=== PATIENT | female | born 1950 | race African-American/Black ===

== ENCOUNTER 2018-09-21 22:43 | Inpatient (IN) | payer MEDICARE, MEDICAID ==
[2018-09-21 23:59] LABS: #Eosinphils 0.1 thou/uL (0.0-0.7); #Lymphocytes 1.7 thou/uL (1.20-3.40); #Monocytes 0.6 thou/uL (0.11-0.59); #Neutrophils 2.7 thou/uL (1.40-6.50); %Basophils 0.7 % (0.0-1.0); %Eosinophils 1.8 % (0.0-10.0); %Lymphocytes 32.4 % (21.0-51.0); %Monocytes 12.3 % (0.0-10.0); %Neutrophils 52.8 % (42.0-75.0); Hemoglobin 8.6 g/dL (12.0-16.0); Mean Corpuscular HGB CONC 31.8 g/dL (32.0-36.0); Mean Corpuscular Hemoglobin 29.5 pg (27.0-31.0); Mean Corpuscular Volume 92.6 fL (78.0-98.0); Mean Platelet Volume 7.1 fL (7.4-10.4); Platelet Count 316 thou/uL (130-400); RBC Distribution Width 15.1 % (11.5-14.5); Red Blood Cell (RBC) Count 2.92 mill/uL (4.20-5.40); White Blood Cell (WBC) Count 5.2 thou/uL (4.8-10.8)
[2018-09-22 00:05] LABS: Prothrombin Time 13.2 SEC (12.0-14.7)
[2018-09-22 00:18] LABS: ALT (SGPT) 17 U/L (8-55); AST (SGOT) 20 U/L (5-34); Albumin 3.5 g/dL (3.4-4.8); Alkaline Phosphatase 116 U/L (40-150); Anion Gap 11 mmol/L (10-20); BUN (Urea Nitrogen) 27 mg/dL (9.8-20.1); Bilirubin, Total Less than 0.2 mg/dL (0.2-1.2); Calc. Creatinine Clearance 0 mL/min (70-130); Calcium 9.4 mg/dL (7.8-10.44); Carbon Dioxide 28 mmol/L (23-31); Chloride 106 mmol/L (98-107); Estimated GFR-MDRD 34; Globulin 2.9 g/dL (2.4-3.5); Glucose 189 mg/dL (80-115); Potassium 4.9 mmol/L (3.5-5.1); Protein, Total 6.4 g/dL (6.0-8.3); Sodium 140 mmol/L (136-145)
[2018-09-22] MEDS ORDERED: Fentanyl 100 MCG/2 ML VIAL ONE (00:24)
[2018-09-22] MEDS ORDERED: Ondansetron ODT 4 MG TAB SL PRN (02:13)
[2018-09-22] MEDS ORDERED: Ondansetron PF 4 MG/2 ML Vial IVP PRN (02:13)
[2018-09-22] MEDS ORDERED: Acetaminophen 325 MG TAB PO PRN (02:13)
[2018-09-22] MEDS ORDERED: Zolpidem Tartrate 5 MG TAB PO PRN (02:13)
[2018-09-22] MEDS ORDERED: Dextrose 50% Abboject 50 ML SYRINGE SLOW IVP PRN (02:15)
[2018-09-22] MEDS ORDERED: Dextrose 5% in Water 1,000 ML IV PRN (02:15)
[2018-09-22] MEDS ORDERED: HumaLOG 300 UNITS/3 ML VIAL SC PRN (02:15)
--- NOTE | 2018-09-22 02:24 | PDOC.EVN ---
Event Note - Event Note Event Note: H&P [id number]
[2018-09-22] MEDS ORDERED: Acetaminophen/Codeine 30-300mg Tablet ONE ×2 (02:49→11:46)
[2018-09-22] MEDS: Acetaminophen/Codeine 30-300mg Tablet PO PRN ×4 (02:51→23:41)
[2018-09-22 03:25] LABS: #Basophils 0.1 thou/uL (0.0-0.2); #Eosinphils 0.1 thou/uL (0.0-0.7); #Lymphocytes 1.3 thou/uL (1.20-3.40); #Monocytes 0.5 thou/uL (0.11-0.59); #Neutrophils 1.7 thou/uL (1.40-6.50); %Basophils 1.6 % (0.0-1.0); %Eosinophils 2.1 % (0.0-10.0); %Lymphocytes 35.6 % (21.0-51.0); %Neutrophils 47.7 % (42.0-75.0); Hemoglobin 7.9 g/dL (12.0-16.0); Mean Corpuscular HGB CONC 32.3 g/dL (32.0-36.0); Mean Corpuscular Hemoglobin 29.9 pg (27.0-31.0); Mean Corpuscular Volume 92.7 fL (78.0-98.0); Mean Platelet Volume 6.8 fL (7.4-10.4); Platelet Count 293 thou/uL (130-400); RBC Distribution Width 15.1 % (11.5-14.5); Red Blood Cell (RBC) Count 2.66 mill/uL (4.20-5.40); White Blood Cell (WBC) Count 3.6 thou/uL (4.8-10.8)
[2018-09-22 03:44] LABS: Anion Gap 13 mmol/L (10-20); BUN (Urea Nitrogen) 25 mg/dL (9.8-20.1); Calc. Creatinine Clearance 0 mL/min (70-130); Calcium 8.9 mg/dL (7.8-10.44); Carbon Dioxide 22 mmol/L (23-31); Chloride 111 mmol/L (98-107); Estimated GFR-MDRD 38; Glucose 178 mg/dL (80-115); Sodium 141 mmol/L (136-145)
--- NOTE | 2018-09-22 03:47 | HP ---
CHIEF COMPLAINT: GI bleed. HISTORY OF PRESENT ILLNESS: This is a 68-year-old female, being admitted to the hospital because of GI bleed. The patient's cousin at bedside. The patient states that she is very weak and sleepy and not able to provide a good history. States that she has been awake for more than 24 hours at this point in time. Per her cousin, the patient apparently walks, however, has a walker at home and has been terribly weak. The patient recently moved here from [place]. All of her physicians are in [place] and she does not know her medical history, nor is she able to provide her medical history with respect to her home medications that she is taking. The patient states that at this point in time, she feels stable, slightly better than prior. She was noted to have one bright red bloody movement in the ER. Otherwise, no other complaints or issues were noted. The patient was seen and examined in the ER, cousin at bedside. All questions answered. ALLERGIES: NO KNOWN DRUG ALLERGIES. REVIEW OF SYSTEMS: All systems reviewed. Pertinent positives in HPI, otherwise negative. FAMILY HISTORY: Diabetes, high blood pressure. SOCIAL HISTORY: Nondrinker, nonsmoker. PHYSICAL EXAMINATION: VITAL SIGNS: Blood pressure 174/118, O2 saturation 96% on room air, temperature of 98.6, pulse of 78, respiratory rate of 17. GENERAL: The patient is lying comfortably in bed. Obese. HEENT: NC/AT. PERRLA. EOMI. Oral cavity is moist and pink. NECK: Supple, mobile, nontender. Thyroid appreciated. CARDIOVASCULAR: Regular rate and rhythm. S1 and S2. No murmurs, rubs, or gallops appreciated. PULMONARY: No respiratory distress. Clear to auscultation bilaterally. ABDOMEN: Positive bowel sounds. Soft, nontender. No rebound or guarding noted. EXTREMITIES: 2+ peripheral pulses are noted. 1+ pitting edema in bilateral lower extremities noted. NEUROLOGIC: Cranial nerves 2 through 12 are intact. Alert and oriented x3. Slow in speech, however, oriented. No loss of sensory function. LABORATORY DATA: Hemoglobin is 8.6 on CBC. Coagulation panel normal. Creatinine 1.8 on basic metabolic panel, glucose of 189. ASSESSMENT: 1. Gastrointestinal bleed. 2. Diabetes mellitus, type 2. 3. Chronic kidney disease. 4. Anemia, likely secondary to gastrointestinal bleed versus chronic disease. 5. Congestive heart failure decompensation. 6. Hypertension. 7. Lower extremity edema. PLAN: At this point in time, we will admit the patient to internal medicine team. Consult to GI was placed. fluid resuscitation. We will hold off IV fluids at this point in time given hypertension that the patient is noted on vital signs. Otherwise, the patient is hemodynamically stable. N.p.o. for probable endoscopy to be needed if okay with GI. The patient wishes to remain a full code. Insulin for her diabetes. We will also consider renal consultation if the creatinine does not improve. We will provide the patient with atorvastatin as well as beta blockers for blood pressure. We will hold off on CHELSEA inhibitor given her renal insufficiency and we will hold off on aspirin given the GI bleed. Case and plan were discussed with the patient and family at length. They understand and agree with this plan. Job ID: [id number]
[2018-09-22 04:27] LABS: Troponin I Less than 0.010 ng/mL (< 0.028)
[2018-09-22] MEDS ORDERED: Metoprolol Tartrate 50 MG TAB ONE (09:03)
[2018-09-22] MEDS: Metoprolol Tartrate 50 MG TAB PO SCH ×2 (10:02→21:51)
[2018-09-22] MEDS ORDERED: hydrALAZINE 20 MG/ML VIAL ONE (11:45)
[2018-09-22] MEDS: hydrALAZINE 20 MG/ML VIAL SLOW IVP PRN (11:48)
[2018-09-22] MEDS ORDERED: Acetaminophen 325 MG TAB ONE (15:06)
[2018-09-22] MEDS ORDERED: GoLYTELY 4,000 ml Bottle PO SCH (16:00)
[2018-09-22 16:12] VITALS: BMI 44.7
--- NOTE | 2018-09-22 19:28 | CON ---
DATE OF CONSULTATION: 09/22/2018 REASON FOR CONSULTATION: GI bleed. HISTORY: Ms. Garcia is a 68-year-old female, who recently moved from [place] to [place] with a history of hypertension, diabetes, and congestive heart failure. She was doing well until yesterday when she had large amount of bloody bowel movements and rectal bleeding. Preceding to this, she had felt constipated. Three days ago, she took three Dulcolax by mouth. Two days ago, she took an additional three Dulcolax tablets. Yesterday, she had a good bowel movement, but subsequently found to have large amount of rectal bleeding. She did describe having some vague lower abdominal discomfort, but no severe abdominal pain. She denies having any nausea or vomiting. There is no fever or chills. Bleeding has subsided overnight and she only had a small amount of bloody stool so far in the ER today. She is without any orthostatic symptoms. PAST MEDICAL HISTORY: 1. Hypertension. 2. Adult-onset diabetes. 3. Chronic kidney disease. 4. Reported history of CHF. ALLERGIES: NONE. MEDICATIONS: The patient does not know what medication she is on at home. SOCIAL HISTORY: The patient recently moved from [place]. Her cousin lives in [place]. Denies any tobacco or alcohol usage. FAMILY HISTORY: Negative for any known GI problem, liver disease, or GI malignancy. REVIEW OF SYSTEMS: 10-point review of system was otherwise negative without any pertinent positives or negatives. PHYSICAL EXAMINATION: VITAL SIGNS: Temperature is 98.6, blood pressure 140/78, pulse of 82. GENERAL: She is alert, in no distress. HEENT: Shows anicteric sclerae. Oropharynx clear. NECK: Supple. CV: Shows normal S1 and S2. Regular rate and rhythm. CHEST: Shows a breath sounds. ABDOMEN: Very protuberant, but soft and nontender. No palpable mass or organomegaly but these are difficult to assess secondary to size. She has active bowel sounds. EXTREMITIES: Show 1+ pretibial and pedal edema. LABORATORY DATA: WBC is 3.6, hemoglobin 7.9 (8.6 last night at 11 o'clock), platelet count of 293. INR 1.0. Electrolytes within normal range. Creatinine is 1.62. LFTs are normal. ASSESSMENT: A 68-year-old female with evidence of GI bleeding characterized as hematochezia and rectal bleeding one day following taking oral Dulcolax. Bleeding is generally painless. Bleeding appears to have slowed down and stopped at this point. Clinical presentation is characteristic of painless diverticular bleed. Given her degree of anemia and not knowing her baseline, a brisk upper gastrointestinal bleed is also possible. RECOMMENDATIONS: 1. Continue to trend her blood count. 2. Transfuse if hemoglobin is less than 7 g/dl. 3. Will pursue bowel prep today for EGD/colonoscopy in a.m. 4. Continue to monitor blood count in the meantime. 5. GI prophylaxis with pantoprazole 40 mg IV daily for now, we may change to famotidine pending her endoscopy results. Job ID: [id number]
[2018-09-22] MEDS: Atorvastatin Calcium 40 MG TAB PO SCH (21:50)
[2018-09-22] MEDS: Insulin Glargine 5 UNITS in Pre-Filled Syringe 1 EACH SC SCH (21:51)
[2018-09-22] MEDS ORDERED: Gabapentin 300 MG CAP PO SCH (22:30)
[2018-09-23] MEDS: hydrALAZINE 20 MG/ML VIAL SLOW IVP PRN (07:50)
[2018-09-23] MEDS ORDERED: Fentanyl 100 MCG/2 ML VIAL ONE (09:35)
[2018-09-23] MEDS ORDERED: Sodium Bicarbonate 75 MEQ in Sodium Chloride 0.45% 1,000 ML IV SCH (09:45)
[2018-09-23 10:27] LABS: #Eosinphils 0.1 thou/uL (0.0-0.7); #Lymphocytes 1.2 thou/uL (1.20-3.40); #Monocytes 0.4 thou/uL (0.11-0.59); #Neutrophils 2.4 thou/uL (1.40-6.50); %Basophils 0.5 % (0.0-1.0); %Eosinophils 1.8 % (0.0-10.0); %Lymphocytes 28.9 % (21.0-51.0); %Monocytes 9.1 % (0.0-10.0); %Neutrophils 59.7 % (42.0-75.0); Hemoglobin 8.3 g/dL (12.0-16.0); Mean Corpuscular HGB CONC 31.7 g/dL (32.0-36.0); Mean Corpuscular Hemoglobin 29.1 pg (27.0-31.0); Mean Corpuscular Volume 91.8 fL (78.0-98.0); Mean Platelet Volume 6.7 fL (7.4-10.4); Platelet Count 288 thou/uL (130-400); RBC Distribution Width 15.5 % (11.5-14.5); Red Blood Cell (RBC) Count 2.86 mill/uL (4.20-5.40)
[2018-09-23 10:50] LABS: Albumin 3.3 g/dL (3.4-4.8); Anion Gap 13 mmol/L (10-20); BUN (Urea Nitrogen) 15 mg/dL (9.8-20.1); BUN/Creatinine Ratio 11.45; Calc. Creatinine Clearance 84 mL/min (70-130); Calcium 9.5 mg/dL (7.8-10.44); Carbon Dioxide 25 mmol/L (23-31); Chloride 111 mmol/L (98-107); Estimated GFR-MDRD 49; Glucose 127 mg/dL (80-115); Iron 45 ug/dL (50-170); Iron Binding Capacity, Total 241 mcg/dL (265-497); Iron Binding Capacity, Total 245 mcg/dL (265-497); Magnesium 1.4 mg/dL (1.6-2.6); Phosphorus 3.3 mg/dL (2.3-4.7); Potassium 4.5 mmol/L (3.5-5.1); Sodium 144 mmol/L (136-145)
[2018-09-23] MEDS: Metoprolol Tartrate 50 MG TAB PO SCH ×2 (12:11→20:35)
[2018-09-23] MEDS: Gabapentin 300 MG CAP PO SCH ×3 (12:11→20:35)
[2018-09-23] MEDS: Acetaminophen/Codeine 30-300mg Tablet PO PRN ×2 (12:12→18:26)
--- NOTE | 2018-09-23 12:15 | OP ---
DATE OF PROCEDURE: 09/23/2018 PREOPERATIVE DIAGNOSIS: Gastrointestinal bleed. DESCRIPTION OF PROCEDURE: Informed consent was obtained from the patient. She was sedated with total intravenous anesthesia. The bite block was placed, and the endoscope was advanced easily to the second portion of the duodenum, and retroflexion was performed in the stomach. The esophagus was normal. The GE junction was normal. The stomach was normal including retroflexed views. The pylorus and first and second portions of the duodenum were normal. The patient was turned around, and rectal exam was performed and was normal. The colonoscope was advanced to the terminal ileum without difficulty. The preparation quality was excellent. There was no residual blood in the colon. The mucosa of the terminal ileum was normal. The ileocecal valve and appendiceal orifice were clearly identified. There was a 7 mm vascular ectasia in the cecum, which bled when it was touched. This was cauterized with argon plasma coagulation. To achieve hemostasis, the wattage had to be turned up on the APC right colon settings from 10 to 25 morales. Six other small vascular ectasias were cauterized in the ascending colon. These did not appear to be significant bleeding sources. The remainder of the colonic mucosa was normal. Retroflexed views in the rectum were normal. IMPRESSION: 1. Normal esophagogastroduodenoscopy. 2. A 7-mm vascular ectasia in the cecum, which bled when it was touched, was cauterized with argon plasma coagulation with good hemostasis. This appears to be the bleeding source. 3. Six other small vascular ectasias were cauterized in the ascending colon. 4. Otherwise normal colonoscopy to the terminal ileum. RECOMMENDATIONS: 1. Advance diet. 2. Recheck her hemoglobin in the morning. 3. Hold Plavix for a week. 4. I will sign off for now, please call if GI can help. I would anticipate that she should be able to discharge home tomorrow morning. Job ID: [id number]
[2018-09-23] MEDS ORDERED: Amlodipine 10 MG TAB PO SCH (16:45)
[2018-09-23] MEDS ORDERED: Magnesium 2 GM/NS 0.9% 100 ML 4 GM in Premix Bag 1 BAG IVPB SCH (16:45)
--- NOTE | 2018-09-23 16:52 | PDOC.PN ---
- Subjective Encounter Start Date: 09/23/18 Encounter Start Time: 16:49 Subjective: Admitted with acute onset of hematochezia associated with weakness. -: Patient had taken stool softerner for constipation prior to onset. -: S/p EGD/Colonoscopy. Feeling better. Denied abd pain. - Objective Resuscitation Status - Order Detail: 09/22/18 02:13 Resuscitation Status Routine Resuscitation Status: FULL: Full Resuscitation Discussed with: patient Vital Signs & Weight: Vital Signs (12 hours) Temp Pulse Resp BP BP BP BP 09/23/18 16:00 98.3 F 66 16 203/81 H 09/23/18 15:10 75 164/70 H 159/70 H 09/23/18 11:55 79 20 169/75 H 09/23/18 07:50 79 207/79 H 09/23/18 07:46 99.2 F 70 18 207/79 H BP Pulse Ox 09/23/18 16:00 96 09/23/18 15:10 182/76 H 09/23/18 11:55 95 09/23/18 07:50 09/23/18 07:46 95 Weight Weight 277 lb 3.2 oz I&O: 09/22/18 09/23/18 09/24/18 06:59 06:59 06:59 Intake Total 680 Balance 680 Result Diagrams: 09/23/18 10:12 09/23/18 10:12 Additional Labs: Accuchecks 09/23/18 09/22/18 09/22/18 06:31 20:15 16:52 POC Glucose 109 234 H 94 Phys Exam - Physical Examination obese HEENT: PERRLA, moist MMs Neck: supple Respiratory: no rales, no rhonchi, clear to auscultation bilateral Cardiovascular: RRR soft systolic murmur noted Gastrointestinal: soft, no distention, positive bowel sounds morbidly obese Musculoskeletal: no edema, pulses present Neurological: non-focal, moves all 4 limbs Psychiatric: A&O x 3 Dx/Plan (1) Acute blood loss anemia Code(s): D62 - ACUTE POSTHEMORRHAGIC ANEMIA Status: Acute (2) Acute lower gastrointestinal bleeding Code(s): K92.2 - GASTROINTESTINAL HEMORRHAGE, UNSPECIFIED Status: Acute (3) Vascular ectasia of cecum Code(s): K55.20 - ANGIODYSPLASIA OF COLON WITHOUT HEMORRHAGE Status: Acute (4) Vascular ectasia of colon Code(s): K63.9 - DISEASE OF INTESTINE, UNSPECIFIED Status: Acute (5) Morbid obesity Code(s): E66.01 - MORBID (SEVERE) OBESITY DUE TO EXCESS CALORIES Status: Acute (6) Diabetes mellitus Code(s): E11.9 - TYPE 2 DIABETES MELLITUS WITHOUT COMPLICATIONS Status: Acute (7) KAYDEN (acute kidney injury) Code(s): N17.9 - ACUTE KIDNEY FAILURE, UNSPECIFIED Status: Acute (8) CKD (chronic kidney disease) Code(s): N18.9 - CHRONIC KIDNEY DISEASE, UNSPECIFIED Status: Acute (9) HTN (hypertension) Code(s): I10 - ESSENTIAL (PRIMARY) HYPERTENSION Status: Acute (10) Hyperchloremic metabolic acidosis Code(s): E87.2 - ACIDOSIS Status: Acute (11) Physical deconditioning Code(s): R53.81 - OTHER MALAISE Status: Acute - Plan add amlodipine to metoprolol to get better BP control -: Substitute NS with bicarb containing infusion. -: Monitor H/H and renal function. -: Advance diet as tolerated. -: Consult PT/OT * .
[2018-09-23] MEDS ORDERED: Magnesium Sulfate 4 GM in Sodium Chloride 0.9% 250 ML 250 ML IVPB SCH (17:00)
[2018-09-23] MEDS: HumaLOG 300 UNITS/3 ML VIAL SC PRN (17:16)
[2018-09-23] MEDS: Atorvastatin Calcium 40 MG TAB PO SCH (20:35)
[2018-09-23] MEDS: Insulin Glargine 5 UNITS in Pre-Filled Syringe 1 EACH SC SCH (20:35)
[2018-09-24] MEDS: hydrALAZINE 20 MG/ML VIAL SLOW IVP PRN (00:52)
[2018-09-24] MEDS ORDERED: hydrALAZINE 20 MG/ML VIAL SLOW IVP PRN (00:53)
[2018-09-24] MEDS: Acetaminophen/Codeine 30-300mg Tablet PO PRN ×2 (00:53→08:57)
[2018-09-24 07:29] LABS: #Eosinphils 0.1 thou/uL (0.0-0.7); #Lymphocytes 1.1 thou/uL (1.20-3.40); #Monocytes 0.6 thou/uL (0.11-0.59); #Neutrophils 3.5 thou/uL (1.40-6.50); %Basophils 0.3 % (0.0-1.0); %Eosinophils 1.6 % (0.0-10.0); %Lymphocytes 20.9 % (21.0-51.0); %Monocytes 11.3 % (0.0-10.0); Hemoglobin 8.7 g/dL (12.0-16.0); Mean Corpuscular HGB CONC 32.6 g/dL (32.0-36.0); Mean Corpuscular Hemoglobin 29.6 pg (27.0-31.0); Mean Corpuscular Volume 90.6 fL (78.0-98.0); Platelet Count 321 thou/uL (130-400); RBC Distribution Width 15.4 % (11.5-14.5); Red Blood Cell (RBC) Count 2.95 mill/uL (4.20-5.40); White Blood Cell (WBC) Count 5.3 thou/uL (4.8-10.8)
[2018-09-24 07:43] LABS: Anion Gap 12 mmol/L (10-20); BUN (Urea Nitrogen) 14 mg/dL (9.8-20.1); Calc. Creatinine Clearance 79 mL/min (70-130); Calcium 9.3 mg/dL (7.8-10.44); Carbon Dioxide 24 mmol/L (23-31); Chloride 110 mmol/L (98-107); Estimated GFR-MDRD 46; Glucose 147 mg/dL (80-115); Magnesium 2.4 mg/dL (1.6-2.6); Potassium 4.2 mmol/L (3.5-5.1); Sodium 142 mmol/L (136-145)
[2018-09-24] MEDS: Metoprolol Tartrate 50 MG TAB PO SCH (08:57)
[2018-09-24] MEDS: Gabapentin 300 MG CAP PO SCH (08:57)
[2018-09-24] MEDS: HumaLOG 300 UNITS/3 ML VIAL SC PRN ×2 (08:58→11:39)
[2018-09-24] MEDS ORDERED: Amlodipine 10 MG TAB PO SCH (09:00)
[2018-09-24] MEDS ORDERED: Polyethylene Glycol 3350 17 GM Packet PO SCH (09:00)
[2018-09-24 11:27] VITALS: BP 157/67; TEMP 98.5
--- NOTE | 2018-09-24 12:11 | DIS ---
DATE OF ADMISSION: 09/22/2018 DATE OF DISCHARGE: 09/24/2018 DISCHARGE DIAGNOSES: 1. Acute lower gastrointestinal bleeding. 2. Acute blood loss anemia. 3. Vascular ectasia of cecum. 4. Vascular ectasia of colon. 5. Morbid obesity. 6. Acute kidney injury. 7. Chronic kidney disease stage 3. 8. Type 2 diabetes mellitus. 9. Hypertension. 10. Hyperchloremic metabolic acidosis. 11. Physical deconditioning. CONSULT: Gastroenterology. HOSPITAL COURSE: A 68-year-old obese female with past medical history significant for diabetes and hypertension, who is on aspirin and Plavix, admitted due to acute onset of bloody stools associated with generalized weakness. The patient was resuscitated with IV fluid and subsequently was seen by GI. She was prepared and subsequently had upper and lower endoscopy. Upper endoscopy was unremarkable. However, a colonoscopy showed vascular malformation/ectasia of the cecum, which was noted to be bleeding when touched and this was felt to be the source of the bleeding. This was treated with argon laser coagulation. The patient also was noted to have 6 other vascular ectasias in the ascending colon. She was treated with cauterization. The patient was monitored subsequently, and hemoglobin and hematocrit remained stable. She however also was found to have acute kidney injury associated with hyperchloremic metabolic acidosis, which was treated with bicarb containing IV fluid with improvement. The patient also was noted to have physical deconditioning and was seen by Physical therapy. Home health and home PT were recommended. The patient remained hemodynamically stable and was subsequently discharged home. She was noted to have uncontrolled high blood pressure. Hence, amlodipine was added to her usual medications. PROCEDURE PERFORMED: During this hospitalization; 1. Esophagogastroduodenoscopy. 2. Colonoscopy. PHYSICAL EXAMINATION: VITAL SIGNS: Temperature 98.4, pulse 64, respiratory rate 18, SpO2 of 95% on room air, blood pressure 156/69. GENERAL: Obese female, in no obvious distress. Afebrile, anicteric, acyanotic. HEENT: Normocephalic, atraumatic. Pupils are equal and reacting to light. CARDIOVASCULAR: Regular rhythm and rate with normal heart sounds 1 and 2. RESPIRATORY: Good air entry bilaterally with no obvious crackle or rhonchi. GI: Abdomen is obese, soft, nontender, nondistended with normal bowel sounds. EXTREMITIES: Grossly normal looking, atraumatic. No edema or erythema. NEUROLOGIC: Conscious, alert, oriented x3 with appropriate mental status. Cranial nerves 2 through 12 are intact. The patient is ambulant with a walker. CONDITION AT DISCHARGE: Improved and stable. DISCHARGE FOLLOWUP INSTRUCTIONS: 1. The patient was instructed to hold aspirin and Plavix for one week. She is to restart aspirin and Plavix on October 01, 2018. 2. The patient was instructed to follow with the PCP within 1 week of discharge. 3. Discharge took 38 minutes. Job ID: [id number]
[2018-09-25] MEDS ORDERED: Losartan 25 MG TAB PO SCH (09:00)
[2018-09-25] MEDS ORDERED: Non-Formulary Item 1 EACH (Losartan Potassium [Cozaar] 100 MG) PO SCH (09:00)
--- NOTE | 2018-09-25 15:42 | EKG ---
Test Reason : RECTAL BLEED Blood Pressure : / mmHG Vent. Rate : 060 BPM Atrial Rate : 060 BPM P-R Int : 136 ms QRS Dur : 124 ms QT Int : 466 ms P-R-T Axes : 011 016 031 degrees QTc Int : 466 ms Normal sinus rhythm Right bundle branch block Abnormal ECG Confirmed by LESVIA COBB M.D. ([id number]), make up editor VAISHALI FERNÁNDEZ ([id number]) on 09/25/2018 3:42:16 PM Referred By: Confirmed By:LESVIA COBB M.D.
--- NOTE | 2018-09-25 15:45 | EKG ---
Test Reason : Blood Pressure : / mmHG Vent. Rate : 062 BPM Atrial Rate : 062 BPM P-R Int : 130 ms QRS Dur : 120 ms QT Int : 468 ms P-R-T Axes : -01 008 040 degrees QTc Int : 475 ms Normal sinus rhythm Right bundle branch block Abnormal ECG Confirmed by JORDYN Pires, LESVIA ([id number]), scientific publications editor VAISHALI FERNÁNDEZ ([id number]) on 09/25/2018 3:45:25 PM Referred By: Confirmed By:LESVIA COBB M.D.
== END 2018-09-24 14:55 | disposition home health service (06) | DRG 378 ==
LOC: ERS 22:43 → ERHOLD 09-22 00:10 → 2SE 09-22 15:11
PROVIDERS: ADMIT Internal Medicine; ATTEND Internal Medicine
PROC: 0W3P8ZZ Control Bleeding in Gastrointestinal Tract, Via Natural or Artificial Opening Endoscopic (ICD-10-PCS; principal; 2018-09-23)
PROC: 0DJ08ZZ Inspection of Upper Intestinal Tract, Via Natural or Artificial Opening Endoscopic (ICD-10-PCS; 2018-09-23)
DX: K55.21 Angiodysplasia of colon with hemorrhage (principal); D62 Acute posthemorrhagic anemia; N17.9 Acute kidney failure, unspecified; Z68.41 Body mass index [BMI] 40.0-44.9, adult; E11.22 Type 2 diabetes mellitus with diabetic chronic kidney disease; I12.9 Hypertensive chronic kidney disease with stage 1 through stage 4 chronic kidney disease, or unspecified chronic kidney disease; N18.9 Chronic kidney disease, unspecified; E66.01 Morbid (severe) obesity due to excess calories; E78.2 Mixed hyperlipidemia; R53.81 Other malaise
CPT/HCPCS: 36415; 36416; 80048; 80053; 80069; 83540; 83550; 83735; 84484; 85025; 85610; 85730; 86850; 86900; 86901; 93005; 93010; J0360; J1825; J3010; J3475; J7050

== ENCOUNTER 2018-10-25 16:23 | Inpatient (IN) | payer MEDICARE, MEDICAID ==
[2018-10-25] MEDS ORDERED: Ketorolac Tromethamine 30 MG/ML VIAL ONE (17:17)
--- NOTE | 2018-10-25 19:14 | ULT ---
BILATERAL VENOUS ULTRASOUND OF BOTH LOWER EXTREMITIES: History: History of bilateral lower extremity DVT, currently being treated with aspirin. Patient is e xperiencing bilateral lower extremity pain. TECHNIQUE: Singh scale, color Doppler, and vascular duplex with spectral analysis was performed of the deep venou s structures of both lower extremities. The common femoral vein, superficial femoral vein, popliteal vein, posterior tibial vein, proximal greater saphenous, and proximal profunda veins were assessed bi laterally. Comparison: None. FINDINGS: There is diminished compression and flow involving the mid to distal femoral veins bilaterally. There is also diminished flow and compressibility involving the left profunda femoral vein. There is appro priate flow and compression seen in the left common femoral vein, right profunda femoral vein, bilate ral greater saphenous veins, popliteal vein and posterior tibial veins. IMPRESSION: 1. Findings of partially occlusive thrombus within the mid to distal femoral veins bilaterally. 2. Partial thrombus within the left profunda femoral vein. POS: BH
--- NOTE | 2018-10-25 19:45 | PDOC.FPRHP ---
- History of Present Illness Chief Complaint: leg pain History of Present Illness: 68F with pmh of CVA presents for 2 day history of "funny feeling legs" pt was found in ED to have bilateral DVT. Pt reports she has possible history of previous DVT or some other vascular issue back in 2017 and then again in August 2018. She is unsure of what the issue was, what her medication was supposed to be or if she had proper follow up. She is overall a poor historian. She has never had a PE. Of note pt is on plavix and ASA for hx of CVA and was also hospitalized in late september with lower GIB and had upper and lower scopes done showing Cecal and ascending colon vascular malformations/ectasia which were treated with photocoag and cauterization therapy. Pt was discharge home after stable h/h's with plan of holding plavix and ASA for 1 week. ED Course: bilateral LE US- bilateral DVTs in femoral veins, worse on L. Lovenox administered in ED - Allergies/Adverse Reactions Allergies Allergy/AdvReac Type Severity Reaction Status Date / Time pregabalin [From Lyrica] AdvReac made pain Verified 10/25/18 22:25 worse - Home Medications Medication Instructions Recorded Confirmed Type RX: Acetaminophen With Codeine 1 tablet PO Q6HR PRN 09/22/18 10/25/18 History [Tylenol with Codeine #3] RX: Albuterol Sulfate [Proair HFA] 1 puff INH Q4HR PRN 09/22/18 10/25/18 History RX: Aspirin [Maite Chewable 81 mg PO HS 09/22/18 10/25/18 History Aspirin] RX: Atorvastatin Calcium 80 mg PO HS 09/22/18 10/25/18 History RX: Carvedilol [Coreg] 12.5 mg PO BID 09/22/18 10/25/18 History RX: Citalopram Hydrobromide 40 mg PO DAILY 09/22/18 10/25/18 History [CeleXA] RX: Clopidogrel Bisulfate [Plavix] 75 mg PO DAILY 09/22/18 10/25/18 History RX: Docusate Sodium 100 mg PO DAILY 09/22/18 10/25/18 History RX: Famotidine 20 mg PO HS 09/22/18 10/25/18 History RX: Fluticasone/Salmeterol [Advair 2 inh IH BID 09/22/18 10/25/18 History HFA 45 Inhaler] RX: Gabapentin 300 mg PO TID 09/22/18 10/25/18 History RX: LORazepam [Lorazepam] 1 mg PO HS 09/22/18 10/25/18 History RX: Losartan Potassium [Cozaar] 100 mg PO DAILY 09/22/18 10/25/18 History RX: Nitroglycerin [Nitrostat] 0.4 mg SL Q5MIN 09/22/18 10/25/18 History RX: Oxybutynin [Ditropan] 5 mg PO HS 09/22/18 10/25/18 History RX: glipiZIDE [Glipizide] 5 mg PO DAILY 09/22/18 10/25/18 History RX: metFORMIN [Glucophage] 1,000 mg PO BID-WM 09/22/18 10/25/18 History RX: traZODone HCl [Trazodone HCl] 50 mg PO HS 09/22/18 10/25/18 History RX: Amlodipine [Norvasc] 10 mg PO DAILY #30 tab 09/24/18 10/25/18 Rx RX: Polyethylene Glycol 3350 17 gm PO DAILY #30 pk 09/24/18 10/25/18 Rx [Miralax] Ergocalciferol (Vitamin D2) 50,000 unit PO Q7DAYS 10/25/18 10/25/18 History [Vitamin D2] Ferrous Sulfate [Iron] 1 tablet PO DAILY 10/25/18 10/25/18 History Furosemide [Lasix] 40 mg PO DAILY 10/25/18 10/25/18 History Pregabalin [Lyrica] 50 mg PO TID 10/25/18 10/25/18 History RX: Potassium Chloride 10 meq PO DAILY 10/25/18 10/25/18 History hydrALAZINE HCl [Hydralazine HCl] 50 mg PO BID 10/25/18 10/25/18 History - History PMHx: DM2, HTN, PAD, HLD, Peripheral neuropathy, normocytic anemia 2/2 acute blood loss, Hx of CVA PSHx: unspecified leg surgery FHx: ND, DM Social: smoked until 2 months ago, smoked about 1 pack a week since her 30s. No drug use. No alcohol use in several years, social use prior to that. - Review of Systems General: denies: fever/chills, fatigue Eyes: denies: eye pain, vision changes ENT: denies: nasal congestion, rhinorrhea Respiratory: denies: congestion, shortness of breath Cardiovascular: denies: chest pain, palpitation Gastrointestinal: denies: nausea, vomiting Genitourinary: denies: incontinence, dysuria Skin: denies: lesions, jaundice Musculoskeletal: reports: pain. denies: tenderness Neurological: denies: syncope, seizure Psychological: denies: anxiety, depression - Vital signs BP: 160/70, Pulse: 87, Resp: 18, Temp: 98.5 (Oral), Pain: 9, O2 sat: 97 on Room Air, Time: 10/25/2018 16:58. weight 125kg - Physical Exam Constitutional: NAD, awake, alert and oriented, well developed HEENT: EOMI, grossly normal vision, grossly normal hearing Neck: supple, trachea midline Chest: no-tender to palpation Heart: RRR, normal S1/S2 -Heart: LE bilaterally mild edema with no pitting, symetric in appearance Lungs: CTAB, no respiratory distress Abdomen: soft, non-tender Musculoskeletal: normal structure, normal tone Neurological: no focal deficit, normal sensation Skin: no rash/lesions, good turgor Heme/Lymphatic: no purpura, no petechia Psychiatric: normal mood and affect, good judgment and insight FMR H&P: Results - Labs Result Diagrams: 10/26/18 04:42 10/26/18 04:42 FMR H&P: A/P - Problem List (1) DVT (deep venous thrombosis) Current Visit: Yes Status: Acute Code(s): I82.409 - ACUTE EMBOLISM AND THOMBOS UNSP DEEP VN UNSP LOWER EXTREMITY (2) Diabetes mellitus Current Visit: No Status: Acute Code(s): E11.9 - TYPE 2 DIABETES MELLITUS WITHOUT COMPLICATIONS (3) HTN (hypertension) Current Visit: No Status: Acute Code(s): I10 - ESSENTIAL (PRIMARY) HYPERTENSION (4) Morbid obesity Current Visit: No Status: Acute Code(s): E66.01 - MORBID (SEVERE) OBESITY DUE TO EXCESS CALORIES (5) Physical deconditioning Current Visit: No Status: Acute Code(s): R53.81 - OTHER MALAISE (6) Vascular ectasia of cecum Current Visit: No Status: Acute Code(s): K55.20 - ANGIODYSPLASIA OF COLON WITHOUT HEMORRHAGE (7) Vascular ectasia of colon Current Visit: No Status: Acute Code(s): K63.9 - DISEASE OF INTESTINE, UNSPECIFIED - Plan Bilateral LE DVT A- Likely provoked from limited mobility 2/2 morbid obesity and recent hospitalization, pt has already received one dose of lovenox in ED but should not be coagulated further until GI has deemed it ok considering pts recent hospitalization for GIB. Pt currently not showing s/s of PE P- recommend GI consult in AM, plan for either anticoagulation vs. IVC filter placement Hx of LGIB A- H/h stable from last visit, pt denies further GIB since discharge P- will hold further anticoag for now bloodloss KAYDEN A- Cr elevated since last hospitalization following LGIB P- will start on maintenance fluids for the night and recheck kidney function in AM CHF A- pt not in acute exacerbation P- monitor respiratory status, will likely DC IVF in AM HTN -home meds HLD -home meds DM -home meds, accuchecks, SSI PVD -home meds COPD -home meds CODE: FULL FMR H&P: Upper Level - Pertinent history 68 yr old female with PMH of recent GI bleed Her legs were feeling funny and tightening up yesterday. No recent long road trip. Patient reports a hx of DVT and they placed a "baloon." On further review of her records in the clinic, it appears she is likely referencing her severe PAD. No chest pain, SOB, abdominal pain. Hospitalized in 09/2018 for GI bleed. see note below. No blood in her stool since her DC in 09/2018. Pertinent GI bleeding hx in 09/22/2018 7 mm vascular ectasia in cecum that was cauterized. 6 other small non bleeding ectasias that were not cauterized. normal EGD - Pertinent findings Gen: lying in bed, sits up occasionally and puts to her legs in pain Heart: RRR, no M/R/G Lungs: CTAB no wheezes, rhales, rhonchi Abd: Soft, non tender Ext: No LE swelling. Neuro: no focal neurologic deficits - Plan Date/Time: 10/25/181942 I, [Renata Muehr], have evaluated this patient and agree with findings/plan as outlined by customer operations intern resident. Pertinent changes/additions are listed here. Bilateral LE DVT -?provoked vs nonprovoked- she is relatively immobile -Unclear if she has a hx of DVT but appears to be referencing PVD -in light of recent GI bleed, will need to determine if anticoagulation would be an option or if a filter would be better option -consult GI to help in decision of anticoagulation -received therapeutic lovenox in ER, will hold on further doses of this until GI recs. KAYDEN on CKD -will give 500 ml fluid bolus -recheck BMP in AM DM -10/15/2018: Hgb A1C was 7.0 -cont home glipizide and metformin PVD HX of CVA -previously on plavix and ASA -if anticoagulation continued, will likely need to cont only 1 antiplatelet, hold for now Chronic pain -constant hand and leg burning pain for which she has been seen by pain mgmt in [place], [place] -records reviewed -restart home pain meds PRN -recently started on lyrica but patient reports this makes the pain worse, will hold it. Code: Full PCP: Dr. Onesimo FITZPATRICK ppx: none Addendum - Attending - Attending Attestation Date/Time: 10/26/18 [id number] I personally evaluated the patient and discussed the management with Dr. Oneal on 10/25/2018 I agree with the History, Examination, Assessment and Plan documented above with any addition or exceptions noted below- 68 yo female with h/o PAD, CAD, HTN , DM, HLD, peripheral neuropathy, and recent lower GI bleed secondary to vascular ectasias presented c/o funny feeling in her legs. States that the feeling began night prior to admission. has noted some increased lswelling in her legs for the last 2 weeks. Denies any CP, SOB. States that she did go on a trip to [place] about 1 week ago by car. PMH/PSH/All/Meds/SH reviewed and agree with residents documentation. Afebrile BP 206/84 P70 RR 16 98% RA Exam repeated by me and agree with residents findings. Labs: WBC=3.8, H/H=8.6/26.2, QJ=005, K=4.3, VI=305, CO2=22, BUN/Cr=34/2.04, Pppr=020, Venogram- partially occlusive thrombus within mid to distal femiral veins b/l. A/P: 1) B/L DVT- Admit to tele. Given 1 dose of lovenox in ER. Treatment complicated by recent h/ o GI bleed. Will contact GI regarding further anticoagulation versus placement of IVC filter. 2 Anemia- stable; continue to monitor. 3) HTN- resume home medications. 4) DM-continue home medications, 5) KAYDEN- Cr above baseline; will give fluids overnight and recheck.
[2018-10-25] MEDS ORDERED: Morphine 4 MG/ML VIAL ONE (19:46)
[2018-10-25] MEDS ORDERED: Ondansetron PF 4 MG/2 ML Vial ONE (19:47)
[2018-10-25 20:10] LABS: #Basophils 0.1 thou/uL (0.0-0.2); #Eosinphils 0.1 thou/uL (0.0-0.7); #Lymphocytes 1.4 thou/uL (1.20-3.40); #Monocytes 0.5 thou/uL (0.11-0.59); #Neutrophils 1.9 thou/uL (1.40-6.50); %Basophils 1.3 % (0.0-1.0); %Eosinophils 2.4 % (0.0-10.0); %Lymphocytes 35.4 % (21.0-51.0); %Monocytes 12.1 % (0.0-10.0); %Neutrophils 48.7 % (42.0-75.0); Hemoglobin 8.6 g/dL (12.0-16.0); Mean Corpuscular HGB CONC 32.6 g/dL (32.0-36.0); Mean Corpuscular Hemoglobin 29.7 pg (27.0-31.0); Mean Platelet Volume 7.6 fL (7.4-10.4); Platelet Count 211 thou/uL (130-400); RBC Distribution Width 15.4 % (11.5-14.5); Red Blood Cell (RBC) Count 2.88 mill/uL (4.20-5.40); White Blood Cell (WBC) Count 3.8 thou/uL (4.8-10.8)
[2018-10-25 20:21] LABS: PTT 33.2 SEC (22.9-36.1); Prothrombin Time 13.1 SEC (12.0-14.7)
[2018-10-25 20:31] LABS: ALT (SGPT) 14 U/L (8-55); AST (SGOT) 17 U/L (5-34); Albumin 3.3 g/dL (3.4-4.8); Alkaline Phosphatase 94 U/L (40-150); Anion Gap 14 mmol/L (10-20); BUN (Urea Nitrogen) 34 mg/dL (9.8-20.1); Bilirubin, Total 0.2 mg/dL (0.2-1.2); Calc. Creatinine Clearance 0 mL/min (70-130); Calcium 9.4 mg/dL (7.8-10.44); Carbon Dioxide 22 mmol/L (23-31); Chloride 108 mmol/L (98-107); Estimated GFR-MDRD 29; Globulin 2.9 g/dL (2.4-3.5); Glucose 194 mg/dL (80-115); Potassium 4.3 mmol/L (3.5-5.1); Protein, Total 6.2 g/dL (6.0-8.3); Sodium 140 mmol/L (136-145)
[2018-10-25] MEDS ORDERED: Enoxaparin Sodium 30 MG/0.3 ML SYRINGE ONE ×2 (20:34→20:35)
[2018-10-25] MEDS ORDERED: Enoxaparin Sodium 100 MG/ML SYRINGE ONE (20:34)
--- NOTE | 2018-10-25 21:44 | RAD ---
KUB: 10/25/2018 COMPARISON: None HISTORY: Evaluate for IVC filter FINDINGS: There is a right hip arthroplasty. There is a dorsal column stimulator present with leads o verlying the mid thoracic spine. Clips in the right upper quadrant suggest prior cholecystectomy. No IVC filter noted. IMPRESSION: No IVC filter noted.
[2018-10-25] MEDS ORDERED: Ondansetron PF 4 MG/2 ML Vial IVP PRN (22:15)
[2018-10-25] MEDS ORDERED: Calcium Carbonate 500 MG ChewTAB PO PRN (22:15)
[2018-10-25 22:31] VITALS: BMI 45.3
[2018-10-25] MEDS ORDERED: PROVENTIL INHALER 6.7 G (200 INHALATIONS) INH PRN (22:48)
[2018-10-25] MEDS ORDERED: hydrALAZINE 25 MG TAB PO SCH (23:45)
[2018-10-25] MEDS ORDERED: Carvedilol 6.25 MG TAB PO SCH (23:45)
[2018-10-26] MEDS: Lactated Ringer's 1,000 ML IV SCH ×4 (01:23→21:29)
[2018-10-26] MEDS: Labetalol HCl 100 MG/20 ML VIAL SLOW IVP PRN ×2 (01:23→05:35)
[2018-10-26] MEDS: Acetaminophen 325 MG TAB PO PRN (01:24)
[2018-10-26] MEDS ORDERED: Dextrose 5% in Water 1,000 ML IV PRN ×2 (02:57→03:21)
[2018-10-26] MEDS ORDERED: Dextrose 50% Abboject 50 ML SYRINGE SLOW IVP PRN ×2 (02:57→03:21)
[2018-10-26] MEDS ORDERED: HumaLOG 300 UNITS/3 ML VIAL SC PRN (03:21)
[2018-10-26 05:03] LABS: #Eosinphils 0.1 thou/uL (0.0-0.7); #Lymphocytes 1.3 thou/uL (1.20-3.40); #Monocytes 0.5 thou/uL (0.11-0.59); %Basophils 0.8 % (0.0-1.0); %Eosinophils 3.3 % (0.0-10.0); %Lymphocytes 32.3 % (21.0-51.0); %Monocytes 11.6 % (0.0-10.0); %Neutrophils 52.1 % (42.0-75.0); Hemoglobin 8.9 g/dL (12.0-16.0); Mean Corpuscular HGB CONC 32.7 g/dL (32.0-36.0); Mean Corpuscular Hemoglobin 29.9 pg (27.0-31.0); Mean Corpuscular Volume 91.5 fL (78.0-98.0); Mean Platelet Volume 7.7 fL (7.4-10.4); Platelet Count 210 thou/uL (130-400); RBC Distribution Width 15.5 % (11.5-14.5); Red Blood Cell (RBC) Count 2.96 mill/uL (4.20-5.40); White Blood Cell (WBC) Count 3.9 thou/uL (4.8-10.8)
[2018-10-26 05:13] LABS: Anion Gap 16 mmol/L (10-20); BUN (Urea Nitrogen) 33 mg/dL (9.8-20.1); Calc. Creatinine Clearance 63 mL/min (70-130); Calcium 9.1 mg/dL (7.8-10.44); Carbon Dioxide 19 mmol/L (23-31); Chloride 109 mmol/L (98-107); Estimated GFR-MDRD 35; Glucose 191 mg/dL (80-115); Potassium 4.6 mmol/L (3.5-5.1); Sodium 139 mmol/L (136-145)
[2018-10-26] MEDS: HumaLOG 300 UNITS/3 ML VIAL SC PRN ×3 (05:35→17:32)
[2018-10-26] MEDS: Amlodipine 10 MG TAB PO SCH (06:34)
--- NOTE | 2018-10-26 06:50 | PDOC.FM ---
- Subjective Subjective: Still endorses pain in lower legs, worse in left. Denies GI bleeding. No chest pain or problems breathing. - Objective MAR Reviewed: Yes Vital Signs & Weight: Vital Signs (12 hours) Temp Pulse Resp BP BP BP Pulse Ox 10/26/18 05:35 66 207/84 H 10/26/18 05:20 207/84 H 10/26/18 03:06 98.8 F 66 18 203/79 H 95 10/26/18 01:23 77 223/90 H 10/26/18 00:57 77 223/90 H 10/25/18 23:47 206/84 H 10/25/18 23:46 72 206/84 H 10/25/18 21:58 98.2 F 70 16 206/84 H 98 Weight Weight 127.459 kg I&O: 10/24/18 10/25/18 10/26/18 06:59 06:59 06:59 Intake Total 1275 Output Total 1550 Balance -275 Result Diagrams: 10/26/18 04:42 10/26/18 04:42 Phys Exam - Physical Examination Constitutional: NAD obese HEENT: PERRLA, moist MMs Respiratory: no wheezing, clear to auscultation bilateral Cardiovascular: RRR, no significant murmur trace edema in BLE, pain with palpation in both calves L worse than R Neurological: non-focal, moves all 4 limbs Psychiatric: A&O x 3 Dx/Plan (1) History of lower GI bleeding Code(s): Z87.19 - PERSONAL HISTORY OF OTHER DISEASES OF THE DIGESTIVE SYSTEM Status: Acute (2) Anemia Code(s): D64.9 - ANEMIA, UNSPECIFIED Status: Acute (3) DVT (deep venous thrombosis) Code(s): I82.409 - ACUTE EMBOLISM AND THOMBOS UNSP DEEP VN UNSP LOWER EXTREMITY Status: Acute (4) KAYDEN (acute kidney injury) Code(s): N17.9 - ACUTE KIDNEY FAILURE, UNSPECIFIED Status: Acute (5) CKD (chronic kidney disease) Code(s): N18.9 - CHRONIC KIDNEY DISEASE, UNSPECIFIED Status: Acute (6) HTN (hypertension) Code(s): I10 - ESSENTIAL (PRIMARY) HYPERTENSION Status: Acute - Plan Plan: 68 yo F with hx of CVA and lower GI bleed 2/2 vascular ectasias admitted for b/ l LE DVT #Bilateral LE DVT -Provoked vs. unprovoked. Meets several hypercoaguable risk factors including morbid obesity, 30pack year, stasis -S/p 160mg of lovenox in ED. However recent lower GIB from vascular ecstasias s/ p cauterization, will consult GI for further recs -In addition pt has been on DUAP for prior CVA, will hold both for now -Consider IVC filter in this patient #KAYDEN vs CKD -Cr improved, mildly elevated around baselie -Continue mIVF #DM2 -10/15/2018: Hgb A1C was 7.0 -hold meds due to NPO status, sliding scale to cover -hold home metformin due to renal function #HX of CVA -previously on plavix and ASA -if anticoagulation continued, will likely need to continue only 1 antiplatelet , hold for now #Chronic pain -constant hand and leg burning pain for which she has been seen by pain mgmt in [place], [place] -records reviewed -restart home pain meds PRN -recently started on lyrica but patient reports this makes the pain worse, will hold it. Code: Full PCP: Dr. Onesimo FITZPATRICK ppx: none
[2018-10-26] MEDS: Mometasone/Formoterol 120 PUFF INHALER INH SCH ×2 (07:00→18:07)
[2018-10-26] MEDS ORDERED: glipiZIDE 5 MG TAB PO SCH (07:30)
[2018-10-26] MEDS ORDERED: Ferrous Sulfate 325 MG TAB PO SCH (08:00)
[2018-10-26 08:53] LABS: Iron 50 ug/dL (50-170); Iron Binding Capacity, Total 246 mcg/dL (265-497)
[2018-10-26] MEDS ORDERED: SALMETEROL IH SCH (09:00)
[2018-10-26] MEDS ORDERED: FLUTICASONE IH SCH (09:00)
[2018-10-26] MEDS ORDERED: hydrALAZINE 20 MG/ML VIAL SLOW IVP PRN (09:08)
[2018-10-26] MEDS: Carvedilol 6.25 MG TAB PO SCH ×2 (09:18→19:33)
[2018-10-26] MEDS: Citalopram 20 MG TAB PO SCH (09:18)
[2018-10-26] MEDS: Furosemide 40 MG TAB PO SCH (09:18)
[2018-10-26] MEDS: metFORMIN 500 MG TAB PO SCH ×2 (09:19→17:32)
[2018-10-26] MEDS: Gabapentin 300 MG CAP PO SCH ×3 (09:19→19:31)
[2018-10-26] MEDS: Losartan 25 MG TAB PO SCH (09:19)
[2018-10-26] MEDS: Potassium Chloride 10 MEQ TAB PO SCH (09:19)
[2018-10-26] MEDS: Ferrous Sulfate 325 MG TAB PO SCH (09:23)
[2018-10-26] MEDS: hydrALAZINE 25 MG TAB PO SCH ×2 (10:10→19:32)
[2018-10-26] MEDS: Acetaminophen/Codeine 30-300mg Tablet PO PRN ×2 (10:18→17:32)
--- NOTE | 2018-10-26 14:49 | PRG ---
DATE OF SERVICE: 10/26/2018 Ms. Garcia is a 68-year-old obese, black female, who was admitted with bilateral DVT. Of note is the fact that she had a GI bleed approximately three weeks ago due to ectasias in her colon, which was subsequently cauterized. She has had no bleeding since. We are going to ask GI for an opinion regarding the use of anticoagulants in this patient, but I believe we should proceed with anticoagulation until we get input from the GI Service. Job ID: [id number]
[2018-10-26] MEDS ORDERED: Enoxaparin Sodium 100 MG/ML SYRINGE SC SCH (16:30)
[2018-10-26 16:35] LABS: Folate (Folic Acid) 7.7 ng/mL (7.0-31.4)
[2018-10-26] MEDS: Atorvastatin Calcium 40 MG TAB PO SCH (19:31)
[2018-10-26] MEDS: Enoxaparin Sodium 100 MG/ML SYRINGE SC SCH (19:31)
[2018-10-26] MEDS: Enoxaparin Sodium 30 MG/0.3 ML SYRINGE SC SCH (19:31)
[2018-10-26] MEDS: Lorazepam 1 MG TAB PO SCH (19:32)
[2018-10-26] MEDS: Oxybutynin 5 MG TAB PO SCH (19:32)
[2018-10-26] MEDS: traZODone HCl 50 MG TAB PO SCH (19:32)
[2018-10-26] MEDS: Famotidine 20 MG TAB PO SCH (19:33)
--- NOTE | 2018-10-26 22:10 | CON ---
DATE OF CONSULTATION: 10/26/2018 CHIEF COMPLAINT: Leg swelling and pain. HISTORY OF PRESENT ILLNESS: Ms. Garcia is a 68-year-old woman who came in through the emergency room yesterday with bilateral lower extremity swelling and tenderness and pain. She had a venogram performed that showed bilateral DVTs in the lower extremities. She had a partially occlusive thrombus within the mid to distal femoral veins bilaterally and a partial thrombus within the left profunda femoral vein. GI was consulted because she needs anticoagulation for the DVTs. However, she was just admitted a month ago with GI bleed. I performed EGD and colonoscopy for Ms. Garcia on 09/23/2018. The upper endoscopy was normal. She had a suspicious, moderately large vascular ectasia in the cecum which was cauterized. Six other small vascular ectasias were cauterized in the ascending colon. The colonoscopy was otherwise normal to the terminal ileum. She has had no further overt bleeding since the colonoscopy, however, her hemoglobin has not returned to normal and her discharge hemoglobin on 09/24/2018 was 8.7, and her admission hemoglobin yesterday was 8.6. Today, her hemoglobin is 8.9. She has had no nausea or vomiting. She had a brief episode of lower abdominal discomfort this morning, but no abdominal pain otherwise over the last month. No diarrhea, constipation, or red stools or black stools. She lives alone and she relies on her family members to help with decisions. PAST MEDICAL HISTORY: Recent GI bleed from vascular ectasias, cauterized in the colon, diabetes mellitus, hypertension, hyperlipidemia, stroke. PAST SURGICAL HISTORY: Leg surgery, upper and lower endoscopy. FAMILY HISTORY: Negative for GI malignancies. SOCIAL HISTORY: No alcohol, tobacco, or drugs. ALLERGIES: NO KNOWN DRUG ALLERGIES. MEDICATIONS: 1. Aspirin. 2. Atorvastatin. 3. Carvedilol. 4. Plavix. 5. Docusate. 6. Famotidine. 7. Gabapentin. 8. Fluticasone. 9. Lorazepam. 10. Losartan. 11. Nitroglycerin. 12. Oxybutynin. 13. Glipizide. 14. Metformin. 15. Trazodone. 16. Amlodipine. 17. Polyethylene glycol. 18. Ergocalciferol. 19. Iron sulfate. 20. Lyrica. 21. Furosemide. 22. Hydralazine. 23. Potassium. REVIEW OF SYSTEMS: Negative x10 systems reviewed except as stated in the history of present illness. PHYSICAL EXAMINATION: VITAL SIGNS: Temperature 98.1, pulse 64, blood pressure 217/89, repeat was 148/63. GENERAL: She is in no acute distress. Awake and alert. HEENT: Her eyes have no scleral icterus. Oropharynx is clear without lesions. No cervical or supraclavicular lymphadenopathy. LUNGS: Clear to auscultation bilaterally. HEART: Regular rate and rhythm without murmur. ABDOMEN: Soft, nontender, and nondistended. Bowel sounds are present. EXTREMITIES: 1+ lower extremity edema with significant tenderness throughout. Cranial nerves are grossly intact. LABORATORY DATA: White blood cell count 3.9, hemoglobin 8.9, platelets 210. INR 1.0. Creatinine 1.76. Iron 50, TIBC 246, ferritin 221. IMPRESSION: 1. Bilateral lower extremity deep venous thrombosis. 2. 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 She has had no further overt bleeding since then. However, her anemia is not corrected. She has been on Plavix. 3. Anemia, possibly of chronic gastrointestinal blood loss versus multifactorial anemia. Her iron studies are more consistent with an anemia of chronic disease. RECOMMENDATIONS: 1. Given that she has had no overt bleeding over the last month since cautery of the colonic AVMs and severe need for anticoagulation with bilateral DVTs, I think it would be reasonable to give a trial of anticoagulation with a short-acting agent either enoxaparin or Eliquis and if she shows signs of overt bleeding, then this can be immediately discontinued and instead she could receive IVC filter. 2. If she is started on anticoagulation, I would recommend watching her for at least 2 or 3 days to see how she tolerates the anticoagulation. 3. If she has any bleeding with anticoagulation, then inferior vena cava filter could be placed. 4. I discussed this plan with the patient and her family. I will sign off for now, please call if GI can be of assistance. Job ID: [id number]
[2018-10-27] MEDS: Lactated Ringer's 1,000 ML IV SCH (05:30)
[2018-10-27] MEDS ORDERED: Labetalol HCl 100 MG/20 ML VIAL SLOW IVP PRN (07:23)
[2018-10-27] MEDS: Mometasone/Formoterol 120 PUFF INHALER INH SCH ×2 (07:23→18:52)
--- NOTE | 2018-10-27 07:27 | PDOC.FM ---
- Subjective Subjective: NAEO. Patient denies ORONA, chest pain, respiratory issues. - Objective MAR Reviewed: Yes Vital Signs & Weight: Vital Signs (12 hours) Temp Pulse Resp BP BP BP Pulse Ox 10/27/18 04:05 98.9 F 69 14 168/68 H 96 10/27/18 02:16 96 10/27/18 00:00 180/72 H 10/26/18 20:31 178/66 H 10/26/18 19:33 221/87 H 10/26/18 19:32 65 221/87 H 10/26/18 19:25 97.5 F L 63 16 221/87 H 92 L Weight Weight 126.643 kg I&O: 10/26/18 10/27/18 10/28/18 06:59 06:59 06:59 Intake Total 1275 3750 Output Total 1550 2800 Balance -275 950 Result Diagrams: 10/27/18 07:32 10/27/18 07:32 Phys Exam - Physical Examination Constitutional: NAD HEENT: PERRLA, moist MMs, sclera anicteric Respiratory: no wheezing, clear to auscultation bilateral Cardiovascular: RRR, no significant murmur Gastrointestinal: soft, non-tender Neurological: non-focal, moves all 4 limbs Psychiatric: normal affect, A&O x 3 Dx/Plan (1) DVT (deep venous thrombosis) Code(s): I82.409 - ACUTE EMBOLISM AND THOMBOS UNSP DEEP VN UNSP LOWER EXTREMITY Status: Acute (2) History of lower GI bleeding Code(s): Z87.19 - PERSONAL HISTORY OF OTHER DISEASES OF THE DIGESTIVE SYSTEM Status: Acute (3) Anemia Code(s): D64.9 - ANEMIA, UNSPECIFIED Status: Acute (4) KAYDEN (acute kidney injury) Code(s): N17.9 - ACUTE KIDNEY FAILURE, UNSPECIFIED Status: Acute (5) CKD (chronic kidney disease) Code(s): N18.9 - CHRONIC KIDNEY DISEASE, UNSPECIFIED Status: Acute (6) HTN (hypertension) Code(s): I10 - ESSENTIAL (PRIMARY) HYPERTENSION Status: Acute - Plan Plan: 68 yo F with hx of CVA and lower GI bleed 2/2 vascular ectasias admitted for b/ l LE DVT #Bilateral LE DVT -Provoked vs. unprovoked. Meets several hypercoaguable risk factors including morbid obesity, 30pack year, stasis -S/p 160mg of lovenox in ED. However recent lower GIB from vascular ecstasias s/ p cauterization, will consult GI for further recs -Holding both plavix, will discuss starting ASA -Dr. Lepe approved going ahead with anticoagulation -Consider IVC filter in this patient if experiences GI bleed with lovenox #KAYDEN vs CKD -Cr improved, mildly elevated around baselie -Continue mIVF #DM2 -10/15/2018: Hgb A1C was 7.0 -hold meds due to NPO status, sliding scale to cover -hold home metformin due to renal function #HTN -Home hydralazine -PRN hydralzine for SBP >180 #HX of CVA -previously on plavix and ASA -if anticoagulation continued, will likely need to continue only 1 antiplatelet , hold for now #Chronic pain -constant hand and leg burning pain for which she has been seen by pain mgmt in [place], [place] -records reviewed -restart home pain meds PRN -recently started on lyrica but patient reports this makes the pain worse, will hold it. Code: Full PCP: Dr. Onesimo FITZPATRICK ppx: none Dispo: Continue to th. lovenox BID while continuing to monitor respiratory status and clinical signs of bleeding. Will discuss with Dr. Walker
[2018-10-27 07:38] LABS: #Eosinphils 0.1 thou/uL (0.0-0.7); #Lymphocytes 0.9 thou/uL (1.20-3.40); #Monocytes 0.4 thou/uL (0.11-0.59); #Neutrophils 2.1 thou/uL (1.40-6.50); %Basophils 0.8 % (0.0-1.0); %Eosinophils 4.2 % (0.0-10.0); %Lymphocytes 24.9 % (21.0-51.0); %Neutrophils 60.1 % (42.0-75.0); Hemoglobin 9.1 g/dL (12.0-16.0); Mean Corpuscular HGB CONC 31.4 g/dL (32.0-36.0); Mean Corpuscular Hemoglobin 28.8 pg (27.0-31.0); Mean Corpuscular Volume 91.7 fL (78.0-98.0); Mean Platelet Volume 7.5 fL (7.4-10.4); Platelet Count 235 thou/uL (130-400); RBC Distribution Width 15.5 % (11.5-14.5); Red Blood Cell (RBC) Count 3.17 mill/uL (4.20-5.40); White Blood Cell (WBC) Count 3.5 thou/uL (4.8-10.8)
[2018-10-27 08:02] LABS: Anion Gap 11 mmol/L (10-20); BUN (Urea Nitrogen) 26 mg/dL (9.8-20.1); Calc. Creatinine Clearance 66 mL/min (70-130); Calcium 9.4 mg/dL (7.8-10.44); Carbon Dioxide 24 mmol/L (23-31); Chloride 112 mmol/L (98-107); Estimated GFR-MDRD 37; Glucose 150 mg/dL (80-115); Sodium 142 mmol/L (136-145)
[2018-10-27] MEDS: Potassium Chloride 10 MEQ TAB PO SCH (08:06)
[2018-10-27] MEDS: Furosemide 40 MG TAB PO SCH (08:06)
[2018-10-27] MEDS: Gabapentin 300 MG CAP PO SCH ×3 (08:07→19:22)
[2018-10-27] MEDS: Ferrous Sulfate 325 MG TAB PO SCH (08:07)
[2018-10-27] MEDS: Losartan 25 MG TAB PO SCH (08:07)
[2018-10-27] MEDS: metFORMIN 500 MG TAB PO SCH ×2 (08:07→15:55)
[2018-10-27] MEDS: hydrALAZINE 25 MG TAB PO SCH ×4 (08:07→19:23)
[2018-10-27] MEDS: Citalopram 20 MG TAB PO SCH (08:08)
[2018-10-27] MEDS: Enoxaparin Sodium 30 MG/0.3 ML SYRINGE SC SCH (08:08)
[2018-10-27] MEDS: Carvedilol 6.25 MG TAB PO SCH ×2 (08:08→19:22)
[2018-10-27] MEDS: Amlodipine 10 MG TAB PO SCH (08:08)
[2018-10-27] MEDS: Enoxaparin Sodium 100 MG/ML SYRINGE SC SCH (08:08)
[2018-10-27] MEDS: HumaLOG 300 UNITS/3 ML VIAL SC PRN (11:16)
[2018-10-27 11:49] LABS: Factor VIII Test 282.6 % ACTIVE (56-157); HEX PHOS LA Tube 1 64.5 SEC; Hexagonal Phospholipid Neut 8.5 SEC (0-8.0); Protein C Activity 149 % (78-152)
[2018-10-27 11:55] LABS: Prothrombin Time 12.8 SEC (12.0-14.7)
[2018-10-27 11:56] LABS: PTT 38.3 SEC (22.9-36.1)
--- NOTE | 2018-10-27 12:16 | PRG ---
DATE OF SERVICE: 10/27/2018 Ms. Garcia is sitting quietly in her chair, in no distress. We really appreciate the input from Dr. Lepe. We planned to initiate treatment with Eliquis later this afternoon. We will need to watch the patient for 2 to 3 days to make certain there is no bleeding given her prior history. We also discussed with the pharmacy team the use of Eliquis in the morbidly obese and they suggested that we follow factor Xa levels. Job ID: [id number]
[2018-10-27] MEDS: Acetaminophen 325 MG TAB PO PRN (14:20)
[2018-10-27] MEDS: Acetaminophen/Codeine 30-300mg Tablet PO PRN (15:55)
[2018-10-27 16:53] LABS: Cardiolipin IgG Ab Less than 0.5 GPL-U/mL (<10 Negative); Cardiolipin IgM Ab 1.6 MPL-U/mL (<10 Negative); EliA APS New Method **** NEW METHOD ****
[2018-10-27] MEDS: Atorvastatin Calcium 40 MG TAB PO SCH (19:21)
[2018-10-27] MEDS: traZODone HCl 50 MG TAB PO SCH (19:21)
[2018-10-27] MEDS: Lorazepam 1 MG TAB PO SCH (19:22)
[2018-10-27] MEDS: Famotidine 20 MG TAB PO SCH (19:22)
[2018-10-27] MEDS: Oxybutynin 5 MG TAB PO SCH (19:22)
[2018-10-27] MEDS: Apixaban 5 MG TAB PO SCH (19:22)
[2018-10-28 04:57] LABS: #Eosinphils 0.1 thou/uL (0.0-0.7); #Lymphocytes 1.1 thou/uL (1.20-3.40); #Monocytes 0.5 thou/uL (0.11-0.59); #Neutrophils 2.1 thou/uL (1.40-6.50); %Basophils 0.7 % (0.0-1.0); %Eosinophils 3.6 % (0.0-10.0); %Lymphocytes 28.5 % (21.0-51.0); %Monocytes 13.4 % (0.0-10.0); %Neutrophils 53.9 % (42.0-75.0); Hemoglobin 9.2 g/dL (12.0-16.0); Mean Corpuscular Volume 90.9 fL (78.0-98.0); Mean Platelet Volume 7.7 fL (7.4-10.4); Platelet Count 231 thou/uL (130-400); RBC Distribution Width 15.4 % (11.5-14.5); Red Blood Cell (RBC) Count 3.05 mill/uL (4.20-5.40)
[2018-10-28 05:21] LABS: Anion Gap 11 mmol/L (10-20); BUN (Urea Nitrogen) 26 mg/dL (9.8-20.1); Calc. Creatinine Clearance 67 mL/min (70-130); Calcium 9.4 mg/dL (7.8-10.44); Carbon Dioxide 26 mmol/L (23-31); Chloride 109 mmol/L (98-107); Estimated GFR-MDRD 37; Glucose 135 mg/dL (80-115); Potassium 4.2 mmol/L (3.5-5.1); Sodium 142 mmol/L (136-145)
[2018-10-28] MEDS: Amlodipine 10 MG TAB PO SCH (05:39)
[2018-10-28] MEDS: hydrALAZINE 25 MG TAB PO SCH ×3 (05:40→12:03)
[2018-10-28] MEDS: Mometasone/Formoterol 120 PUFF INHALER INH SCH (06:40)
--- NOTE | 2018-10-28 06:52 | PDOC.FM ---
- Subjective Subjective: elevated BPs, no sx, pain or anxiety per patient. No ORONA, CP, SOB. No breathin gproblems. Agreess to paying for [employer] and home health. Ready to go home. - Objective Vital Signs & Weight: Vital Signs (12 hours) Temp Pulse Resp BP BP BP Pulse Ox 10/28/18 06:40 86 16 10/28/18 05:40 89 184/76 H 10/28/18 05:39 89 184/76 H 10/28/18 03:07 98.8 F 89 14 186/78 H 192/78 H 94 L 10/28/18 00:26 76 182/74 H 10/27/18 23:55 182/74 H 10/27/18 19:23 76 180/66 H 10/27/18 19:22 180/60 H 10/27/18 19:14 98.4 F 76 20 180/66 H 96 Weight Weight 124.829 kg I&O: 10/26/18 10/27/18 10/28/18 06:59 06:59 06:59 Intake Total 1275 3750 360 Output Total 1550 2800 4500 Balance -275 950 -4140 Result Diagrams: 10/28/18 04:27 10/28/18 04:27 Phys Exam - Physical Examination Constitutional: NAD HEENT: PERRLA Neck: no nodes, full ROM Respiratory: no wheezing, clear to auscultation bilateral Cardiovascular: RRR, no significant murmur Neurological: non-focal, moves all 4 limbs Dx/Plan (1) DVT (deep venous thrombosis) Code(s): I82.409 - ACUTE EMBOLISM AND THOMBOS UNSP DEEP VN UNSP LOWER EXTREMITY Status: Acute (2) History of lower GI bleeding Code(s): Z87.19 - PERSONAL HISTORY OF OTHER DISEASES OF THE DIGESTIVE SYSTEM Status: Acute (3) Anemia Code(s): D64.9 - ANEMIA, UNSPECIFIED Status: Acute (4) KAYDEN (acute kidney injury) Code(s): N17.9 - ACUTE KIDNEY FAILURE, UNSPECIFIED Status: Acute (5) CKD (chronic kidney disease) Code(s): N18.9 - CHRONIC KIDNEY DISEASE, UNSPECIFIED Status: Acute (6) HTN (hypertension) Code(s): I10 - ESSENTIAL (PRIMARY) HYPERTENSION Status: Acute - Plan Plan: 68 yo F with hx of CVA and lower GI bleed 2/2 vascular ectasias admitted for b/ l LE DVT #Bilateral LE DVT -Provoked vs. unprovoked. Meets several hypercoaguable risk factors including morbid obesity, 30pack year, stasis -S/p 160mg of lovenox in ED. However recent lower GIB from vascular ecstasias s/ p cauterization -Holding both plavix, will discuss starting ASA -Dr. Lepe approved going ahead with anticoagulation -Thus far no signs of bleeding after starting eliquis -Consider IVC filter in this patient if experiences GI bleed with lovenox #KAYDEN vs CKD -Cr stable, at baseline #DM2 -10/15/2018: Hgb A1C was 7.0 -sliding scale to cover -home metformin #HTN -Home hydralazine, cozaar, amlodipine, coreg, lasix -BPs still elevated -PRN hydralzine for SBP >180 #HX of CVA -previously on plavix and ASA -if anticoagulation continued, will likely need to continue only 1 antiplatelet , hold for now #Chronic pain -constant hand and leg burning pain for which she has been seen by pain mgmt in [place], [place] -records reviewed -restart home pain meds PRN -recently started on lyrica but patient reports this makes the pain worse, will hold it. Code: Full PCP: Dr. Onesimo FITZPATRICK ppx: none Dispo: 1) DVT-continue eliquis 2)Hx of GI bleed-none thus far, H/H stable, continue monitoring. 3) Pending approval 3)HTN-will workup for secondary causes with renin/aldosterone. Will get renal U/S, have f/u in outpt for BP monitoring. D/c home todya. Discussed w/ pt monitoring for bleeding, come to ED if that happens. Will discuss with Dr. Walker
[2018-10-28] MEDS: Ferrous Sulfate 325 MG TAB PO SCH (07:56)
[2018-10-28] MEDS: Furosemide 40 MG TAB PO SCH (07:56)
[2018-10-28] MEDS: Losartan 25 MG TAB PO SCH (07:56)
[2018-10-28] MEDS: Citalopram 20 MG TAB PO SCH (07:57)
[2018-10-28] MEDS: Potassium Chloride 10 MEQ TAB PO SCH (07:58)
[2018-10-28] MEDS: Gabapentin 300 MG CAP PO SCH ×2 (08:00→15:00)
[2018-10-28] MEDS: Acetaminophen/Codeine 30-300mg Tablet PO PRN (08:00)
[2018-10-28] MEDS: metFORMIN 500 MG TAB PO SCH (08:00)
[2018-10-28] MEDS: Carvedilol 6.25 MG TAB PO SCH (08:00)
[2018-10-28] MEDS: Apixaban 5 MG TAB PO SCH (08:01)
[2018-10-28] MEDS ORDERED: Aspirin 81 mg Enteric Coated Tablet PO SCH (09:00)
--- NOTE | 2018-10-28 09:15 | ULT ---
Exam: Bilateral renal ultrasound and renal Doppler HISTORY: Uncontrolled hypertension COMPARISON: None TECHNIQUE: Grayscale, color flow, Doppler imaging and spectral wave form analysis performed the [facility] FINDINGS: Right kidney: Normal cortical echotexture. No hydronephrosis. Right kidney measures 10.4 x 5.6 x 6.3 cm. Anechoic focus in the right renal cortex measuring 1.5 cm, compatible with a cyst. Limited evaluation left kidney. There does appear to be left renal cortical thinning. No obvious hydr onephrosis. Left kidney measures 5.6 x 6.1 x 12.0 cm. Renal Doppler: Left renal artery Doppler cannot be assessed Right renal artery has a peak systolic velocity of 63.7 cm/s. Aorta has a peak systolic velocity of 22.8 cm/s Right renal artery to aorta ratio is 2.8 Right renal arcuate arteries in the next: Upper pole 0.92, midpole 0.82, lower pole 0.87 IMPRESSION: 1. Suboptimal evaluation of the left kidney due to body habitus. Left renal Doppler cannot be perform ed. 2. Arcuate artery resistive index involving the right kidney, as above.
--- NOTE | 2018-10-28 09:54 | ULT ---
HISTORY: Uncontrolled hypertension COMPARISON: None TECHNIQUE: Grayscale, color flow, Doppler imaging and spectral wave form analysis performed the [facility] FINDINGS: Right kidney: Normal cortical echotexture. No hydronephrosis. Right kidney measures 10.4 x 5.6 x 6.3 cm. Anechoic focus in the right renal cortex measuring 1.5 cm, compatible with a cyst. Limited evaluation left kidney. There does appear to be left renal cortical thinning. No obvious hydr onephrosis. Left kidney measures 5.6 x 6.1 x 12.0 cm. Renal Doppler: Left renal artery Doppler cannot be assessed Right renal artery has a peak systolic velocity of 63.7 cm/s. Aorta has a peak systolic velocity of 22.8 cm/s Right renal artery to aorta ratio is 2.8 Right renal arcuate arteries in the next: Upper pole 0.92, midpole 0.82, lower pole 0.87 IMPRESSION: 1. Suboptimal evaluation of the left kidney due to body habitus. Left renal Doppler cannot be perform ed. 2. Arcuate artery resistive index involving the right kidney, as above. Transcribed Date/Time: 10/28/2018 2:13 PM
[2018-10-28 11:25] VITALS: BP 143/61; TEMP 98.3
[2018-10-28] MEDS: HumaLOG 300 UNITS/3 ML VIAL SC PRN (12:04)
--- NOTE | 2018-10-28 14:06 | PRG ---
DATE OF SERVICE: Ms. Garcia has had no bleeding since starting the Eliquis. She will be discharged today initially on Eliquis 10 b.i.d., reducing to 5 b.i.d. after 1 week. She is instructed to have close followup with her PCP and our clinic to again continue monitoring her very [id number] blood pressure. Job ID: [id number]
--- NOTE | 2018-10-29 05:13 | DIS ---
DATE OF ADMISSION: 10/25/2018 DATE OF DISCHARGE: 10/28/2018 ADMITTING ATTENDING: Miya Abdi MD. DISCHARGE ATTENDING: Efrain Mann MD. RESIDENT: Cherry Spencer, PGY-1 CONSULTS: Gastroenterology, Dr. Lepe. IMAGIN. Renal ultrasound: Artery resistive index involving the right kidney, suboptimal evaluation of the left kidney due to body habitus. 2. Venogram of both lower extremities: Partially occlusive thrombus within the mid to distal femoral veins bilaterally. PRIMARY DIAGNOSES: 1. Bilateral femoral deep venous thrombosis, unprovoked versus provoked. 2. Recent history of lower gastrointestinal bleed secondary to vascular ectasias, status post cauterization. SECONDARY DIAGNOSES: 1. History of cerebrovascular accident. 2. Hypertension. 3. Hyperlipidemia. 4. Diabetes type 2. 5. Peripheral arterial disease. 6. Prerenal acute kidney injury, resolved. 7. Congestive heart failure. 8. Chronic obstructive pulmonary disease. DISCHARGE MEDICATIONS: 1. Eliquis 10 mg p.o. b.i.d. for 10 days. 2. Eliquis 5 mg p.o. b.i.d. 3. Hydralazine 50 mg p.o. q.i.d. 4. Aspirin 81 mg p.o. daily. 5. Tums. 6. Iron 325 one tablet p.o. daily. 7. Lasix 40 mg p.o. daily. 8. Potassium chloride 10 mEq p.o. daily. 9. MiraLAX. 10. Norvasc 10 mg p.o. daily. 11. ProAir one puff inhaled q.4 hours p.r.n. for short of breath or wheezing. 12. Oxybutynin 5 mg p.o. at bedtime. 13. Nitrostat 0.4 mg p.o. sublingual q.5 minutes for chest pain. 14. Docusate. 15. Cozaar 100 mg p.o. daily. 16. Glipizide 5 mg p.o. daily. 17. Glucophage 1000 mg p.o. b.i.d. with meals. 18. Famotidine 20 mg p.o. at bedtime. 19. Trazodone 50 mg p.o. at bedtime. 20. Tylenol with codeine 1 tablet p.o. q.6 hours. 21. Lorazepam 1 mg p.o. at bedtime. 22. Atorvastatin 80 mg p.o. at bedtime. 23. Gabapentin 300 mg p.o. t.i.d. 24. Coreg 12.5 mg p.o. b.i.d. 25. Celexa 40 mg p.o. daily. 26. Advair inhaler 2 inhalations b.i.d. 27. Omeprazole 40 mg p.o. daily. DISCONTINUED MEDICATIONS: Plavix 75 mg p.o. daily. HISTORY OF PRESENT ILLNESS/HOSPITAL COURSE: Jose is a 68-year-old female with a recent history of lower GI bleed, who presented to the ER for funny feelings in her lower legs. Venous duplex was positive for bilateral femoral DVTs. The patient was given a dose of therapeutic Lovenox and admitted for treatment of DVTs. CT was negative for PEs. The patient was non-hypoxic on room air. The patient's management was complicated by the fact that she had a recent lower GI bleed secondary to vascular ectasias 1 month ago. She underwent colonoscopy that showed 6 to 7 vascular ectasias in the ascending colon and cecum which were resolved with electrocauterization. She was given instructions by the healthcare insurance sales agent to hold her aspirin and Plavix for 1 week in which the patient did so and then resumed it. She is on both of them for history of CVA. The patient is a poor historian and is unable to tell us exactly when she was placed on them or how long she was instructed to continue them. It is unsure as to whether or not patient's DVT was provoked or unprovoked since the patient told us that she has received treatment for DVT. However, upon chart review, it seems as if she may have been confused and then possibly referencing balloon dilation for peripheral vascular disease. Thus, the patient was worked up for hypercoagulable causes in which these labs are pending. Her risk factors include obesity and stasis. GI was consulted in regard to anticoagulation management and they recommended starting her on long-term anticoagulation and monitoring for clinical signs of bleeding. The patient denies any GI bleeding since her colonoscopy and her hemoglobin remained stable throughout hospitalization. Decision was made to primarily discontinue Plavix, but okay to resume a baby aspirin in addition to the Eliquis. The patient was discharged with home health to aid her in daily activities. All these instructions were explained to patient and attempts have been made to reach patient's cousin per request. She was instructed to continue monitoring for signs of GI bleeding, which were explained in person. The patient indicated understanding of this and agreed to follow up at our clinic on Thursday with Dr. Echols. It was discussed should patient start experiencing GI bleeding to discontinue anticoagulation. At this point, discussion for an IVC filter to be had. The patient experienced high blood pressures in the systolic 200s. Blood pressure was mildly improved with increasing her home hydralazine dose. Currently, she is on 5 different antihypertensives. Renal bilateral ultrasound was possibly positive for renal vascular involvement. She was instructed to follow up with this in the outpatient setting as this could explain her resistant hypertension. Currently, aldosterone and renin lab levels are pending. Consider starting the patient on HCTZ. DISPOSITION: Stable. DISCHARGE INSTRUCTIONS: 1. Location: Home with home health. 2. Diet: Heart healthy, diabetic diet. 3. Activity: As tolerated. 4. Followup: Please follow up with PCP, Dr. Echols, in 1 to 2 days. 5. Please continue monitoring for active signs of GI bleeding such as dark stool or bright red blood. 6. Please consider obtaining an anti-Xa level as the patient is morbidly obese and there have been adequate studies on the NOACs and so there could be concern for insufficient anticoagulation. 7. Please follow up for blood pressure management in light of renal artery Doppler findings. Currently pending aldosterone and renin levels. 8. Please follow up for DARRICK testing as this could also be secondary cause of elevated and resistant hypertension. Job ID: [id number]
[2018-10-30 15:09] LABS: Renin Activity 0.291 ng/mL/hr (0.167-5.380)
[2018-11-01] MEDS ORDERED: Ergocalciferol 1.25 MG(50,000 UNITS) CAP PO SCH (09:00)
== END 2018-10-28 15:30 | disposition home health service (06) | DRG 300 ==
LOC: ERS 16:23 → OBSVTOIN 22:06 → 2SW 22:06
PROVIDERS: ADMIT Family Medicine; ATTEND Family Medicine
DX: I82.413 Acute embolism and thrombosis of femoral vein, bilateral (principal); N17.9 Acute kidney failure, unspecified; I13.0 Hypertensive heart and chronic kidney disease with heart failure and stage 1 through stage 4 chronic kidney disease, or unspecified chronic kidney disease; E87.2 Acidosis; Z68.41 Body mass index [BMI] 40.0-44.9, adult; E11.51 Type 2 diabetes mellitus with diabetic peripheral angiopathy without gangrene; E11.22 Type 2 diabetes mellitus with diabetic chronic kidney disease; E78.5 Hyperlipidemia, unspecified; F17.210 Nicotine dependence, cigarettes, uncomplicated; E66.01 Morbid (severe) obesity due to excess calories; K55.20 Angiodysplasia of colon without hemorrhage; J44.9 Chronic obstructive pulmonary disease, unspecified; N18.9 Chronic kidney disease, unspecified; I50.9 Heart failure, unspecified; D64.9 Anemia, unspecified; Z86.73 Personal history of transient ischemic attack (TIA), and cerebral infarction without residual deficits; Z79.51 Long term (current) use of inhaled steroids; Z88.8 Allergy status to other drugs, medicaments and biological substances; Z79.82 Long term (current) use of aspirin; Z79.84 Long term (current) use of oral hypoglycemic drugs; Z79.899 Other long term (current) drug therapy
CPT/HCPCS: 36415; 36416; 74018; 76700; 76770; 80048; 80053; 81240; 81241; 82088; 82607; 82728; 82746; 83090; 83540; 83550; 84244; 85025; 85240; 85300; 85303; 85305; 85307; 85379; 85520; 85598; 85610; 85730; 86147; 93970; 96361; 96372; 96374; 96375; J0360; J1650; J1885; J2270; J2405

== ENCOUNTER 2018-12-18 12:43 | Emergency (ER) | payer MEDICARE, MEDICAID ==
[2018-12-18] MEDS ORDERED: Acetaminophen 500 MG TAB ONE (14:39)
== END 2018-12-18 15:23 | disposition home or self-care (01) ==
LOC: ERS 12:43
DX: H92.02 Otalgia, left ear (principal); G89.29 Other chronic pain; I82.409 Acute embolism and thrombosis of unspecified deep veins of unspecified lower extremity; R09.81 Nasal congestion; F32.9 Major depressive disorder, single episode, unspecified; G47.00 Insomnia, unspecified; E11.9 Type 2 diabetes mellitus without complications
CPT/HCPCS: 99282

== ENCOUNTER 2018-12-23 12:10 | Emergency (ER) | payer MEDICARE, OTHER ==
[2018-12-23 13:54] LABS: #Eosinphils 0.1 thou/uL (0.0-0.7); #Monocytes 0.7 thou/uL (0.11-0.59); %Basophils 0.3 % (0.0-1.0); %Eosinophils 2.9 % (0.0-10.0); %Lymphocytes 20.3 % (21.0-51.0); %Monocytes 13.4 % (0.0-10.0); %Neutrophils 63.1 % (42.0-75.0); Hemoglobin 7.9 g/dL (12.0-16.0); Mean Corpuscular HGB CONC 32.3 g/dL (32.0-36.0); Mean Corpuscular Hemoglobin 28.6 pg (27.0-31.0); Mean Corpuscular Volume 88.5 fL (78.0-98.0); Mean Platelet Volume 7.5 fL (7.4-10.4); Platelet Count 236 thou/uL (130-400); RBC Distribution Width 13.8 % (11.5-14.5); Red Blood Cell (RBC) Count 2.78 mill/uL (4.20-5.40); White Blood Cell (WBC) Count 4.8 thou/uL (4.8-10.8)
[2018-12-23 13:57] LABS: INR-International Normal Ratio 1.3; Prothrombin Time 16.1 SEC (12.0-14.7)
[2018-12-23 13:58] LABS: PTT 43.5 SEC (22.9-36.1)
[2018-12-23 14:23] LABS: ALT (SGPT) 19 U/L (8-55); AST (SGOT) 23 U/L (5-34); Albumin 3.8 g/dL (3.4-4.8); Alkaline Phosphatase 101 U/L (40-150); Anion Gap 13 mmol/L (10-20); BUN (Urea Nitrogen) 34 mg/dL (9.8-20.1); Bilirubin, Total 0.3 mg/dL (0.2-1.2); Calc. Creatinine Clearance 0 mL/min (70-130); Carbon Dioxide 25 mmol/L (23-31); Chloride 106 mmol/L (98-107); Estimated GFR-MDRD 37; Globulin 2.7 g/dL (2.4-3.5); Glucose 198 mg/dL (80-115); Protein, Total 6.5 g/dL (6.0-8.3); Sodium 139 mmol/L (136-145)
--- NOTE | 2018-12-23 14:42 | RAD ---
PORTABLE CHEST ONE VIEW: 12/23/2018 2:00 p.m. HISTORY: Chest pain. FINDINGS: The heart size is mildly enlarged. The aorta is tortuous. The lungs are well expanded without lobar consolidation, pneumothoraces, or pleural effusions. A dorsal column stimulator is seen. There is mild pulmonary vascular congestion. POS: OFF
--- NOTE | 2018-12-23 14:44 | ULT ---
BILATERAL LOWER EXTREMITY VENOUS DOPPLER ULTRASOUND: HISTORY: Bilateral lower extremity edema and pain. TECHNIQUE: Singh scale ultrasound with color flow and spectral Doppler imaging of the deep venous systems of the lower extremities was performed bilaterally. FINDINGS: There is good flow, compression, and augmentation noted in the common femoral, femoral, deep femoral, popliteal, posterior tibial, and greater saphenous veins. IMPRESSION: No evidence of deep vein thrombosis in either lower extremity. POS: OFF
--- NOTE | 2018-12-25 11:20 | EKG ---
Test Reason : CP Blood Pressure : / mmHG Vent. Rate : 064 BPM Atrial Rate : 064 BPM P-R Int : 126 ms QRS Dur : 116 ms QT Int : 464 ms P-R-T Axes : 027 040 025 degrees QTc Int : 478 ms Normal sinus rhythm Incomplete right bundle branch block T wave abnormality, consider anterior ischemia Abnormal ECG Confirmed by TANG JOHNSON DO ([id number]), content editor ITA KAPOOR ([id number]) on 12/25/2018 11:20:11 AM Referred By: Confirmed By:TANG JOHNSON DO
== END 2018-12-23 15:25 | disposition home or self-care (01) ==
LOC: ERS 12:10
DX: M79.89 Other specified soft tissue disorders (principal); E11.9 Type 2 diabetes mellitus without complications; I10 Essential (primary) hypertension; E78.5 Hyperlipidemia, unspecified; J44.9 Chronic obstructive pulmonary disease, unspecified; K21.9 Gastro-esophageal reflux disease without esophagitis; F32.9 Major depressive disorder, single episode, unspecified; G47.00 Insomnia, unspecified; D50.9 Iron deficiency anemia, unspecified; Z79.899 Other long term (current) drug therapy; Z79.84 Long term (current) use of oral hypoglycemic drugs; Z79.82 Long term (current) use of aspirin
CPT/HCPCS: 71045; 80053; 83880; 84484; 85025; 85610; 85730; 93005; 93970

== ENCOUNTER 2019-02-04 13:40 | Outpatient (CLI) | payer MEDICARE, MEDICAID ==
--- NOTE | 2019-02-04 14:54 | ULT ---
Exam: Bilateral renal ultrasound HISTORY: Chronic kidney disease COMPARISON: 10/28/2018 FINDINGS: Right kidney: Normal cortical echotexture. No hydronephrosis. Isoechoic mass emanating from the upper pole of the right kidney measuring 1.8 x 1.3 x 1.5 cm. Right kidney measurements: 7.6 x 4.7 x 4.8 cm. Left kidney: Normal cortical echotexture. No hydronephrosis Left kidney measurements 5.2 x 5.6 x 11.1 cm. Urinary bladder: Normal mucosa. IMPRESSION: 1. No hydronephrosis 2. Previously anechoic focus now has a more isoechoic appearance, at the level the upper pole the rig ht kidney. Better interrogation with a renal mass protocol CT or abdomen MRI is recommended CODE T
== END 2019-02-04 13:41 | disposition home or self-care (01) ==
LOC: BICULT 13:40
PROVIDERS: ATTEND Internal Medicine Nephrology
DX: N18.3 Chronic kidney disease, stage 3 (moderate) (principal)
CPT/HCPCS: 76770

== ENCOUNTER 2019-02-17 08:27 | Outpatient (CLI) | payer MEDICARE, MEDICAID ==
--- NOTE | 2019-02-17 10:36 | CT ---
CT OF THE ABDOMEN WITHOUT IV CONTRAST: INDICATION: History of renal mass. COMPARISON: Renal ultrasound dated 02/04/2019 and 10/28/2018. FINDINGS: The ill-defined mixed echogenicity cyst involving the superior pole of the right kidney is incomplete ly characterized on this noncontrast examination. The precontrast Hounsfield units on this abnormali ty is 19 which makes it indeterminate. No hydronephrosis or renal calculus is evident. There is a h yperdense lesion involving the lower pole left kidney measuring 7 mm. There is mild subsegmental atelectasis in the lingula. The gallbladder is surgically absent. The unopacified liver and spleen appear within normal limits. There is a 2.1 cm left adrenal adenoma . No free fluid or enlarged lymph nodes are evident. There is a fat and small bowel containing paraumbilical hernia without evidence of obstruction. The unopacified small and large bowel appear within normal limits. There are moderate calcifications involving the abdominopelvic vasculature. No acute osseous abnormality is evident. There is a dorsal column stimulator present. IMPRESSION: 1. Indeterminate bilateral renal lesions. A dedicated CT of the abdomen utilizing renal mass protoc ol and IV contrast is recommended. 2. Left adrenal adenoma. 3. Cholecystectomy. 4. Lower paraumbilical abdominal wall hernia containing fat and unobstructed loops of small bowel. 5. Dorsal column stimulator. This would preclude an MR examination of the abdomen. POS: OFF
== END 2019-02-17 08:28 | disposition home or self-care (01) ==
LOC: BICCT 08:27
PROVIDERS: ATTEND Internal Medicine Nephrology
DX: N28.89 Other specified disorders of kidney and ureter (principal); D35.02 Benign neoplasm of left adrenal gland; Z90.49 Acquired absence of other specified parts of digestive tract; K42.9 Umbilical hernia without obstruction or gangrene
CPT/HCPCS: 74150

== ENCOUNTER 2019-05-26 20:24 | Emergency (ER) | payer MEDICARE, MEDICAID ==
--- NOTE | 2019-05-26 23:41 | RAD ---
EXAM: Chest 2 views: HISTORY: Pleuritic chest pain COMPARISON: 12/23/2018 FINDINGS: Dorsal column stimulator leads overlie the mid thoracic spine. Stable appearing increased bronchovascular markings bilaterally. Heart size:Within normal limits. Lungs:Clear of acute process. Atherosclerotic changes of the aorta. No confluent pneumonia, overt edema, pleural effusion, pneumothorax, or other significant acute proce ss. IMPRESSION: Stable exam. Atherosclerosis of the aorta. No acute intrathoracic disease.
[2019-05-27 00:09] LABS: Bacteria/HPF None Seen HPF (None Seen); Bilirubin Negative (Negative); Blood, Urine Negative (Negative); Clarity Clear (Clear); Glucose, Urine (Dipstick) Normal (Negative); Leukocyte 25 Leu/uL (Negative); Nitrite Negative (Negative); Protein, Urine (Dipstick) 200 mg/dL (Neg-Trace); RBC/HPF 0-3 HPF (0-3); Squamous Epithelial None Seen HPF (0-3); Urobilinogen Normal mg/dL (Less than 2)
== END 2019-05-27 00:25 | disposition home or self-care (01) ==
LOC: ERS 20:24
DX: J06.9 Acute upper respiratory infection, unspecified (principal); J44.9 Chronic obstructive pulmonary disease, unspecified; E78.5 Hyperlipidemia, unspecified; E11.610 Type 2 diabetes mellitus with diabetic neuropathic arthropathy; K21.9 Gastro-esophageal reflux disease without esophagitis; F32.9 Major depressive disorder, single episode, unspecified; Z79.899 Other long term (current) drug therapy; Z79.84 Long term (current) use of oral hypoglycemic drugs
CPT/HCPCS: 71046; 81003; 81015

== ENCOUNTER 2020-01-01 17:56 | Emergency (ER) | payer MEDICARE ==
--- NOTE | 2020-01-01 18:27 | RAD ---
XR Knee Lt 4 View STANDARD: 01/01/2020 6:04 PM CLINICAL INDICATION: Left knee pain COMPARISON: None. FINDINGS: Bones: No acute fracture is demonstrated. Joints: There is moderate to severe osteoarthritic change involving the left knee joint. There is mil d joint capsular distention. There is a 6 mm intra-articular osseous body within the anterior knee joint.. Soft Tissue: There are vascular calcification seen within the adjacent soft tissues.. 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 No acute fracture or subluxation dem onstrated.
== END 2020-01-01 19:05 | disposition home or self-care (01) ==
LOC: ERS 17:56
DX: M17.12 Unilateral primary osteoarthritis, left knee (principal); I10 Essential (primary) hypertension; E78.5 Hyperlipidemia, unspecified; J44.9 Chronic obstructive pulmonary disease, unspecified; K21.9 Gastro-esophageal reflux disease without esophagitis; F32.9 Major depressive disorder, single episode, unspecified; E11.42 Type 2 diabetes mellitus with diabetic polyneuropathy; G47.00 Insomnia, unspecified; Z79.899 Other long term (current) drug therapy; Z79.84 Long term (current) use of oral hypoglycemic drugs; Z79.82 Long term (current) use of aspirin

== ENCOUNTER 2020-01-06 12:57 | Emergency (ER) | payer MEDICARE, MEDICAID ==
[2020-01-06 14:13] LABS: #Eosinphils 0.1 thou/uL (0.0-0.7); #Monocytes 0.5 thou/uL (0.11-0.59); %Basophils 0.1 % (0.0-1.0); %Eosinophils 2.6 % (0.0-10.0); %Lymphocytes 20.5 % (21.0-51.0); %Monocytes 11.5 % (0.0-10.0); %Neutrophils 65.3 % (42.0-75.0); Mean Corpuscular HGB CONC 32.3 g/dL (32.0-36.0); Mean Corpuscular Hemoglobin 30.3 pg (27.0-31.0); Mean Corpuscular Volume 93.7 fL (78.0-98.0); Mean Platelet Volume 7.4 fL (7.4-10.4); Platelet Count 239 thou/uL (130-400); RBC Distribution Width 14.1 % (11.5-14.5); Red Blood Cell (RBC) Count 2.97 mill/uL (4.20-5.40); White Blood Cell (WBC) Count 4.7 thou/uL (4.8-10.8)
--- NOTE | 2020-01-06 14:34 | CT ---
CT BRAIN 01/06/20 PROVIDED CLINICAL HISTORY: Generalized weakness, arm weakness. FINDINGS: No comparisons. The ventricular system appears normal in size and morphology. There is no evidence for intracranial hemorrhage, or mass effect. The extracranial soft tissues and osseous structures demonstrate an unrem arkable CT appearance. IMPRESSION: No evidence for intracranial hemorrhage or mass effect. POS: RADHA
[2020-01-06 14:35] LABS: ALT (SGPT) 23 U/L (8-55); AST (SGOT) 35 U/L (5-34); Albumin 3.7 g/dL (3.4-4.8); Alkaline Phosphatase 117 U/L (40-110); Anion Gap 15 mmol/L (10-20); BUN (Urea Nitrogen) 47 mg/dL (9.8-20.1); Bilirubin, Total 0.2 mg/dL (0.2-1.2); Calc. Creatinine Clearance 0 mL/min (70-130); Carbon Dioxide 24 mmol/L (23-31); Chloride 106 mmol/L (98-107); Estimated GFR-MDRD 19; Globulin 3.5 g/dL (2.4-3.5); Glucose 206 mg/dL (80-115); Potassium 4.8 mmol/L (3.5-5.1); Protein, Total 7.2 g/dL (6.0-8.3); Sodium 140 mmol/L (136-145)
[2020-01-06 15:43] LABS: Bacteria/HPF None Seen HPF (None Seen); Bilirubin Negative (Negative); Blood, Urine Negative (Negative); Clarity Clear (Clear); Glucose, Urine (Dipstick) Normal (Negative); Ketone, Urine Negative (Negative); Leukocyte 75 Leu/uL (Negative); Nitrite Negative (Negative); Protein, Urine (Dipstick) 70 mg/dL (Neg-Trace); RBC/HPF 0-3 HPF (0-3); Squamous Epithelial None Seen HPF (0-3); Urobilinogen Normal mg/dL (Less than 2); pH, Urine 6.5 (5.0-9.0)
== END 2020-01-06 16:05 | disposition home or self-care (01) ==
LOC: ERS 12:57
DX: R53.1 Weakness (principal); I10 Essential (primary) hypertension; E78.5 Hyperlipidemia, unspecified; J44.9 Chronic obstructive pulmonary disease, unspecified; E11.42 Type 2 diabetes mellitus with diabetic polyneuropathy; F17.210 Nicotine dependence, cigarettes, uncomplicated; Z79.899 Other long term (current) drug therapy
CPT/HCPCS: 70450; 80053; 81003; 81015; 83605; 83880; 85025; 93005; 94760

== ENCOUNTER 2020-01-28 16:46 | Emergency (ER) | payer MEDICARE, MEDICAID ==
[2020-01-28] MEDS ORDERED: HYDROcodone/Acetaminophen 10/325 mg Tablet ONE (17:28)
[2020-01-28 18:03] LABS: #Eosinphils 0.1 thou/uL (0.0-0.7); #Lymphocytes 1.1 thou/uL (1.20-3.40); #Monocytes 0.6 thou/uL (0.11-0.59); %Basophils 0.5 % (0.0-1.0); %Eosinophils 2.5 % (0.0-10.0); %Lymphocytes 22.6 % (21.0-51.0); %Monocytes 12.1 % (0.0-10.0); %Neutrophils 62.4 % (42.0-75.0); Hemoglobin 8.5 g/dL (12.0-16.0); Mean Corpuscular HGB CONC 33.3 g/dL (32.0-36.0); Mean Corpuscular Hemoglobin 30.5 pg (27.0-31.0); Mean Corpuscular Volume 91.9 fL (78.0-98.0); Mean Platelet Volume 7.5 fL (7.4-10.4); Platelet Count 211 thou/uL (130-400); RBC Distribution Width 14.1 % (11.5-14.5); Red Blood Cell (RBC) Count 2.77 mill/uL (4.20-5.40); White Blood Cell (WBC) Count 4.9 thou/uL (4.8-10.8)
--- NOTE | 2020-01-28 18:08 | RAD ---
RIGHT FOOT THREE VIEWS: 01/28/20 HISTORY: Right heel pain x1 day. Patient has a healed ulcer in this region. Bones are demineralized. 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 Arthritic change s of the mid foot and calcaneal spurs are present. Arthritic changes of the ankle are also seen. IMPRESSION: No acute findings. No plain film evidence for osteomyelitis. POS: BRAYAN
[2020-01-28 18:23] LABS: Anion Gap 16 mmol/L (10-20); BUN (Urea Nitrogen) 59 mg/dL (9.8-20.1); Calc. Creatinine Clearance 0 mL/min (70-130); Carbon Dioxide 21 mmol/L (23-31); Chloride 106 mmol/L (98-107); Estimated GFR-MDRD 16; Glucose 320 mg/dL (80-115); Potassium 5.6 mmol/L (3.5-5.1); Sodium 137 mmol/L (136-145)
== END 2020-01-28 19:05 | disposition home or self-care (01) ==
LOC: ERS 16:46
DX: E11.42 Type 2 diabetes mellitus with diabetic polyneuropathy (principal); I12.9 Hypertensive chronic kidney disease with stage 1 through stage 4 chronic kidney disease, or unspecified chronic kidney disease; E11.22 Type 2 diabetes mellitus with diabetic chronic kidney disease; N18.9 Chronic kidney disease, unspecified; E87.5 Hyperkalemia; J44.9 Chronic obstructive pulmonary disease, unspecified; K21.9 Gastro-esophageal reflux disease without esophagitis; F32.9 Major depressive disorder, single episode, unspecified; E78.5 Hyperlipidemia, unspecified; F17.210 Nicotine dependence, cigarettes, uncomplicated
CPT/HCPCS: 36415; 80048; 85025

== ENCOUNTER 2020-04-18 22:12 | Observation (INO) | payer MEDICARE, MEDICAID, OTHER ==
[2020-04-18] MEDS ORDERED: Ondansetron PF 4 MG/2 ML Vial ONE (22:30)
[2020-04-18] MEDS ORDERED: Morphine 4 MG/ML VIAL ONE (22:30)
[2020-04-18 22:38] LABS: #Eosinphils 0.2 thou/uL (0.0-0.7); #Lymphocytes 0.9 thou/uL (1.20-3.40); #Monocytes 0.7 thou/uL (0.11-0.59); #Neutrophils 3.6 thou/uL (1.40-6.50); %Basophils 0.5 % (0.0-1.0); %Eosinophils 2.9 % (0.0-10.0); %Lymphocytes 17.4 % (21.0-51.0); %Monocytes 12.3 % (0.0-10.0); %Neutrophils 66.9 % (42.0-75.0); Hemoglobin 9.4 g/dL (12.0-16.0); Mean Corpuscular HGB CONC 32.7 g/dL (32.0-36.0); Mean Corpuscular Hemoglobin 29.2 pg (27.0-31.0); Mean Corpuscular Volume 89.1 fL (78.0-98.0); Mean Platelet Volume 8.3 fL (7.4-10.4); Platelet Count 212 thou/uL (130-400); RBC Distribution Width 16.2 % (11.5-14.5); Red Blood Cell (RBC) Count 3.21 mill/uL (4.20-5.40); White Blood Cell (WBC) Count 5.4 thou/uL (4.8-10.8)
[2020-04-18 22:59] LABS: ALT (SGPT) 10 U/L (8-55); AST (SGOT) 14 U/L (5-34); Albumin 3.4 g/dL (3.4-4.8); Alkaline Phosphatase 120 U/L (40-110); Anion Gap 11 mmol/L (10-20); BUN (Urea Nitrogen) 52 mg/dL (9.8-20.1); Bilirubin, Total 0.2 mg/dL (0.2-1.2); Calc. Creatinine Clearance 0 mL/min (70-130); Calcium 8.4 mg/dL (7.8-10.44); Carbon Dioxide 23 mmol/L (23-31); Chloride 110 mmol/L (98-107); Estimated GFR-MDRD 17; Globulin 3.5 g/dL (2.4-3.5); Glucose 193 mg/dL (80-115); Potassium 4.6 mmol/L (3.5-5.1); Protein, Total 6.9 g/dL (6.0-8.3); Sodium 139 mmol/L (136-145)
--- NOTE | 2020-04-18 23:48 | PDOC.FPRHP ---
- History of Present Illness Chief Complaint: R sided hip s/p fall from ground level History of Present Illness: This is a 69F presenting with R hip pain after a mechanical fall. She tripped on her R foot when getting up from her wheelchair and fell on her L side but feels pain on R side. She says she has a R foot wound that was dug into the ground and that is hurting, as well. XR in the ED showed no fx. Lab work in the ED showed Cr of 3.5, up from previous 2.5, so she was admitted for KAYDEN on CKD. ED Course: Morphine 4mg, Zofran 4mg XR of L shoulder, R femur/tibia/fibula/ankle, pelvis. All neg for fx - Allergies/Adverse Reactions Allergies Allergy/AdvReac Type Severity Reaction Status Date / Time hydralazine Allergy Verified 05/20/20 00:40 pregabalin Allergy Verified 05/20/20 00:40 - Home Medications Medication Instructions Recorded Confirmed Type Acetaminophen With Codeine 1 tablet PO DAILY PRN 09/22/18 05/16/20 History [Tylenol with Codeine #3] Albuterol Sulfate [Proair HFA] 1 puff INH Q4HR PRN 09/22/18 05/16/20 History Atorvastatin Calcium 80 mg PO HS 09/22/18 05/16/20 History Citalopram Hydrobromide [CeleXA] 40 mg PO DAILY 09/22/18 05/16/20 History Fluticasone/Salmeterol [Advair HFA 2 inh IH DAILY 09/22/18 05/16/20 History 45/21 Inhaler] Gabapentin 600 mg PO BID 09/22/18 05/16/20 History Amlodipine [Norvasc] 10 mg PO DAILY #30 tab 09/24/18 05/16/20 Rx Ergocalciferol (Vitamin D2) 50,000 unit PO Q7DAYS 10/25/18 05/16/20 History [Vitamin D2] Amitriptyline HCl [Elavil] 100 mg PO HS 04/19/20 05/16/20 History Calcitriol [Rocaltrol] 0.25 mcg PO DAILY 04/19/20 05/16/20 History Cimetidine 200 mg PO DAILY 04/19/20 05/16/20 History Ezetimibe [Zetia] 10 mg PO DAILY 04/19/20 05/16/20 History Oxybutynin Chloride [Oxybutynin 5 mg PO HS 04/19/20 05/16/20 History Chloride ER] Amlodipine Besylate [amLODIPine 10 mg PO DAILY 05/16/20 05/16/20 History Besylate] Aspirin [Ecotrin Low Strength] 81 mg PO DAILY 05/16/20 05/16/20 History Apixaban [Eliquis] 2.5 mg PO BID #60 tab 05/23/20 Rx Carvedilol [Coreg] 25 mg PO BID #60 tab 05/23/20 Rx Epoetin Donald-Epbx [Retacrit] 7,500 unit SC Q7D vial 05/23/20 Rx Famotidine [Pepcid] 20 mg PO DAILYPRN PRN tab 05/23/20 Rx Ferrous Sulfate [Feosol] 325 mg PO BID-WM tab 05/23/20 Rx Furosemide [Lasix] 20 mg PO DAILY #30 tab 05/23/20 Rx Nicotine [Nicoderm CQ] 14 mg TD Q24HR patch 05/23/20 Rx predniSONE 40 mg PO QAM-WM 3 Days tab 05/23/20 Rx diphenhydrAMINE [Benadryl] 25 mg PO Q4H PRN cap 05/25/20 Rx Insulin Detemir [Levemir Flextouch] 15 unit SQ BID #0 05/28/20 05/21/20 Rx cloNIDine [Grmrwipb-CGT-0 Patch] 0.3 mg TD Q7DAYS patch 05/28/20 Rx - History PMHx: T2DM, HTN, "heart problems", CKD, seasonal allergies, colon adenoma Wine Sales Representative is Dr. Drake Outside Salesman is Dr. 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 Cancer in her younger brother when he was in his 40s Social: Smokes 5-6 cigs/d x 15yrs. Denies EtOH and drug use - Review of Systems General: denies: fever/chills Eyes: denies: vision changes ENT: denies: nasal congestion, rhinorrhea Respiratory: reports: shortness of breath, exercise intolerance. denies: cough, congestion Cardiovascular: reports: edema, orthopnea. denies: chest pain, palpitation Gastrointestinal: denies: vomiting, diarrhea, abdominal pain Genitourinary: denies: dysuria Skin: denies: rashes Musculoskeletal: reports: pain (of R hip), swelling Neurological: reports: numbness (neuropathy). denies: syncope - Vital signs BP: 150/72 HR: 71 RR: 18 Tmax: 98.3F Pox: 93% on RA Wt: 140kg - Physical Exam Constitutional: NAD, awake, alert and oriented, well developed -Constitutional: Obese. Speaks quietly and with effort HEENT: normocephalic and atraumatic, grossly normal vision, grossly normal hearing Neck: supple Chest: no lesions Heart: RRR (difficult to auscultate), normal S1/S2, pulses present Lungs: CTAB, no respiratory distress, no wheezing Abdomen: soft, non-tender, bowel sounds present, no masses/distention Musculoskeletal: normal structure, normal tone Neurological: no focal deficit -Skin: Rash of pannus with baby powder applied. Erythematous. Heme/Lymphatic: no unusual bruising or bleeding Psychiatric: normal mood and affect, intact recent and remote memory FMR H&P: Results - Labs Result Diagrams: 04/19/20 05:51 04/19/20 14:46 Lab results: WBC 5.4 thou/uL (4.8-10.8) 04/18/20 22:20 Hgb 9.4 g/dL (12.0-16.0) L 04/18/20 22:20 Hct 28.6 % (36.0-47.0) L 04/18/20 22:20 MCV 89.1 fL (78.0-98.0) 04/18/20 22:20 Plt Count 212 thou/uL (130-400) 04/18/20 22:20 Neutrophils % 66.9 % (42.0-75.0) 04/18/20 22:20 Sodium 139 mmol/L (136-145) 04/18/20 22:20 Potassium 4.6 mmol/L (3.5-5.1) 04/18/20 22:20 Chloride 110 mmol/L (98-107) H 04/18/20 22:20 Carbon Dioxide 23 mmol/L (23-31) 04/18/20 22:20 BUN 52 mg/dL (9.8-20.1) H 04/18/20 22:20 Creatinine 3.35 mg/dL (0.6-1.1) H 04/18/20 22:20 Glucose 193 mg/dL (80-115) H 04/18/20 22:20 Calcium 8.4 mg/dL (7.8-10.44) 04/18/20 22:20 Total Bilirubin 0.2 mg/dL (0.2-1.2) 04/18/20 22:20 AST 14 U/L (5-34) 04/18/20 22:20 ALT 10 U/L (8-55) 04/18/20 22:20 Alkaline Phosphatase 120 U/L (40-110) H 04/18/20 22:20 Serum Total Protein 6.9 g/dL (6.0-8.3) 04/18/20 22:20 Albumin 3.4 g/dL (3.4-4.8) 04/18/20 22:20 FMR H&P: A/P - Plan Mechanical fall - XR in ED all neg for fx - CM consulted for discharge planning and possible OP therapy management - Consider PT/OT consult if LOS increases KAYDEN on CKD - Cr 3.5, previously 2.5 - Has ranged from 2.2 to 3.51 since 07/2019 - Suspect will decrease with fluids IVF 90mL/h d/t fluid status - 1+ LE edema on exam - Monitor fluid status T2DM - BG 193 on arrival - Pt states she is not on insulin but clinic chart says she is - Med rec with pharmacy - ACHS glucose checks - Mild SSI HTN - MD aware, will monitor - Med rec with pharmacy Anemia - Hb 9.4 on arrival w MCV 89 - Baseline ~9 - Iron studies, RBC folate, Vit B12 ordered to evaluate cause Intertriginous rash - Likely Candidiasis - No open wound - MD aware Tobacco use - Volleyball Coach on smoking cessation - Consider nicotine patch COPD - Duonebs ordered Dispo: Medical obs, LOS <24h IVF: NS 90mL/h DVT Ppx: Hep GI Ppx: Pepcid PCP: MIKAEL Stephens Code: DNAR FMR H&P: Upper Level - Pertinent history 69 yo F with PMH of T2DM, HTN, HLD, COPD, peripheral neuropathy, GERD, Fe deficiency, depression, tobacco abuse, and insomnia presents to the ER after a mechanical fall where she landed on her left hip and shoulder on dirt. Patient reports she did not hit her head. In the ED, multiple XR were taken which showed no acute fractures (Ankle, pelvis, tib/fib, femur, shoulder). Patient was found to have KAYDEN with Bun/Cr of 52/3.35. Baseline Cr of 2.6, but has had Cr of 3.51 in 01/2020. - Pertinent findings Vitals: BP 140/87, P 82, R 14, T 98.7, O2 99 on RA Physical exam: F in NAD, lying in bed. Cardiac: RRR, no murmurs Lungs: mild diffuse wheezing Extremities: Pulses 2+ BUE. - Plan Date/Time: 04/18/20 2646 I, Kathryn Ni MD, have evaluated this patient and agree with findings/plan as outlined by paid internship resident. Pertinent changes/additions are listed here. Mechanical fall -XRs showed no acute fractures -Pain control with Tylenol & Tramadol, avoid nephrotoxic medications KAYDEN on CKD4 -reason patient was admitted for monitoring overnight. BUN 52/Cr 3.35. Baseline 2.6. -Recheck AM labs -gentle IVF, encourage PO intake -Recheck in AM -Patient can likely DC tomorrow -Needs follow up with PCP DM2 -Unclear what medications she is currently taking for this, she states she is not on insulin or metformin but takes 2 medications for this. Hold metformin due to KAYDEN. SSI with ACHS. Normocytic anemia -Hgb 9.4, chronic -Fe studies, folate and B12 Hx of DVT -Pt was on Eliquis in the past, needs thorough home med rec. Heparin for now un til home meds can be verified. Tobacco abuse -school guidance counselor cessation COPD -duoneb PRN Diet: cc IVF: NS @ 90 PCP: Lora Stephens DVT ppx: heparin Dispo: likely home in AM Addendum - Attending - Attending Attestation Date/Time: 06/02/20 0859 I personally evaluated the patient and discussed the management with Dr. Zara Wolff on 04/18/2020 I agree with the History, Examination, Assessment and Plan documented above with any addition or exceptions noted below - 69 yo F with PMH of T2DM, HTN, HLD, COPD, peripheral neuropathy, GERD, Fe deficiency, depression, tobacco abuse, and insomnia presents to the ER after a mechanical fall where she landed on her left hip and shoulder on dirt. Patient reports she did not hit her head. In the ED, multiple XR were taken which showed no acute fractures (Ankle, pelvis, tib/fib, femur, shoulder). Patient was found to have KAYDEN with Bun/Cr of 52/3.35. Afebrile VSS Exam repeated by me and agree with resident's findings. A/P: 1) s/p fall - no fractures. 2) KAYDEN- will gently hydrate and recheck.
[2020-04-19] MEDS ORDERED: Ondansetron PF 4 MG/2 ML Vial IVP PRN (01:30)
[2020-04-19] MEDS ORDERED: Acetaminophen 325 MG TAB PO PRN (01:30)
[2020-04-19] MEDS ORDERED: Sodium Chloride 0.9% 1,000 ML IV SCH (01:30)
[2020-04-19] MEDS ORDERED: HYDROcodone/Acetaminophen 5/325 mg Tablet PO PRN ×2 (01:30)
[2020-04-19] MEDS ORDERED: Ondansetron ODT 4 MG TAB SL PRN (01:30)
[2020-04-19] MEDS ORDERED: Dextrose 50% Abboject 50 ML SYRINGE SLOW IVP PRN (02:17)
[2020-04-19] MEDS ORDERED: Dextrose 5% in Water 1,000 ML IV PRN (02:30)
[2020-04-19 02:31] VITALS: BMI 49.9
[2020-04-19] MEDS ORDERED: traMADol HCl 50 MG TAB PO PRN (02:31)
[2020-04-19] MEDS ORDERED: Albuterol Sulfate 2.5 mg/3 ml Neb NEB PRN (03:05)
[2020-04-19] MEDS: HumaLOG 300 UNITS/3 ML VIAL SC PRN ×2 (05:27→12:54)
[2020-04-19 06:12] LABS: #Eosinphils 0.2 thou/uL (0.0-0.7); #Lymphocytes 1.2 thou/uL (1.20-3.40); #Monocytes 0.6 thou/uL (0.11-0.59); #Neutrophils 2.9 thou/uL (1.40-6.50); %Basophils 0.1 % (0.0-1.0); %Eosinophils 3.2 % (0.0-10.0); %Lymphocytes 24.7 % (21.0-51.0); %Monocytes 12.8 % (0.0-10.0); %Neutrophils 59.2 % (42.0-75.0); Hemoglobin 9.3 g/dL (12.0-16.0); Mean Corpuscular HGB CONC 32.3 g/dL (32.0-36.0); Mean Corpuscular Hemoglobin 28.9 pg (27.0-31.0); Mean Corpuscular Volume 89.5 fL (78.0-98.0); Mean Platelet Volume 8.4 fL (7.4-10.4); Platelet Count 213 thou/uL (130-400); RBC Distribution Width 16.3 % (11.5-14.5); Red Blood Cell (RBC) Count 3.21 mill/uL (4.20-5.40); White Blood Cell (WBC) Count 4.8 thou/uL (4.8-10.8)
--- NOTE | 2020-04-19 06:27 | PDOC.FM ---
- Subjective Subjective: Patient was resting comfortably in bed at the time of evaluation. Although she was somewhat groggy, she denied any acute overnight events, particularly with regard to worsening hip pain, nausea or vomiting. - Objective Vital Signs & Weight: Vital Signs (12 hours) Temp Pulse Resp BP BP Pulse Ox 04/19/20 04:00 98.2 F 70 18 131/77 92 L 04/19/20 02:00 98.3 F 71 18 150/72 H 93 L 04/19/20 01:30 98.3 F 71 18 150/72 H 93 L 04/19/20 01:25 98.3 F 71 18 150/72 H 93 L Weight Admit Weight 140.302 kg Weight 140.302 kg Result Diagrams: 04/19/20 05:51 04/19/20 05:51 Phys Exam - Physical Examination Constitutional: NAD EOMI grossly intact Neck: supple, full ROM Respiratory: no wheezing, no rales, no rhonchi, clear to auscultation bilateral Cardiovascular: RRR, no significant murmur, no rub Gastrointestinal: soft, non-tender, no distention, positive bowel sounds Musculoskeletal: no edema, pulses present Exam limited by body habitus - no TTP or gross deformity LEs of similar length without significant rotation Neurological: non-focal, moves all 4 limbs Psychiatric: normal affect Deviation from normal: Bandage over LLE - no gross drainage or strikethrough Dx/Plan (1) KAYDEN (acute kidney injury) Code(s): N17.9 - ACUTE KIDNEY FAILURE, UNSPECIFIED Status: Acute (2) CKD (chronic kidney disease) Code(s): N18.9 - CHRONIC KIDNEY DISEASE, UNSPECIFIED Status: Acute (3) Diabetes mellitus Code(s): E11.9 - TYPE 2 DIABETES MELLITUS WITHOUT COMPLICATIONS Status: Acute (4) HTN (hypertension) Code(s): I10 - ESSENTIAL (PRIMARY) HYPERTENSION Status: Acute (5) Morbid obesity Code(s): E66.01 - MORBID (SEVERE) OBESITY DUE TO EXCESS CALORIES Status: Acute (6) Physical deconditioning Code(s): R53.81 - OTHER MALAISE Status: Acute - Plan Plan: Patient is a 69 y/o female who presented to the hospital for evaluation of hip pain after a ground-level fall. 1. Mechanical Fall -X-Rays of Shoulder, Femur, Tibia/Fibula, Pelvis and Ankle - NAF x4 -Will control pain w/ Tylenol, Tramadol 2. KAYDEN on CKD4 -Found incidentally during evaluation in ED - reason for admisison -BUN: 52 / Cr: 3.35 - baseline reportedly 2.6 although elevated BUN and Cr values were consistently noted during previous admissions per chart review -Will initiate gentle fluid resuscitation w/ NS @ 90 ml/hr and encourage PO intake -Repeat BUN: 55 -Repeat Cr: 3.33 -Will encourage close follow-up with PCP, Correctional Supervising Cook 3. DM2 -Unclear what medications she is currently taking for this, she states she is not on insulin or metformin but takes 2 medications for this. -Will hold Metformin due to KAYDEN -ACHS Accuchecks -Mild SSI -Hypoglycemia Protocol 4. Normocytic Anemia -Hgb: 9.4 - likely chronic -Fe: 35 -TIBC: 274 -%TIBC: 13 -Folate: Pending -Ferritin: 634 -B12: Pending -Likely multifactorial - will start supplemental Fe if patient does not currently take at home Hx of DVT -Patient was reportedly on Eliquis in the past but current medication regimen is unclear -Will MedRec and ensure that medication regimen is updated accordingly prior to DC Tobacco Abuse -Will counseling program leader on the importance of Tobacco Abuse cessation prior to DC -Nicotine Patch 14 mg Daily COPD -DuoNebs PRN Code: DNR PCP: MIKAEL Lieberman) Diet: Carbohydrate Conscious Activity: Ambulate w/ Assist IVF: NS @ 90 VTE PPx: Heparin GI PPx: Famotidine Dispo: Patient is currently stable and admitted to the Medical Floor for ongoing pain management resulting from a ground level fall and additional work-up for KAYDEN on CKD. Will fluid resuscitate and recheck AM Labs, with a plan to likely DC today following MedRec. Expected LOS < 24H.
[2020-04-19 06:39] LABS: Anion Gap 11 mmol/L (10-20); BUN (Urea Nitrogen) 55 mg/dL (9.8-20.1); Calc. Creatinine Clearance 36 mL/min (70-130); Calcium 8.3 mg/dL (7.8-10.44); Carbon Dioxide 23 mmol/L (23-31); Chloride 111 mmol/L (98-107); Estimated GFR-MDRD 17; Glucose 169 mg/dL (80-115); Iron 34 ug/dL (50-170); Iron Binding Capacity, Total 276 mcg/dL (265-497); Potassium 4.8 mmol/L (3.5-5.1); Sodium 140 mmol/L (136-145)
[2020-04-19 06:41] LABS: Iron 35 ug/dL (50-170); Iron Binding Capacity, Total 274 mcg/dL (265-497)
[2020-04-19 07:05] LABS: Ferritin 482.94 ng/mL (10-291)
--- NOTE | 2020-04-19 07:21 | RAD ---
RIGHT TIBIA FIBULA 2 VIEWS: HISTORY: The patient is status post fall. FINDINGS: Arthritic changes of the knee and ankle are noted. There are signs of fracture or dislocation. Vasc ular calcifications are present. IMPRESSION: No acute injury. POS: BRAYAN
--- NOTE | 2020-04-19 07:22 | RAD ---
AP PELVIS: Date: 04/18/2020 HISTORY: Pelvic pain status post fall. FINDINGS: Pelvic ring is intact without evidence of fracture. Right hip prosthesis is present. IMPRESSION: No evidence of fracture. POS: BRAYAN
--- NOTE | 2020-04-19 07:22 | RAD ---
RIGHT ANKLE 3 VIWS: HISTORY: Ankle injury status post fall. FINDINGS: There is moderately severe arthritic change of the ankle joint. Calcaneal spurs are present. Amputa tion at the base of the 1st metatarsal is noted. No evidence of any acute bony injury. IMPRESSION: No evidence of fracture. POS: BRAYAN
--- NOTE | 2020-04-19 07:22 | RAD ---
RIGHT FEMUR 2 VIEWS: Date: 04/18/2020 HISTORY: Fall with thigh pain. FINDINGS: Hip prosthesis is in good position. There are no signs of fracture of the femur. Arthritic changes of the knee. IMPRESSION: No evidence of fracture. POS: BRAYAN
--- NOTE | 2020-04-19 07:24 | RAD ---
LEFT SHOULDER 3 VIEWS: HISTORY: Fall with shoulder pain. FINDINGS: Mild arthritic change of the shoulder noted. The bones appear demineralized. There is no evidence o f fracture. IMPRESSION: No evidence of fracture or dislocation. POS: BRAYAN
[2020-04-19] MEDS ORDERED: Ferrous Sulfate 325 MG TAB PO SCH ×2 (08:00→21:00)
[2020-04-19] MEDS ORDERED: Nicotine 14 MG PATCH TD SCH (09:00)
[2020-04-19] MEDS ORDERED: Famotidine 20 MG TAB PO SCH (09:00)
[2020-04-19] MEDS: Heparin 5,000 UNITS/ML VIAL SC SCH ×2 (09:03→16:00)
[2020-04-19 12:55] LABS: SARS-CoV-2 MS2 Positive; SARS-CoV-2 N Gene Negative; SARS-CoV-2 S Gene Negative; SARS-CoV-2 by NAA Not Detected (NotDetected); SARS-CoV-2 orf1ab Negative
--- NOTE | 2020-04-19 14:39 | PRG ---
DATE OF SERVICE: 04/19/2020 Ms. Garcia fell at home last night and had multiple x-rays done in the ER, none of which shown any fracture. She had a very mild KAYDEN and was admitted overnight for fluids and feels much better this morning, with her KAYDEN having resolved. She will be discharged. Job ID: [id number]
[2020-04-19 16:13] LABS: Anion Gap 13 mmol/L (10-20); BUN (Urea Nitrogen) 50 mg/dL (9.8-20.1); Calc. Creatinine Clearance 40 mL/min (70-130); Calcium 8.8 mg/dL (7.8-10.44); Carbon Dioxide 22 mmol/L (23-31); Chloride 109 mmol/L (98-107); Estimated GFR-MDRD 18; Glucose 182 mg/dL (80-115); Potassium 4.7 mmol/L (3.5-5.1); Sodium 139 mmol/L (136-145)
[2020-04-19] MEDS ORDERED: Acetaminophen/Codeine 30-300mg Tablet PO PRN (16:29)
[2020-04-19] MEDS ORDERED: PROVENTIL INHALER 6.7 G (200 INHALATIONS) INH PRN (19:46)
[2020-04-19] MEDS ORDERED: Amitriptyline HCl 100 MG TAB PO SCH (21:00)
[2020-04-19] MEDS ORDERED: Atorvastatin Calcium 40 MG TAB PO SCH (21:00)
[2020-04-19] MEDS ORDERED: Oxybutynin ER 5 MG TAB PO SCH (21:00)
[2020-04-19] MEDS ORDERED: Carvedilol 6.25 MG TAB PO SCH (21:00)
[2020-04-19] MEDS ORDERED: Apixaban 5 MG TAB PO SCH (21:00)
[2020-04-19] MEDS ORDERED: Gabapentin 300 MG CAP PO SCH (21:00)
[2020-04-19] MEDS ORDERED: FLU VACC QS2020-21(65YR UP)/PF 240 MCG/0.7 ML SYRINGE IM ONE (21:00)
[2020-04-19] MEDS ORDERED: CIMETIDINE 400 MG PO SCH (21:00)
[2020-04-19] MEDS ORDERED: guaiFENesin ER 600 MG TAB PO SCH (21:00)
[2020-04-19 22:20] VITALS: BP 158/81; TEMP 98.3
[2020-04-20] MEDS ORDERED: Furosemide 40 MG TAB PO SCH (09:00)
[2020-04-20] MEDS ORDERED: Ezetimibe 10 MG TAB PO SCH (09:00)
[2020-04-20] MEDS ORDERED: metFORMIN 500 MG TAB PO SCH (09:00)
[2020-04-20] MEDS ORDERED: FLUTICASONE IH SCH (09:00)
[2020-04-20] MEDS ORDERED: Non-Formulary Item 1 EACH (Insulin Detemir [Levemir Flextouch] 100 UNIT/ML Insuln.Pen) SQ SCH (09:00)
[2020-04-20] MEDS ORDERED: [UNRECOGNIZED DRUG - OTHER] IH SCH (09:00)
[2020-04-20] MEDS ORDERED: Insulin Glargine 5 UNITS in Pre-Filled Syringe 1 EACH SC SCH (09:00)
[2020-04-20] MEDS ORDERED: Citalopram 20 MG TAB PO SCH (09:00)
[2020-04-20] MEDS ORDERED: Lidocaine 5% Patch TD SCH (09:00)
[2020-04-20] MEDS ORDERED: Calcitriol 0.25 MCG CAP PO SCH (09:00)
[2020-04-20] MEDS ORDERED: DULoxetine 60 MG CAP PO SCH (09:00)
[2020-04-20] MEDS ORDERED: Amlodipine 10 MG TAB PO SCH (09:00)
[2020-04-20] MEDS ORDERED: SALMETEROL IH SCH (09:00)
--- NOTE | 2020-04-20 13:29 | DIS ---
DATE OF ADMISSION: 04/19/2020 DATE OF DISCHARGE: 04/19/2020 RESIDENT: Marco Martinez MD ADMITTING ATTENDING: Miya Abdi MD DISCHARGE ATTENDING: Efrain Mann MD CONSULTS: None. PROCEDURES: 1. Right ankle view x-ray which demonstrated no evidence of fracture. 2. X-ray of pelvis revealing no evidence of fracture. 3. X-ray of tibia-fibula demonstrating no acute injury. 4. X-ray of right femur, two view, revealing no evidence of fracture. 5. X-ray of left shoulder, three view, which demonstrated no evidence of acute fracture or dislocation. PRIMARY DIAGNOSIS: Acute on chronic kidney disease. SECONDARY DIAGNOSES: Status post mechanical fall, type 2 diabetes, normocytic anemia, history of DVT, tobacco abuse and COPD. DISCHARGE MEDICATIONS: 1. Acetaminophen with codeine 300 mg/30 mg one tablet p.o. daily p.r.n. 2. Albuterol sulfate 8.5 g HFA one puff inhaled q.4 hours p.r.n. 3. Amitriptyline 100 mg p.o. daily. 4. Amlodipine 10 mg p.o. daily. 5. Apixaban 5 mg p.o. b.i.d. 6. Atorvastatin 80 mg p.o. daily. 7. Calcitriol 0.25 mcg p.o. daily. 8. Carvedilol 12.5 mg p.o. t.i.d. 9. Cimetidine 800 mg p.o. daily. 10. Citalopram 40 mg p.o. daily. 11. Duloxetine 60 mg p.o. daily. 12. Vitamin D 50,000 units p.o. every seven days. 13. Zetia 10 mg p.o. daily. 14. Ferrous sulfate 325 mg p.o. daily. 15. Advair 2 inhalations daily. 16. Furosemide 40 mg p.o. daily. 17. Gabapentin 300 mg p.o. b.i.d. 18. Guaifenesin 600 mg p.o. b.i.d. 19. Insulin Levemir 5 units subcutaneous daily. 20. Lidocaine patch 5% one patch daily. 21. Metformin 1000 mg p.o. daily. 22. Oxybutynin 5 mg p.o. daily. DISCONTINUED MEDICATIONS: None. HISTORY OF PRESENT ILLNESS AND HOSPITAL COURSE: The patient is a 69-year-old female, who presents from home following a fall. The patient states that she fell on her right side as she was transferring from her wheelchair. She subsequently notified EMS and presented to the ED. Evaluation in the ED for acute fracture or injury result from this fall was otherwise unremarkable and multiple imaging modalities were taken. The results of which are listed elsewhere in this document. However, laboratory analysis showed that the patient had a creatinine of 3.5, relatively increased from her previous baseline of around 2.5. However, upon chart review, it appeared that her baseline was fluctuating between the mid 2s and mid 3s, so this may just have been a normal variant of the patient's chronic kidney disease. However, the patient was admitted to the Inpatient Medicine Service. In the emergency department, she was administered morphine 4 mg for pain, Zofran 4 mg for nausea and was subsequently transferred to the floor. The patient was given several boluses of fluid and was started on a maintenance fluid with p.o. intake encouraged. Repeat laboratory analysis revealed that the patient's creatinine dropped from approximately 3.35-3.06 indicating a relative improvement. The patient states that she saw her lead systems engineer recently, but could not recall the events of the encounter as the patient was otherwise stable with no acute injury and demonstrated improving kidney function. She was subsequently prepped for discharge. Prior to discharge, patient's vital signs were recorded as temperature 98.2, pulse 71 beats per minute, blood pressure 110/58, respirations 18 breaths per minute, oxygen saturation 95% on room air. Laboratory analysis revealed a sodium of 139, potassium 4.7, chloride 107, carbon dioxide 22, BUN 50, creatinine 3.06, glucose 182, calcium 8.8, iron 35, total iron binding capacity 274%, saturation 13, ferritin 42.94, total bilirubin 0.2, AST 14, ALT 10. Troponins less than 0.01. Vitamin B12 634. White blood cell count 4.8, hemoglobin 9.3, hematocrit 28.7, platelet count 213. Serology did not reveal active COVID-19 infection. DISPOSITION: Stable. DISCHARGE INSTRUCTIONS: 1. Location: Home. 2. Diet: Heart healthy and carbohydrate conscious. 3. Activity: No restrictions. 4. Follow up: The patient was encouraged to follow up with her lead systems engineer, Dr. Abelino Spencer in approximately 1 to 2 weeks in order to discuss ongoing management of her worsening chronic kidney disease. Additionally, the patient was encouraged to follow up with her primary care provider in approximately 3 to 4 weeks in order to discuss her most recent hospitalization and ongoing management of her chronic medical conditions and possible medication reconciliation as the patient had relatively poor insight into her own chronic medical problems and was unsure of her daily medications. Job ID: [id number]
[2020-04-20 13:39] LABS: Hematocrit 27.8 % (34.0-46.6); RBC Folate Test Component 1259 ng/mL (>498)
[2020-04-20] MEDS ORDERED: Lidocaine Patch Removal 1 EACH TOP SCH (21:00)
[2020-04-26] MEDS ORDERED: Ergocalciferol 1.25 MG(50,000 UNITS) CAP PO SCH (09:00)
== END 2020-04-19 19:25 | disposition home or self-care (01) ==
LOC: ERS 22:12 → T4-A 04-19 01:21
PROVIDERS: ADMIT Family Medicine; ATTEND Family Medicine
DX: I12.9 Hypertensive chronic kidney disease with stage 1 through stage 4 chronic kidney disease, or unspecified chronic kidney disease (principal); E11.22 Type 2 diabetes mellitus with diabetic chronic kidney disease; N18.4 Chronic kidney disease, stage 4 (severe); N17.9 Acute kidney failure, unspecified; D63.1 Anemia in chronic kidney disease; F17.210 Nicotine dependence, cigarettes, uncomplicated; J44.9 Chronic obstructive pulmonary disease, unspecified; M25.551 Pain in right hip; R21 Rash and other nonspecific skin eruption; E11.42 Type 2 diabetes mellitus with diabetic polyneuropathy; F32.9 Major depressive disorder, single episode, unspecified; G47.00 Insomnia, unspecified; R53.81 Other malaise; E66.01 Morbid (severe) obesity due to excess calories; Z68.42 Body mass index [BMI] 45.0-49.9, adult; Z66 Do not resuscitate; Z79.01 Long term (current) use of anticoagulants; Z79.4 Long term (current) use of insulin; Z79.899 Other long term (current) drug therapy; Z88.8 Allergy status to other drugs, medicaments and biological substances; Z20.828 Contact with and (suspected) exposure to other viral communicable diseases; W01.0XXA Fall on same level from slipping, tripping and stumbling without subsequent striking against object, initial encounter
CPT/HCPCS: 72170; 73030; 73552; 73590; 73610; 80048 ×2; 80053; 82607; 82728; 82747; 82962; 83540; 83550; 84484; 85014; 85025 ×2; G0378 ×2; U0003; 36415; 36416; 87635; 96374; 96375; J1644; J2270; J2405

== ENCOUNTER 2020-05-16 09:37 | Inpatient (IN) | payer MEDICARE, MEDICAID ==
--- NOTE | 2020-05-16 10:47 | RAD ---
Exam: Chest one view HISTORY:Cough. Weakness. Comparison: 12/23/2018 FINDINGS: Cardiac silhouette:Cardiomegaly. Aorta: Atherosclerotic and slightly elongated Pulmonary vessels: Normal Costophrenic angles: Clear LUNGS: Hyperinflation with chronic changes. Possible interstitial opacities in the right midlung and right lower lobe which may represent edema or infiltrate. Pneumothorax: None Osseous abnormalities: None IMPRESSION: 1. Cardiomegaly. 2. Interstitial opacities in the right lung which may represent edema or infiltrate.
[2020-05-16 11:11] LABS: #Eosinphils 0.1 thou/uL (0.0-0.7); #Lymphocytes 0.9 thou/uL (1.20-3.40); #Monocytes 0.5 thou/uL (0.11-0.59); #Neutrophils 3.7 thou/uL (1.40-6.50); %Basophils 0.1 % (0.0-1.0); %Eosinophils 2.8 % (0.0-10.0); %Lymphocytes 16.6 % (21.0-51.0); %Monocytes 10.2 % (0.0-10.0); %Neutrophils 70.2 % (42.0-75.0); Mean Corpuscular HGB CONC 31.4 g/dL (32.0-36.0); Mean Corpuscular Hemoglobin 28.8 pg (27.0-31.0); Mean Corpuscular Volume 91.6 fL (78.0-98.0); Mean Platelet Volume 7.2 fL (7.4-10.4); Platelet Count 237 thou/uL (130-400); RBC Distribution Width 15.5 % (11.5-14.5); Red Blood Cell (RBC) Count 2.79 mill/uL (4.20-5.40); White Blood Cell (WBC) Count 5.2 thou/uL (4.8-10.8)
[2020-05-16 11:19] LABS: ALT (SGPT) 21 U/L (8-55); AST (SGOT) 27 U/L (5-34); Albumin 3.2 g/dL (3.4-4.8); Alkaline Phosphatase 119 U/L (40-110); Anion Gap 14 mmol/L (10-20); BUN (Urea Nitrogen) 71 mg/dL (9.8-20.1); Bilirubin, Total 0.3 mg/dL (0.2-1.2); Calc. Creatinine Clearance 0 mL/min (70-130); Calcium 8.6 mg/dL (7.8-10.44); Carbon Dioxide 23 mmol/L (23-31); Chloride 107 mmol/L (98-107); Estimated GFR-MDRD 13; Globulin 3.7 g/dL (2.4-3.5); Glucose 140 mg/dL (80-115); Potassium 5.3 mmol/L (3.5-5.1); Protein, Total 6.9 g/dL (6.0-8.3); Sodium 139 mmol/L (136-145)
--- NOTE | 2020-05-16 14:43 | PDOC.FPRHP ---
- History of Present Illness Chief Complaint: dyspnea, weakness History of Present Illness: Patient is a 69F with PMHx of DM2, HTN, HLD, COPD, peripheral neuropathy, GERD, incontinence, iron deficiency anemia, depression, and insomnia that presented to the ED from [facility] with cc of bilateral arm weakness and dyspnea since last night. Denies fever, cough, n/v/d. Reports she borrowed a friend's CPAP last night. She is [facility] to have PFT's next week. Endorses swelling in her feet which is chronic, reports wound care visit [facility] for tomorrow to evaluate her lower extremities. States she gets fluid blisters that pop on her lower extremities. Reports she uses a walker and a motorized wheel chair to get around. ED Course: None - Allergies/Adverse Reactions Allergies Allergy/AdvReac Type Severity Reaction Status Date / Time No Known Allergies Allergy Verified 05/16/20 20:50 - Home Medications Medication Instructions Recorded Confirmed Type Acetaminophen With Codeine 1 tablet PO DAILY PRN 09/22/18 05/16/20 History [Tylenol with Codeine #3] Albuterol Sulfate [Proair HFA] 1 puff INH Q4HR PRN 09/22/18 05/16/20 History Atorvastatin Calcium 80 mg PO HS 09/22/18 05/16/20 History Carvedilol [Coreg] 25 mg PO TID 09/22/18 05/16/20 History Citalopram Hydrobromide [CeleXA] 40 mg PO DAILY 09/22/18 05/16/20 History Fluticasone/Salmeterol [Advair HFA 2 inh IH DAILY 09/22/18 05/16/20 History 45/21 Inhaler] Gabapentin 600 mg PO BID 09/22/18 05/16/20 History Amlodipine [Norvasc] 10 mg PO DAILY #30 tab 09/24/18 05/16/20 Rx Ergocalciferol (Vitamin D2) 50,000 unit PO Q7DAYS 10/25/18 05/16/20 History [Vitamin D2] Ferrous Sulfate [Iron] 1 tablet PO HS 10/25/18 05/16/20 History Furosemide [Lasix] 40 mg PO DAILY 10/25/18 05/16/20 History Apixaban [Eliquis] 5 mg PO BID 30 Days tablet 10/27/18 05/16/20 Rx Amitriptyline HCl [Elavil] 100 mg PO HS 04/19/20 05/16/20 History Calcitriol [Rocaltrol] 0.25 mcg PO DAILY 04/19/20 05/16/20 History Cimetidine 200 mg PO DAILY 04/19/20 05/16/20 History Ezetimibe [Zetia] 10 mg PO DAILY 04/19/20 05/16/20 History Insulin Detemir [Levemir Flextouch] 5 unit SQ DAILY 04/19/20 05/16/20 History Oxybutynin Chloride [Oxybutynin 5 mg PO HS 04/19/20 05/16/20 History Chloride ER] Amlodipine Besylate [amLODIPine 10 mg PO DAILY 05/16/20 05/16/20 History Besylate] Aspirin [Ecotrin] 81 mg PO DAILY 05/16/20 05/16/20 History - History PMHx: DM2, HTN, HLD, COPD, peripheral neuropathy, GERD, incontinence, iron deficiency anemia, depression, and insomnia PSHx: L leg ulcer, R heel, R big toe amputation FHx: non-contributory Social: smokes 1/2 ppd x 25 yrs, denies alcohol, drug use - Review of Systems General: denies: fever/chills, weight/appetite/sleep changes Eyes: denies: eye pain, vision changes ENT: denies: nasal congestion, rhinorrhea Respiratory: reports: shortness of breath. denies: cough Cardiovascular: reports: edema (chronic). denies: chest pain Gastrointestinal: denies: nausea, vomiting, diarrhea Genitourinary: reports: incontinence (chronic). denies: dysuria Skin: denies: rashes, jaundice Musculoskeletal: reports: tenderness (BLE) Neurological: reports: weakness (bilateral upper extremities). denies: numbness, seizure Psychological: reports: depression. denies: anxiety - Vital signs BP: [132/52] HR: [66] RR: [20] Tmax: [98.2F] Pox: [99]% on [2L] Wt: [158kg] - Physical Exam Constitutional: NAD -Constitutional: drowsy HEENT: normocephalic and atraumatic, EOMI, MMM Neck: supple, FROM Heart: RRR, normal S1/S2 -Heart: 1+ pitting edema BLE up to knees Lungs: no wheezing -Lungs: decreased breath sounds throughout Abdomen: soft, non-tender -Musculoskeletal: RLE in boot; bilateral lower extremities have compression stockings in place Neurological: no focal deficit Skin: no rash/lesions Heme/Lymphatic: no unusual bruising or bleeding, no purpura Psychiatric: normal mood and affect FMR H&P: Results - Labs Result Diagrams: 05/17/20 04:18 05/17/20 11:42 Lab results: WBC 5.2 thou/uL (4.8-10.8) 05/16/20 10:46 Hgb 8.0 g/dL (12.0-16.0) L 05/16/20 10:46 Hct 25.5 % (36.0-47.0) L 05/16/20 10:46 MCV 91.6 fL (78.0-98.0) 05/16/20 10:46 Plt Count 237 thou/uL (130-400) 05/16/20 10:46 Neutrophils % 70.2 % (42.0-75.0) 05/16/20 10:46 Sodium 139 mmol/L (136-145) 05/16/20 10:46 Potassium 5.3 mmol/L (3.5-5.1) H 05/16/20 10:46 Chloride 107 mmol/L (98-107) 05/16/20 10:46 Carbon Dioxide 23 mmol/L (23-31) 05/16/20 10:46 BUN 71 mg/dL (9.8-20.1) H 05/16/20 10:46 Creatinine 4.16 mg/dL (0.6-1.1) H 05/16/20 10:46 Glucose 140 mg/dL (80-115) H 05/16/20 10:46 Calcium 8.6 mg/dL (7.8-10.44) 05/16/20 10:46 Total Bilirubin 0.3 mg/dL (0.2-1.2) 05/16/20 10:46 AST 27 U/L (5-34) 05/16/20 10:46 ALT 21 U/L (8-55) 05/16/20 10:46 Alkaline Phosphatase 119 U/L (40-110) H 05/16/20 10:46 B-Natriuretic Peptide 79.2 pg/mL (0-100) 05/16/20 10:46 Serum Total Protein 6.9 g/dL (6.0-8.3) 05/16/20 10:46 Albumin 3.2 g/dL (3.4-4.8) L 05/16/20 10:46 - EKG Interpretation EKG: NSR, RBBB, rate 63, QTc 472 - Radiology Interpretation Chest x-ray Status: report reviewed by me (cardiomegaly, interstitial opacities in the R lung c/w edema vs infiltrate) FMR H&P: A/P - Problem List (1) Acute respiratory failure with hypoxia Current Visit: Yes Status: Acute Code(s): J96.01 - ACUTE RESPIRATORY FAILURE WITH HYPOXIA (2) Hyperkalemia Current Visit: Yes Status: Acute Code(s): E87.5 - HYPERKALEMIA (3) KAYDEN (acute kidney injury) Current Visit: No Status: Acute Code(s): N17.9 - ACUTE KIDNEY FAILURE, UNSPECIFIED (4) CKD (chronic kidney disease) Current Visit: No Status: Acute Code(s): N18.9 - CHRONIC KIDNEY DISEASE, UNSPECIFIED (5) Diabetes mellitus Current Visit: No Status: Acute Code(s): E11.9 - TYPE 2 DIABETES MELLITUS WITHOUT COMPLICATIONS (6) HTN (hypertension) Current Visit: No Status: Acute Code(s): I10 - ESSENTIAL (PRIMARY) HYPERTENSION (7) Morbid obesity Current Visit: No Status: Acute Code(s): E66.01 - MORBID (SEVERE) OBESITY DUE TO EXCESS CALORIES - Plan Patient is a 69F with PMHx of DM2, HTN, HLD, COPD, peripheral neuropathy, GERD, incontinence, iron deficiency anemia, depression, and insomnia admitted for: #KAYDEN on CKD -patient's creatinine last admission was 3.42, creatinine today 4.16 -GFR 16 last admission, GFR 13 today -Dr. Spencer, patient's sulky driver, consulted from ED and recommended admission for evaluation and treatment -urine studies pending -Will start on gentle fluids and continue to monitor #Acute on chronic hypoxic respiratory failure -patient reportedly has a hx of COPD; will continue COPD inhalers -no wheezes appreciated on exam -patient complains of dyspnea since last night, used friend's CPAP -concern for worsening metabolic acidosis with lack of respiratory compensation in the setting of suspected DARRICK and uremia -bicarb 23 -patient satting 98-99% on 2L, will try to wean today -CXR: cardiomegaly, interstitial opacities in the R lung c/w edema vs infiltrates; procal negative so suspect possible atalectasis -BNP 79, patient has no hx of CHF -duonebs [facility] #Uremia -BUN 71, higher than previous admissions -patient drowsy during exam though able to answer questions -suspect likely due to worsening kidney function -Dr. Spencer consulted from the ED and suggested admission for evaluation and treatment -will continue to monitor kidney function with fluids -HD may need to be considered #Hyperkalemia -potassium 5.3 -suspect result of worsening kidney function -no EKG changes -will start on IVF and continue to monitor #Lower extremity edema -patient has stockings on, reportedly chronic -wound care consulted for evaluation and treatment #PVD -per cards records patient started on eliquis for PVD -continue eliquis #DM2 -continue home meds -ISS -ACHS accuchecks #HTN -continue home meds #HLD -continue home meds #Peripheral neuropathy -continue home meds #GERD -continue home meds #Anemia, iron deficiency + chronic disease -H/H slightly lower than previous admissions -workup from last admission demonstrated likely mix of anemia of chronic disease and iron deficiency anemia -continue home meds #Depression #Insomnia -continue home meds Diet: CC DVT ppx: home eliquis Dispo: admitted to telemetry obs Addendum - Attending - Attending Attestation Date/Time: 05/16/20 5151 I personally evaluated the patient and discussed the management with resident team I agree with the History, Examination, Assessment and Plan documented above with any addition or exceptions noted below. Worsening renal function with uremia and likely metabolic acidosis with loss of respiratory compensation due to obesity hypoventilation syndrome and restrictive dz. ABG ordered. Dr Spencer consulted from ER for admission. Will follow alongside. Adjust home meds as needed. Wound care to be consulted for lower extremity ulcers. Hesham
[2020-05-16] MEDS ORDERED: PROVENTIL INHALER 6.7 G (200 INHALATIONS) INH PRN (19:19)
--- NOTE | 2020-05-16 19:21 | CON ---
DATE OF CONSULTATION: 05/16/20 HISTORY OF PRESENT ILLNESS: Ms. Garcia is a 69-year-old black female with known history of chronic renal failure from diabetic nephropathy and presented today due to shortness of breath. Chest x-ray showed right infiltrate versus mild CHF. We were currently being consulted for further management of her worsening renal dysfunction. Consideration for a volume depletion and/or overt CHF per se. REVIEW OF SYSTEMS: Positive for mild shortness of breath. No chest pain. No syncopal episode. No fever or chills. No diarrhea. No gross hematuria. No dysuria. No urinary frequency. No productive cough. No sore throat. No runny nose. No abdominal pain. Energy level is decreased. Appetite is decreased. HOME MEDICATIONS: Include; 1. Tylenol with codeine one tablet daily p.r.n. 2. ProAir one puff q.4 hours p.r.n. 3. Atorvastatin 80 mg at bedtime. 4. Coreg 12.5 mg p.o. b.i.d. 5. Celexa 40 mg daily. 6. Fluticasone/salmeterol two inhalations daily. 7. Gabapentin 300 mg p.o. b.i.d. 8. Metformin 1000 mg p.o. daily. 9. Amlodipine 10 mg tablet once a day. 10. Vitamin D2, 50,000 international units q.7 days. 11. Ferrous sulfate one tablet at bedtime. 12. Furosemide 40 mg daily. 13. Eliquis 5 mg p.o. b.i.d. 14. Amitriptyline 100 mg at bedtime. 15. Calcitriol 0.25 mcg daily. 16. Cimetidine 800 mg at bedtime. 17. Duloxetine 60 mg daily. 18. Zetia 10 mg at bedtime. 19. Levemir 5 units subcu daily. 20. Oxybutynin 5 mg at bedtime. PAST MEDICAL HISTORY: Chronic renal failure from diabetic nephropathy, type 2 diabetes mellitus, history of depression, hypertension, diabetic neuropathy, hyperlipidemia, chronic pain, status post right leg DVT. PAST SURGICAL HISTORY: Status post hysterectomy, status post right breast lumpectomy, status post great toe amputation. 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 Status post blood transfusion. Smoked for 20 years, 5 cigarettes per day. Alcohol, none. Education, high school. Four siblings with two . Currently lives at home ? versus [facility] living. ALLERGIES: NONE. TRAUMA: None. IMMUNIZATIONS: Up to date. HOSPITALIZATIONS: Please see past medical history. FAMILY HISTORY: No family history of ESRD. PHYSICAL EXAMINATION: VITAL SIGNS: Blood pressure 130/80, heart rate is 80, pulse ox 96%. GENERAL: The patient is awake, comfortable, supine, morbidly obese, not in distress. SKIN: Adequate turgor. HEENT: The patient has pale conjunctivae. Anicteric sclerae. No neck mass. No carotid bruits. No JVD. CHEST: No deformities. LUNGS: Decreased breath sounds. HEART: Normal sinus rhythm. No murmur. No gallops. No rubs. ABDOMEN: Globular, soft, nontender. No masses. EXTREMITIES: Positive for edema. NEUROLOGIC: Awake and oriented to 3 spheres. Moving all extremities. No tremors. No asterixis. No ataxia. LABORATORY DATA: Of May 16, 2020: White count 5.2, hemoglobin is 8. Sodium 139, potassium 5.3, chloride 107, carbon dioxide 23, BUN 71, creatinine 4.16, glucose 140, calcium 8.6. AST 27, ALT 21. Troponin-I 0.018. Albumin 3.2. Procalcitonin 0.06. Chest x-ray of May 16, 2020; cardiomegaly, interstitial opacities in the right lung, which may represent edema versus infiltrate. ASSESSMENT AND PLAN: 1. Chronic renal failure secondary to diabetic nephropathy - the patient's renal function continues to progressively worsen. She was encountered back on March 06 and her creatinine was noted at 2.68 at that time, which was a reflection of progressive worsening of the renal dysfunction. It is possible this patient may have already reached end-stage renal disease. The plan is to see if she will respond to some volume to improve the renal function. Please note, at home, she was on furosemide at 20 mg tablet once a day. Due to the worsening renal dysfunction, adjust Eliquis as well as her metformin to renal dosing. Most likely, we need to discontinue metformin due to the GFR of less than 30 mL/minute. 2. Anemia. Start Epogen 7500 units subcu every week. 3. Shortness of breath - ? of congestive heart failure. We would judiciously volume replete her. 4. Recheck CBC and basic metabolics in a.m. Job ID: [id number] MTDD
[2020-05-16] MEDS ORDERED: Non-Formulary Item 1 EACH (Ferrous Sulfate [Iron] 325 MG Tablet) PO SCH (21:00)
[2020-05-16] MEDS ORDERED: Apixaban 5 MG TAB PO SCH (21:00)
[2020-05-16] MEDS: EPOETIN ALFA-EPBX (ESRD) 4,000 UNIT/ML VIAL SC SCH (21:50)
[2020-05-16] MEDS: Lactated Ringer's 1,000 ML IV SCH (21:50)
[2020-05-16] MEDS: Gabapentin 300 MG CAP PO SCH (21:52)
[2020-05-16] MEDS: Carvedilol 25 MG TAB PO SCH (21:52)
[2020-05-16] MEDS: Atorvastatin Calcium 40 MG TAB PO SCH (21:53)
[2020-05-16] MEDS: Amitriptyline HCl 100 MG TAB PO SCH (21:54)
[2020-05-16] MEDS ORDERED: Dextrose 50% Abboject 50 ML SYRINGE SLOW IVP PRN (22:18)
[2020-05-16] MEDS ORDERED: Dextrose 5% in Water 1,000 ML IV PRN (22:18)
[2020-05-16] MEDS ORDERED: Famotidine 20 MG TAB PO PRN (22:18)
[2020-05-16] MEDS: Nicotine 14 MG PATCH TD SCH (22:34)
[2020-05-17] MEDS: Lactated Ringer's 1,000 ML IV SCH ×2 (01:20→08:38)
[2020-05-17 03:21] LABS: Creatinine, Urine 84.44 mg/dL (47-110)
[2020-05-17 04:38] LABS: #Eosinphils 0.2 thou/uL (0.0-0.7); #Lymphocytes 0.7 thou/uL (1.20-3.40); #Monocytes 0.6 thou/uL (0.11-0.59); #Neutrophils 2.9 thou/uL (1.40-6.50); %Basophils 0.5 % (0.0-1.0); %Eosinophils 3.9 % (0.0-10.0); %Lymphocytes 15.1 % (21.0-51.0); %Monocytes 13.5 % (0.0-10.0); %Neutrophils 67.1 % (42.0-75.0); Hemoglobin 8.2 g/dL (12.0-16.0); Mean Corpuscular HGB CONC 31.6 g/dL (32.0-36.0); Mean Corpuscular Hemoglobin 28.8 pg (27.0-31.0); Mean Corpuscular Volume 91.2 fL (78.0-98.0); Mean Platelet Volume 7.3 fL (7.4-10.4); Platelet Count 241 thou/uL (130-400); RBC Distribution Width 15.7 % (11.5-14.5); Red Blood Cell (RBC) Count 2.85 mill/uL (4.20-5.40); White Blood Cell (WBC) Count 4.3 thou/uL (4.8-10.8)
[2020-05-17 04:56] LABS: Anion Gap 14 mmol/L (10-20); BUN (Urea Nitrogen) 70 mg/dL (9.8-20.1); Calc. Creatinine Clearance 35 mL/min (70-130); Calcium 8.6 mg/dL (7.8-10.44); Carbon Dioxide 23 mmol/L (23-31); Chloride 107 mmol/L (98-107); Estimated GFR-MDRD 14; Glucose 263 mg/dL (80-115); Potassium 5.8 mmol/L (3.5-5.1); Sodium 138 mmol/L (136-145)
[2020-05-17] MEDS: HumaLOG 300 UNITS/3 ML VIAL SC PRN ×3 (06:40→20:19)
[2020-05-17] MEDS: Mometasone 100 MCG/Formoterol 5 MCG 120 PUFF INHALER INH SCH (06:55)
[2020-05-17] MEDS: Insulin Glargine 5 UNITS in Pre-Filled Syringe 1 EACH SC SCH (08:38)
[2020-05-17] MEDS: Gabapentin 300 MG CAP PO SCH ×2 (08:39→20:18)
[2020-05-17] MEDS: Ezetimibe 10 MG TAB PO SCH (08:39)
[2020-05-17] MEDS: Citalopram 20 MG TAB PO SCH (08:39)
[2020-05-17] MEDS: Carvedilol 25 MG TAB PO SCH ×2 (08:39→20:18)
[2020-05-17] MEDS: Ferrous Sulfate 325 MG TAB PO SCH ×2 (08:39→17:20)
[2020-05-17] MEDS: Apixaban 2.5 MG TAB PO SCH ×2 (08:39→20:19)
[2020-05-17] MEDS: Amlodipine 10 MG TAB PO SCH (08:39)
[2020-05-17] MEDS: Calcitriol 0.25 MCG CAP PO SCH (08:40)
--- NOTE | 2020-05-17 08:44 | PDOC.FM ---
- Subjective Subjective: Patient is feeling well and breathing well this AM. - Objective Vital Signs & Weight: Vital Signs (12 hours) Temp Pulse Resp BP Pulse Ox 05/17/20 07:23 97.9 F 64 22 H 163/71 H 95 05/17/20 04:00 66 15 147/66 H 96 05/16/20 23:46 65 05/16/20 22:18 96 05/16/20 20:37 98.3 F 67 20 165/73 H 96 Weight Weight 155.083 kg I&O: 05/16/20 05/17/20 05/18/20 06:59 06:59 06:59 Intake Total 480 Output Total 550 Balance -70 Result Diagrams: 05/17/20 04:18 05/17/20 04:18 Phys Exam - Physical Examination Constitutional: NAD Respiratory: no wheezing, no rales, no rhonchi, clear to auscultation bilateral Cardiovascular: RRR, no significant murmur, no rub Gastrointestinal: soft, non-tender, no distention Dx/Plan - Plan Plan: Patient is a 69F with PMHx of DM2, HTN, HLD, COPD, peripheral neuropathy, GERD, incontinence, iron deficiency anemia, depression, and insomnia admitted for: KAYDEN on CKD - creatinine last admission was 3.42, on admission 4.16 GFR from 16 -> 13 - Dr. Spencer, nephrology, consulted - FeNa 1.4%-intrinsic pathology - on 100cc/hr of mIVF Acute on chronic hypoxic respiratory failure - patient w/ hx of COPD; will continue COPD inhalers - patient satting 100% with nasal cannula out of nostril on exam this AM - BNP 79, no hx of CHF - duonebs narinder Uremia - BUN 71 on admission, higher than previous admissions - Nephrology consulted Hyperkalemia - potassium 5.3 -> 5.8 - no EKG changes - will start on IVF and continue to monitor - No changes on telemetry, instructed patient to use duonebs regardless of breathing status, starting on home insulin - Switch IVF to NS Lower extremity edema - wound care consulted for evaluation and treatment PVD - per cards records patient started on eliquis for PVD - continue eliquis at lower dose per nephro DM2 - continue home meds-hold metformin - ISS - ACHS accuchecks HTN - continue home meds HLD - continue home meds Peripheral neuropathy - continue home meds GERD - continue home meds Anemia, iron deficiency + chronic disease - H/H slightly lower than previous admissions - workup from last admission demonstrated likely mix of anemia of chronic disease and iron deficiency anemia - continue home meds Depression Insomnia - continue home meds Diet: CC DVT ppx: home eliquis @ reduced dose Dispo: admitted to telemetry obs Addendum - Attending - Attending Attestation Date/Time: 05/17/20 2504 I personally evaluated the patient and discussed the management with Dr. Sung. I agree with the History, Examination, Assessment and Plan documented above with any addition or exceptions noted below. Continue gentle IVF per Nephro for her worsening renal function. COVID test pending. She has been weaned off O2.
[2020-05-17] MEDS: Acetaminophen 325 MG TAB PO PRN (08:55)
--- NOTE | 2020-05-17 09:32 | PRG ---
DATE OF SERVICE: 05/17/2020 SUBJECTIVE: Ms. Garcia is a 69-year-old black female with chronic renal failure and admitted initially for mild shortness of breath with ? of chest pain. She was evaluated by the Renal Service yesterday and the feeling is that she may simply be volume depleted for the worsening renal dysfunction. She was empirically given lactated Ringer's at 100 mL/hour. Creatinine is actually improved. However, potassium noted to be mildly elevated at 5.8. For this reason, the lactated Ringer will be changed to a plain normal saline. No other complaints. She is also being ruled out for COVID-19 pneumonia due to the right lung infiltrates. OBJECTIVE: VITAL SIGNS: Blood pressure 163/71, heart rate 64, respiratory rate 22, temperature 97.9, and O2 saturation 95% on 2 L. GENERAL: The patient is awake, supine, comfortable, obese, not in distress. SKIN: Adequate turgor. HEENT: Slightly pale conjunctivae. Anicteric sclerae. NECK: No neck mass. No carotid bruits. No JVD. LUNGS: Decreased breath sounds. HEART: Normal sinus rhythm. No murmur. No gallops. No rubs. ABDOMEN: Globular, soft, and nontender. No masses. EXTREMITIES: Trace edema. MEDICATIONS: Of May 17, 2020, was reviewed. LABORATORY DATA: Laboratories of May 17, 2020; white count 4.2, hemoglobin 8.2. Sodium 138, potassium 5.8, chloride 107, carbon dioxide 23, BUN 70, creatinine 3.81, and calcium 8.6. Procalcitonin 0.06. ASSESSMENT AND PLAN: 1. Right lung infiltrates - rule out for COVID-19 pneumonia. Continue supportive care. Awaiting results of COVID-19 test. 2. Acute kidney injury on top of her chronic renal failure, improved creatinine from 4.16 to a most recent value of 3.81. Continued on gentle volume repletion due to the mild hyperkalemia, lactated Ringer's changed to normal saline. 3. Mild hyperkalemia. Change IV fluid to normal saline. No indication for any Kayexalate at the present time. No indication for any emergent hemodialysis. 4. Anemia. Continuing weekly Epogen. Job ID: [id number]
[2020-05-17] MEDS: Sodium Chloride 0.9% 1,000 ML IV SCH ×2 (11:49→22:31)
[2020-05-17 12:20] LABS: Potassium 5.6 mmol/L (3.5-5.1)
[2020-05-17 17:33] LABS: SARS-CoV-2 MS2 Positive; SARS-CoV-2 N Gene Negative; SARS-CoV-2 S Gene Negative; SARS-CoV-2 by NAA Not Detected (NotDetected); SARS-CoV-2 orf1ab Negative
[2020-05-17] MEDS: Atorvastatin Calcium 40 MG TAB PO SCH (20:18)
[2020-05-17] MEDS: Amitriptyline HCl 100 MG TAB PO SCH (20:18)
[2020-05-17] MEDS ORDERED: FLU VACC QS2020-21(65YR UP)/PF 240 MCG/0.7 ML SYRINGE IM ONE (21:00)
[2020-05-17] MEDS: Nicotine 14 MG PATCH TD SCH (22:31)
[2020-05-18] MEDS: Sodium Chloride 0.9% 1,000 ML IV SCH ×2 (05:54→08:49)
[2020-05-18] MEDS: Mometasone 100 MCG/Formoterol 5 MCG 120 PUFF INHALER INH SCH (07:24)
[2020-05-18 07:31] LABS: #Eosinphils 0.2 thou/uL (0.0-0.7); #Lymphocytes 0.7 thou/uL (1.20-3.40); #Monocytes 0.5 thou/uL (0.11-0.59); %Basophils 0.4 % (0.0-1.0); %Eosinophils 4.3 % (0.0-10.0); %Lymphocytes 15.2 % (21.0-51.0); %Monocytes 11.1 % (0.0-10.0); %Neutrophils 69.1 % (42.0-75.0); Hemoglobin 8.1 g/dL (12.0-16.0); Mean Corpuscular HGB CONC 31.9 g/dL (32.0-36.0); Mean Corpuscular Hemoglobin 28.5 pg (27.0-31.0); Mean Corpuscular Volume 89.1 fL (78.0-98.0); Platelet Count 237 thou/uL (130-400); RBC Distribution Width 15.7 % (11.5-14.5); Red Blood Cell (RBC) Count 2.84 mill/uL (4.20-5.40); White Blood Cell (WBC) Count 4.4 thou/uL (4.8-10.8)
[2020-05-18 07:55] LABS: Anion Gap 15 mmol/L (10-20); BUN (Urea Nitrogen) 64 mg/dL (9.8-20.1); Calc. Creatinine Clearance 40 mL/min (70-130); Calcium 8.5 mg/dL (7.8-10.44); Carbon Dioxide 21 mmol/L (23-31); Chloride 109 mmol/L (98-107); Estimated GFR-MDRD 17; Glucose 170 mg/dL (80-115); Potassium 5.5 mmol/L (3.5-5.1); Sodium 139 mmol/L (136-145)
[2020-05-18] MEDS: Ferrous Sulfate 325 MG TAB PO SCH ×2 (08:35→15:38)
[2020-05-18] MEDS: Citalopram 20 MG TAB PO SCH (08:35)
[2020-05-18] MEDS: Gabapentin 300 MG CAP PO SCH ×2 (08:35→20:50)
[2020-05-18] MEDS: Amlodipine 10 MG TAB PO SCH (08:35)
[2020-05-18] MEDS: Carvedilol 25 MG TAB PO SCH ×2 (08:35→20:50)
[2020-05-18] MEDS: Ezetimibe 10 MG TAB PO SCH (08:35)
[2020-05-18] MEDS: Apixaban 2.5 MG TAB PO SCH ×2 (08:35→20:53)
[2020-05-18] MEDS: Calcitriol 0.25 MCG CAP PO SCH (08:35)
[2020-05-18] MEDS: Insulin Glargine 5 UNITS in Pre-Filled Syringe 1 EACH SC SCH (08:36)
--- NOTE | 2020-05-18 08:58 | PDOC.FM ---
- Subjective Subjective: Patient feeling well this AM, breathing well. Reports leg pain where blisters are R>L. - Objective Vital Signs & Weight: Vital Signs (12 hours) Temp Pulse Resp BP Pulse Ox 05/18/20 07:45 97.6 F 63 16 161/72 H 98 05/18/20 07:25 91 L 05/18/20 07:24 103 H 16 05/18/20 07:20 103 H 18 05/18/20 04:00 98.3 F 67 15 133/62 99 05/18/20 00:00 61 Weight Admit Weight 155.083 kg Weight 155.083 kg I&O: 05/17/20 05/18/20 05/19/20 06:59 06:59 06:59 Intake Total 480 720 Output Total 550 1000 Balance -70 -280 Result Diagrams: 05/18/20 07:15 05/18/20 07:15 Phys Exam - Physical Examination Constitutional: NAD Respiratory: no wheezing, no rales, no rhonchi, clear to auscultation bilateral Cardiovascular: RRR, no significant murmur, no rub Gastrointestinal: soft, non-tender, no distention, positive bowel sounds L leg wrapped with CHELSEA bandage, R leg in unaboot, mild BL LE edema Dx/Plan - Plan Plan: Patient is a 69F with PMHx of DM2, HTN, HLD, COPD, peripheral neuropathy, GERD, incontinence, iron deficiency anemia, depression, and insomnia admitted for: KAYDEN on CKD - creatinine last admission was 3.42, on admission 4.16 GFR from -> 13 - Dr. Spencer, nephrology, consulted - FeNa 1.4%-intrinsic pathology - on 100cc/hr of mIVF Acute on chronic hypoxic respiratory failure - patient w/ hx of COPD; will continue COPD inhalers - patient satting 100% with nasal cannula out of nostril on exam this AM - BNP 79, no hx of CHF - laura [facility] Uremia - BUN 71 on admission, higher than previous admissions - Nephrology consulted Hyperkalemia - potassium 5.3 -> 5.8 -> 5.5 - no EKG changes - will start on IVF and continue to monitor - No changes on telemetry Lower extremity edema - wound care consulted for evaluation and treatment PVD - per cards records patient started on eliquis for PVD - continue eliquis at lower dose per nephro DM2 - continue home meds-hold metformin - ISS - ACHS accuchecks HTN - continue home meds HLD - continue home meds Peripheral neuropathy - continue home meds GERD - continue home meds Anemia, iron deficiency + chronic disease - H/H slightly lower than previous admissions - workup from last admission demonstrated likely mix of anemia of chronic disease and iron deficiency anemia - continue home meds Depression Insomnia - continue home meds Diet: CC DVT ppx: home eliquis @ reduced dose Dispo: admitted to telemetry inpt, dc pending nephro recs Addendum - Attending - Attending Attestation Date/Time: 05/18/20 6764 I personally evaluated the patient and discussed the management with Dr. Sung. I agree with the History, Examination, Assessment and Plan documented above with any addition or exceptions noted below. Patient here for KAYDEN on CKD. IMproving, nephro on board. She is off O2 therapy. Monitoring potassium. Awaiting final nephro recs but hopeful dc in the next day or so.
--- NOTE | 2020-05-18 08:59 | PRG ---
DATE OF SERVICE: 05/18/2020 SUBJECTIVE: Ms. Garcia is a 69-year-old black female with chronic renal failure and was admitted for mild shortness of breath. She was felt that she may be volume depleted. The patient voices no other complaints today. Renal function is slowly improving over time. She is currently on normal saline. She tells that she is feeling better. She denies chest pain or shortness of breath. OBJECTIVE: VITAL SIGNS: Blood pressure 161/72, heart rate 63, respiratory rate 16, temperature is 97.6, and O2 saturation 98%. GENERAL: Awake, alert, obese, comfortable, not in distress. SKIN: Adequate turgor. HEENT: Slightly pale conjunctivae. Anicteric sclerae. NECK: No neck mass. No carotid bruits. No JVD. CHEST: No deformities. LUNGS: Clear breath sounds. HEART: Normal sinus rhythm. No murmur. No gallops. No rubs. ABDOMEN: Globular, soft, and nontender. No masses. EXTREMITIES: No edema. No deformities. MEDICATIONS: Medications of May 18, 2020, reviewed. LABORATORY DATA: Laboratories of May 18, 2020; white count 4.4, hemoglobin 8.1, sodium 139, potassium 5.5, chloride 109, carbon dioxide 21, BUN 64, creatinine 3.35, GFR 17 mL/minute, and calcium 8.5. ASSESSMENT AND PLAN: 1. Acute kidney injury on top of her chronic renal failure, slowly improving renal function with IV fluid. Continue normal saline. No indication for any emergent dialysis. 2. Anemia, continuing weekly Epogen. Doing better. 3. Mild hyperkalemia. We will simply observe this, placed on renal diet. Job ID: [id number]
[2020-05-18] MEDS: HumaLOG 300 UNITS/3 ML VIAL SC PRN ×3 (11:32→21:11)
[2020-05-18] MEDS: Amitriptyline HCl 100 MG TAB PO SCH (20:49)
[2020-05-18] MEDS: Atorvastatin Calcium 40 MG TAB PO SCH (20:49)
[2020-05-18] MEDS: Nicotine 14 MG PATCH TD SCH (20:53)
[2020-05-19] MEDS: Sodium Chloride 0.9% 1,000 ML IV SCH (03:36)
[2020-05-19 05:11] LABS: #Eosinphils 0.1 thou/uL (0.0-0.7); #Lymphocytes 0.6 thou/uL (1.20-3.40); #Monocytes 0.6 thou/uL (0.11-0.59); #Neutrophils 3.5 thou/uL (1.40-6.50); %Basophils 0.2 % (0.0-1.0); %Eosinophils 2.7 % (0.0-10.0); %Lymphocytes 13.1 % (21.0-51.0); %Monocytes 11.4 % (0.0-10.0); %Neutrophils 72.6 % (42.0-75.0); Hemoglobin 7.9 g/dL (12.0-16.0); Mean Corpuscular HGB CONC 32.4 g/dL (32.0-36.0); Mean Corpuscular Hemoglobin 29.3 pg (27.0-31.0); Mean Corpuscular Volume 90.2 fL (78.0-98.0); Mean Platelet Volume 7.4 fL (7.4-10.4); Platelet Count 227 thou/uL (130-400); RBC Distribution Width 15.7 % (11.5-14.5); Red Blood Cell (RBC) Count 2.71 mill/uL (4.20-5.40); White Blood Cell (WBC) Count 4.9 thou/uL (4.8-10.8)
[2020-05-19 05:30] LABS: Anion Gap 13 mmol/L (10-20); BUN (Urea Nitrogen) 55 mg/dL (9.8-20.1); Calc. Creatinine Clearance 46 mL/min (70-130); Calcium 7.9 mg/dL (7.8-10.44); Carbon Dioxide 19 mmol/L (23-31); Chloride 112 mmol/L (98-107); Estimated GFR-MDRD 20; Glucose 211 mg/dL (80-115); Potassium 5.5 mmol/L (3.5-5.1); Sodium 138 mmol/L (136-145)
[2020-05-19] MEDS: HumaLOG 300 UNITS/3 ML VIAL SC PRN ×4 (05:43→22:11)
--- NOTE | 2020-05-19 06:08 | PDOC.FM ---
- Subjective Subjective: Pt resting comfortably. Says she is having some low back pain but this is chronic. Feels like a ball that is tensed up in her back. Tolerating diet. Uses walker/wheelchair at home to get around. Lives alone but has someone who comes and takes care of her every day. - Objective Vital Signs & Weight: Vital Signs (12 hours) Temp Pulse Resp BP Pulse Ox 05/19/20 03:54 99.2 F 70 22 H 147/61 H 96 05/19/20 01:21 95 05/18/20 20:00 98.1 F 74 22 H 148/65 H 95 05/18/20 18:54 70 16 92 L Weight Admit Weight 155.083 kg Weight 155.083 kg I&O: 05/17/20 05/18/20 05/19/20 06:59 06:59 06:59 Intake Total 255 800 4147 Output Total 550 1000 1400 Balance -70 -280 2150 Result Diagrams: 05/19/20 03:57 05/19/20 03:57 Phys Exam - Physical Examination morbidly obese Respiratory: no wheezing, clear to auscultation bilateral Cardiovascular: RRR, no significant murmur Gastrointestinal: soft, non-tender, no distention Neurological: non-focal Psychiatric: normal affect Deviation from normal: L leg wrapped, R foot in boot Dx/Plan - Plan Plan: Patient is a 69F with PMHx of DM2, HTN, HLD, COPD, peripheral neuropathy, GERD, incontinence, iron deficiency anemia, depression, and insomnia admitted for: KAYDEN on CKD - Cr 2.88, GFR 20. this appears to be baseline - Dr. Spencer, nephrology, consulted, IVF: NS 100ml/hr Acute on chronic hypoxic respiratory failure - patient w/ hx of COPD; will continue COPD inhalers - O2 sat 96% on RA - [facility] - may need outpatient work up for DARRICK Uremia - BUN 55, stable since January - Nephrology consulted Hyperkalemia - potassium 5.5 - no EKG changes - Dr. Spencer- will watch for now - No changes on telemetry Lower extremity edema - wound care consulted for evaluation and treatment PVD - per cards records patient started on eliquis for PVD - continue eliquis at lower dose per nephro DM2 - continue home meds-hold metformin - SSI, ACHS accuchecks HTN - continue home meds HLD - continue home meds Peripheral neuropathy - continue home meds GERD - continue home meds Anemia, iron deficiency + chronic disease - Hg 7.9, on epogen - continue home meds Depression Insomnia - continue home meds Diet: CC DVT ppx: home eliquis @ reduced dose Dispo: admitted to telemetry in, dc pending nephro recs Addendum - Attending - Attending Attestation Date/Time: 05/19/20 1210 I personally evaluated the patient and discussed the management with Dr. Elizabeth I agree with the History, Examination, Assessment and Plan documented above with any addition or exceptions noted below.
[2020-05-19] MEDS: Mometasone 100 MCG/Formoterol 5 MCG 120 PUFF INHALER INH SCH (07:20)
[2020-05-19] MEDS: Ferrous Sulfate 325 MG TAB PO SCH ×2 (09:24→17:33)
[2020-05-19] MEDS: Amlodipine 10 MG TAB PO SCH (09:24)
[2020-05-19] MEDS: Gabapentin 300 MG CAP PO SCH (09:25)
[2020-05-19] MEDS: Carvedilol 25 MG TAB PO SCH ×2 (09:25→21:15)
[2020-05-19] MEDS: Calcitriol 0.25 MCG CAP PO SCH (09:25)
[2020-05-19] MEDS: Ezetimibe 10 MG TAB PO SCH (09:25)
[2020-05-19] MEDS: Citalopram 20 MG TAB PO SCH (09:25)
[2020-05-19] MEDS: Apixaban 2.5 MG TAB PO SCH ×2 (09:25→21:15)
[2020-05-19] MEDS: Insulin Glargine 10 UNITS in Pre-Filled Syringe 1 EACH SC SCH (09:26)
[2020-05-19] MEDS ORDERED: Furosemide 40 MG/4 ML VIAL SLOW IVP SCH ×2 (10:15→12:45)
--- NOTE | 2020-05-19 10:25 | PRG ---
DATE OF SERVICE: 05/19/2020 SUBJECTIVE: Ms. Garcia is a 69-year-old black female with known history of chronic renal failure, was admitted due to mild shortness of breath with chest pain. She was also empirically volume repleted due to the worsening renal dysfunction. Creatinine is slowly improving. However, this morning, she is noted to be more swollen again. For that reason, we will be discontinuing the normal saline. I will give her one time dose of Lasix. No complaints of chest pain or shortness of breath. OBJECTIVE: VITAL SIGNS: Blood pressure is 161/69, heart rate 73, respiratory rate 19, temperature 97.4, O2 saturation 95% on room air. GENERAL: Awake, alert, comfortable, obese, not in distress. SKIN: Adequate turgor. HEENT: Slightly pale conjunctivae. Anicteric sclerae. No neck mass. No carotid bruits. Positive for periorbital edema. LUNGS: Decreased breath sounds. HEART: Normal sinus rhythm. No murmur. No gallops. No rubs. ABDOMEN: Globular, soft, nontender. No masses. EXTREMITIES: Positive for edema. MEDICATIONS: Medications of May 19, 2020, reviewed. LABORATORY DATA: Laboratories of May 19, 2020; white count 4.9, hemoglobin 7.9. Sodium 138, potassium 5.5, chloride 102, carbon dioxide 19, BUN 55, creatinine 2.88, calcium 7.9. ASSESSMENT AND PLAN: 1. Generalized edema/periorbital edema. We will DC normal saline. Lasix 40 mg IV x1 dose was given. 2. Acute kidney injury on top of chronic renal failure, much improved renal function with IV hydration. Due to the development of periorbital edema, leg swelling, we will DC normal saline. Renal function is near baseline. Lasix 1 time dose will be given. No indication for any dialytic intervention. 3. Anemia. The patient has been started on Epogen at 7500 units subcu q.7 days. Agree with current management. Job ID: [id number]
--- NOTE | 2020-05-19 12:19 | ULT ---
DOPPLER VENOUS ULTRASOUND RIGHT UPPER EXTREMITY INDICATION: Right upper extremity edema TECHNIQUE: Grayscale, color Doppler spectral Doppler images were obtained of the right internal jugul ar vein, right subclavian vein, right axillary vein, right brachial vein, right basilic vein, right ulnar vein and right radial vein. FINDINGS: There is normal compression, flow and augmentation seen within the venous structures of the right upper extremity. IMPRESSION: No evidence of venous thrombosis within the right upper extremity.
[2020-05-19] MEDS: Amitriptyline HCl 100 MG TAB PO SCH (21:06)
[2020-05-19] MEDS: Nicotine 14 MG PATCH TD SCH (21:15)
[2020-05-19] MEDS: Atorvastatin Calcium 40 MG TAB PO SCH (21:15)
[2020-05-20] MEDS: Acetaminophen 325 MG TAB PO PRN ×2 (02:45→08:29)
[2020-05-20 05:08] LABS: Anion Gap 15 mmol/L (10-20); BUN (Urea Nitrogen) 53 mg/dL (9.8-20.1); Calc. Creatinine Clearance 45 mL/min (70-130); Calcium 8.9 mg/dL (7.8-10.44); Carbon Dioxide 19 mmol/L (23-31); Chloride 112 mmol/L (98-107); Estimated GFR-MDRD 19; Glucose 180 mg/dL (80-115); Potassium 5.6 mmol/L (3.5-5.1); Sodium 140 mmol/L (136-145)
[2020-05-20 05:12] LABS: #Eosinphils 0.2 thou/uL (0.0-0.7); #Monocytes 0.7 thou/uL (0.11-0.59); #Neutrophils 4.9 thou/uL (1.40-6.50); %Basophils 0.1 % (0.0-1.0); %Eosinophils 2.8 % (0.0-10.0); %Lymphocytes 14.1 % (21.0-51.0); %Monocytes 10.3 % (0.0-10.0); %Neutrophils 72.7 % (42.0-75.0); Hemoglobin 8.8 g/dL (12.0-16.0); Mean Corpuscular HGB CONC 32.3 g/dL (32.0-36.0); Mean Corpuscular Hemoglobin 29.2 pg (27.0-31.0); Mean Corpuscular Volume 90.2 fL (78.0-98.0); Mean Platelet Volume 8.8 fL (7.4-10.4); Platelet Count 168 thou/uL (130-400); RBC Distribution Width 16.1 % (11.5-14.5); Red Blood Cell (RBC) Count 3.02 mill/uL (4.20-5.40); White Blood Cell (WBC) Count 6.8 thou/uL (4.8-10.8)
--- NOTE | 2020-05-20 06:05 | PDOC.FM ---
- Subjective Subjective: Pt tearful on exam this morning stating she feels overwhelmed by her current state of health. She denies any CP, SOB, N/V. Is able to get up and sit in chair. - Objective Vital Signs & Weight: Vital Signs (12 hours) Temp Pulse Resp BP Pulse Ox 05/20/20 04:00 98.7 F 71 18 175/73 H 05/19/20 23:00 96 05/19/20 20:00 99.0 F 79 20 175/75 H 92 L Weight Admit Weight 155.083 kg Weight 155.083 kg I&O: 05/18/20 05/19/20 05/20/20 06:59 06:59 06:59 Intake Total 720 3550 2560 Output Total 1000 1400 3200 Balance -280 2150 -640 Result Diagrams: 05/20/20 09:04 05/20/20 09:04 Phys Exam - Physical Examination Constitutional: NAD morbidly obese Respiratory: no wheezing, clear to auscultation bilateral Cardiovascular: RRR, no significant murmur Gastrointestinal: soft, non-tender Musculoskeletal: edema present Dx/Plan - Plan Plan: Patient is a 69F with PMHx of DM2, HTN, HLD, COPD, peripheral neuropathy, GERD, incontinence, iron deficiency anemia, depression, and insomnia admitted for: KAYDEN on CKD - Cr 2.88, GFR 20. this appears to be baseline - Dr. Spencer, nephrology, consulted:continuing to monitor kidney function Acute on chronic hypoxic respiratory failure - patient w/ hx of COPD; will continue COPD inhalers - O2 sat 96% on RA - duonebs prn DARRICK -according to pt, she has hx of DARRICK and has lost her CPAP machine -will try and arrange for one while in hospital RUE edema -had IV infiltrate -US showed no VTE Uremia - BUN 55, stable since January Hyperkalemia - potassium 5.5 - Dr. Spencer- will watch for now - No changes on telemetry Lower extremity edema - wound care consulted for evaluation and treatment PVD - per cards records patient started on eliquis for PVD - continue eliquis at lower dose per nephro DM2 - continue home meds-hold metformin - SSI, ACHS accuchecks HTN - SBP consistently 160s-170s - will optimize current regimen and consider adding additional agent HLD - continue home meds Peripheral neuropathy - continue home meds GERD - continue home meds Anemia, iron deficiency + chronic disease - Hg 7.9, on epogen - continue home meds Depression Insomnia Chronic Pain - continue home meds Diet: CC DVT ppx: home eliquis, renally dosed IVF: SL Code: Full Dispo: admitted to telemetry inpt, dc pending nephro recs and CM eval for placement Addendum - Attending - Attending Attestation Date/Time: 05/20/20 0453 I personally evaluated the patient and discussed the management with Dr. Elizabeth I agree with the History, Examination, Assessment and Plan documented above with any addition or exceptions noted below. RFT appears to back at baseline. Appreciate nephrology recommendations optimize rx Bp control and renal dose. Will most likely need repeat sleep study to restart CPAP as outpatient. She would benefit from rehabilitation.
[2020-05-20] MEDS: Mometasone 100 MCG/Formoterol 5 MCG 120 PUFF INHALER INH SCH (07:11)
[2020-05-20] MEDS: Amlodipine 10 MG TAB PO SCH (08:26)
[2020-05-20] MEDS: Ferrous Sulfate 325 MG TAB PO SCH ×2 (08:26→16:00)
[2020-05-20] MEDS: Calcitriol 0.25 MCG CAP PO SCH (08:27)
[2020-05-20] MEDS: Apixaban 2.5 MG TAB PO SCH ×2 (08:27→19:41)
[2020-05-20] MEDS: Citalopram 20 MG TAB PO SCH (08:28)
[2020-05-20] MEDS: Ezetimibe 10 MG TAB PO SCH (08:28)
[2020-05-20] MEDS: Carvedilol 25 MG TAB PO SCH (08:28)
[2020-05-20] MEDS: Insulin Glargine 10 UNITS in Pre-Filled Syringe 1 EACH SC SCH (08:35)
[2020-05-20] MEDS ORDERED: Aspirin 81 mg Enteric Coated Tablet PO SCH (09:00)
[2020-05-20] MEDS ORDERED: Insulin Glargine 15 UNITS in Pre-Filled Syringe 1 EACH SC SCH (09:00)
[2020-05-20 09:31] LABS: Hemoglobin 8.2 g/dL (12.0-16.0); Platelet Count 251 thou/uL (130-400)
[2020-05-20] MEDS ORDERED: Insulin Glargine 10 UNITS in Pre-Filled Syringe 1 EACH SC SCH (10:00)
[2020-05-20] MEDS ORDERED: Insulin Glargine 5 UNITS in Pre-Filled Syringe 1 EACH SC SCH (10:00)
[2020-05-20] MEDS: Acetaminophen/Codeine 30-300mg Tablet PO SCH (10:20)
--- NOTE | 2020-05-20 11:48 | PRG ---
DATE OF SERVICE: 05/20/2020 SUBJECTIVE: Ms. Garcia is a 69-year-old black female who was seen by the Renal Service for her acute kidney injury on top of her chronic renal failure. At that time, she had a prerenal azotemia that was hemodynamically-mediated renal dysfunction. Empiric volume repletion was done with discontinuation of her Lasix. Renal function improved to near baseline. Yesterday she was noted to be more swollen. For that reason, did receive 1 time dose of Lasix 40 mg IV. Swelling is much better. She is feeling better. My bias is to at least maintain her on Lasix at 20 mg tablet once a day. She voices no new complaints. No chest pain or shortness of breath. OBJECTIVE: VITAL SIGNS: Blood pressure is 184/77, heart rate 72, respiratory rate 18, temperature 97.9, O2 saturation 94%. GENERAL: The patient is awake, alert, comfortable, not in overt distress. SKIN: Adequate turgor. HEENT: She has had a slightly pale conjunctivae. Anicteric sclerae. NECK: No neck mass. No carotid bruits. No JVD. CHEST: No deformities. LUNGS: Clear breath sounds. HEART: Normal sinus rhythm. No murmurs, gallops, or rubs. ABDOMEN: Globular, soft, nontender. No masses. EXTREMITIES: Positive for edema. Positive for right leg brace. MEDICATIONS: May 20, 2020, reviewed. LABORATORY DATA: May 20, 2020, hemoglobin 8.2 sodium 140, potassium 5.6, chloride 112, carbon dioxide 19, BUN 53, creatinine 2.95, glucose 180, calcium 8.9. Repeat creatinine at 9:00 am - 2.85. ASSESSMENT/PLAN: 1. Acute kidney injury on top of her chronic renal failure, much improved renal function. Creatinine noted at 2.85, which is near baseline. 2. Continue supportive care. 3. No indication for any dialytic intervention. 4. Generalized edema-much improved with 1 time dose of Lasix. My bias is to place her on maintenance Lasix at 20 mg tablet once daily. 5. Anemia-continuing Epogen and iron supplementation. This patient will need Hematology referral for maintenance Epogen. 6. From a renal point of view, agree with current management. If she is discharged today, we will follow her up at outpatient clinic. Job ID: [id number] [facility]
[2020-05-20] MEDS ORDERED: cloNIDine 0.1mg/24 Hour PATCH TD SCH (13:00)
[2020-05-20] MEDS: HumaLOG 300 UNITS/3 ML VIAL SC PRN ×3 (13:14→22:03)
[2020-05-20] MEDS: Carvedilol 6.25 MG TAB PO SCH ×2 (15:29→19:41)
[2020-05-20] MEDS: Amitriptyline HCl 100 MG TAB PO SCH (19:40)
[2020-05-20] MEDS: Aspirin 81 mg Enteric Coated Tablet PO SCH (19:41)
[2020-05-20] MEDS: Atorvastatin Calcium 40 MG TAB PO SCH (19:41)
[2020-05-20] MEDS: Nicotine 14 MG PATCH TD SCH (20:51)
[2020-05-21] MEDS: Acetaminophen 325 MG TAB PO PRN ×3 (03:32→21:58)
[2020-05-21 04:54] LABS: Anion Gap 13 mmol/L (10-20); BUN (Urea Nitrogen) 53 mg/dL (9.8-20.1); Calc. Creatinine Clearance 45 mL/min (70-130); Calcium 8.9 mg/dL (7.8-10.44); Carbon Dioxide 22 mmol/L (23-31); Chloride 111 mmol/L (98-107); Estimated GFR-MDRD 19; Glucose 171 mg/dL (80-115); Potassium 5.3 mmol/L (3.5-5.1); Sodium 141 mmol/L (136-145)
--- NOTE | 2020-05-21 06:37 | PDOC.FM ---
- Subjective Subjective: Pt had an episode overnight of SOB and wheezing, given duoneb and resolved. Pt states she feels she is at her baseline. Discussed placement vs going home and she seems open to the idea of going to a skilled facility. - Objective Vital Signs & Weight: Vital Signs (12 hours) Temp Pulse Resp BP BP Pulse Ox 05/21/20 04:00 98.2 F 72 18 145/65 H 05/21/20 00:18 98 05/20/20 20:59 77 20 98 05/20/20 20:00 99.0 F 78 22 H 186/77 H 92 L 05/20/20 19:41 186/77 H Weight Admit Weight 155.083 kg Weight 155.083 kg I&O: 05/19/20 05/20/20 05/21/20 06:59 06:59 06:59 Intake Total 3550 2560 2860 Output Total 1400 3200 4000 Balance 2150 -640 -1500 Result Diagrams: 05/20/20 09:04 05/21/20 04:21 Phys Exam - Physical Examination morbidly obese HEENT: sclera anicteric Neck: supple Respiratory: no wheezing, clear to auscultation bilateral Cardiovascular: RRR, no significant murmur Gastrointestinal: soft, non-tender, no distention Neurological: non-focal Dx/Plan - Plan Plan: Patient is a 69F with PMHx of DM2, HTN, HLD, COPD, peripheral neuropathy, GERD, incontinence, iron deficiency anemia, depression, and insomnia admitted for: KAYDEN on CKD - Cr 2.88, GFR 20. this appears to be baseline - Dr. Spencer, nephrology, consulted: stable for discharge, needs outpatient f/u Acute on chronic hypoxic respiratory failure - patient w/ hx of COPD; will continue COPD inhalers - currently on 2L NC due to period of SOB and wheezing overnight - duonebs narinder DARRICK -according to pt, she has hx of DARRICK and has lost her CPAP machine -will try and arrange for one while in hospital -needs outpt f/u RUE edema -had IV infiltrate -US showed no VTE Uremia - BUN 55, stable since January Hyperkalemia - potassium 5.5 - Dr. Spencer- will watch for now - No changes on telemetry Lower extremity edema - wound care consulted for evaluation and treatment PVD - per cards records patient started on eliquis for PVD - continue eliquis at lower dose per nephro DM2 - continue home meds-hold metformin - SSI, ACHS accuchecks HTN - SBP consistently 160s-170s - will optimize current regimen and consider adding additional agent HLD - continue home meds Peripheral neuropathy - continue home meds GERD - continue home meds Anemia, iron deficiency + chronic disease - Hg 7.9, on epogen. Needs referral to hematology for continued outpatient treatment - continue home meds Depression Insomnia Chronic Pain - continue home meds Diet: CC DVT ppx: home eliquis, renally dosed IVF: SL Code: Full Dispo: admitted to telemetry inpt, dc pending nephro recs and CM eval for placement Addendum - Attending - Attending Attestation Date/Time: 05/21/20 9285 I personally evaluated the patient and discussed the management with Dr. Elizabeth. I agree with the History, Examination, Assessment and Plan documented above with any addition or exceptions noted below. HH PT vs placement. Starting steroid burst dose for COPD exacerbation.
[2020-05-21] MEDS: Mometasone 100 MCG/Formoterol 5 MCG 120 PUFF INHALER INH SCH (07:09)
--- NOTE | 2020-05-21 08:47 | PRG ---
DATE OF SERVICE: 05/21/2020 SUBJECTIVE: Ms. Garcia is a 69-year-old black female who was initially admitted for mild shortness of breath with some chest pain. She was also found to have an acute kidney injury on top of her chronic renal failure. She received empiric volume repletion. Diuretics were placed on hold temporarily. However, in the last few days, we resumed the diuretics due to more leg edema. This morning, she voices no new complaints. We are awaiting outpatient rehab/intermediate facility placement. OBJECTIVE: VITAL SIGNS: Blood pressure 145/65, heart rate 72, respiratory rate 18, temperature 98.2. GENERAL: The patient is awake, alert, comfortable, obese, not in distress. SKIN: Adequate turgor. HEENT: Slightly pale conjunctivae. Anicteric sclerae. NECK: No neck mass. No carotid bruits. No JVD. CHEST: No deformities. LUNGS: Decreased breath sounds. HEART: Normal sinus rhythm. No murmurs, gallops, or rubs. ABDOMEN: Globular, soft, nontender. No masses. EXTREMITIES: Positive for edema. MEDICATIONS: May 21, 2020, reviewed. LABORATORY DATA: May 21, 2020; sodium 141, potassium 5.3, chloride 111, carbon dioxide 22, BUN 53, creatinine 2.99, GFR 19 mL/minute, glucose 171, calcium 8.9. ASSESSMENT AND PLAN: 1. Acute kidney injury-superimposed hemodynamically-mediated dysfunction. Her acute kidney injury is much improved. 2. Chronic renal failure-near baseline glomerular filtration rate. Continue supportive care. There is no indication for any dialytic intervention with this patient. 3. Anemia. Currently patient is on weekly Epogen of 7500 units subcu q.7 days. 4. Currently awaiting placement. 5. Recheck CBC, basic metabolic profile in a.m. Job ID: [id number]
[2020-05-21] MEDS: Calcitriol 0.25 MCG CAP PO SCH (08:59)
[2020-05-21] MEDS: Citalopram 20 MG TAB PO SCH (09:00)
[2020-05-21] MEDS: Carvedilol 6.25 MG TAB PO SCH ×3 (09:00→20:15)
[2020-05-21] MEDS: Amlodipine 10 MG TAB PO SCH (09:00)
[2020-05-21] MEDS: Ezetimibe 10 MG TAB PO SCH (09:00)
[2020-05-21] MEDS ORDERED: Insulin Glargine 15 UNITS in Pre-Filled Syringe 1 EACH SC SCH (09:00)
[2020-05-21] MEDS: Apixaban 2.5 MG TAB PO SCH ×2 (09:00→20:15)
[2020-05-21] MEDS: Ferrous Sulfate 325 MG TAB PO SCH ×2 (09:00→18:13)
[2020-05-21] MEDS: Furosemide 20 MG TAB PO SCH (09:00)
[2020-05-21] MEDS ORDERED: predniSONE 20 MG TAB PO SCH (10:00)
[2020-05-21] MEDS ORDERED: Insulin Glargine 25 UNITS in Pre-Filled Syringe 1 EACH SC SCH (10:15)
[2020-05-21] MEDS: Acetaminophen/Codeine 30-300mg Tablet PO SCH (10:46)
[2020-05-21] MEDS: HumaLOG 300 UNITS/3 ML VIAL SC PRN ×3 (11:52→21:54)
[2020-05-21] MEDS: Atorvastatin Calcium 40 MG TAB PO SCH (20:15)
[2020-05-21] MEDS: Aspirin 81 mg Enteric Coated Tablet PO SCH (20:15)
[2020-05-21] MEDS: Amitriptyline HCl 100 MG TAB PO SCH (20:15)
[2020-05-21] MEDS: Nicotine 14 MG PATCH TD SCH (20:16)
[2020-05-22 04:27] LABS: #Lymphocytes 0.5 thou/uL (1.20-3.40); #Monocytes 0.4 thou/uL (0.11-0.59); #Neutrophils 4.6 thou/uL (1.40-6.50); %Basophils 0.1 % (0.0-1.0); %Eosinophils 0.1 % (0.0-10.0); %Lymphocytes 8.4 % (21.0-51.0); %Monocytes 8.1 % (0.0-10.0); %Neutrophils 83.3 % (42.0-75.0); Mean Corpuscular HGB CONC 31.7 g/dL (32.0-36.0); Mean Corpuscular Hemoglobin 28.4 pg (27.0-31.0); Mean Corpuscular Volume 89.7 fL (78.0-98.0); Mean Platelet Volume 7.2 fL (7.4-10.4); Platelet Count 239 thou/uL (130-400); Red Blood Cell (RBC) Count 2.83 mill/uL (4.20-5.40); White Blood Cell (WBC) Count 5.5 thou/uL (4.8-10.8)
[2020-05-22 04:47] LABS: Anion Gap 14 mmol/L (10-20); BUN (Urea Nitrogen) 56 mg/dL (9.8-20.1); Calc. Creatinine Clearance 45 mL/min (70-130); Calcium 8.8 mg/dL (7.8-10.44); Carbon Dioxide 22 mmol/L (23-31); Chloride 110 mmol/L (98-107); Estimated GFR-MDRD 19; Glucose 220 mg/dL (80-115); Potassium 5.7 mmol/L (3.5-5.1); Sodium 140 mmol/L (136-145)
--- NOTE | 2020-05-22 06:05 | PDOC.FM ---
- Subjective Subjective: Pt resting comfortably, no complaints overnight. Tolerating diet, voiding well. - Objective Vital Signs & Weight: Vital Signs (12 hours) Temp Pulse Resp BP BP Pulse Ox 05/22/20 04:09 97.6 F 65 16 172/69 H 96 05/22/20 00:00 166/74 H 05/21/20 23:26 73 16 97 05/21/20 20:15 183/72 H 05/21/20 20:13 98.6 F 81 22 H 183/72 H 93 L 05/21/20 18:30 74 16 96 Weight Admit Weight 155.083 kg Weight 155.083 kg I&O: 05/20/20 05/21/20 05/22/20 06:59 06:59 06:59 Intake Total 2560 2860 750 Output Total 3200 4000 1000 Balance -640 -1140 -250 Result Diagrams: 05/22/20 04:01 05/22/20 04:01 Phys Exam - Physical Examination Constitutional: NAD Neck: supple Respiratory: clear to auscultation bilateral very mild end exp wheezing b/l Cardiovascular: RRR, no significant murmur Gastrointestinal: soft, non-tender, no distention Neurological: non-focal Dx/Plan - Plan Plan: Patient is a 69F with PMHx of DM2, HTN, HLD, COPD, peripheral neuropathy, GERD, incontinence, iron deficiency anemia, depression, and insomnia admitted for: KAYDEN on CKD - appears to be back at baseline - Dr. Spencer, nephrology, consulted: stable for discharge, needs outpatient f/u - CM: pending placement Acute on chronic hypoxic respiratory failure - patient w/ hx of COPD; will continue COPD inhalers - [facility] prednisone DARRICK -according to pt, she has hx of DARRICK and has lost her CPAP machine -will try and arrange for one while in hospital -needs outpt f/u RUE edema -had IV infiltrate -US showed no VTE Uremia - BUN 55, stable since January Hyperkalemia - potassium 5.5 - Dr. Spencer- will watch for now - No changes on telemetry Lower extremity edema - wound care consulted for evaluation and treatment PVD - per cards records patient started on eliquis for PVD - continue eliquis at lower dose per nephro DM2 - continue home meds-hold metformin - SSI, ACHS accuchecks HTN - SBP consistently 160s-170s - will optimize current regimen and consider adding additional agent - likely treatment resistant due to untreated DARRICK HLD - continue home meds Peripheral neuropathy - continue home meds GERD - continue home meds Anemia, iron deficiency + chronic disease - Hg 7.9, on epogen. Needs referral to hematology for continued outpatient treatment - continue home meds Depression Insomnia Chronic Pain - continue home meds Diet: CC DVT ppx: home eliquis, renally dosed IVF: SL Code: Full Dispo: admitted to telemetry [place], [place] pending CM eval for placement Addendum - Attending - Attending Attestation Date/Time: 05/22/20 6229 I personally evaluated the patient and discussed the management with Dr. Elizabeth. I agree with the History, Examination, Assessment and Plan documented above with any addition or exceptions noted below. Continue to wean O2. adjust BP meds. Placement pending.
[2020-05-22] MEDS: Mometasone 100 MCG/Formoterol 5 MCG 120 PUFF INHALER INH SCH (08:01)
[2020-05-22] MEDS: Acetaminophen/Codeine 30-300mg Tablet PO SCH (09:04)
[2020-05-22] MEDS: Citalopram 20 MG TAB PO SCH (09:04)
[2020-05-22] MEDS: Ferrous Sulfate 325 MG TAB PO SCH ×2 (09:04→17:30)
[2020-05-22] MEDS: Calcitriol 0.25 MCG CAP PO SCH (09:04)
[2020-05-22] MEDS: Amlodipine 10 MG TAB PO SCH (09:07)
[2020-05-22] MEDS: Ezetimibe 10 MG TAB PO SCH (09:08)
[2020-05-22] MEDS: Furosemide 20 MG TAB PO SCH (09:09)
[2020-05-22] MEDS: predniSONE 20 MG TAB PO SCH (09:12)
[2020-05-22] MEDS: Apixaban 2.5 MG TAB PO SCH ×2 (09:13→21:39)
--- NOTE | 2020-05-22 09:14 | PRG ---
DATE OF SERVICE: 05/22/2020 SUBJECTIVE: Ms. Garcia is a 69-year-old black female, seen by Renal Service for acute kidney injury on top of her chronic renal failure. Renal function has been stabilizing in the last few days but in the last 24 to 48 hours, creatinine is slightly higher. This may be reflection of the current diuretic regimen. She has been started back on Lasix at 20 mg tablet once a day. She is also noted to be minimally hyperkalemic with potassium of 5.7. The patient is now going to be placed on a low-potassium diet. No other complaints. No chest pain or shortness of breath. OBJECTIVE: VITAL SIGNS: Blood pressure 184/77, heart rate 71, respiratory rate 17, temperature 97.5, O2 saturation 97%. GENERAL: The patient is awake, supine, comfortable, not in distress, obese. SKIN: Adequate turgor. HEENT: She has slightly pale conjunctivae. Anicteric sclerae. NECK: No neck mass. No carotid bruits. No JVD. CHEST: No deformities. LUNGS: Clear breath sounds. No wheezing. No crackles. HEART: Normal sinus rhythm. No murmurs, gallops, or rubs. ABDOMEN: Globular, soft, nontender. No masses. EXTREMITIES: Trace edema. MEDICATIONS: May 22, 2020, reviewed. LABORATORY DATA: May 22, 2020; white count 5.5, hemoglobin 8. Sodium 140, potassium 5.7, chloride 110, carbon dioxide 22, BUN 56, creatinine 2.96, calcium 8.8. ASSESSMENT AND PLAN: 1. Acute kidney injury/chronic renal failure, slightly higher creatinine at 2.9. My plan is simply to continue to observe her. Should the renal function further worsen, where the creatinine will be greater than 3, consider holding off the furosemide. 2. Anemia, on weekly Epogen. 3. Mild hyperkalemia. We will put this patient on a low-potassium/2 g potassium diet. 4. Recheck CBC, basic metabolic in a.m. Job ID: [id number] [facility]
[2020-05-22] MEDS: Carvedilol 25 MG TAB PO SCH ×2 (09:18→21:39)
[2020-05-22] MEDS: Insulin Glargine 25 UNITS in Pre-Filled Syringe 1 EACH SC SCH (09:45)
[2020-05-22] MEDS: HumaLOG 300 UNITS/3 ML VIAL SC PRN ×3 (12:22→21:41)
--- NOTE | 2020-05-22 14:22 | PDOC.BPN ---
- Brief Progress Note Encounter Date: 05/22/20 Encounter Time: 14:00 Subjective Patient was resting comfortable in her chair when arriving to the room. She stated that she has chosen a correction ([facility]) to go to after discharge. Referral has been sent by CM. She notes continued SOB but says it has been improving since admission. She also notes improvement of chronic lower extremity ulcerations and edema. Objective General: Morbidly obese, elderly female, resting comfortable, in no acute distress Cardiac: RRR, no murmur/rub/gallop Respiratory: Clear to auscultation, prolonged expiration, on 2L Abdomen: soft, nontender, +BS Neuro: A&O x 3 Assessment/Plan Patient is a 69F with PMHx of DM2, HTN, HLD, COPD, peripheral neuropathy, GERD, incontinence, iron deficiency anemia, depression, and insomnia admitted acute on chronic hypoxic respiratory failure and KAYDEN on CKD. K elevated at 5.5. Dr. Spencer is following and recommended continued monitoring. Reports patient is stable for discharge. Will need outpatient follow up. Patient is saturating well on 2L. Will continue to wean as tolerated. Continue prednisone. DARRICK is likely contributing factor to both persistent HTN and respiratory status. Cpap is unavailable in the hospital. Patient will need to undergo repeat sleep study outpatient to establish new settings. Carvedilol increased to 25mg BID this am. Continue to monitor BP. Continue wound care for lower extremity ulcerations once placed. Will need referral to hematology for iron deficiency and anemia of chronic disease in the outpatient setting. Dispo: Discharge to [facility] pending approval. Patient will follow up with me in clinic outpatient. Will complete med rec at that time and place referrals to sleep study and hematology. Patient will also f/u with ppap coordinator, Dr. Drake, and cold working supervisor, Dr. Spencer, outpatient.
[2020-05-22] MEDS: Amitriptyline HCl 100 MG TAB PO SCH (21:39)
[2020-05-22] MEDS: Atorvastatin Calcium 40 MG TAB PO SCH (21:39)
[2020-05-22] MEDS: Aspirin 81 mg Enteric Coated Tablet PO SCH (21:39)
[2020-05-22] MEDS: Nicotine 14 MG PATCH TD SCH (21:40)
[2020-05-22] MEDS: Acetaminophen 325 MG TAB PO PRN (21:40)
--- NOTE | 2020-05-23 06:05 | PDOC.FM ---
- Subjective Subjective: Pt resting comfortably this morning. She talked about going to the SNF to get stronger. - Objective Vital Signs & Weight: Vital Signs (12 hours) Temp Pulse Resp BP Pulse Ox 05/23/20 04:00 98.4 F 64 23 H 166/71 H 92 L 05/23/20 00:01 64 16 95 05/22/20 21:34 98.6 F 77 20 180/77 H 94 L 05/22/20 19:25 74 16 96 Weight Admit Weight 155.083 kg Weight 160.163 kg I&O: 05/21/20 05/22/20 05/23/20 06:59 06:59 06:59 Intake Total 2860 1050 1440 Output Total 4000 1600 1950 Balance -6575 -808 -214 Result Diagrams: 05/23/20 09:17 05/23/20 08:04 Phys Exam - Physical Examination Constitutional: NAD morbidly obese Neck: supple Respiratory: no wheezing, clear to auscultation bilateral Cardiovascular: RRR, no significant murmur Gastrointestinal: soft, non-tender, no distention Musculoskeletal: edema present Neurological: non-focal Psychiatric: A&O x 3 Dx/Plan - Plan Plan: Patient is a 69F with PMHx of DM2, HTN, HLD, COPD, peripheral neuropathy, GERD, incontinence, iron deficiency anemia, depression, and insomnia admitted for: AKYDEN on CKD - appears to be back at baseline - Dr. Spencer, nephrology, consulted: stable for discharge - CM: pending placement Acute on chronic hypoxic respiratory failure - patient w/ hx of COPD; will continue COPD inhalers - currently on 2L [place] - [facility], started short course prednisone DARRICK -according to pt, she has hx of DARRICK and has lost her CPAP machine -will try and arrange for one while in hospital -needs outpt f/u RUE edema -had IV infiltrate -US showed no VTE Uremia - BUN 55, stable since January Hyperkalemia - potassium 5 - Dr. Spencer- low potassium diet - No changes on telemetry Lower extremity edema - wound care consulted for evaluation and treatment PVD - per cards records patient started on eliquis for PVD - continue eliquis at lower dose per nephro DM2 - continue home meds-hold metformin - SSI, ACHS accuchecks HTN - SBP consistently 160s-170s - will optimize current regimen and consider adding additional agent - likely treatment resistant due to untreated DARRICK HLD - continue home meds Peripheral neuropathy - continue home meds GERD - continue home meds Anemia, iron deficiency + chronic disease - Hg 7.9, on epogen. Needs referral to hematology for continued outpatient treatment - continue home meds Depression Insomnia Chronic Pain - continue home meds Diet: CC DVT ppx: home eliquis, renally dosed IVF: SL Code: Full Dispo: admitted to telemetry inpt, CM consulted, pending placement Addendum - Attending - Attending Attestation Date/Time: 05/23/20 0070 I personally evaluated the patient and discussed the management with Dr. Elizabeth. I agree with the History, Examination, Assessment and Plan documented above with any addition or exceptions noted below. placement pending.
[2020-05-23] MEDS: Mometasone 100 MCG/Formoterol 5 MCG 120 PUFF INHALER INH SCH (07:40)
[2020-05-23] MEDS: Citalopram 20 MG TAB PO SCH (08:05)
[2020-05-23] MEDS: Calcitriol 0.25 MCG CAP PO SCH (08:05)
[2020-05-23] MEDS: Ferrous Sulfate 325 MG TAB PO SCH ×2 (08:06→16:05)
[2020-05-23] MEDS: predniSONE 20 MG TAB PO SCH (08:06)
[2020-05-23] MEDS: Apixaban 2.5 MG TAB PO SCH ×2 (08:06→22:01)
[2020-05-23] MEDS: Ezetimibe 10 MG TAB PO SCH (08:06)
[2020-05-23] MEDS: Carvedilol 25 MG TAB PO SCH ×2 (08:06→22:01)
[2020-05-23] MEDS: Acetaminophen/Codeine 30-300mg Tablet PO SCH (08:06)
[2020-05-23] MEDS: Furosemide 20 MG TAB PO SCH (08:07)
[2020-05-23] MEDS: Amlodipine 10 MG TAB PO SCH (08:07)
[2020-05-23 08:26] LABS: Anion Gap 16 mmol/L (10-20); BUN (Urea Nitrogen) 56 mg/dL (9.8-20.1); Calc. Creatinine Clearance 49 mL/min (70-130); Calcium 8.7 mg/dL (7.8-10.44); Carbon Dioxide 20 mmol/L (23-31); Chloride 112 mmol/L (98-107); Estimated GFR-MDRD 20; Glucose 94 mg/dL (80-115); Sodium 143 mmol/L (136-145)
[2020-05-23] MEDS: Insulin Glargine 25 UNITS in Pre-Filled Syringe 1 EACH SC SCH (09:03)
--- NOTE | 2020-05-23 09:09 | PRG ---
DATE OF SERVICE: 05/23/2020 SUBJECTIVE: Ms. Garcia is a 69-year-old black female with chronic renal failure, being followed by Renal Service for her acute kidney injury on top of her chronic renal failure. Renal function is relatively stable. She has been started on diuretics in the last several days. She voices no new complaints. She voices no chest pain or shortness of breath. We are currently awaiting placement with this patient. OBJECTIVE: VITAL SIGNS: Blood pressure 180/71 half an hour before BP medications, heart rate 67, respiratory rate 20, and O2 saturation 91% on room air. GENERAL: Awake alert, comfortable, obese, not in distress. SKIN: Adequate turgor. HEENT: Slightly pale conjunctivae. Anicteric sclerae. NECK: No neck mass. No carotid bruits. No JVD. CHEST: No deformities. LUNGS: Decreased breath sounds. HEART: Normal sinus rhythm. No murmur. No gallops. No rubs. ABDOMEN: Globular, soft, nontender. No masses. EXTREMITIES: Trace edema. MEDICATIONS: Medications of 05/23/2020 were reviewed. LABORATORY DATA: On 05/22/2020: White count 5.5, hemoglobin 8. On 05/23/2020: Sodium 143, potassium 5, chloride 102, carbon dioxide 20, BUN 56, creatinine 2.82, and calcium 8.7. ASSESSMENT AND PLAN: 1. Acute kidney injury/chronic renal failure status post prerenal azotemia. Creatinine is now back to baseline. She is tolerating current diuretic regimen. No changes will be made with her current medications. She will continue furosemide at 20 mg tablet once a day. There is no indication for any dialytic intervention. 2. Chronic renal failure from diabetic nephropathy. Continue supportive care. 3. Anemia. Continuing weekly Epogen and ferrous sulfate. 4. Recheck CBC and basic metabolic in a.m. Job ID: [id number]
[2020-05-23 09:25] LABS: #Eosinphils 0.1 thou/uL (0.0-0.7); #Lymphocytes 0.9 thou/uL (1.20-3.40); #Monocytes 0.5 thou/uL (0.11-0.59); #Neutrophils 4.7 thou/uL (1.40-6.50); %Basophils 0.2 % (0.0-1.0); %Eosinophils 2.2 % (0.0-10.0); %Lymphocytes 14.5 % (21.0-51.0); %Monocytes 7.9 % (0.0-10.0); %Neutrophils 75.2 % (42.0-75.0); Hemoglobin 7.9 g/dL (12.0-16.0); Mean Corpuscular HGB CONC 31.7 g/dL (32.0-36.0); Mean Corpuscular Hemoglobin 28.5 pg (27.0-31.0); Mean Corpuscular Volume 89.9 fL (78.0-98.0); Mean Platelet Volume 7.2 fL (7.4-10.4); Platelet Count 251 thou/uL (130-400); RBC Distribution Width 16.2 % (11.5-14.5); Red Blood Cell (RBC) Count 2.77 mill/uL (4.20-5.40); White Blood Cell (WBC) Count 6.3 thou/uL (4.8-10.8)
[2020-05-23] MEDS: Acetaminophen 325 MG TAB PO PRN ×2 (16:08→22:01)
[2020-05-23] MEDS: HumaLOG 300 UNITS/3 ML VIAL SC PRN ×2 (16:50→22:08)
[2020-05-23] MEDS: Atorvastatin Calcium 40 MG TAB PO SCH (22:01)
[2020-05-23] MEDS: Aspirin 81 mg Enteric Coated Tablet PO SCH (22:01)
[2020-05-23] MEDS: Amitriptyline HCl 100 MG TAB PO SCH (22:01)
[2020-05-23] MEDS: Nicotine 14 MG PATCH TD SCH (22:02)
[2020-05-23] MEDS: EPOETIN ALFA-EPBX (ESRD) 4,000 UNIT/ML VIAL SC SCH (23:52)
[2020-05-24 04:27] LABS: #Monocytes 0.6 thou/uL (0.11-0.59); #Neutrophils 4.7 thou/uL (1.40-6.50); %Basophils 0.5 % (0.0-1.0); %Eosinophils 0.7 % (0.0-10.0); %Lymphocytes 15.4 % (21.0-51.0); %Monocytes 9.7 % (0.0-10.0); %Neutrophils 73.7 % (42.0-75.0); Mean Corpuscular HGB CONC 31.3 g/dL (32.0-36.0); Mean Corpuscular Hemoglobin 28.4 pg (27.0-31.0); Mean Corpuscular Volume 90.8 fL (78.0-98.0); Mean Platelet Volume 7.1 fL (7.4-10.4); Platelet Count 253 thou/uL (130-400); Red Blood Cell (RBC) Count 2.82 mill/uL (4.20-5.40); White Blood Cell (WBC) Count 6.4 thou/uL (4.8-10.8)
[2020-05-24 04:44] LABS: Anion Gap 16 mmol/L (10-20); BUN (Urea Nitrogen) 59 mg/dL (9.8-20.1); Calc. Creatinine Clearance 49 mL/min (70-130); Calcium 8.7 mg/dL (7.8-10.44); Carbon Dioxide 21 mmol/L (23-31); Chloride 110 mmol/L (98-107); Estimated GFR-MDRD 20; Glucose 134 mg/dL (80-115); Potassium 4.7 mmol/L (3.5-5.1); Sodium 142 mmol/L (136-145)
--- NOTE | 2020-05-24 06:13 | PDOC.FM ---
- Subjective Subjective: Pt resting comfortably this morning. Says she was not able to sleep very well last night due to itching in her hands. She says this is a chronic problem relievd by garrett at home. - Objective Vital Signs & Weight: Vital Signs (12 hours) Temp Pulse Resp BP Pulse Ox 05/24/20 04:19 97.6 F 63 18 174/74 H 94 L 05/24/20 00:26 60 20 96 05/23/20 21:40 98.9 F 75 20 170/72 H 95 05/23/20 18:51 76 20 92 L Weight Admit Weight 155.083 kg Weight 159.619 kg I&O: 05/22/20 05/23/20 05/24/20 06:59 06:59 06:59 Intake Total 1050 1440 1500 Output Total 1600 1950 1900 Balance -550 510 400 Result Diagrams: 05/24/20 03:56 05/24/20 03:56 Phys Exam - Physical Examination Constitutional: NAD Neck: supple, full ROM Respiratory: no wheezing, clear to auscultation bilateral Cardiovascular: RRR, no significant murmur Gastrointestinal: soft, non-tender, no distention Musculoskeletal: edema present Neurological: non-focal Psychiatric: normal affect, A&O x 3 Dx/Plan (1) DARRICK (obstructive sleep apnea) Code(s): G47.33 - OBSTRUCTIVE SLEEP APNEA (ADULT) (PEDIATRIC) Status: Acute (2) Acute respiratory failure with hypoxia Code(s): J96.01 - ACUTE RESPIRATORY FAILURE WITH HYPOXIA Status: Acute (3) Anemia Code(s): D64.9 - ANEMIA, UNSPECIFIED Status: Acute (4) CKD (chronic kidney disease) Code(s): N18.9 - CHRONIC KIDNEY DISEASE, UNSPECIFIED Status: Acute (5) Diabetes mellitus Code(s): E11.9 - TYPE 2 DIABETES MELLITUS WITHOUT COMPLICATIONS Status: Acute (6) HTN (hypertension) Code(s): I10 - ESSENTIAL (PRIMARY) HYPERTENSION Status: Acute (7) Morbid obesity Code(s): E66.01 - MORBID (SEVERE) OBESITY DUE TO EXCESS CALORIES Status: Acute - Plan Plan: Patient is a 69F with PMHx of DM2, HTN, HLD, COPD, peripheral neuropathy, GERD, incontinence, iron deficiency anemia, depression, and insomnia admitted for: KAYDEN on CKD - appears to be back at baseline - Dr. Spencer, nephrology, consulted: stable for discharge - CM: pending placement Acute on chronic hypoxic respiratory failure - patient w/ hx of COPD; will continue COPD inhalers - currently on 2L [place] - duonebs prn, prednisone short course DARRICK -according to pt, she has hx of DARRICK and has lost her CPAP machine -will try and arrange for one while in hospital -needs outpt f/u RUE edema -had IV infiltrate -US showed no VTE Uremia - BUN 55, stable since January Hyperkalemia - potassium 5 - Dr. Spencer- low potassium diet - No changes on telemetry Lower extremity edema - wound care consulted for evaluation and treatment PVD - per cards records patient started on eliquis for PVD - continue eliquis at lower dose per nephro DM2 - continue home meds-hold metformin - SSI, ACHS accuchecks HTN - SBP consistently 160s-170s - will optimize current regimen - likely treatment resistant due to untreated DARRICK HLD - continue home meds Peripheral neuropathy - continue home meds GERD - continue home meds Anemia, iron deficiency + chronic disease - Hg 7.9, on epogen. Needs referral to hematology for continued outpatient treatment - continue home meds Depression Insomnia Chronic Pain - continue home meds Diet: CC DVT ppx: home eliquis, renally dosed IVF: SL Code: Full Dispo: admitted to telemetry inpt, CM consulted, pending placement Addendum - Attending - Attending Attestation Date/Time: 05/24/20 1302 I personally evaluated the patient and discussed the management with Dr. Elizabeth. I agree with the History, Examination, Assessment and Plan documented above with any addition or exceptions noted below. placement pending.
[2020-05-24] MEDS: Mometasone 100 MCG/Formoterol 5 MCG 120 PUFF INHALER INH SCH (07:11)
[2020-05-24] MEDS: Amlodipine 10 MG TAB PO SCH (08:12)
[2020-05-24] MEDS: Ezetimibe 10 MG TAB PO SCH (08:12)
[2020-05-24] MEDS: predniSONE 20 MG TAB PO SCH (08:12)
[2020-05-24] MEDS: Acetaminophen/Codeine 30-300mg Tablet PO SCH (08:12)
[2020-05-24] MEDS: Ferrous Sulfate 325 MG TAB PO SCH ×2 (08:12→17:27)
[2020-05-24] MEDS: Citalopram 20 MG TAB PO SCH (08:12)
[2020-05-24] MEDS: Calcitriol 0.25 MCG CAP PO SCH (08:13)
[2020-05-24] MEDS: Apixaban 2.5 MG TAB PO SCH ×2 (08:13→21:53)
[2020-05-24] MEDS: Carvedilol 25 MG TAB PO SCH ×2 (08:13→21:53)
[2020-05-24] MEDS: Furosemide 20 MG TAB PO SCH (08:13)
[2020-05-24] MEDS ORDERED: cloNIDine 0.2mg/24 Hour PATCH TD SCH (09:00)
[2020-05-24] MEDS: Insulin Glargine 25 UNITS in Pre-Filled Syringe 1 EACH SC SCH (09:31)
[2020-05-24] MEDS: diphenhydrAMINE 25 MG CAP PO PRN ×2 (09:32→21:55)
--- NOTE | 2020-05-24 09:45 | PRG ---
DATE OF SERVICE: 05/24/2020 SUBJECTIVE: Ms. Garcia is a 69-year-old black female, followed up for acute kidney injury on top of her chronic renal failure. She has a superimposed prerenal azotemia, which improved with gentle volume repletion. She is currently at baseline. No new complaints today. She does have a baseline chronic shortness of breath. She is currently continuing the current diuretic regimen. No new complaints. OBJECTIVE: VITAL SIGNS: Blood pressure is noted at 181/76 before BP medications, heart rate 63, respiratory rate 20, O2 saturation 93%. GENERAL: The patient is awake, supine, comfortable, obese, not in distress. SKIN: Adequate turgor. HEENT: Slightly pale conjunctivae. Anicteric sclerae. No neck mass. No carotid bruits. No JVD. CHEST: No deformities. LUNGS: Decreased breath sounds. HEART: Normal sinus rhythm. No murmurs, gallops, or rubs. ABDOMEN: Globular, soft, nontender. No masses. EXTREMITIES: Trace edema. MEDICATIONS: May 24, 2020, reviewed. LABORATORY DATA: May 24, 2020; white count 6.4, hemoglobin 8. Sodium 142, potassium 4.7, chloride 110, carbon dioxide 21, BUN 59, creatinine 2.83, GFR 20 mL/minute, calcium 8.7. ASSESSMENT AND PLAN: 1. Acute kidney injury-superimposed hemodynamically-mediated renal dysfunction, currently resolved with gentle volume repletion. 2. Chronic renal failure from diabetic nephropathy stable, near baseline. 3. Continue supportive care. There is no indication for any dialytic intervention. 4. Anemia-continuing weekly Epogen. 5. Congestive heart failure, stable. Continue current Lasix. 6. Recheck CBC and basic metabolic in a.m. Job ID: [id number]
[2020-05-24] MEDS: HumaLOG 300 UNITS/3 ML VIAL SC PRN ×3 (11:21→21:53)
[2020-05-24 13:37] VITALS: BMI 56.7
[2020-05-24] MEDS: Acetaminophen 325 MG TAB PO PRN (21:52)
[2020-05-24] MEDS: Amitriptyline HCl 100 MG TAB PO SCH (21:53)
[2020-05-24] MEDS: Atorvastatin Calcium 40 MG TAB PO SCH (21:53)
[2020-05-24] MEDS: Aspirin 81 mg Enteric Coated Tablet PO SCH (21:53)
[2020-05-25] MEDS: Nicotine 14 MG PATCH TD SCH ×2 (04:00→22:25)
[2020-05-25 04:29] LABS: #Eosinphils 0.1 thou/uL (0.0-0.7); #Lymphocytes 0.9 thou/uL (1.20-3.40); #Monocytes 0.8 thou/uL (0.11-0.59); #Neutrophils 4.4 thou/uL (1.40-6.50); %Basophils 0.1 % (0.0-1.0); %Eosinophils 0.9 % (0.0-10.0); %Lymphocytes 14.8 % (21.0-51.0); %Monocytes 12.2 % (0.0-10.0); %Neutrophils 71.9 % (42.0-75.0); Hemoglobin 8.4 g/dL (12.0-16.0); Mean Corpuscular HGB CONC 31.7 g/dL (32.0-36.0); Mean Corpuscular Hemoglobin 28.1 pg (27.0-31.0); Mean Corpuscular Volume 88.8 fL (78.0-98.0); Mean Platelet Volume 7.3 fL (7.4-10.4); Platelet Count 247 thou/uL (130-400); RBC Distribution Width 15.9 % (11.5-14.5); White Blood Cell (WBC) Count 6.2 thou/uL (4.8-10.8)
[2020-05-25 04:50] LABS: Anion Gap 14 mmol/L (10-20); BUN (Urea Nitrogen) 60 mg/dL (9.8-20.1); Calc. Creatinine Clearance 49 mL/min (70-130); Calcium 8.7 mg/dL (7.8-10.44); Carbon Dioxide 21 mmol/L (23-31); Chloride 110 mmol/L (98-107); Estimated GFR-MDRD 20; Glucose 249 mg/dL (80-115); Potassium 5.3 mmol/L (3.5-5.1); Sodium 140 mmol/L (136-145)
[2020-05-25] MEDS: HumaLOG 300 UNITS/3 ML VIAL SC PRN ×3 (06:08→22:26)
--- NOTE | 2020-05-25 07:10 | PDOC.FM ---
- Subjective Subjective: Pt resting comfortably. No complaints overnight - Objective Vital Signs & Weight: Vital Signs (12 hours) Temp Pulse Resp BP Pulse Ox 05/25/20 04:00 98.2 F 56 L 20 152/67 H 96 05/25/20 01:36 93 L 05/24/20 23:55 158/68 H 05/24/20 20:00 98.8 F 71 18 182/77 H 96 Weight Admit Weight 155.083 kg Weight 159.619 kg I&O: 05/24/20 05/25/20 05/26/20 06:59 06:59 06:59 Intake Total 1500 1220 Output Total 1900 1700 Balance -400 -480 Result Diagrams: 05/25/20 04:12 05/25/20 04:12 Phys Exam - Physical Examination Constitutional: NAD Neck: supple Respiratory: no wheezing, clear to auscultation bilateral Cardiovascular: RRR, no significant murmur Gastrointestinal: soft, non-tender, no distention Musculoskeletal: edema present Neurological: non-focal Psychiatric: A&O x 3 Dx/Plan (1) DARRICK (obstructive sleep apnea) Code(s): G47.33 - OBSTRUCTIVE SLEEP APNEA (ADULT) (PEDIATRIC) Status: Acute (2) Acute respiratory failure with hypoxia Code(s): J96.01 - ACUTE RESPIRATORY FAILURE WITH HYPOXIA Status: Acute (3) Anemia Code(s): D64.9 - ANEMIA, UNSPECIFIED Status: Acute (4) CKD (chronic kidney disease) Code(s): N18.9 - CHRONIC KIDNEY DISEASE, UNSPECIFIED Status: Acute (5) Diabetes mellitus Code(s): E11.9 - TYPE 2 DIABETES MELLITUS WITHOUT COMPLICATIONS Status: Acute (6) HTN (hypertension) Code(s): I10 - ESSENTIAL (PRIMARY) HYPERTENSION Status: Acute (7) Morbid obesity Code(s): E66.01 - MORBID (SEVERE) OBESITY DUE TO EXCESS CALORIES Status: Acute - Plan Plan: Patient is a 69F with PMHx of DM2, HTN, HLD, COPD, peripheral neuropathy, GERD, incontinence, iron deficiency anemia, depression, and insomnia admitted for: KAYDEN on CKD - appears to be back at baseline - Dr. Spencer, nephrology, consulted: stable for discharge - CM: pending placement Acute on chronic hypoxic respiratory failure - patient w/ hx of COPD; will continue COPD inhalers - currently on 2L [place] - duonebs prn, prednisone short course DARRICK -according to pt, she has hx of DARRICK and has lost her CPAP machine -will try and arrange for one while in hospital -needs outpt f/u RUE edema -had IV infiltrate -US showed no VTE Uremia - BUN 55, stable since January Hyperkalemia - potassium 5 - Dr. Spencer- low potassium diet - No changes on telemetry Lower extremity edema - wound care consulted for evaluation and treatment PVD - per cards records patient started on eliquis for PVD - continue eliquis at lower dose per nephro DM2 - continue home meds-hold metformin - SSI, ACHS accuchecks HTN - SBP consistently 160s-170s - will optimize current regimen - likely treatment resistant due to untreated DARRICK HLD - continue home meds Peripheral neuropathy - continue home meds GERD - continue home meds Anemia, iron deficiency + chronic disease - Hg 7.9, on epogen. Needs referral to hematology for continued outpatient treatment - continue home meds Depression Insomnia Chronic Pain - continue home meds Diet: CC DVT ppx: home eliquis, renally dosed IVF: SL Code: Full Dispo: admitted to telemetry inpt, CM consulted, pending placement Addendum - Attending - Attending Attestation Date/Time: 05/25/20 7842 I personally evaluated the patient and discussed the management with Dr. Elizabeth. I agree with the History, Examination, Assessment and Plan documented above with any addition or exceptions noted below. placement pending.
[2020-05-25] MEDS: Mometasone 100 MCG/Formoterol 5 MCG 120 PUFF INHALER INH SCH (08:09)
[2020-05-25] MEDS: Carvedilol 25 MG TAB PO SCH ×2 (08:23→22:24)
[2020-05-25] MEDS: predniSONE 20 MG TAB PO SCH (08:23)
[2020-05-25] MEDS: Citalopram 20 MG TAB PO SCH (08:23)
[2020-05-25] MEDS: Furosemide 20 MG TAB PO SCH (08:24)
[2020-05-25] MEDS: Ezetimibe 10 MG TAB PO SCH (08:24)
[2020-05-25] MEDS: Ferrous Sulfate 325 MG TAB PO SCH ×2 (08:24→17:30)
[2020-05-25] MEDS: Calcitriol 0.25 MCG CAP PO SCH (08:24)
[2020-05-25] MEDS: Apixaban 2.5 MG TAB PO SCH ×2 (08:24→22:24)
[2020-05-25] MEDS: Acetaminophen/Codeine 30-300mg Tablet PO SCH (08:24)
[2020-05-25] MEDS: Amlodipine 10 MG TAB PO SCH (08:24)
--- NOTE | 2020-05-25 08:57 | PRG ---
DATE OF SERVICE: 05/25/2020 SUBJECTIVE: Ms. Garcia is a 69-year-old black female, followed up by the renal service for her acute kidney injury on top of chronic renal failure. She is doing well. She voices no new complaints today. We are maintaining her on maintenance, low-dose diuretics. No acute events noted last night. OBJECTIVE: VITAL SIGNS: Blood pressure 180/77, heart rate 61, respiratory rate 20, temperature 98.6, O2 saturation 95%. GENERAL: Sleepy, but arousable and comfortable obese, not in distress. SKIN: Adequate turgor. HEENT: Slightly pale conjunctivae. Anicteric sclerae. No neck mass. No carotid bruits. No JVD. CHEST: No deformities. LUNGS: Clear breath sounds. HEART: Normal sinus rhythm. No murmurs, gallops, or rubs. ABDOMEN: Globular, soft, nontender. EXTREMITIES: Positive for edema. MEDICATIONS: May 25, 2020, reviewed. LABORATORY DATA: May 25, 2020; white count 6.2, hemoglobin 8.4 sodium 140, potassium 5.3, chloride 110, carbon dioxide 21, BUN 60, creatinine 2.82, glucose 249, calcium 8.7. ASSESSMENT AND PLAN: 1. Chronic renal failure from diabetic nephropathy. Stable renal function. Creatinine noted 2.82, which is near baseline. She is currently at stage 4 chronic renal failure. There is no indication for any dialytic intervention. 2. Congestive heart failure, on low-dose diuretics. 3. Anemia. The patient currently on weekly Epogen. P.r.n. blood transfusion only if hemoglobin is less than 7. We will recheck CBC and basic metabolic profile in a.m. Job ID: [id number]
[2020-05-25] MEDS: Insulin Glargine 25 UNITS in Pre-Filled Syringe 1 EACH SC SCH (10:14)
[2020-05-25] MEDS: Aspirin 81 mg Enteric Coated Tablet PO SCH (22:24)
[2020-05-25] MEDS: Amitriptyline HCl 100 MG TAB PO SCH (22:24)
[2020-05-25] MEDS: Atorvastatin Calcium 40 MG TAB PO SCH (22:24)
[2020-05-25] MEDS: diphenhydrAMINE 25 MG CAP PO PRN (22:25)
[2020-05-25] MEDS: Acetaminophen 325 MG TAB PO PRN (22:25)
[2020-05-26 05:02] LABS: #Lymphocytes 0.7 thou/uL (1.20-3.40); #Monocytes 0.7 thou/uL (0.11-0.59); #Neutrophils 3.9 thou/uL (1.40-6.50); %Basophils 0.2 % (0.0-1.0); %Eosinophils 0.9 % (0.0-10.0); %Lymphocytes 12.3 % (21.0-51.0); %Monocytes 12.7 % (0.0-10.0); %Neutrophils 73.9 % (42.0-75.0); Mean Corpuscular HGB CONC 31.3 g/dL (32.0-36.0); Mean Corpuscular Hemoglobin 28.3 pg (27.0-31.0); Mean Corpuscular Volume 90.2 fL (78.0-98.0); Mean Platelet Volume 7.3 fL (7.4-10.4); Platelet Count 241 thou/uL (130-400); RBC Distribution Width 16.2 % (11.5-14.5); Red Blood Cell (RBC) Count 2.84 mill/uL (4.20-5.40); White Blood Cell (WBC) Count 5.3 thou/uL (4.8-10.8)
[2020-05-26 05:20] LABS: Anion Gap 13 mmol/L (10-20); BUN (Urea Nitrogen) 59 mg/dL (9.8-20.1); Calc. Creatinine Clearance 48 mL/min (70-130); Calcium 8.6 mg/dL (7.8-10.44); Carbon Dioxide 22 mmol/L (23-31); Chloride 111 mmol/L (98-107); Estimated GFR-MDRD 20; Glucose 186 mg/dL (80-115); Sodium 141 mmol/L (136-145)
--- NOTE | 2020-05-26 06:06 | PDOC.FM ---
- Subjective Subjective: Patient is resting comfortably in bed. No events overnight. No concerns. Denies chest pain, shortness of breath, abdominal pain. - Objective MAR Reviewed: Yes Vital Signs & Weight: Vital Signs (12 hours) Temp Pulse Resp BP BP Pulse Ox 05/26/20 05:54 94 L 05/26/20 04:00 98.2 F 60 20 169/74 H 96 05/26/20 00:00 162/74 H 05/25/20 20:00 98.7 F 72 18 185/76 H 96 Weight Admit Weight 155.083 kg Weight 159.619 kg I&O: 05/24/20 05/25/20 05/26/20 06:59 06:59 06:59 Intake Total 1500 1220 1000 Output Total 1900 1700 950 Balance -400 -480 50 Result Diagrams: 05/26/20 04:26 05/26/20 04:26 Phys Exam - Physical Examination Constitutional: NAD HEENT: PERRLA, moist MMs Respiratory: no wheezing, clear to auscultation bilateral Cardiovascular: RRR, no significant murmur Gastrointestinal: soft, non-tender, positive bowel sounds Musculoskeletal: edema present Neurological: non-focal, moves all 4 limbs Psychiatric: normal affect, A&O x 3 Dx/Plan - Plan Plan: Patient is a 69F with PMHx of DM2, HTN, HLD, COPD, peripheral neuropathy, GERD, incontinence, iron deficiency anemia, depression, and insomnia KAYDEN on CKD - appears to be back at baseline - Dr. Spencer, nephrology, consulted: stable for discharge - CM: plans to go to SNF on Monday 05/28 Acute on chronic hypoxic respiratory failure - patient w/ hx of COPD; will continue COPD inhalers - currently on 2L [place] (home O2) - duonebs prn DARRICK -according to pt, she has hx of DARRICK and has lost her CPAP machine -will try and arrange for one while in hospital -needs outpt f/u RUE edema -had IV infiltrate -US showed no VTE Uremia - BUN 55, stable since January Hyperkalemia - potassium 5 - Dr. Spencer- low potassium diet - No changes on telemetry Lower extremity edema - wound care consulted for evaluation and treatment PVD - per cards records patient started on eliquis for PVD - continue eliquis at lower dose per nephro DM2 - continue home meds-hold metformin - SSI, ACHS accuchecks HTN - SBP consistently 160s-170s - will optimize current regimen - likely treatment resistant due to untreated DARRICK HLD - continue home meds Peripheral neuropathy - continue home meds GERD - continue home meds Anemia, iron deficiency + chronic disease - Hg 7.9, on epogen. Needs referral to hematology for continued outpatient treatment - continue home meds Depression Insomnia Chronic Pain - continue home meds Diet: CC DVT ppx: home eliquis, renally dosed IVF: SL Code: Full Dispo: admitted to telemetry inpt, CM consulted - will go to SNF Monday 05/28 Addendum - Attending - Attending Attestation Date/Time: 05/26/20 5526 I personally evaluated the patient and discussed the management with Dr. Loja. I agree with the History, Examination, Assessment and Plan documented above with any addition or exceptions noted below. The patient was resting comfortably this morning. Awaiting discharge to [facility] on Thursday.
[2020-05-26] MEDS: HumaLOG 300 UNITS/3 ML VIAL SC PRN ×4 (06:26→21:40)
[2020-05-26] MEDS: Mometasone 100 MCG/Formoterol 5 MCG 120 PUFF INHALER INH SCH (07:46)
--- NOTE | 2020-05-26 09:35 | PRG ---
DATE OF SERVICE: 05/26/2020 SUBJECTIVE: Ms. Garcia is a 69-year-old black female, followed up for her chronic renal failure/acute kidney injury. Doing well overall. She is status post volume repletion. Creatinine is stable. She is awaiting rehab placement. No new complaints today. No chest pain or shortness of breath. Currently, on maintenance low-dose diuretics. OBJECTIVE: VITAL SIGNS: Blood pressure 160/70, heart rate 65, respiratory rate 18, temperature 98, O2 saturation 97%. GENERAL: The patient is awake, alert, comfortable, not in overt distress. SKIN: Adequate turgor. HEENT: Slightly pale conjunctivae. Anicteric sclerae. No neck mass. No carotid bruits. No JVD. CHEST: No deformities. LUNGS: Clear breath sounds. No wheezing. No crackles. HEART: Normal sinus rhythm. No murmur. No gallops. No rubs. ABDOMEN: Globular, soft, nontender. No masses. EXTREMITIES: Trace edema. MEDICATIONS: Of May 26, 2020, reviewed. LABORATORY DATA: Of May 26, 2020; white count 5.2, hemoglobin 8. Sodium 141, potassium 5, chloride 111, carbon dioxide 22, BUN 59, creatinine 2.88, and calcium 8.6. ASSESSMENT AND PLAN: 1. Acute kidney injury-prerenal azotemia-much improved. 2. Chronic renal failure from diabetic nephropathy. Stable renal function. She is at baseline. No indication for any dialytic intervention. 3. Anemia, continuing weekly Epogen. 4. Congestive heart failure, clinically stable, on low-dose diuretics. Awaiting rehab placement. Job ID: [id number]
[2020-05-26] MEDS: Ferrous Sulfate 325 MG TAB PO SCH ×2 (10:15→17:48)
[2020-05-26] MEDS: Acetaminophen/Codeine 30-300mg Tablet PO SCH (10:15)
[2020-05-26] MEDS: predniSONE 20 MG TAB PO SCH (10:15)
[2020-05-26] MEDS: Calcitriol 0.25 MCG CAP PO SCH (10:16)
[2020-05-26] MEDS: Amlodipine 10 MG TAB PO SCH (10:16)
[2020-05-26] MEDS: Apixaban 2.5 MG TAB PO SCH ×2 (10:16→21:38)
[2020-05-26] MEDS: Citalopram 20 MG TAB PO SCH (10:16)
[2020-05-26] MEDS: Carvedilol 25 MG TAB PO SCH ×2 (10:16→21:38)
[2020-05-26] MEDS: Furosemide 20 MG TAB PO SCH (10:17)
[2020-05-26] MEDS: Ezetimibe 10 MG TAB PO SCH (10:17)
[2020-05-26] MEDS: Insulin Glargine 25 UNITS in Pre-Filled Syringe 1 EACH SC SCH (10:17)
[2020-05-26] MEDS: Atorvastatin Calcium 40 MG TAB PO SCH (21:38)
[2020-05-26] MEDS: Amitriptyline HCl 100 MG TAB PO SCH (21:38)
[2020-05-26] MEDS: Acetaminophen 325 MG TAB PO PRN (21:38)
[2020-05-26] MEDS: Aspirin 81 mg Enteric Coated Tablet PO SCH (21:38)
[2020-05-26] MEDS: diphenhydrAMINE 25 MG CAP PO PRN (21:39)
[2020-05-27] MEDS: Nicotine 14 MG PATCH TD SCH ×2 (01:50→21:16)
[2020-05-27 04:23] LABS: #Eosinphils 0.1 thou/uL (0.0-0.7); #Lymphocytes 0.8 thou/uL (1.20-3.40); #Monocytes 0.6 thou/uL (0.11-0.59); #Neutrophils 4.3 thou/uL (1.40-6.50); %Basophils 0.4 % (0.0-1.0); %Eosinophils 1.1 % (0.0-10.0); %Lymphocytes 13.7 % (21.0-51.0); %Monocytes 10.9 % (0.0-10.0); %Neutrophils 73.9 % (42.0-75.0); Hemoglobin 8.2 g/dL (12.0-16.0); Mean Corpuscular HGB CONC 31.5 g/dL (32.0-36.0); Mean Corpuscular Hemoglobin 28.1 pg (27.0-31.0); Mean Platelet Volume 7.7 fL (7.4-10.4); Platelet Count 244 thou/uL (130-400); RBC Distribution Width 16.4 % (11.5-14.5); Red Blood Cell (RBC) Count 2.91 mill/uL (4.20-5.40); White Blood Cell (WBC) Count 5.8 thou/uL (4.8-10.8)
[2020-05-27 04:40] LABS: Anion Gap 13 mmol/L (10-20); BUN (Urea Nitrogen) 60 mg/dL (9.8-20.1); Calc. Creatinine Clearance 49 mL/min (70-130); Calcium 8.5 mg/dL (7.8-10.44); Carbon Dioxide 20 mmol/L (23-31); Chloride 110 mmol/L (98-107); Estimated GFR-MDRD 20; Glucose 244 mg/dL (80-115); Potassium 5.2 mmol/L (3.5-5.1); Sodium 138 mmol/L (136-145)
[2020-05-27] MEDS: HumaLOG 300 UNITS/3 ML VIAL SC PRN ×2 (06:17→17:43)
--- NOTE | 2020-05-27 06:22 | PDOC.FM ---
- Subjective Subjective: Patient is resting comfortably in bed. No acute events overnight, no concerns. Denies chest pain, shortness of breath, abdominal pain. - Objective MAR Reviewed: Yes Vital Signs & Weight: Vital Signs (12 hours) Temp Pulse Resp BP BP Pulse Ox 05/27/20 04:00 98.3 F 87 20 174/72 H 95 05/27/20 00:00 22 H 165/72 H 95 05/26/20 19:48 93 L 05/26/20 19:45 98.5 F 84 20 191/84 H 93 L Weight Admit Weight 155.083 kg Weight 159.619 kg I&O: 05/25/20 05/26/20 05/27/20 06:59 06:59 06:59 Intake Total 1220 1730 720 Output Total 1700 1350 750 Balance -480 380 -30 Result Diagrams: 05/27/20 03:52 05/27/20 03:52 Phys Exam - Physical Examination Constitutional: NAD HEENT: PERRLA, moist MMs Respiratory: no wheezing, clear to auscultation bilateral Cardiovascular: RRR, no significant murmur Gastrointestinal: soft, non-tender, positive bowel sounds Musculoskeletal: edema present (1-2+) Neurological: non-focal, moves all 4 limbs Psychiatric: normal affect, A&O x 3 Skin: no rash Dx/Plan - Plan Plan: Patient is a 69F with PMHx of DM2, HTN, HLD, COPD, peripheral neuropathy, GERD, incontinence, iron deficiency anemia, depression, and insomnia KAYDEN on CKD - appears to be back at baseline - Dr. Spencer, nephrology, consulted: stable for discharge - CM: plans to go to [facility] on Monday 05/28 Acute on chronic hypoxic respiratory failure - patient w/ hx of COPD; will continue COPD inhalers - currently on 2L [place] (home O2) - duonebs prn - continue to monitor DARRICK -according to pt, she has hx of DARRICK and has lost her CPAP machine -will try and arrange for one while in hospital -needs outpt f/u RUE edema -had IV infiltrate -US showed no VTE Uremia - BUN 60, stable since January Hyperkalemia - potassium 5.2 - Dr. Spencer- low potassium diet - No changes on telemetry Lower extremity edema - wound care consulted for evaluation and treatment PVD - per cards records patient started on eliquis for PVD - continue eliquis at lower dose per nephro DM2 - increase home am lantus 25 -> 30 due to elevated sugars - SSI, ACHS accuchecks HTN - SBP consistently 160s-190s - will optimize current regimen - added labetalol 10mg IVP prn SBP >180 - likely treatment resistant due to untreated DARRICK HLD - continue home meds Peripheral neuropathy - continue home meds GERD - continue home meds Anemia, iron deficiency + chronic disease - Hg 7.9, on epogen. Needs referral to hematology for continued outpatient marguerite atment - continue home meds Depression Insomnia Chronic Pain - continue home meds Diet: CC DVT ppx: home eliquis, renally dosed IVF: SL Code: Full Dispo: admitted to telemetry inpt, CM consulted - will go to SNF Monday 05/28 Addendum - Attending - Attending Attestation Date/Time: 05/27/20 4188 I personally evaluated the patient and discussed the management with Dr. Loja. I agree with the History, Examination, Assessment and Plan documented above with any addition or exceptions noted below. Patient remains stable. He will be going to [facility] tomorrow. Labs are stable.
[2020-05-27] MEDS ORDERED: HumaLOG 300 UNITS/3 ML VIAL SC PRN (06:24)
[2020-05-27] MEDS ORDERED: Labetalol HCl 100 MG/20 ML VIAL SLOW IVP PRN (07:20)
[2020-05-27] MEDS: Mometasone 100 MCG/Formoterol 5 MCG 120 PUFF INHALER INH SCH (07:26)
[2020-05-27] MEDS: Ferrous Sulfate 325 MG TAB PO SCH ×2 (08:53→17:41)
[2020-05-27] MEDS: Amlodipine 10 MG TAB PO SCH (08:54)
[2020-05-27] MEDS: Carvedilol 25 MG TAB PO SCH ×2 (08:54→21:16)
[2020-05-27] MEDS: Furosemide 20 MG TAB PO SCH (08:54)
[2020-05-27] MEDS: Acetaminophen/Codeine 30-300mg Tablet PO SCH (08:55)
[2020-05-27] MEDS: Citalopram 20 MG TAB PO SCH (08:57)
[2020-05-27] MEDS: Ezetimibe 10 MG TAB PO SCH (08:57)
[2020-05-27] MEDS: Apixaban 2.5 MG TAB PO SCH ×2 (08:57→21:16)
[2020-05-27] MEDS: Calcitriol 0.25 MCG CAP PO SCH (08:58)
[2020-05-27] MEDS: Insulin Glargine 30 UNITS in Pre-Filled Syringe 1 EACH SC SCH (08:59)
[2020-05-27] MEDS: cloNIDine 0.3mg/24 Hour PATCH TD SCH (10:05)
--- NOTE | 2020-05-27 15:55 | PRG ---
DATE OF SERVICE: 05/27/2020 SUBJECTIVE: Ms. Garcia is a 69-year-old black female, who was initially admitted for chest pain/acute kidney injury on top of her chronic renal failure. Empiric volume repletion was given. She improved her renal function. We have resumed back her maintenance diuretics of Lasix 20 mg tablet once a day. This afternoon, she voices no new complaints. The patient denies any chest pain or shortness of breath. OBJECTIVE: VITAL SIGNS: Blood pressure is noted at 177/70, heart rate 58, respiratory rate 16, temperature 98.6, O2 sats 98%. GENERAL: The patient is awake, supine, comfortable, obese, not in overt distress. SKIN: Adequate turgor. HEENT: She has slightly pale conjunctivae. Anicteric sclerae. No neck mass. No carotid bruits. No JVD. CHEST: No deformities. LUNGS: Clear breath sounds. No wheezing. No crackles. HEART: Normal sinus rhythm. No murmurs. No gallops. No rubs. ABDOMEN: Globular, soft, nontender. No masses. Positive for bowel sounds. Negative for epigastric bruits. GROINS: No inguinal lymphadenopathy. No femoral artery bruits. RECTAL: Deferred. GENITALIA: Deferred. EXTREMITIES: Trace edema. No deformities. MEDICATIONS: May 27, 2020, were reviewed. LABORATORY DATA: May 27, 2020; white count 5.8, hemoglobin 8.2. Sodium 138, potassium 5.2, chloride 110, carbon dioxide 20, BUN 60, creatinine 2.8, glucose 244, calcium 8.5. ASSESSMENT AND PLAN: 1. Acute kidney injury - superimposed hemodynamically-mediated renal dysfunction. Much improved with volume repletion. 2. Chronic renal failure secondary to diabetic nephropathy. Renal function is actually near baseline. Most recent creatinine is noted at 2.8 with a GFR of 20 mL/minute. There is no indication for any dialytic intervention. 3. Congestive heart failure, clinically stable. Continue low-dose diuretics. 4. Anemia, stable, continuing weekly Epogen. Awaiting fpc facility placement. Job ID: [id number] [facility]
[2020-05-27] MEDS: Atorvastatin Calcium 40 MG TAB PO SCH (21:15)
[2020-05-27] MEDS: Aspirin 81 mg Enteric Coated Tablet PO SCH (21:16)
[2020-05-27] MEDS: Amitriptyline HCl 100 MG TAB PO SCH (21:16)
[2020-05-27] MEDS: Acetaminophen 325 MG TAB PO PRN (21:24)
[2020-05-27] MEDS: diphenhydrAMINE 25 MG CAP PO PRN (21:25)
[2020-05-28 04:16] LABS: #Eosinphils 0.2 thou/uL (0.0-0.7); #Lymphocytes 1.2 thou/uL (1.20-3.40); #Monocytes 0.6 thou/uL (0.11-0.59); #Neutrophils 2.6 thou/uL (1.40-6.50); %Basophils 0.2 % (0.0-1.0); %Eosinophils 3.7 % (0.0-10.0); %Lymphocytes 27.2 % (21.0-51.0); %Monocytes 12.6 % (0.0-10.0); %Neutrophils 56.4 % (42.0-75.0); Hemoglobin 8.6 g/dL (12.0-16.0); Mean Corpuscular HGB CONC 32.6 g/dL (32.0-36.0); Mean Corpuscular Hemoglobin 29.6 pg (27.0-31.0); Mean Corpuscular Volume 90.6 fL (78.0-98.0); Mean Platelet Volume 7.7 fL (7.4-10.4); Platelet Count 257 thou/uL (130-400); RBC Distribution Width 16.6 % (11.5-14.5); Red Blood Cell (RBC) Count 2.91 mill/uL (4.20-5.40); White Blood Cell (WBC) Count 4.6 thou/uL (4.8-10.8)
[2020-05-28 04:34] LABS: Anion Gap 13 mmol/L (10-20); BUN (Urea Nitrogen) 56 mg/dL (9.8-20.1); Calc. Creatinine Clearance 54 mL/min (70-130); Calcium 8.4 mg/dL (7.8-10.44); Carbon Dioxide 21 mmol/L (23-31); Chloride 111 mmol/L (98-107); Estimated GFR-MDRD 23; Potassium 4.7 mmol/L (3.5-5.1); Sodium 140 mmol/L (136-145)
[2020-05-28 04:42] LABS: Glucose 57 mg/dL (80-115)
[2020-05-28] MEDS: cloNIDine 0.3mg/24 Hour PATCH TD SCH (05:31)
--- NOTE | 2020-05-28 06:30 | PDOC.FM ---
- Subjective Subjective: Pt resting comfortably this morning. No complaints overnight. - Objective Vital Signs & Weight: Vital Signs (12 hours) Temp Pulse Resp BP BP Pulse Ox 05/28/20 04:00 98.1 F 57 L 17 181/74 H 98 05/27/20 20:00 98.9 F 64 20 147/106 H 99 Weight Admit Weight 155.083 kg Weight 159.619 kg I&O: 05/26/20 05/27/20 05/28/20 06:59 06:59 06:59 Intake Total 1730 1200 1820 Output Total 1350 1150 1320 Balance 380 50 500 Result Diagrams: 05/28/20 03:56 05/28/20 03:56 Phys Exam - Physical Examination Constitutional: NAD Neck: supple Respiratory: no wheezing, clear to auscultation bilateral Cardiovascular: RRR, no significant murmur Gastrointestinal: soft, non-tender, no distention Musculoskeletal: edema present Neurological: non-focal Psychiatric: A&O x 3 Dx/Plan (1) DARRICK (obstructive sleep apnea) Code(s): G47.33 - OBSTRUCTIVE SLEEP APNEA (ADULT) (PEDIATRIC) Status: Acute (2) Acute respiratory failure with hypoxia Code(s): J96.01 - ACUTE RESPIRATORY FAILURE WITH HYPOXIA Status: Acute (3) Anemia Code(s): D64.9 - ANEMIA, UNSPECIFIED Status: Acute (4) CKD (chronic kidney disease) Code(s): N18.9 - CHRONIC KIDNEY DISEASE, UNSPECIFIED Status: Acute (5) Diabetes mellitus Code(s): E11.9 - TYPE 2 DIABETES MELLITUS WITHOUT COMPLICATIONS Status: Acute (6) HTN (hypertension) Code(s): I10 - ESSENTIAL (PRIMARY) HYPERTENSION Status: Acute (7) Morbid obesity Code(s): E66.01 - MORBID (SEVERE) OBESITY DUE TO EXCESS CALORIES Status: Acute - Plan Plan: Patient is a 69F with PMHx of DM2, HTN, HLD, COPD, peripheral neuropathy, GERD, incontinence, iron deficiency anemia, depression, and insomnia KAYDEN on CKD - appears to be back at baseline - Dr. Spencer, nephrology, consulted: stable for discharge - CM: plans to go to [facility] on Monday 05/28 Acute on chronic hypoxic respiratory failure - patient w/ hx of COPD; will continue COPD inhalers - currently on 2L NC (home O2) - duonebs prn - continue to monitor DARRICK -according to pt, she has hx of DARRICK and has lost her CPAP machine -will try and arrange for one while in hospital -needs outpt f/u RUE edema -had IV infiltrate -US showed no VTE Uremia - BUN 60, stable since January Hyperkalemia - resolved, potassium 4.7 - Dr. Spencer- low potassium diet - No changes on telemetry Lower extremity edema - wound care consulted for evaluation and treatment PVD - per cards records patient started on eliquis for PVD - continue eliquis, renally dosed DM2 - increase home am lantus 25 -> 30 due to elevated sugars - SSI, ACHS accuchecks HTN - SBP consistently 160s-190s - will optimize current regimen - added labetalol 10mg IVP prn SBP >180 - likely treatment resistant due to untreated DARRICK HLD - continue home meds Peripheral neuropathy - continue home meds GERD - continue home meds Anemia, iron deficiency + chronic disease - Hg 7.9, on epogen. Needs referral to hematology for continued outpatient treatment - continue home meds Depression Insomnia Chronic Pain - continue home meds Diet: CC DVT ppx: home eliquis, renally dosed IVF: SL Code: Full Dispo: admitted to telemetry inpt, CM consulted, will discharge to SNF today Addendum - Attending - Attending Attestation Date/Time: 05/28/201915 I personally evaluated the patient and discussed the management with Dr. Elizabeth. I agree with the History, Examination, Assessment and Plan documented above with any addition or exceptions noted below. Adjusted insulin and will d/c to [facility].
[2020-05-28] MEDS: Mometasone 100 MCG/Formoterol 5 MCG 120 PUFF INHALER INH SCH (07:32)
[2020-05-28] MEDS: Citalopram 20 MG TAB PO SCH (09:17)
[2020-05-28] MEDS: Amlodipine 10 MG TAB PO SCH (09:18)
[2020-05-28] MEDS: Acetaminophen/Codeine 30-300mg Tablet PO SCH (09:18)
[2020-05-28] MEDS: Ezetimibe 10 MG TAB PO SCH (09:18)
[2020-05-28] MEDS: Ferrous Sulfate 325 MG TAB PO SCH ×2 (09:20→16:26)
[2020-05-28] MEDS: Calcitriol 0.25 MCG CAP PO SCH (09:20)
[2020-05-28] MEDS: Carvedilol 25 MG TAB PO SCH (09:20)
[2020-05-28] MEDS: Apixaban 2.5 MG TAB PO SCH (09:20)
[2020-05-28] MEDS: Furosemide 20 MG TAB PO SCH (09:20)
[2020-05-28] MEDS: diphenhydrAMINE 25 MG CAP PO PRN (09:25)
[2020-05-28] MEDS: Insulin Glargine 30 UNITS in Pre-Filled Syringe 1 EACH SC SCH (10:25)
--- NOTE | 2020-05-28 10:37 | PRG ---
DATE OF SERVICE: 05/28/2020 SUBJECTIVE: Ms. Garcia is a 69-year-old black female who was initially admitted from mild shortness of breath/chest pain. She was also noted to have had an acute kidney injury that was hemodynamically-mediated renal dysfunction on top of her chronic renal failure. With volume repletion, her kidney function has gone back to baseline. This morning, she denies any chest pain or shortness of breath. We are awaiting correction facility placement. OBJECTIVE: VITAL SIGNS: Blood pressure is 171/78, heart rate 62, respiratory rate 17, temperature 98.5, O2 saturation 94%. GENERAL: The patient is awake, supine, comfortable, obese, not in distress. SKIN: Adequate turgor. HEENT: She has a slightly pale conjunctivae. Anicteric sclerae. NECK: No neck mass. No carotid bruits. No JVD. CHEST: No deformities. LUNGS: Clear breath sounds. HEART: Normal sinus rhythm. No murmur. No gallops. No rubs. ABDOMEN: Globular, soft, nontender. No masses. EXTREMITIES: Trace edema. MEDICATIONS: May 28, 2020, reviewed. LABORATORY DATA: May 28, 2020; white count 4.6, hemoglobin 8.6. Sodium 140, potassium 4.7, chloride 111, carbon dioxide 21, BUN 56, creatinine 2.57, calcium 8.4. ASSESSMENT AND PLAN: 1. Chronic renal failure from diabetic nephropathy, stable renal function. No indication for any dialytic intervention. Continue supportive care. 2. Acute kidney injury - superimposed hemodynamically-mediated renal dysfunction, resolved. 3. Anemia, stable, continuing weekly Epogen. 4. Congestive heart failure, clinically asymptomatic on low-dose diuretics. Agree with current management. Job ID: [id number]
[2020-05-28] MEDS: HumaLOG 300 UNITS/3 ML VIAL SC PRN (12:02)
[2020-05-28 17:44] VITALS: BP 139/64; TEMP 98.4
--- NOTE | 2020-05-29 02:37 | DIS ---
DATE OF ADMISSION: 05/16/2020 DATE OF DISCHARGE: 05/28/2020 RESIDENT: Leonor Elizabeth MD, PGY-1 ADMITTING ATTENDING: Jeannie Gutierrez MD DISCHARGE ATTENDING: Fatmata Hanna MD CONSULTS: Case Management, PT/OT, Wound Care, and Nephrology, Dr. Spencer. PROCEDURES: Ultrasound of right upper extremity with impression of no evidence of venous thrombosis. PRIMARY DIAGNOSES: Acute kidney injury on chronic kidney disease. SECONDARY DIAGNOSES: 1. Acute on chronic hypoxic respiratory failure. 2. Uremia. 3. Hyperkalemia. 4. Lower extremity edema. 5. PVD. 6. DM 2. 7. Hypertension. 8. Hyperlipidemia. 9. Peripheral neuropathy. 10. GERD. 11. Anemia. 12. Depression. 13. Insomnia. DISCHARGE MEDICATIONS: 1. Tylenol No. 3 one tablet daily p.r.n. 2. ProAir one puff q.4 hours p.r.n. 3. Amitriptyline 100 mg daily. 4. Amlodipine 10 mg daily. 5. Eliquis 2.5 b.i.d. 6. Aspirin 81 daily. 7. Atorvastatin 80 daily. 8. Calcitriol 0.25 mcg daily. 9. Coreg 25 mg b.i.d. 10. Cimetidine 200 mg daily. 11. Citalopram 40 mg daily. 12. Clonidine 0.3 mg transdermal patch q.7 days. 13. Benadryl q.4 hours as needed for itching 14. Retacrit 7500 units subcu q.7 days. 15. Vitamin D2 of 50,000 units q.7 days. 16. Zetia 10 mg daily. 17. Famotidine 20 mg daily. 18. Ferrous sulfate 325 mg daily. 19. Advair 2 puffs daily. 20. Lasix 20 mg daily. 21. Gabapentin 600 mg b.i.d. 22. Levemir 15 units subcu b.i.d. 23. Oxybutynin 5 mg daily. 24. Prednisone 40 mg daily for three days. 25. Nicotine patch daily. HISTORY OF PRESENT ILLNESS: The patient is a 69-year-old female with history of type 2 diabetes, hypertension, hyperlipidemia, COPD, GERD, and anemia, who presents to the ED from [facility] with chief complaint of bilateral arm weakness and shortness of breath since last night. Also complains of swelling to her lower extremities. She smokes a half a pack of cigarettes a day x25 years. Upon presentation in the ED, the patient's creatinine was found to be 4.16. Last admission was 3.42. GFR had decreased to 13. Dr. Spencer consulted from the ED and recommended admission for evaluation and treatment. The patient says she has a history of obstructive sleep apnea, but has lost her CPAP machine and had borrowed a friends machine last night. In the ED, she was placed on 2 L nasal cannula, saturating 98% to 99%. Chest x-ray showed cardiomegaly with interstitial opacities in the right lung consistent with edema versus infiltrates. Procalcitonin was negative, so less likely infectious. BUN was 71 and the patient was drowsy during exam. The patient's potassium was found to be 5.3, it remained nearly this high throughout admission. Dr. Spencer suggested a low-potassium diet and it improved. For her lower extremity edema and wounds, Wound Care was consulted. The leg was wrapped and improved throughout hospital stay. Nephrology followed the patient closely throughout hospital stay, dialysis not needed. The patient's kidney function continued to improve back to baseline. Breathing was controlled by placing the patient on 2 L nasal cannula, scheduling DuoNebs and giving COPD inhalers. Diabetes was controlled by increasing the long-acting insulin and using a sliding scale. Anemia, hemoglobin 7.9, the patient on Epogen, needs referral to Hematology for continued outpatient treatment. The patient will also need outpatient followup for treatment of DARRICK and arrangement of CPAP. Blood pressure continued to be difficult to treat, although the patient was on multiple medications. Regimen was adjusted to optimize treatment. Likely refractory to treatment until DARRICK is treated. The patient was evaluated by Case Management, PT, and OT and determine the need for placement in SNF for strengthening before going back home. DISCHARGE DISPOSITION: Stable. DISCHARGE INSTRUCTIONS: Location to a SNF. Diet, consistent carb. Activity, as tolerated, PT and OT therapy needed. Follow up with PCP, with want ad receiver, and with outpatient Hematology. Job ID: [id number] [facility]TD[facility]
== END 2020-05-28 18:10 | DRG 682 ==
LOC: ERS 09:37 → ERHOLD 12:58 → OBSVTOIN 12:58 → 2NO 20:27
PROVIDERS: ADMIT Student in an Organized Health Care Education/Training Program; ATTEND Student in an Organized Health Care Education/Training Program
DX: N17.9 Acute kidney failure, unspecified (principal); J96.21 Acute and chronic respiratory failure with hypoxia; E87.2 Acidosis; E66.2 Morbid (severe) obesity with alveolar hypoventilation; Z68.43 Body mass index [BMI] 50.0-59.9, adult; Z20.828 Contact with and (suspected) exposure to other viral communicable diseases; E87.5 Hyperkalemia; E11.51 Type 2 diabetes mellitus with diabetic peripheral angiopathy without gangrene; E11.42 Type 2 diabetes mellitus with diabetic polyneuropathy; E78.5 Hyperlipidemia, unspecified; E11.22 Type 2 diabetes mellitus with diabetic chronic kidney disease; K21.9 Gastro-esophageal reflux disease without esophagitis; I12.9 Hypertensive chronic kidney disease with stage 1 through stage 4 chronic kidney disease, or unspecified chronic kidney disease; D63.1 Anemia in chronic kidney disease; F32.9 Major depressive disorder, single episode, unspecified; J44.9 Chronic obstructive pulmonary disease, unspecified; F17.210 Nicotine dependence, cigarettes, uncomplicated; R32 Unspecified urinary incontinence; D50.9 Iron deficiency anemia, unspecified; G47.00 Insomnia, unspecified; N18.9 Chronic kidney disease, unspecified; Z88.8 Allergy status to other drugs, medicaments and biological substances; Z79.51 Long term (current) use of inhaled steroids; Z79.899 Other long term (current) drug therapy; Z79.82 Long term (current) use of aspirin; Z79.4 Long term (current) use of insulin; Z90.49 Acquired absence of other specified parts of digestive tract
CPT/HCPCS: 36415; 36416; 71045; 80048; 80053; 82565; 82570; 83880; 84145; 84300; 84484; 85014; 85018; 85025; 85049; 87635; 93005; 94640; 94664; 96372; G0378; J1815; J1940; J7512; J7620; Q0163; Q5105; U0003

== ENCOUNTER 2020-06-22 15:37 | Emergency (ER) | payer MEDICARE, MEDICAID ==
[2020-06-22 16:11] LABS: #Eosinphils 0.1 thou/uL (0.0-0.7); #Lymphocytes 0.9 thou/uL (1.20-3.40); #Monocytes 0.5 thou/uL (0.11-0.59); #Neutrophils 3.1 thou/uL (1.40-6.50); %Eosinophils 1.3 % (0.0-10.0); %Monocytes 10.8 % (0.0-10.0); %Neutrophils 68.9 % (42.0-75.0); Mean Corpuscular HGB CONC 33.1 g/dL (32.0-36.0); Mean Corpuscular Hemoglobin 29.7 pg (27.0-31.0); Mean Corpuscular Volume 89.9 fL (78.0-98.0); Platelet Count 129 thou/uL (130-400); RBC Distribution Width 17.8 % (11.5-14.5); Red Blood Cell (RBC) Count 3.01 mill/uL (4.20-5.40); White Blood Cell (WBC) Count 4.5 thou/uL (4.8-10.8)
[2020-06-22 16:20] LABS: Phosphorus 3.8 mg/dL (2.3-4.7)
[2020-06-22 16:22] LABS: ALT (SGPT) 31 U/L (8-55); AST (SGOT) 14 U/L (5-34); Albumin 2.9 g/dL (3.4-4.8); Alkaline Phosphatase 87 U/L (40-110); Anion Gap 10 mmol/L (10-20); BUN (Urea Nitrogen) 58 mg/dL (9.8-20.1); Bilirubin, Total 0.2 mg/dL (0.2-1.2); Calc. Creatinine Clearance 0 mL/min (70-130); Calcium 8.2 mg/dL (7.8-10.44); Carbon Dioxide 29 mmol/L (23-31); Chloride 103 mmol/L (98-107); Globulin 2.6 g/dL (2.4-3.5); Glucose 484 mg/dL (80-115); Potassium 5.3 mmol/L (3.5-5.1); Protein, Total 5.5 g/dL (6.0-8.3); Sodium 137 mmol/L (136-145)
[2020-06-22] MEDS ORDERED: INSULIN REGULAR IN 0.9 % NACL 100 UNIT/100 ML BAG ONE (16:36)
[2020-06-22 17:13] LABS: Base Excess-Venous 0.1 mmol/L (-2.0 to 3.0); Bicarbonate (HCO3v) 26.3 mmol/L (22.0-28.0); CO2 Tension (PvCO2) 49.7 mmHg (40.0-50.0); Calcium, Ionized 1.14 mmol/L (1.15-1.33); Chloride 102 mmol/L (98-107); Potassium 5.2 mmol/L (3.5-5.1); Sodium 136 mmol/L (138-145); T. Carbon Dioxide 27.9 mmol/L (22.0-28.0)
== END 2020-06-22 18:49 | disposition home or self-care (01) ==
LOC: ERS 15:37
DX: E11.65 Type 2 diabetes mellitus with hyperglycemia (principal); I10 Essential (primary) hypertension; E78.5 Hyperlipidemia, unspecified; J44.9 Chronic obstructive pulmonary disease, unspecified; K21.9 Gastro-esophageal reflux disease without esophagitis; F17.210 Nicotine dependence, cigarettes, uncomplicated
CPT/HCPCS: 36416; 80053; 82330; 82803; 83735; 84100; 85025; 94760; 96374

== ENCOUNTER 2020-07-03 09:34 | Inpatient (IN) | payer MEDICARE, MEDICAID ==
[2020-07-03 10:27] LABS: #Lymphocytes 0.8 thou/uL (1.20-3.40); #Monocytes 0.7 thou/uL (0.11-0.59); #Neutrophils 6.2 thou/uL (1.40-6.50); %Basophils 0.3 % (0.0-1.0); %Eosinophils 0.3 % (0.0-10.0); %Lymphocytes 10.5 % (21.0-51.0); %Monocytes 9.1 % (0.0-10.0); %Neutrophils 79.8 % (42.0-75.0); Hemoglobin 6.1 g/dL (12.0-16.0); Mean Corpuscular HGB CONC 31.2 g/dL (32.0-36.0); Mean Corpuscular Hemoglobin 28.2 pg (27.0-31.0); Mean Corpuscular Volume 90.5 fL (78.0-98.0); Mean Platelet Volume 8.8 fL (7.4-10.4); Platelet Count 190 thou/uL (130-400); RBC Distribution Width 16.8 % (11.5-14.5); Red Blood Cell (RBC) Count 2.17 mill/uL (4.20-5.40); White Blood Cell (WBC) Count 7.7 thou/uL (4.8-10.8)
[2020-07-03 10:49] LABS: ALT (SGPT) 20 U/L (8-55); AST (SGOT) 10 U/L (5-34); Albumin 2.6 g/dL (3.4-4.8); Alkaline Phosphatase 89 U/L (40-110); Anion Gap 19 mmol/L (10-20); BUN (Urea Nitrogen) 64 mg/dL (9.8-20.1); Bilirubin, Total 0.3 mg/dL (0.2-1.2); CK (CPK) 60 U/L (29-168); Calc. Creatinine Clearance 0 mL/min (70-130); Calcium 7.5 mg/dL (7.8-10.44); Carbon Dioxide 19 mmol/L (23-31); Chloride 102 mmol/L (98-107); Globulin 2.3 g/dL (2.4-3.5); Lipase 155 U/L (8-78); Potassium 4.6 mmol/L (3.5-5.1); Protein, Total 4.9 g/dL (6.0-8.3); Sodium 135 mmol/L (136-145)
[2020-07-03 10:55] LABS: Glucose 722 mg/dL (80-115)
[2020-07-03] MEDS ORDERED: Nitroglycerin 2% Ointment 1 INCH/1 GM Packet ONE (11:12)
[2020-07-03] MEDS ORDERED: Insulin Regular 300 UNITS/3 ML VIAL ONE (11:12)
[2020-07-03] MEDS ORDERED: Furosemide 40 MG/4 ML VIAL ONE (11:12)
[2020-07-03] MEDS ORDERED: Aspirin Chewable 81 MG TAB ONE (11:12)
--- NOTE | 2020-07-03 11:56 | PDOC.FPRHP ---
- History of Present Illness Chief Complaint: Edema History of Present Illness: Patient states that over the past 2 weeks she has had increasing fluid in her legs over the past two weeks, and has had intermittent dyspnea. Denies fever, chills, sick contacts. Endorses slightly more carbs over the holidays, including mac & cheeseand dressing. Endorses compliance with her medications. States her blood sugars have been 500s for the past 1-2 weeks. Reports that she gives herself insulin. Denies running out of her medications. Denies blood in bowel movement and urine. Endorses mild L sided chest pain, nonradiating. ED Course: Pt received 324 mg ASA, 1 in Nitro paste, 10 units Novolin, 40 mg IV furosemide. - Allergies/Adverse Reactions Allergies Allergy/AdvReac Type Severity Reaction Status Date / Time hydralazine Allergy Verified 05/20/20 00:40 pregabalin Allergy Verified 05/20/20 00:40 - Home Medications Medication Instructions Recorded Confirmed Type Acetaminophen With Codeine 1 tablet PO DAILY PRN 09/22/18 07/03/20 History [Tylenol with Codeine #3] Albuterol Sulfate [Proair HFA] 1 puff INH Q4HR PRN 09/22/18 07/03/20 History Atorvastatin Calcium 80 mg PO HS 09/22/18 07/03/20 History Citalopram Hydrobromide [CeleXA] 40 mg PO DAILY 09/22/18 07/03/20 History Fluticasone/Salmeterol [Advair HFA 2 inh IH DAILY 09/22/18 07/03/20 History 45/21 Inhaler] Gabapentin 600 mg PO BID 09/22/18 07/03/20 History Amlodipine [Norvasc] 10 mg PO DAILY #30 tab 09/24/18 07/03/20 Rx Ergocalciferol (Vitamin D2) 50,000 unit PO Q7DAYS 10/25/18 07/03/20 History [Vitamin D2] Amitriptyline HCl [Elavil] 100 mg PO HS 04/19/20 07/03/20 History Calcitriol [Rocaltrol] 0.25 mcg PO DAILY 04/19/20 07/03/20 History Cimetidine 200 mg PO DAILY 04/19/20 07/03/20 History Ezetimibe [Zetia] 10 mg PO DAILY 04/19/20 07/03/20 History Oxybutynin Chloride [Oxybutynin 5 mg PO HS 04/19/20 07/03/20 History Chloride ER] Aspirin [Ecotrin Low Strength] 81 mg PO DAILY 05/16/20 07/03/20 History Apixaban [Eliquis] 2.5 mg PO BID #60 tab 05/23/20 07/03/20 Rx Carvedilol [Coreg] 25 mg PO BID #60 tab 05/23/20 07/03/20 Rx Epoetin Donald-Epbx [Retacrit] 7,500 unit SC Q7D vial 05/23/20 07/03/20 Rx Famotidine [Pepcid] 20 mg PO DAILYPRN PRN tab 05/23/20 07/03/20 Rx Ferrous Sulfate [Feosol] 325 mg PO BID-WM tab 05/23/20 07/03/20 Rx Furosemide [Lasix] 20 mg PO DAILY #30 tab 05/23/20 07/03/20 Rx Nicotine [Nicoderm CQ] 14 mg TD Q24HR patch 05/23/20 07/03/20 Rx diphenhydrAMINE [Benadryl] 25 mg PO Q4H PRN cap 05/25/20 07/03/20 Rx Insulin Detemir [Levemir Flextouch] 15 unit SQ BID #0 05/28/20 07/03/20 Rx cloNIDine [Yaldtopr-KZU-7 Patch] 0.3 mg TD Q7DAYS patch 05/28/20 07/03/20 Rx - History PMHx: DM2, HTN, HLD, COPD, peripheral neuropathy, GERD, incontinence, iron deficiency anemia, depression, and insomnia, PVD PSHx: L leg ulcer, R heel, R big toe amputation, bilateral angioplasty in LE FHx: "Heart problems" Social: smoked 1/2 ppd x 25 yrs, quit 2 weeks ago; denies alcohol, drug use - Review of Systems General: denies: fever/chills, weight/appetite/sleep changes Eyes: denies: eye pain, vision changes ENT: denies: nasal congestion, rhinorrhea Respiratory: reports: other (MILLER, chronic). denies: cough, congestion, shortness of breath Cardiovascular: reports: chest pain (slight pain this morning, resolved), edema Gastrointestinal: denies: nausea, vomiting, diarrhea, constipation, GI bleeding Genitourinary: denies: incontinence, dysuria Skin: denies: rashes, lesions Musculoskeletal: denies: pain, tenderness, arthritis/arthralgias Neurological: denies: numbness, syncope Psychological: denies: anxiety, depression - Vital signs BP: 149/56, Pulse: 80, Resp: 18 (Non-Labored), Pain: 6, O2 sat: 100 on (Room Air), Time: 07/03/2020 11:05. 160 kg - Physical Exam Constitutional: NAD (Morbidly obese), awake, alert and oriented HEENT: normocephalic and atraumatic, EOMI Neck: supple, FROM, trachea midline Chest: other (left-sided ttp) Heart: RRR, no murmurs/rubs/gallops, other (2+ pitting edema up to knees BLE) Lungs: CTAB, no respiratory distress Abdomen: soft -Abdomen: c/d/i bandage over lower abdomen, surgical scar in LLQ Musculoskeletal: normal structure, ROM grossly normal -Musculoskeletal: BLE wrapped in CHELSEA bandages Neurological: no focal deficit, normal sensation Skin: capillary refill <2 seconds -Skin: bandages with antibiotic ointment and bandaging BLE, multiple wounds on BLE Heme/Lymphatic: no unusual bruising or bleeding, no purpura Psychiatric: normal mood and affect, good judgment and insight FMR H&P: Results - Labs Result Diagrams: 07/03/20 13:27 07/03/20 17:55 Lab results: WBC 7.7 thou/uL (4.8-10.8) 07/03/20 10:12 Hgb 6.1 g/dL (12.0-16.0) L 07/03/20 10:12 Hct 19.6 % (36.0-47.0) L 07/03/20 10:12 MCV 90.5 fL (78.0-98.0) 07/03/20 10:12 Plt Count 190 thou/uL (130-400) 07/03/20 10:12 Neutrophils % 79.8 % (42.0-75.0) H 07/03/20 10:12 Sodium 135 mmol/L (136-145) L 07/03/20 10:12 Potassium 4.6 mmol/L (3.5-5.1) 07/03/20 10:12 Chloride 102 mmol/L (98-107) 07/03/20 10:12 Carbon Dioxide 19 mmol/L (23-31) L 07/03/20 10:12 BUN 64 mg/dL (9.8-20.1) H 07/03/20 10:12 Creatinine 3.51 mg/dL (0.6-1.1) H 07/03/20 10:12 Glucose 722 mg/dL (80-115) H* 07/03/20 10:12 Calcium 7.5 mg/dL (7.8-10.44) L 07/03/20 10:12 Total Bilirubin 0.3 mg/dL (0.2-1.2) 07/03/20 10:12 AST 10 U/L (5-34) 07/03/20 10:12 ALT 20 U/L (8-55) 07/03/20 10:12 Alkaline Phosphatase 89 U/L (40-110) 07/03/20 10:12 Creatine Kinase 60 U/L (29-168) 07/03/20 10:12 B-Natriuretic Peptide 42.9 pg/mL (0-100) 07/03/20 10:12 Serum Total Protein 4.9 g/dL (6.0-8.3) L 07/03/20 10:12 Albumin 2.6 g/dL (3.4-4.8) L 07/03/20 10:12 Lipase 155 U/L (8-78) H 07/03/20 10:12 - EKG Interpretation EKG: NSR, RBBB - Radiology Interpretation Chest x-ray Status: image reviewed by me, report reviewed by me (Vascular congestion, otherwise no acute process) FMR H&P: A/P - Plan Hyperglycemia - Likely 2/2 dehydration given glucose >700 and KAYDEN - 1L LR bolus, recheck CMP - Will restart home insulin and moderate SSI - Adjust insulin dose based on POCT readings - Likely will add gentle hydration based on labs - Ketones negative - Q4h accucheck with Moderate SSI Symptomatic Anemia - Hx of KIMBERLY - Acute drop in hgb from 9.0 on 06/22, today 6.1, repeat 6.4 - Patient on Eliquis 2/2 hx of BLE clots - Consulted GI Dr. Morgan - Colonoscopy Aug 2019 in [place] showing 3mm tubular adenoma, otherwise wnl - transfuse 1u pRBC, CBC 4 hrs s/p transfusion KAYDEN - Follows with Dr. Spencer - SCr 3.5 today, baseline ~2.8 - repeat CMP after fluid bolus - May need gentle hydration - Consider consult with Dr. Spencer if no improvement Edema - Patient with significant history of PAD s/p bilateral angioplasty with hx of BLE clots - Appears to be significant chronic changes to skin and lower extremity with open sores - Consider Bilateral arterial US - Keep legs wrapped, elevated HTN - Home Medications, avoid nephrotoxic medications GERD - Pepcid at home - Will start Protonix IV BID given concern for GI bleed GI ppx: protonix IV BID DVT ppx: Hold given concern for GI bleed Diet: , CC, NPO @ 0000 PCP: MIKAEL Stephens Dispo: Admit to tele inpatient LOS expected> 48 hrs FMR H&P: Upper Level - Plan HPI: Patient is a 69F with PMHx of HTN, DM2, HLD, PVD that presents s/p 2 weeks of worsening bilateral lower extremity swelling and intermittent dyspnea. Denies fever, cough, n/v/d. Denies sick contacts. Lives in assisted living at [facility]. Denies changes in medication adherence. Endorses mild indulgence over the holidays with diet. Saw the plasma center nurse yesterday who evaluated her feet and wrapped her legs with CHELSEA bandages. Scrap Charger: Dr. Drake Reserve Operator: Dr. Spencer ROS: 12 point ROS negative except those noted in the HPI Exam: General: Resting comfortably in bed, no acute distress. HEENT: Head normocephalic, atraumatic. EOMI. Neck supple, FROM. Cardio: RRR, no murmurs/rubs/gallops Respiratory: CTAB, no wheezes/crackles/rhonchi Abdominal: Bandage on abdomen that is slightly ttp, c/d/i. Abdomen is otherwise soft, non-tender, non-distended. Extremities: 1+ pitting edema BLE up to knees; BLE wrapped in CHELSEA bandages; abx ointment applied to wounds on BLE Assessment/Plan: #HHS vs hyperglycemia in the setting of DM2 #Anion-gap metabolic acidosis -blood glucose 700s, patient reports that her sugars have been in the 500s for the past week -no AMS -anion gap 14, bicarb 19 -Will give 1L bolus and repeat BMP at that time -continue home meds -SSI, may need to adjust home meds -Q2H glucose checks until glucose improved, then can space to ACHS #BLE Edema in the setting of PVD -chronic -has been diagnosed with PVD in the past by Dr. Mixon, July 2019 -has had bilateral angioplasty of lower extremities in the past -continue compression CHELSEA bandages and leg elevation -BNP 42, less likely cardiac related -Echo July 2019: EF 55-60% -continue home anticoagulation #Normocytic Anemia, likely complication of chronic disease -hgb 6.1, down from 9.0 11 days ago -on retacrit for anemia of chronic disease -will repeat H/H to ensure this is not an error -if still low can consider consulting GI at that time -Colonoscopy in August 2019 at [facility]: 3mm tubular adenoma excised @ 50cm without other bnormalities #AKYDEN on CKD -followed by Dr. Spencer -Cr 3.51, GFR 15 up from baseline Cr 2.8s and GFR 20s -will give 1L bolus and reassess kidney function For management of all other chronic problems please see international accountant note DVT ppx: home eliquis Diet: CC/HH Dispo: admitted for blood sugar management, fluid resuscitation, and possible blood products Code: Full PCP: Julee Date/Time: 07/03/20 0506 I, [Katie Vasquez MD], have evaluated this patient and agree with findings/plan as outlined by international accountant resident. Pertinent changes/additions are listed here. Addendum - Attending - Attending Attestation Date/Time: 07/03/20 071 I personally evaluated the patient and discussed the management with Dr. Sung/Pedro. I agree with the History, Examination, Assessment and Plan documented above with any addition or exceptions noted below. Patient here with history of shortness of breath, weakness, and lower extremity edema over the last few weeks. Upon arrival to the emergency department, she was noted to have a hemoglobin of six, down from baseline of 9 11 days ago. She was also found to have KAYDEN onCKD. Further, she did have 2 to 3+ lower extremity edema bilaterally. BNP normal, and chest x-ray only showed mild vascular predo minance. The patient was also noted to be profoundly hyperglycemic with a blood glucose greater than 700. Patient will be admitted to hospital for the following: acute on chronic symptomatic anemia, acute kidney injury on chronic renal disease, hyperglycemia in setting of uncontrolled type two diabetes mellitus, concern for hyperglycemic hyperosmolar nonketotic state. patient will be started on IV fluids, as well as blood transfusion. G.I. has been consulted to further evaluate possible G.I. blood loss. Though the patient does have lower extremity edema, she is clinically hypovolemic on exam and will need volume resuscitation as well as glycemic control. she has also been found to have a l ow-grade temperature, therefore Covid swab is pending.
--- NOTE | 2020-07-03 12:02 | RAD ---
CHEST 1 VIEW PORTABLE: HISTORY: Dyspnea, edema in legs, swelling in stomach. COMPARISON: 05/16/2020. FINDINGS: Minimal cardiomegaly with evidence for bilateral vascular congestion and some increased linear and in terstitial markings bilaterally slightly more prominent in the right perihilar region. No confluent lobar pneumonia. There is some rotation to the left. IMPRESSION: Cardiomegaly with bilateral vascular congestion and increased bronchovascular markings bilaterally. Dorsal column stimulator leads overlie the mid lower thoracic spine. No evidence for significant ple ural effusion or confluent lobar pneumonia. The possibility of minimal bilateral interstitial pneumo nitis including early COVID pneumonia/pneumonitis cannot be excluded. POS: RRE
[2020-07-03] MEDS ORDERED: Dextrose 5% in Water 1,000 ML IV PRN (12:30)
[2020-07-03] MEDS ORDERED: Dextrose 50% Abboject 50 ML SYRINGE SLOW IVP PRN (12:30)
[2020-07-03] MEDS ORDERED: Acetaminophen 650 MG Suppository PR PRN (12:30)
[2020-07-03] MEDS ORDERED: HumaLOG 300 UNITS/3 ML VIAL SC PRN (12:33)
[2020-07-03] MEDS ORDERED: Lactated Ringer's 1,000 ML IV SCH (13:15)
[2020-07-03] MEDS ORDERED: Famotidine 20 MG TAB PO PRN (13:26)
[2020-07-03 13:48] LABS: Hemoglobin 6.4 g/dL (12.0-16.0)
[2020-07-03] MEDS ORDERED: EPOETIN ALFA-EPBX (ESRD) 4,000 UNIT/ML VIAL SC SCH (17:00)
[2020-07-03 17:22] LABS: ALT (SGPT) 16 U/L (8-55); AST (SGOT) 10 U/L (5-34); Albumin 2.5 g/dL (3.4-4.8); Alkaline Phosphatase 86 U/L (40-110); Anion Gap 13 mmol/L (10-20); BUN (Urea Nitrogen) 70 mg/dL (9.8-20.1); Bilirubin, Total 0.2 mg/dL (0.2-1.2); Calc. Creatinine Clearance 39 mL/min (70-130); Calcium 7.9 mg/dL (7.8-10.44); Carbon Dioxide 23 mmol/L (23-31); Chloride 102 mmol/L (98-107); Globulin 2.6 g/dL (2.4-3.5); Potassium 4.6 mmol/L (3.5-5.1); Protein, Total 5.1 g/dL (6.0-8.3); Sodium 133 mmol/L (136-145)
[2020-07-03 17:33] LABS: Glucose 664 mg/dL (80-115)
[2020-07-03 17:34] LABS: Bilirubin Negative (Negative); Blood, Urine Negative (Negative); Clarity Clear (Clear); Glucose, Urine (Dipstick) Greater than 1000 mg/dL (Negative); Ketone, Urine Negative (Negative); Leukocyte Negative Leu/uL (Negative); Nitrite Negative (Negative); Protein, Urine (Dipstick) 70 mg/dL (Neg-Trace); RBC/HPF None Seen HPF (0-3); Specific Gravity, Urine 1.012 (1.002-1.036); Squamous Epithelial 0-3 HPF (0-3); Urobilinogen Normal mg/dL (Less than 2); WBC/HPF 0-3 HPF (0-3)
[2020-07-03 17:38] LABS: Bacteria/HPF 1+ HPF (None Seen)
[2020-07-03 17:39] LABS: Urine Culture Reflex Yes Yes
[2020-07-03] MEDS: HumaLOG 300 UNITS/3 ML VIAL SC PRN ×4 (18:39→22:57)
--- NOTE | 2020-07-03 19:22 | CON ---
DATE OF CONSULTATION: 07/03/2020 REQUESTING PHYSICIAN: Dr. Cody Sung. REASON FOR CONSULTATION: Anemia. HISTORY OF PRESENT ILLNESS: Jose Manuel Garcia is a 69-year-old woman, admitted to the hospital today with complaint of 2 weeks of worsening lower extremity edema and shortness of breath, found to be hyperglycemic with glucose 722, but also with worsening anemia with hemoglobin 6.4. Notably, she has a history of chronic anemia of iron deficiency and chronic disease as well as diabetes with neuropathy and severe peripheral vascular disease, on chronic anticoagulation with Eliquis. Notably back in September 2018, she underwent diagnostic EGD and colonoscopy for anemia workup. The EGD at that time was normal. The colonoscopy showed a medium-sized cecal arteriovenous malformation which was cauterized as well as 6 smaller arteriovenous malformations in the right colon, which were also cauterized. The patient has had no recurrence of overt bleeding since that time despite having since been put on Eliquis for lower extremity blood clots. From the chart review, it appears she may have had a repeat colonoscopy in August 2019 with a single small polyp removed, but that would have been elsewhere. She was seen in our clinic just a few months ago and prescribed Linzess for some chronic constipation that is not currently on her medication list and the patient is really not able to tell me whether she is taking that or not. At any rate here on presentation with hemoglobin 6.4, she is receiving 1 unit RBCs. She had a chest x-ray that showed cardiomegaly with suggestion of pulmonary vascular congestion versus early pneumonitis and she is receiving IV Lasix. I also note that she has low-grade fever with temperature 99.7. COVID PCR is pending. Otherwise, she is hemodynamically stable and reports no overt bleeding from anywhere. REVIEW OF SYSTEMS: Full review of systems including constitutional, head, eyes, ears, nose, throat, GI, , cardiovascular, respiratory, musculoskeletal, neurologic systems is negative except as noted in the HPI. 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 ALLERGIES: 1. HYDRALAZINE. 2. PREGABALIN. HOME MEDICATIONS: 1. Tylenol with codeine p.r.n. 2. Albuterol p.r.n. 3. Atorvastatin. 4. Celexa. 5. Advair inhaler. 6. Gabapentin. 7. Amlodipine. 8. Vitamin D2 at 50,000 units weekly. 9. Amitriptyline. 10. Calcitriol. 11. Cimetidine 200 mg daily. 12. Zetia. 13. Oxybutynin. 14. Aspirin 81 mg daily. 15. Eliquis 2.5 mg twice daily. 16. Carvedilol. 17. Erythropoietin zandra 7500 units subcutaneous weekly. 18. Famotidine 20 mg daily p.r.n. 19. Ferrous sulfate 325 mg p.o. b.i.d. 20. Lasix 20 mg daily. 21. Nicotine patch. 22. Benadryl p.r.n. 23. Levemir insulin 15 units twice daily. 24. Clonidine patch. SOCIAL HISTORY: She evidently quit smoking couple weeks ago after smoking one-half pack cigarettes per day for the past 25 years. No alcohol or drug use. FAMILY HISTORY: Positive for cardiac disease. PHYSICAL EXAMINATION: VITAL SIGNS: Temperature 99.7, pulse 76, blood pressure 135/60, 93% oxygen saturation on room air. GENERAL: Obese 69-year-old woman, lying in bed comfortably, in no distress. MENTAL: She is somnolent, but arousable. She is able to answer questions regarding her symptoms appropriately, but will quickly drift back to sleep. She is not able to elaborate on any details of her medical history. SKIN: No jaundice. She is a bit pale. No rashes were palpable. HEENT: Eyes, no scleral icterus. Extraocular movements intact. ENT, mucous membranes moist. No oral lesions. LYMPH: No submandibular or supraclavicular lymphadenopathy. Thyroid, nontender to palpation. HEART: Regular rate and rhythm. LUNGS: Clear to auscultation bilaterally. ABDOMEN: Obese. Bowel sounds present. Soft, nontender to palpation throughout. EXTREMITIES: 1+ bilateral lower extremity edema. NEUROLOGIC: Cranial nerves 2 through 12 intact bilaterally. No focal deficits. LABORATORY STUDIES: Hemoglobin 6.4, hematocrit 19.5, MCV 90.5, WBC 7.7, platelets 190. Sodium 135, potassium 4.6, BUN 64, creatinine 3.51, glucose 722. Lipase 155. LFTs all normal with total bilirubin 0.3, alkaline phosphatase 89, AST 10, ALT 20, albumin 2.6. CK is 60, troponin 0.015. BNP normal at 42.9. Beta hydroxybutyrate normal at 0.06. IMAGING STUDIES: Chest x-ray shows cardiomegaly with pulmonary vascular congestion versus early interstitial pneumonitis. COVID PCR is pending. ASSESSMENT/PLAN: 1. Acute on chronic anemia, hemoglobin was 9.0 a couple of weeks ago on 06/22, now down to 6.4. There is no report of any overt bleeding. 2. History of deep venous thrombosis, on chronic Eliquis. 3. History of colonic arteriovenous malformations, cauterized September 2018. There. Is no evidence of any acute bleeding, but the patient may indeed be having chronic gastrointestinal or subacute gastrointestinal blood loss, likely from arteriovenous malformations, either further AVMs in the colon or possibly throughout the small intestine. This is a difficult situation since she has strong indications to continue on chronic anticoagulation with Eliquis. In the acute setting, I would recommend holding the Eliquis for now. Agree with initial transfusion, trend H and H, transfuse further as needed. I agree with the PPI for now, though this does not strike me as any acute upper GI bleeding episode. 4. Fever, low-grade. Temperature is 99.7 here. 5. Possible pneumonia. Chest x-ray demonstrates cardiomegaly with pulmonary vascular congestion versus early pneumonitis. I note that BNP and troponin are both normal. Consider the possibility of COVID. That swab is pending. The patient is stable from a GI standpoint. She may indeed be having some subacute or chronic ongoing gastrointestinal blood loss in the context of known arteriovenous malformations and ongoing Eliquis use. I think that if she has evidence of overt bleeding here or she does not respond well to transfusion, it may be worthwhile to consider repeat endoscopy here. However, blood glucose and electrolyte abnormalities take priority. Workup the fever, rule out COVID. For now, hold Eliquis. GI can follow along tomorrow. Again, depending on clinical course, could consider repeat endoscopy at some point later this admission. Job ID: [id number]
[2020-07-03 19:24] LABS: ALT (SGPT) 18 U/L (8-55); AST (SGOT) 11 U/L (5-34); Albumin 2.5 g/dL (3.4-4.8); Alkaline Phosphatase 82 U/L (40-110); Anion Gap 13 mmol/L (10-20); BUN (Urea Nitrogen) 62 mg/dL (9.8-20.1); Bilirubin, Total 0.2 mg/dL (0.2-1.2); Calc. Creatinine Clearance 38 mL/min (70-130); Calcium 7.9 mg/dL (7.8-10.44); Carbon Dioxide 25 mmol/L (23-31); Chloride 102 mmol/L (98-107); Globulin 2.7 g/dL (2.4-3.5); Potassium 4.6 mmol/L (3.5-5.1); Protein, Total 5.2 g/dL (6.0-8.3); Sodium 135 mmol/L (136-145)
[2020-07-03 19:35] LABS: Glucose 629 mg/dL (80-115)
[2020-07-03] MEDS: Ferrous Sulfate 325 MG TAB PO SCH (19:43)
[2020-07-03] MEDS: Lactated Ringer's 1,000 ML IV SCH (19:44)
[2020-07-03] MEDS ORDERED: Albuterol Sulfate 1.25 MG/3 ML NEB INH PRN (19:54)
[2020-07-03 20:35] LABS: Glucose 574 mg/dL (80-115)
[2020-07-03] MEDS: Pantoprazole 40 MG VIAL IVP SCH (20:50)
[2020-07-03] MEDS: Carvedilol 25 MG TAB PO SCH (20:51)
[2020-07-03] MEDS: Insulin Glargine 15 UNITS in Pre-Filled Syringe 1 EACH SC SCH (20:51)
[2020-07-03] MEDS: Oxybutynin ER 5 MG TAB PO SCH (20:51)
[2020-07-03] MEDS: Amitriptyline HCl 100 MG TAB PO SCH (20:51)
[2020-07-03] MEDS: Atorvastatin Calcium 40 MG TAB PO SCH (20:51)
[2020-07-03] MEDS ORDERED: Famotidine 20 MG TAB PO SCH (21:00)
[2020-07-03] MEDS: Nicotine 14 MG PATCH TD SCH (22:12)
[2020-07-03 22:30] LABS: Hemoglobin 7.2 g/dL (12.0-16.0); Mean Corpuscular HGB CONC 32.2 g/dL (32.0-36.0); Mean Corpuscular Hemoglobin 28.5 pg (27.0-31.0); Mean Corpuscular Volume 88.4 fL (78.0-98.0); Mean Platelet Volume 8.4 fL (7.4-10.4); Platelet Count 196 thou/uL (130-400); RBC Distribution Width 15.9 % (11.5-14.5); Red Blood Cell (RBC) Count 2.53 mill/uL (4.20-5.40); White Blood Cell (WBC) Count 7.6 thou/uL (4.8-10.8)
[2020-07-03 22:42] LABS: Glucose 255 mg/dL (80-115)
[2020-07-03 23:56] LABS: SARS-CoV-2 MS2 Positive; SARS-CoV-2 N Gene Negative; SARS-CoV-2 S Gene Negative; SARS-CoV-2 by NAA Not Detected (NotDetected); SARS-CoV-2 orf1ab Negative
[2020-07-04] MEDS: Lactated Ringer's 1,000 ML IV SCH ×4 (04:14→22:13)
--- NOTE | 2020-07-04 06:11 | PDOC.FM ---
- Subjective Subjective: Patient feeling better this AM, wanting to eat. - Objective MAR Reviewed: Yes Vital Signs & Weight: Vital Signs (12 hours) Temp Pulse Pulse Resp BP BP Pulse Ox 07/04/20 03:44 98.1 F 77 15 155/68 H 92 L 07/04/20 00:00 69 16 142/64 H 96 07/03/20 19:30 99.3 F 76 16 130/77 93 L 07/03/20 19:29 93 L Weight Weight 155.582 kg I&O: 07/02/20 07/03/20 07/04/20 06:59 06:59 06:59 Intake Total 2258 Output Total 920 Balance 1338 Result Diagrams: 07/04/20 06:20 07/04/20 06:20 Phys Exam - Physical Examination Constitutional: NAD Respiratory: no wheezing, no rales, no rhonchi Cardiovascular: RRR, no significant murmur, no rub Gastrointestinal: soft, non-tender, no distention, positive bowel sounds 2+ pitting edema, legs wrapped with wounds Dx/Plan - Plan Plan: Hyperglycemia - Likely 2/2 dehydration given glucose >700 and KAYDEN - Resolving this AM, significant SSI used overnight - Continue home insulin and aggressive SSI - Ketones negative - Q4h accucheck with Aggressive SSI, likely space out today - Will continue to monitor, adjust basal insulin as needed Symptomatic Anemia - Hx of KIMBERLY - Acute drop in hgb from 9.0 on 06/22 - Patient on Eliquis 2/2 hx of BLE clots - Consulted GI Dr. Morgan, consider scope later in admission when other problems resolved - Colonoscopy Aug 2019 in [place] showing 3mm tubular adenoma, otherwise wnl - transfused 1u pRBC 07/03, 1u 07/04 KAYDEN - Follows with Dr. Spencer - SCr 3.5 on admission, baseline ~2.8 - Consider consult with Dr. Specner if no improvement Edema - Patient with significant history of PAD s/p bilateral angioplasty with hx of BLE clots - Appears to be significant chronic changes to skin and lower extremity with open sores - Consider Bilateral arterial US - Keep legs wrapped, elevated HTN - Home Medications, avoid nephrotoxic medications GERD - Pepcid at home - Will start Protonix IV BID given concern for GI bleed GI ppx: protonix IV BID DVT ppx: Hold given concern for GI bleed Diet: HH, CC, NPO @ 0000 PCP: MIKAEL Stephens Dispo: Admit to tele inpatient LOS expected> 48 hrs Addendum - Attending - Attending Attestation Date/Time: 07/04/20 1529 I personally evaluated the patient and discussed the management with Dr. Sung. I agree with the History, Examination, Assessment and Plan documented above with any addition or exceptions noted below.
[2020-07-04 06:30] LABS: #Lymphocytes 1.1 thou/uL (1.20-3.40); #Monocytes 0.8 thou/uL (0.11-0.59); #Neutrophils 5.6 thou/uL (1.40-6.50); %Basophils 0.1 % (0.0-1.0); %Eosinophils 0.6 % (0.0-10.0); %Lymphocytes 14.4 % (21.0-51.0); %Monocytes 10.7 % (0.0-10.0); %Neutrophils 74.1 % (42.0-75.0); Hemoglobin 6.7 g/dL (12.0-16.0); Mean Corpuscular HGB CONC 33.8 g/dL (32.0-36.0); Mean Corpuscular Hemoglobin 29.9 pg (27.0-31.0); Mean Corpuscular Volume 88.4 fL (78.0-98.0); Mean Platelet Volume 8.2 fL (7.4-10.4); Platelet Count 177 thou/uL (130-400); RBC Distribution Width 15.9 % (11.5-14.5); Red Blood Cell (RBC) Count 2.24 mill/uL (4.20-5.40); White Blood Cell (WBC) Count 7.5 thou/uL (4.8-10.8)
[2020-07-04 06:48] LABS: Anion Gap 14 mmol/L (10-20); BUN (Urea Nitrogen) 67 mg/dL (9.8-20.1); Calc. Creatinine Clearance 40 mL/min (70-130); Calcium 8.1 mg/dL (7.8-10.44); Carbon Dioxide 22 mmol/L (23-31); Chloride 104 mmol/L (98-107); Glucose 177 mg/dL (80-115); Potassium 4.3 mmol/L (3.5-5.1); Sodium 136 mmol/L (136-145)
[2020-07-04] MEDS: Mometasone 100 MCG/Formoterol 5 MCG 120 PUFF INHALER INH SCH (06:59)
[2020-07-04] MEDS: Amlodipine 10 MG TAB PO SCH (08:52)
[2020-07-04] MEDS: Ferrous Sulfate 325 MG TAB PO SCH ×2 (08:52→16:49)
[2020-07-04] MEDS: Citalopram 20 MG TAB PO SCH (08:53)
[2020-07-04] MEDS: Carvedilol 25 MG TAB PO SCH ×2 (08:53→20:10)
[2020-07-04] MEDS: Calcitriol 0.25 MCG CAP PO SCH (08:53)
[2020-07-04] MEDS: Ezetimibe 10 MG TAB PO SCH (08:53)
[2020-07-04] MEDS ORDERED: Gabapentin 300 MG CAP PO SCH (09:00)
[2020-07-04] MEDS ORDERED: CIMETIDINE 400 MG PO SCH (09:00)
[2020-07-04] MEDS ORDERED: cloNIDine 0.3mg/24 Hour PATCH TD SCH (09:00)
[2020-07-04] MEDS ORDERED: Famotidine 20 MG TAB PO SCH (09:00)
[2020-07-04] MEDS ORDERED: Furosemide 20 MG TAB PO SCH (09:00)
[2020-07-04] MEDS ORDERED: Aspirin 81 mg Enteric Coated Tablet PO SCH (09:00)
[2020-07-04] MEDS: Pantoprazole 40 MG VIAL IVP SCH ×2 (09:05→20:12)
[2020-07-04] MEDS: Insulin Glargine 15 UNITS in Pre-Filled Syringe 1 EACH SC SCH ×2 (09:16→20:10)
[2020-07-04] MEDS: Albumin 25% 25 GM/100 ML BOT IVPB SCH ×2 (14:01→20:04)
[2020-07-04] MEDS: Gabapentin 300 MG CAP PO SCH (16:49)
[2020-07-04] MEDS: HumaLOG 300 UNITS/3 ML VIAL SC PRN ×2 (16:50→20:11)
[2020-07-04 16:55] LABS: Hemoglobin 7.7 g/dL (12.0-16.0)
[2020-07-04] MEDS: Atorvastatin Calcium 40 MG TAB PO SCH (20:10)
[2020-07-04] MEDS: Oxybutynin ER 5 MG TAB PO SCH (20:10)
[2020-07-04] MEDS: Nicotine 14 MG PATCH TD SCH (20:10)
[2020-07-04] MEDS: Amitriptyline HCl 100 MG TAB PO SCH (20:10)
[2020-07-05] MEDS: Albumin 25% 25 GM/100 ML BOT IVPB SCH ×3 (01:57→13:20)
[2020-07-05] MEDS: HumaLOG 300 UNITS/3 ML VIAL SC PRN ×6 (01:58→23:41)
[2020-07-05 05:12] LABS: #Lymphocytes 0.8 thou/uL (1.20-3.40); #Monocytes 0.5 thou/uL (0.11-0.59); #Neutrophils 4.1 thou/uL (1.40-6.50); %Basophils 0.1 % (0.0-1.0); %Eosinophils 0.7 % (0.0-10.0); %Lymphocytes 14.8 % (21.0-51.0); %Monocytes 9.9 % (0.0-10.0); %Neutrophils 74.5 % (42.0-75.0); Hemoglobin 7.3 g/dL (12.0-16.0); Mean Corpuscular HGB CONC 33.5 g/dL (32.0-36.0); Mean Corpuscular Volume 89.5 fL (78.0-98.0); Mean Platelet Volume 8.6 fL (7.4-10.4); Platelet Count 184 thou/uL (130-400); RBC Distribution Width 15.4 % (11.5-14.5); Red Blood Cell (RBC) Count 2.45 mill/uL (4.20-5.40); White Blood Cell (WBC) Count 5.5 thou/uL (4.8-10.8)
[2020-07-05 05:25] LABS: Anion Gap 15 mmol/L (10-20); BUN (Urea Nitrogen) 63 mg/dL (9.8-20.1); Calc. Creatinine Clearance 41 mL/min (70-130); Calcium 8.4 mg/dL (7.8-10.44); Carbon Dioxide 22 mmol/L (23-31); Chloride 104 mmol/L (98-107); Glucose 307 mg/dL (80-115); Potassium 4.2 mmol/L (3.5-5.1); Sodium 137 mmol/L (136-145)
--- NOTE | 2020-07-05 05:59 | PRG ---
DATE OF SERVICE: 07/04/2020 REASON FOR CONSULTATION: Anemia. SUBJECTIVE: Overnight, the patient did not have any problems or events. On questioning the patient today, she has not had any episodes of hematemesis, melena, or hematochezia. She did have a smaller bowel movement earlier today that was nonbloody in origin and "normal" per patient. She adds that with the infusion of blood products yesterday she is feeling somewhat better today, but continues to complain of increased swelling primarily in her lower extremities. Currently, she denies any nausea, vomiting, fevers, chills, hematemesis, melena, hematochezia, dysphagia, or odynophagia. OBJECTIVE: VITAL SIGNS: Temperature 98.2, pulse 71, blood pressure 135/63, respiratory rate 16, saturating 95% on room air. GENERAL: The patient is lying in bed, in no acute distress. Alert and oriented x3. CARDIOVASCULAR: Regular rate and rhythm. RESPIRATORY: Clear to auscultation bilaterally. ABDOMEN: Normoactive bowel sounds. Soft, nontender, nondistended. EXTREMITIES: 1+ bilateral lower extremity edema extending up to the knees. LABORATORY DATA: CBC with a white blood cell count of 7.5, hemoglobin 6.7, hematocrit 19.8, platelets 177. Chemistry with a sodium of 136, potassium 4.3, chloride 104, CO2 of 22, BUN 67, creatinine 3.37, glucose 177. COVID serologies were negative. On review of the patient's chart, she did have iron indices obtained in April 2020, which showed an iron of 35, ferritin 482, TIBC of 274. IMAGING: No current GI imaging is available for review. ASSESSMENT AND PLAN: The patient is a 69-year-old female with past medical history of diabetes with peripheral neuropathy, hypertension, hyperlipidemia, chronic obstructive pulmonary disease, gastroesophageal reflux disease, depression, peripheral vascular disease, bilateral lower extremity DVTs on chronic anticoagulation, chronic anemia with elements of iron deficiency and anemia of chronic disease in the past as well as colonic arteriovenous malformation cauterized in September of 2018, initially presenting with worsening lower extremity edema and shortness of breath with also worsening of her anemia during that time. Acute on chronic anemia. The patient initially presented to the hospital with increased shortness of breath and lower extremity edema that prompted routine labs. On routine labs, she was noted to have a drop in her H and H when compared to her baseline as well as a hemoglobin 9.0 approximately 2 weeks ago. However, she denies any evidence of overt GI bleeding nor has she had any evidence of overt GI bleeding during this admission. She has received approximately 2 units of PRBCs thus far and has responded appropriately to each one. However, she continues to have significant anemia. Upon review of the patient's chart and iron indices obtained in April 2020, her labs are more consistent with anemia of chronic disease or even anemia of renal disease, given her worsening renal function anemia of renal disease on top of her chronic anemia is definitely within the differential. However, given her history of colonic arteriovenous malformations, a GI bleed cannot be ruled out at this time albeit unlikely given her presentation in September of 2018 was for overt hematochezia. On speaking with the patient about possible endoscopic procedures for further evaluation, she was reluctant to proceed at this time. RECOMMENDATIONS: 1. Would continue to trend her H and H and transfuse as necessary to maintain an H and H of 7/21. 2. Continue to monitor clinically for signs of active GI bleeding. 3. Would avoid any anticoagulation or NSAIDs in light of her worsening anemia. 4. If the patient has continued decrease in her H and H over the course of this admission, a repeat upper endoscopy and/or colonoscopy could be reconsidered at that time. 5. Would continue with strict blood glucose control and correction of any electrolyte abnormalities. We will continue to follow. Please call with any questions. Job ID: [id number]
--- NOTE | 2020-07-05 06:17 | PDOC.FM ---
- Subjective Subjective: Patient doing well s/p 2 units pRBC. Denies CP/SOB. - Objective MAR Reviewed: Yes Vital Signs & Weight: Vital Signs (12 hours) Temp Pulse Resp BP Pulse Ox 07/05/20 04:00 98.6 F 72 20 153/78 H 93 L 07/04/20 19:54 98.4 F 69 16 139/60 92 L Weight Admit Weight 154.221 kg Weight 155.582 kg I&O: 07/03/20 07/04/20 07/05/20 06:59 06:59 06:59 Intake Total 2258 1070 Output Total 920 1100 Balance 1338 -30 Result Diagrams: 07/05/20 03:50 07/05/20 03:50 Phys Exam - Physical Examination Constitutional: NAD Respiratory: no wheezing, no rales, no rhonchi, clear to auscultation bilateral Cardiovascular: RRR, no significant murmur, no rub Gastrointestinal: soft, non-tender, no distention, positive bowel sounds Chronic LE edema, wounds BL Dx/Plan - Plan Plan: Hyperglycemia - Likely 2/2 dehydration given glucose >700 and KAYDEN - Resolving this AM, significant SSI used overnight - Continue home insulin and aggressive SSI - Ketones negative - Q4h accucheck with Aggressive SSI, likely space out today - Will continue to monitor, increase insulin to 20 u QD Symptomatic Anemia - Hx of KIMBERLY - Acute drop in hgb from 9.0 on 06/22 - Patient on Eliquis 2/2 hx of BLE clots - Consulted GI Dr. Morgan, consider scope later in admission when other problems resolved if unstable/H/H decreases - Colonoscopy Aug 2019 in [place] showing 3mm tubular adenoma, otherwise wnl - transfused 1u pRBC 07/03, 1u 07/04 KAYDEN - Follows with Dr. pSencer - SCr 3.5 on admission, baseline ~2.8 - Dr. Spencer consulted - Albumin Q6h X4 doses, will end today - Monitor fluid status Edema - Patient with significant history of PAD s/p bilateral angioplasty with hx of BLE clots - Appears to be significant chronic changes to skin and lower extremity with open sores - Consider Bilateral arterial US - Keep legs wrapped, elevated HTN - Home Medications, avoid nephrotoxic medications GERD - Pepcid at home - Will start Protonix IV BID given concern for GI bleed GI ppx: protonix IV BID DVT ppx: Hold given concern for GI bleed Diet: HH, CC, NPO @ 0000 PCP: MIKAEL Stephens Dispo: Admit to tele inpatient LOS expected> 48 hrs Addendum - Attending - Attending Attestation Date/Time: 07/05/20 6210 I personally evaluated the patient and discussed the management with Dr. Sung. I agree with the History, Examination, Assessment and Plan documented above with any addition or exceptions noted below. Patient improved. Her renal function is overall unchanged, Nephro on board. This may be her new renal baseline. Glycemic control improved. Continue insulin and augment as needed. GI on board to further evaluate the need for repeat endoscopy.
[2020-07-05] MEDS: Lactated Ringer's 1,000 ML IV SCH ×2 (06:44→18:39)
--- NOTE | 2020-07-05 06:51 | CON ---
DATE OF CONSULTATION: 07/04/2020 HISTORY OF PRESENT ILLNESS: Ms. Garcia is a 69-year-old black female with known history of chronic renal failure from diabetic nephropathy and was admitted due to generalized edema. According to the patient, she had some mild shortness of breath. During the initial evaluation, she was noted to have an acute kidney injury on top of her chronic renal failure. And at the same time, the patient was noted to be symptomatically anemic. She has received 2 units of packed RBC. GI has been consulted. We are now being consulted for acute kidney injury on top of her chronic renal failure. Please note, renal function has slightly improved with discontinuation of her diuretics and with volume repletion. The patient is feeling better. She denies any chest pain or shortness of breath. However, she does complain of generalized edema of the hands. REVIEW OF SYSTEMS: Positive for bloatedness. No chest pain. Transient shortness of breath. No syncopal episode. No productive cough. No fever or chills. No gross hematuria. No dysuria. No frequency. No hematochezia. No melena. No hematemesis. No headache. No diplopia. Appetite and energy level are fair. MEDICATIONS: Active medications are the followin. Albumin 25 g IV q.6. 2. Albuterol sulfate p.r.n. 3. Amitriptyline 100 mg at bedtime. 4. Amlodipine 10 mg tablet once a day. 5. Atorvastatin 80 mg at bedtime. 6. Calcitriol 0.25 mcg tablet daily. 7. Coreg 25 mg p.o. b.i.d. 8. Citalopram 40 mg daily. 9. Clonidine-TTS 3 patch q.7 days. 10. Retacrit 7500 units subcu q.7 days. 11. Drisdol 1.25 mg q.7 days. 12. Zetia 10 mg at bedtime. 13. Ferrous sulfate 325 mg daily. 14. Gabapentin 600 mg daily. 15. Insulin glargine 15 units subcu b.i.d. 16. Lactated Ringer's 125 mL p.r.n. 17. Oxybutynin 5 mg at bedtime. 18. Protonix 40 mg tab q.12. PAST MEDICAL HISTORY: Chronic renal failure from diabetic nephropathy, status post acute kidney injury, status post GI bleed; history of GI AV malformation, status post leg DVT; hyperlipidemia, depression, hypertension, diabetic neuropathy, type 2 diabetes mellitus, urinary incontinence, chronic pain, secondary hyperparathyroidism. PAST SURGICAL HISTORY: Status post hysterectomy, status post upper GI endoscopy, status post right breast lumpectomy, status post great toe amputation. SOCIAL HISTORY: The patient currently in assisted living. 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 Status post blood transfusion. Smoked for 20 years, 5 cigarettes per day. Alcohol, none. Education, high school. Four siblings with two . Currently lives in the assisted living. ALLERGIES: NONE. TRAUMA: None. IMMUNIZATIONS: Up-to-date. HOSPITALIZATIONS: Please see past medical history. FAMILY HISTORY: No family history of ESRD. PHYSICAL EXAMINATION: VITAL SIGNS: Blood pressure is 135/63, heart rate 71, respiratory rate 16, O2 saturation 95% on room air. GENERAL: The patient is awake, supine, comfortable, obese, not in overt distress. SKIN: Adequate turgor. HEENT: Slightly pale conjunctivae. Anicteric sclerae. NECK: No neck mass. No carotid bruits. No JVD. CHEST: No deformities. LUNGS: Decreased breath sounds. HEART: Normal sinus rhythm. No murmurs, gallops, or rubs. ABDOMEN: Globular, soft, nontender. No masses. EXTREMITIES: Positive for edema. NEUROLOGICAL: Awake. Oriented to 3 spheres. Moving all extremities. No tremors. No asterixis. No ataxia. LABORATORY DATA: On July 04, 2020; white count 7.5, hemoglobin 6.7. Sodium 136, potassium 4.3, chloride 104, carbon dioxide 22, BUN 67, creatinine 3.37, GFR 16 mL/minute, glucose 177, calcium 8.1. Further review of her serum creatinine shows the following: July 03, 2020, 3.46. On July 03, 2020, 10:12 a.m., creatinine was 3.51. On June 22, 2020, creatinine 2.87. Chest x-ray on July 03, 2020, shows cardiomegaly with bilateral vascular congestion, increased bronchovascular markings, possibility of interstitial pneumonitis remains. ASSESSMENT AND PLAN: 1. Acute kidney injury on top of her chronic renal failure considering a superimposed hemodynamically-mediated renal dysfunction. Diuretics have been discontinued. It was decided to empirically volume replete the patient to see if we could improve renal function. Please note there is improvement of the renal function with empiric volume repletion. Currently, on lactated Ringer's. In addition, the patient received a blood transfusion. Furthermore, we have decided to place this patient on albumin at 25 g IV q.6 hours for a total of 4 doses. I do not find any indication for any dialytic intervention with this patient at the present time. 2. Chronic renal failure. Baseline creatinine is about 2.6. She has underlying diabetic nephropathy. 3. Congestive heart failure-based on the chest x-ray, there are increased lung markings. However, BNP was noted on July 03, 2020 to be within normal at 42.9. 4. In addition, the patient's renal function has improved with empiric volume repletion. We will continue current empiric volume repletion with this patient. We will hold off current diuretics. Overall, I agree with current management. ADDENDUM: Anemia, status post blood transfusion. GI following. Thank you for the consult. We will continue to follow. Job ID: [id number]
[2020-07-05] MEDS: Mometasone 100 MCG/Formoterol 5 MCG 120 PUFF INHALER INH SCH (07:32)
--- NOTE | 2020-07-05 08:29 | PRG ---
DATE OF SERVICE: 07/05/2020 SUBJECTIVE: Ms. Garcia is a 69-year-old black female, who was admitted for symptomatic anemia. We were consulted for management of her superimposed acute kidney injury on top of her chronic renal failure. She had a superimposed prerenal azotemia. Empiric volume repletion has been done. Currently receiving lactated Ringer's and received albumin infusion. Creatinine is slowly improving. This morning, her blood sugars noted to be elevated, being addressed by her insulin sliding scale. Furthermore, she denies any chest pain or shortness of breath. She feels better. OBJECTIVE: VITAL SIGNS: Blood pressure 153/78, heart rate 72, respiratory rate 20, temperature 98.6, O2 saturation 93% on room air. GENERAL: The patient is awake, supine, comfortable, obese, not in distress. SKIN: Adequate turgor. HEENT: Slightly pale conjunctivae. Anicteric sclerae. No neck mass. No carotid bruits. No JVD. CHEST: No deformities. LUNGS: Clear breath sounds. HEART: Normal sinus rhythm. No murmur. No gallops. No rubs. ABDOMEN: Globular, soft, nontender. No masses. EXTREMITIES: Trace edema, but no deformities. MEDICATIONS: July 05, 2020, was reviewed. LABORATORY DATA: July 05, 2020; white count 5.5, hemoglobin 7.3, hematocrit 21.9. Sodium was 137, potassium 4.2, chloride 104, carbon dioxide 22, BUN 63, creatinine 3.29, glucose 207, and calcium was 8.4. ASSESSMENT AND PLAN: 1. Anemia. P.r.n. blood transfusion. Continuing weekly Epogen regimen with this patient. 2. Symptomatic anemia, status post blood transfusion. GI is following. 3. Acute kidney injury - superimposed hemodynamically-mediated renal dysfunction. Creatinine is slowly improving with volume repletion and optimization of her hemodynamics. There is no indication for any dialytic intervention. 4. Chronic renal failure - secondary to diabetic nephropathy. Baseline creatinine is about 2.6 to 2.7. We will recheck CBC basement. Agree with current management. Job ID: [id number]
[2020-07-05] MEDS: Calcitriol 0.25 MCG CAP PO SCH (08:57)
[2020-07-05] MEDS: Amlodipine 10 MG TAB PO SCH (08:57)
[2020-07-05] MEDS: Citalopram 20 MG TAB PO SCH (08:57)
[2020-07-05] MEDS: Ezetimibe 10 MG TAB PO SCH (08:57)
[2020-07-05] MEDS: Ferrous Sulfate 325 MG TAB PO SCH ×2 (08:57→17:11)
[2020-07-05] MEDS: Carvedilol 25 MG TAB PO SCH ×2 (08:57→20:45)
[2020-07-05] MEDS: Pantoprazole 40 MG VIAL IVP SCH ×2 (08:58→20:45)
[2020-07-05] MEDS ORDERED: Insulin Glargine 20 UNITS in Pre-Filled Syringe 1 EACH SC SCH (09:00)
--- NOTE | 2020-07-05 14:18 | PRG ---
DATE OF SERVICE: 07/05/2020 SUBJECTIVE: Ms. Garcia has had no overt GI bleeding. No abdominal pain or acute GI complaints today. OBJECTIVE: VITAL SIGNS: Temperature 98.3, pulse 72, blood pressure 168/72. GENERAL: She is in no acute distress. Alert and oriented x3. LUNGS: Clear to auscultation bilaterally. HEART: Regular rate and rhythm without murmur. ABDOMEN: Soft, nontender, and nondistended. Bowel sounds are present. EXTREMITIES: She has lower extremity edema and her legs are wrapped due to skin ulcerations in her lower extremities. LABORATORY DATA: Hemoglobin is 7.3. IMPRESSION: 1. Anemia of chronic disease or chronic kidney disease. There could be some degree of chronic blood loss as well. She has had no overt bleeding this hospitalization. Previously, I did cauterize some arteriovenous malformations in the right colon; however, she had overt lower gastrointestinal bleeding at that time. 2. Chronic kidney disease. RECOMMENDATIONS: Colonoscopy can be performed in the future if she develops overt lower bleeding. For now, we would recommend treating medically and she can receive iron infusions as needed and red blood cell transfusions as needed. She is on epoetin. We had just perform a colonoscopy and esophagogastroduodenoscopy back in 2019. I will sign off for now. Please call if GI can be of assistance. Job ID: [id number]
[2020-07-05] MEDS ORDERED: Insulin Glargine 25 UNITS in Pre-Filled Syringe 1 EACH SC SCH (16:01)
[2020-07-05] MEDS: Gabapentin 300 MG CAP PO SCH (17:11)
[2020-07-05] MEDS: Nicotine 14 MG PATCH TD SCH (20:45)
[2020-07-05] MEDS: Atorvastatin Calcium 40 MG TAB PO SCH (20:45)
[2020-07-05] MEDS: Amitriptyline HCl 100 MG TAB PO SCH (20:45)
[2020-07-05] MEDS: Oxybutynin ER 5 MG TAB PO SCH (20:45)
[2020-07-05] MEDS: diphenhydrAMINE 25 MG CAP PO PRN (23:43)
[2020-07-06] MEDS: Lactated Ringer's 1,000 ML IV SCH ×2 (00:43→10:20)
[2020-07-06 05:03] LABS: #Basophils 0.1 thou/uL (0.0-0.2); #Lymphocytes 0.9 thou/uL (1.20-3.40); #Monocytes 0.6 thou/uL (0.11-0.59); #Neutrophils 3.2 thou/uL (1.40-6.50); %Basophils 1.3 % (0.0-1.0); %Lymphocytes 19.3 % (21.0-51.0); %Monocytes 12.2 % (0.0-10.0); %Neutrophils 66.3 % (42.0-75.0); Hemoglobin 7.3 g/dL (12.0-16.0); Mean Corpuscular HGB CONC 31.5 g/dL (32.0-36.0); Mean Corpuscular Hemoglobin 28.3 pg (27.0-31.0); Mean Corpuscular Volume 89.7 fL (78.0-98.0); Platelet Count 220 thou/uL (130-400); RBC Distribution Width 15.8 % (11.5-14.5); Red Blood Cell (RBC) Count 2.58 mill/uL (4.20-5.40); White Blood Cell (WBC) Count 4.9 thou/uL (4.8-10.8)
[2020-07-06 05:21] LABS: Anion Gap 13 mmol/L (10-20); BUN (Urea Nitrogen) 51 mg/dL (9.8-20.1); Calc. Creatinine Clearance 46 mL/min (70-130); Calcium 8.6 mg/dL (7.8-10.44); Carbon Dioxide 21 mmol/L (23-31); Chloride 107 mmol/L (98-107); Glucose 144 mg/dL (80-115); Potassium 4.4 mmol/L (3.5-5.1); Sodium 137 mmol/L (136-145)
--- NOTE | 2020-07-06 06:48 | PDOC.FM ---
- Subjective Subjective: Patient feels well today, asking about going home. - Objective MAR Reviewed: Yes Vital Signs & Weight: Vital Signs (12 hours) Temp Pulse Resp BP Pulse Ox 07/06/20 03:56 99.1 F 71 19 168/72 H 92 L 07/05/20 23:39 159/68 H 92 L 07/05/20 19:28 98.9 F 77 20 173/75 H 92 L Weight Admit Weight 154.221 kg Weight 160.39 kg I&O: 07/04/20 07/05/20 07/06/20 06:59 06:59 06:59 Intake Total 2258 2541 3180 Output Total 920 1920 2720 Balance 1338 621 460 Result Diagrams: 07/06/20 04:49 07/06/20 04:49 Phys Exam - Physical Examination Constitutional: NAD Respiratory: no wheezing, no rales, no rhonchi, clear to auscultation bilateral Cardiovascular: RRR, no significant murmur, no rub Gastrointestinal: soft, non-tender, no distention Edema in L arm and 2+ edema in BLE Dx/Plan - Plan Plan: Hyperglycemia - Likely 2/2 dehydration given glucose >700 and KAYDEN - Resolving this AM, significant SSI used overnight - Continue home insulin and aggressive SSI - Ketones negative - Q4h accucheck with Aggressive SSI, try to space out today - Will continue to monitor, increase basal insulin to 30 u QD L arm swelling - US to evaluate for clot Symptomatic Anemia - Hx of KIMBERLY - Acute drop in hgb from 9.0 on 06/22 - Patient on Eliquis 2/2 hx of BLE clots - Consulted GI Dr. Morgan/Roberth, will hold on scope unless concern for more active bleeding - Colonoscopy Aug 2019 in [place] showing 3mm tubular adenoma, otherwise wnl - transfused 1u pRBC 07/03, 1u 07/04 - restart Eliquis today KAYDEN - Follows with Dr. Spencer - SCr 3.5 on admission, baseline ~2.8 - Dr. Spencer consulted - Albumin Q6h X4 doses on - Monitor fluid status - Consider DC of IVF with HTN Edema - Patient with significant history of PAD s/p bilateral angioplasty with hx of BLE clots - Appears to be significant chronic changes to skin and lower extremity with open sores - Consider Bilateral arterial US - Keep legs wrapped, elevated HTN - Home Medications, avoid nephrotoxic medications - Will talk to Dr. Spencer about decreasing/stopping fluids and other options for HTN therapy with increased pressures over last 24 hours - Switch amlodipine to nifedipine GERD - Pepcid at home, Transition to PO pepcid from IV protonix GI ppx: Pepcid DVT ppx: Hold given concern for GI bleed Diet: HH, CC, NPO @ 0000 PCP: MIKAEL Stephens Dispo: Admit to tele inpatient LOS expected> 48 hrs Addendum - Attending - Attending Attestation Date/Time: 07/06/20 1102 I personally evaluated the patient and discussed the management with Dr. Sung. I agree with the History, Examination, Assessment and Plan documented above with any addition or exceptions noted below. Patient stable. Renal function somewhat improved, Nephro on board. Will hold further IV fluids and monitor. Escalating BP control. H/H stable, GI has signed off. Will restart Eliquis at this time given no evidence of active bleeding and her high risk of clot given her medical history.
[2020-07-06] MEDS: Mometasone 100 MCG/Formoterol 5 MCG 120 PUFF INHALER INH SCH (08:27)
[2020-07-06] MEDS ORDERED: Cetirizine HCl 10 MG TAB PO SCH (09:00)
[2020-07-06] MEDS: Famotidine 20 MG TAB PO SCH ×2 (10:19→20:59)
[2020-07-06] MEDS: Ezetimibe 10 MG TAB PO SCH (10:19)
[2020-07-06] MEDS: Loratadine 10 MG TAB PO SCH (10:20)
[2020-07-06] MEDS: Calcitriol 0.25 MCG CAP PO SCH (10:20)
[2020-07-06] MEDS: Ferrous Sulfate 325 MG TAB PO SCH ×2 (10:20→17:35)
[2020-07-06] MEDS: Carvedilol 25 MG TAB PO SCH ×2 (10:20→21:00)
[2020-07-06] MEDS: Citalopram 20 MG TAB PO SCH (10:20)
[2020-07-06] MEDS: Insulin Glargine 30 UNITS in Pre-Filled Syringe 1 EACH SC SCH ×2 (10:21→21:06)
--- NOTE | 2020-07-06 11:07 | ULT ---
EXAM: Left upper extremity venous duplex ultrasound including color and spectral Doppler imaging: HISTORY: Upper extremity edema, left shoulder pain FINDINGS: The left internal jugular vein, subclavian vein, axillary vein, brachial vein, radial vein, and ulnar veins are visualized and demonstrate phasic flow with normal compressibility and normal augmentation. Left cephalic and basilic veins are unremarkable. IMPRESSION: No evidence for deep venous thrombosis.
--- NOTE | 2020-07-06 13:29 | PRG ---
DATE OF SERVICE: 07/06/2020 SUBJECTIVE: Ms. Garcia is a 69-year-old black female, who was seen by the Renal Service for her acute kidney injury on top of her chronic renal failure. She had superimposed prerenal azotemia. Empiric volume repletion with crystalloids and colloids were done. She has a little more edema today. For that reason, IV fluids will be discontinued. She has also received a blood transfusion for her anemia. No complaints of chest pain or shortness of breath. The patient is requesting to go home. OBJECTIVE: VITAL SIGNS: Blood pressure 147/78, heart rate 85, respiratory rate 16, temperature 98, O2 saturation 93%. GENERAL: The patient is awake, alert, supine, obese, not in distress. SKIN: Adequate turgor. HEENT: Slightly pale conjunctivae. Anicteric sclerae. No neck mass. No carotid bruits. No JVD. CHEST: No deformities. LUNGS: Clear breath sounds. HEART: Normal sinus rhythm. No murmur. No gallops. No rubs. ABDOMEN: Globular, soft. Nontender. No masses. EXTREMITIES: Trace edema. MEDICATIONS: On July 06, 2020 was reviewed. LABORATORIES: On July 06, 2020, white count 4.9, hemoglobin 7.3. Sodium 137, potassium 4.4, chloride 107, carbon dioxide 21, BUN 51, creatinine 3.03, glucose 144, calcium 8.6. ASSESSMENT AND PLAN: 1. Acute kidney injury on top of her chronic renal failure, superimposed prerenal azotemia, much improved renal function. Creatinine noted at 3.03 with a GFR 19 mL/minute. There is no indication for any dialytic intervention. Continue supportive care. 2. Chronic renal failure from diabetic nephropathy, baseline is about 2.6 . Continue supportive care. 3. Anemia, continuing weekly Epogen regimen, p.r.n. blood transfusion. 4. Recheck CBC. Basic metabolic panel in a.m. 5. HTN - BP meds being adjusted by the Hospitalist Service. Job ID: [id number] MTDD
[2020-07-06] MEDS: Amlodipine 10 MG TAB PO SCH (17:01)
[2020-07-06] MEDS: Gabapentin 300 MG CAP PO SCH (17:34)
[2020-07-06] MEDS: HumaLOG 300 UNITS/3 ML VIAL SC PRN (17:35)
[2020-07-06] MEDS: Atorvastatin Calcium 40 MG TAB PO SCH (20:59)
[2020-07-06] MEDS: Amitriptyline HCl 100 MG TAB PO SCH (21:00)
[2020-07-06] MEDS: Apixaban 2.5 MG TAB PO SCH (21:00)
[2020-07-06] MEDS: Oxybutynin ER 5 MG TAB PO SCH (21:00)
[2020-07-06] MEDS: Nicotine 14 MG PATCH TD SCH (21:12)
[2020-07-07 04:43] LABS: Anion Gap 15 mmol/L (10-20); BUN (Urea Nitrogen) 47 mg/dL (9.8-20.1); Calc. Creatinine Clearance 45 mL/min (70-130); Calcium 8.7 mg/dL (7.8-10.44); Carbon Dioxide 24 mmol/L (23-31); Chloride 109 mmol/L (98-107); Glucose 146 mg/dL (80-115); Potassium 4.5 mmol/L (3.5-5.1); Sodium 143 mmol/L (136-145)
[2020-07-07 05:34] LABS: Band 9 % (5-11); Eosinophils 1 % (0-10); Hemoglobin 7.5 g/dL (12.0-16.0); Lymphocytes 22 % (21-51); MDiff Complete? YES; Mean Corpuscular HGB CONC 32.9 g/dL (32.0-36.0); Mean Corpuscular Hemoglobin 29.7 pg (27.0-31.0); Mean Corpuscular Volume 90.4 fL (78.0-98.0); Mean Platelet Volume 7.9 fL (7.4-10.4); Monocytes 9 % (0-10); Neutrophil 59 % (42-75); Platelet Count 243 thou/uL (130-400); RBC Distribution Width 15.8 % (11.5-14.5); Red Blood Cell (RBC) Count 2.52 mill/uL (4.20-5.40); White Blood Cell (WBC) Count 4.3 thou/uL (4.8-10.8)
--- NOTE | 2020-07-07 05:34 | PDOC.FM ---
- Subjective Subjective: Patient overall feels well this am. Reports that swelling is improving. - Objective MAR Reviewed: Yes Vital Signs & Weight: Vital Signs (12 hours) Temp Pulse Resp BP Pulse Ox 07/06/20 20:15 98.3 F 74 20 170/70 H 94 L Weight Admit Weight 154.221 kg Weight 160.39 kg I&O: 07/05/20 07/06/20 07/07/20 06:59 06:59 06:59 Intake Total 2541 3180 700 Output Total 1920 2720 1400 Balance 621 460 -700 Result Diagrams: 07/07/20 04:01 07/07/20 04:01 Phys Exam - Physical Examination Constitutional: NAD Respiratory: no wheezing, no rales, no rhonchi, clear to auscultation bilateral Cardiovascular: RRR, no significant murmur, no rub Gastrointestinal: soft, non-tender, no distention, positive bowel sounds Chronic, unchanged BLE edema, legs wrapped, flaccid bullae BL L arm with 1+ edema, improving Dx/Plan - Plan Plan: Hyperglycemia - Likely 2/2 dehydration given glucose >700 and KAYDEN - Continue home insulin and aggressive SSI - ACHS accucheck - Will continue to monitor, keep basal insulin at 30 u BID L arm swelling - US to evaluate for clot was negative 07/06/20 Symptomatic Anemia - Hx of KIMBERLY - Acute drop in hgb from 9.0 on 06/22 - Patient on Eliquis 2/2 hx of BLE clots - Consulted GI Dr. Morgan/Roberth, will hold on scope unless concern for more active bleeding - Colonoscopy Aug 2019 in [place] showing 3mm tubular adenoma, otherwise wnl - transfused 1u pRBC 07/03, 1u 07/04 - continue eliquis KAYDEN - Follows with Dr. Spencer - SCr 3.5 on admission, baseline ~2.8 - Dr. Spencer consulted - Albumin Q6h X4 doses on - Monitor fluid status - Encourage PO intake, may restart gentle IV hydration-appreciate Dr. Spencer's recs Edema - Patient with significant history of PAD s/p bilateral angioplasty with hx of BLE clots - Appears to be significant chronic changes to skin and lower extremity with ope n sores - Consider Bilateral arterial US - Keep legs wrapped, elevated HTN - Home Medications, avoid nephrotoxic medications - increase nifedipine to 60 mg QD GERD - Pepcid BID GI ppx: Pepcid DVT ppx: Hold given concern for GI bleed Diet: HH, CC PCP: MIKAEL Stephens Dispo: Admit to tele inpatient LOS expected> 48 hrs. Patient would like to have HH, does not want to go to SNF because she doesn't want to stay in hospital longer than necessary. Addendum - Attending - Attending Attestation Date/Time: 07/07/20 5181 I personally evaluated the patient and discussed the management with Dr. Sung. I agree with the History, Examination, Assessment and Plan documented above with any addition or exceptions noted below. Patient resting comfortably. Renal function somewhat improved but overall stable. Nephro on board. H/H stable. Patient is overall improved and awaiting further Nephro recs but hopeful to near stability for discharge soon. Escalate BP control.
[2020-07-07] MEDS: Calcitriol 0.25 MCG CAP PO SCH (08:55)
[2020-07-07] MEDS: Insulin Glargine 30 UNITS in Pre-Filled Syringe 1 EACH SC SCH ×2 (08:55→22:18)
[2020-07-07] MEDS: Ezetimibe 10 MG TAB PO SCH (08:56)
[2020-07-07] MEDS: Famotidine 20 MG TAB PO SCH (08:56)
[2020-07-07] MEDS: Citalopram 20 MG TAB PO SCH (08:56)
[2020-07-07] MEDS: NIFEdipine XL 30 MG TAB PO SCH (08:56)
[2020-07-07] MEDS: Carvedilol 25 MG TAB PO SCH ×2 (08:56→22:16)
[2020-07-07] MEDS: Loratadine 10 MG TAB PO SCH (08:56)
[2020-07-07] MEDS: Ferrous Sulfate 325 MG TAB PO SCH ×2 (08:57→17:03)
[2020-07-07] MEDS: Apixaban 2.5 MG TAB PO SCH ×2 (08:57→22:16)
[2020-07-07] MEDS: guaiFENesin ER 600 MG TAB PO SCH ×2 (08:57→22:17)
[2020-07-07] MEDS ORDERED: NIFEdipine XL 30 MG TAB PO SCH (09:00)
[2020-07-07] MEDS ORDERED: NIFEdipine XL 60 MG TAB PO SCH (09:00)
[2020-07-07] MEDS ORDERED: Docusate 100 MG CAP PO PRN (09:09)
[2020-07-07] MEDS ORDERED: Polyethylene Glycol 3350 17 GM Packet PO PRN (09:09)
[2020-07-07] MEDS ORDERED: EPOETIN ALFA-EPBX (ESRD) 10,000 UNIT/ML VIAL SC SCH (10:00)
--- NOTE | 2020-07-07 10:24 | PRG ---
DATE OF SERVICE: 07/07/2020 SUBJECTIVE: Ms. Garcia is a 69-year-old black female, initially admitted for symptomatic anemia. We are following her up for acute kidney injury on top of her chronic renal failure. Renal function slightly improved and stable at a value of 3.1. She has received crystalloids and colloids in the past. This has been placed on hold due to more swelling. Adjustments with the blood pressures are being made. No other complaints today. No chest pain or shortness of breath. OBJECTIVE: VITAL SIGNS: Blood pressure 146/94, heart rate 76, respiratory rate 18, temperature 98, and O2 saturation 93% on room air. GENERAL: The patient is awake, alert, comfortable, not in overt distress. SKIN: Adequate turgor. HEENT: Slightly pale conjunctivae. Anicteric sclerae. NECK: No neck mass. No carotid bruits. No JVD. CHEST: No deformities. LUNGS: Clear breath sounds. No wheezing. No crackles. HEART: Normal sinus rhythm. No murmur. No gallops. No rubs. ABDOMEN: Globular, soft, and nontender. No masses. EXTREMITIES: Trace edema. MEDICATIONS: Medications of July 07, 2020, reviewed. LABORATORY DATA: Laboratories of July 07, 2020, hemoglobin 7.5. Sodium 143, potassium 4.5, chloride 109, carbon dioxide 24, BUN 47, creatinine 3.1, glucose 146, and calcium 8.7. ASSESSMENT AND PLAN: 1. Anemia. Continuing weekly Epogen. I will be adjusting the Epogen regimen to at least 10,000 units subcu q.7 days. P.r.n. blood transfusion. 2. Acute kidney injury-superimposed prerenal azotemia, slowly improving and stabilizing. 3. Chronic renal failure secondary to diabetic nephropathy. Stable, no indication for any dialytic intervention. 4. Hypertension, adjusting BP medications. Agree with current management. Job ID: [id number] [facility]
[2020-07-07] MEDS: Mometasone 100 MCG/Formoterol 5 MCG 120 PUFF INHALER INH SCH (11:06)
[2020-07-07] MEDS: HumaLOG 300 UNITS/3 ML VIAL SC PRN (11:33)
[2020-07-07] MEDS: Docusate 100 MG CAP PO PRN ×2 (11:33→22:18)
[2020-07-07] MEDS: diphenhydrAMINE 25 MG CAP PO PRN (11:33)
--- NOTE | 2020-07-07 15:22 | EKG ---
Test Reason : Blood Pressure : / mmHG Vent. Rate : 080 BPM Atrial Rate : 080 BPM P-R Int : 150 ms QRS Dur : 138 ms QT Int : 420 ms P-R-T Axes : -28 050 074 degrees QTc Int : 484 ms Normal sinus rhythm Right bundle branch block Abnormal ECG Confirmed by GERRY MEJÍA, GRANT ([id number]), editorial assistant ITA KAPOOR ([id number]) on 07/07/2020 3:21:52 PM Referred By: Confirmed By:GRANT GARRETT MD
[2020-07-07] MEDS ORDERED: cloNIDine 0.3mg/24 Hour PATCH TD SCH (16:00)
[2020-07-07] MEDS: Gabapentin 300 MG CAP PO SCH (17:03)
[2020-07-07] MEDS ORDERED: NIFEdipine 10 MG CAP PO SCH (17:30)
[2020-07-07] MEDS: Amitriptyline HCl 100 MG TAB PO SCH (22:16)
[2020-07-07] MEDS: Atorvastatin Calcium 40 MG TAB PO SCH (22:16)
[2020-07-07] MEDS: Acetaminophen 325 MG TAB PO PRN (22:17)
[2020-07-07] MEDS: Oxybutynin ER 5 MG TAB PO SCH (22:17)
[2020-07-07] MEDS: Nicotine 14 MG PATCH TD SCH (22:18)
[2020-07-08 05:04] LABS: Anion Gap 15 mmol/L (10-20); BUN (Urea Nitrogen) 44 mg/dL (9.8-20.1); Calc. Creatinine Clearance 43 mL/min (70-130); Calcium 8.6 mg/dL (7.8-10.44); Carbon Dioxide 22 mmol/L (23-31); Chloride 110 mmol/L (98-107); Glucose 146 mg/dL (80-115); Potassium 4.8 mmol/L (3.5-5.1); Sodium 142 mmol/L (136-145)
[2020-07-08 05:43] LABS: Hemoglobin 7.4 g/dL (12.0-16.0); Mean Corpuscular HGB CONC 31.7 g/dL (32.0-36.0); Mean Corpuscular Hemoglobin 28.8 pg (27.0-31.0); Mean Corpuscular Volume 90.8 fL (78.0-98.0); Mean Platelet Volume 7.7 fL (7.4-10.4); Platelet Count 256 thou/uL (130-400); RBC Distribution Width 15.7 % (11.5-14.5); Red Blood Cell (RBC) Count 2.56 mill/uL (4.20-5.40); White Blood Cell (WBC) Count 4.2 thou/uL (4.8-10.8)
--- NOTE | 2020-07-08 05:48 | PDOC.FM ---
- Subjective Subjective: Patient doing well this AM, patient was placed on NC O2 overnight 2/2 O2 desaturation to 89%. Patient feeling well with no SOB. - Objective MAR Reviewed: Yes Vital Signs & Weight: Vital Signs (12 hours) Temp Pulse Resp BP Pulse Ox 07/08/20 04:36 98.3 F 63 20 93 L 07/08/20 00:58 98.3 F 65 18 113/53 L 94 L 07/07/20 21:56 98.8 F 80 20 198/79 H 94 L 07/07/20 21:55 94 L 07/07/20 18:22 182/77 H Weight Admit Weight 154.221 kg Weight 159.665 kg I&O: 07/06/20 07/07/20 07/08/20 06:59 06:59 06:59 Intake Total 3180 1200 480 Output Total 2720 3200 1700 Balance 460 -2606 -9024 Result Diagrams: 07/08/20 04:22 07/08/20 04:22 Phys Exam - Physical Examination Constitutional: NAD Respiratory: no wheezing, no rales, no rhonchi, clear to auscultation bilateral Cardiovascular: RRR, no significant murmur, no rub Gastrointestinal: soft, non-tender, no distention, positive bowel sounds Chronic, unchanged LE edema, LUE 1+ edema, unchanged from yesterday Dx/Plan - Plan Plan: Hyperglycemia - Likely 2/2 dehydration given glucose >700 and KAYDEN - Continue home insulin and aggressive SSI - ACHS accucheck - Will continue to monitor, keep basal insulin at 30 u BID L arm swelling - US to evaluate for clot was negative 07/06/20 Symptomatic Anemia - Hx of KIMBERLY - Acute drop in hgb from 9.0 on 06/22 - Patient on Eliquis 2/2 hx of BLE clots - Consulted GI Dr. Morgan/Roberth, will hold on scope unless concern for more active bleeding - Colonoscopy Aug 2019 in [place] showing 3mm tubular adenoma, otherwise wnl - transfused 1u pRBC 07/03, 1u 07/04 - continue eliquis KAYDEN - Follows with Dr. Spencer - SCr 3.5 on admission, baseline ~2.8 - Dr. Spencer consulted - Albumin Q6h X4 doses on 07/04- - Monitor fluid status - Encourage PO intake, may restart gentle IV hydration-appreciate Dr. Spencer's recs Edema - Patient with significant history of PAD s/p bilateral angioplasty with hx of BLE clots - Appears to be significant chronic changes to skin and lower extremity with open sores - Consider Bilateral arterial US - Keep legs wrapped, elevated HTN - Home Medications, avoid nephrotoxic medications - Patient was off clonidine patch. Will continue current medications at this time. Monitor this AM. GERD - Pepcid BID GI ppx: Pepcid DVT ppx: Hold given concern for GI bleed Diet: HH, CC PCP: MIKAEL Stephens Dispo: Admit to tele inpatient LOS expected> 48 hrs. Patient would like to have HH, does not want to go to SNF because she doesn't want to stay in hospital longer than necessary. Addendum - Attending - Attending Attestation Date/Time: 07/08/20 0426 I personally evaluated the patient and discussed the management with Dr. Sung. I agree with the History, Examination, Assessment and Plan documented above with any addition or exceptions noted below. Patient overall stable, had some desats overnight. She could be nearing the point of restarting diuretics, though her renal function may not tolerate. Renal function overall stable but with some mild decline since yesterday. She is s/p IVF resuscitation and albumin infusion. Nephro on board. Her H/H is stable from suspected GI bleed. She is back on OAC given her history of DVT.
[2020-07-08 06:22] LABS: Band 8 % (5-11); Lymphocytes 21 % (21-51); MDiff Complete? YES; Monocytes 13 % (0-10); Neutrophil 58 % (42-75)
[2020-07-08] MEDS: Calcitriol 0.25 MCG CAP PO SCH (08:27)
[2020-07-08] MEDS: NIFEdipine XL 30 MG TAB PO SCH (08:27)
[2020-07-08] MEDS: Ezetimibe 10 MG TAB PO SCH (08:27)
[2020-07-08] MEDS: Apixaban 2.5 MG TAB PO SCH ×2 (08:27→21:33)
[2020-07-08] MEDS: guaiFENesin ER 600 MG TAB PO SCH ×2 (08:27→21:32)
[2020-07-08] MEDS: Loratadine 10 MG TAB PO SCH (08:28)
[2020-07-08] MEDS: Ferrous Sulfate 325 MG TAB PO SCH ×2 (08:28→17:06)
[2020-07-08] MEDS: Citalopram 20 MG TAB PO SCH (08:28)
[2020-07-08] MEDS: Famotidine 20 MG TAB PO SCH (08:28)
[2020-07-08] MEDS: Carvedilol 25 MG TAB PO SCH ×2 (08:28→21:33)
[2020-07-08] MEDS: Insulin Glargine 30 UNITS in Pre-Filled Syringe 1 EACH SC SCH ×2 (08:29→22:00)
--- NOTE | 2020-07-08 09:32 | PRG ---
DATE OF SERVICE: 07/08/2020 SUBJECTIVE: Ms. Garcia is a 69-year-old black female, who was admitted initially for symptomatic anemia. She has received several units of packed RBC. Adjustment of Epogen was done yesterday. In addition, she will receive 1 unit of packed RBC today. We are following her up also for her acute kidney injury on top of her chronic renal failure. No complaints of chest pain or shortness of breath. OBJECTIVE: VITAL SIGNS: Blood pressure 141/65, heart rate 64, respiratory rate 17, temperature 98.3, O2 saturation 94% room air. GENERAL: Awake, alert, obese, comfortable, not in distress. SKIN: Adequate turgor. HEENT: She has slightly pale conjunctivae. Anicteric sclerae. No neck mass. No carotid bruits. No JVD. CHEST: No deformities. LUNGS: Clear breath sounds. No wheezing. No crackles. HEART: Normal sinus rhythm. No murmur. No gallops. No rubs. ABDOMEN: Globular, soft, nontender. No masses. EXTREMITIES: No edema. No deformities. MEDICATIONS: July 08, 2020, were reviewed. LABORATORY DATA: July 08, 2020: White count 4.2, hemoglobin 7.4. Sodium 142, potassium 4.8, chloride 110, carbon dioxide 22, BUN 44, creatinine 3.21, glucose 146, calcium 8.6. ASSESSMENT AND PLAN: 1. Anemia, recently we adjusted Epogen to 10,000 units subcu q.week. In addition, we will give 1 unit of packed RBC today. This is in the hope of further improving the renal function and improve the anemia. 2. Acute kidney injury, superimposed prerenal azotemia. Optimizing hemodynamics. No indication for dialysis. 3. Chronic renal failure, secondary to diabetic nephropathy, stable. 1 unit of packed RBC to be given to further optimize the hemodynamics. 4. Okay for discharge after 1 unit of packed RBC. If she is still here tomorrow, we will recheck a CBC basement. Job ID: [id number]
[2020-07-08] MEDS: HumaLOG 300 UNITS/3 ML VIAL SC PRN ×3 (12:24→21:59)
[2020-07-08] MEDS: Mometasone 100 MCG/Formoterol 5 MCG 120 PUFF INHALER INH SCH (14:03)
[2020-07-08] MEDS: Gabapentin 300 MG CAP PO SCH (17:05)
[2020-07-08] MEDS: Atorvastatin Calcium 40 MG TAB PO SCH (21:32)
[2020-07-08] MEDS: Amitriptyline HCl 100 MG TAB PO SCH (21:33)
[2020-07-08] MEDS: Acetaminophen 325 MG TAB PO PRN (21:33)
[2020-07-08] MEDS: Oxybutynin ER 5 MG TAB PO SCH (21:33)
[2020-07-08] MEDS: Nicotine 14 MG PATCH TD SCH (21:33)
[2020-07-09 05:03] LABS: Anion Gap 16 mmol/L (10-20); BUN (Urea Nitrogen) 47 mg/dL (9.8-20.1); Calc. Creatinine Clearance 42 mL/min (70-130); Calcium 8.6 mg/dL (7.8-10.44); Carbon Dioxide 24 mmol/L (23-31); Chloride 109 mmol/L (98-107); Glucose 131 mg/dL (80-115); Potassium 4.7 mmol/L (3.5-5.1); Sodium 144 mmol/L (136-145)
[2020-07-09 06:12] LABS: Band 9 % (5-11); Hemoglobin 8.2 g/dL (12.0-16.0); Lymphocytes 25 % (21-51); MDiff Complete? YES; Mean Corpuscular HGB CONC 30.2 g/dL (32.0-36.0); Mean Corpuscular Hemoglobin 27.4 pg (27.0-31.0); Mean Corpuscular Volume 90.9 fL (78.0-98.0); Mean Platelet Volume 7.4 fL (7.4-10.4); Monocytes 15 % (0-10); Neutrophil 51 % (42-75); Platelet Count 298 thou/uL (130-400); RBC Distribution Width 15.5 % (11.5-14.5)
[2020-07-09] MEDS ORDERED: NIFEdipine XL 30 MG TAB PO SCH (06:17)
--- NOTE | 2020-07-09 06:23 | PDOC.FM ---
- Subjective Subjective: Patient overall reports she is doing well. Breathing is improved, LE swelling improved, denies CP. - Objective MAR Reviewed: Yes Vital Signs & Weight: Vital Signs (12 hours) Temp Pulse Resp BP Pulse Ox 07/09/20 04:39 98.7 F 62 18 174/70 H 98 07/09/20 00:26 99.3 F 70 18 171/72 H 98 07/08/20 20:10 99.0 F 82 18 180/116 H 95 Weight Admit Weight 154.221 kg Weight 163.378 kg I&O: 07/07/20 07/08/20 07/09/20 06:59 06:59 06:59 Intake Total 6708 697 0824 Output Total 3200 2700 2350 Balance -1999 -450 Result Diagrams: 07/09/20 04:24 07/09/20 04:24 Phys Exam - Physical Examination Constitutional: NAD Respiratory: no wheezing, no rales, no rhonchi, clear to auscultation bilateral Cardiovascular: RRR, no significant murmur, no rub Gastrointestinal: soft, non-tender, no distention, positive bowel sounds Chronic LE edema, LUE edema present Dx/Plan - Plan Plan: Hyperglycemia - Likely 2/2 dehydration given glucose >700 and KAYDEN - Continue home insulin and aggressive SSI - ACHS accucheck - Will continue to monitor, 35 u in AM, 30 units PM L arm swelling - US to evaluate for clot was negative 07/06/20 Symptomatic Anemia - Hx of KIMBERLY - Acute drop in hgb from 9.0 on 06/22 - Patient on Eliquis 2/2 hx of BLE clots - Consulted GI Dr. Morgan/Roberth, will hold on scope unless concern for more active bleeding - Colonoscopy Aug 2019 in [place] showing 3mm tubular adenoma, otherwise wnl - transfused 1u pRBC 07/03, 1u 07/04, 1u 07/08 - continue eliquis KAYDEN - Follows with Dr. Spencer - SCr 3.5 on admission, baseline ~2.8 - Dr. Spencer consulted - Albumin Q6h X4 doses on 07/04- - Monitor fluid status - Encourage PO intake, appreciate Dr. Spencer's recs - Ok for dc per Tj Edema - Patient with significant history of PAD s/p bilateral angioplasty with hx of BLE clots - Appears to be significant chronic changes to skin and lower extremity with open sores - Consider Bilateral arterial US - Keep legs wrapped, elevated HTN - Home Medications, avoid nephrotoxic medications - Patient was off clonidine patch. Will continue current medications at this time. Monitor this AM. GERD - Pepcid BID GI ppx: Pepcid DVT ppx: Hold given concern for GI bleed Diet: HH, CC PCP: MIKAEL Stephens Dispo: Admit to tele inpatient LOS expected> 48 hrs. Patient would like to have HH, does not want to go to SNF because she doesn't want to stay in hospital longer than necessary. Discussed multiple times with patient that SNF would be more appropriate options. brother and Sister also in agreement and would like for her to go to SNF. 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 Addendum - Attending - Attending Attestation Date/Time: 07/09/20 9564 I personally evaluated the patient and discussed the management with Dr. Sung I agree with the History, Examination, Assessment and Plan documented above with any addition or exceptions noted below. 69 yo female admitted for acute kidney failure on CKD along with metabolic issues and hyperglycemia. Now improved. Cr stable. Renal signed off. Overload status improved. Patient does have untreated DARRICK. Needs outpatient evaluation and treatment. Will need close care at home with family members and home health. Ok to d/c if able to arrange care at home. [place]
[2020-07-09] MEDS: Mometasone 100 MCG/Formoterol 5 MCG 120 PUFF INHALER INH SCH (07:08)
[2020-07-09] MEDS: Loratadine 10 MG TAB PO SCH (08:26)
[2020-07-09] MEDS: Docusate 100 MG CAP PO PRN (08:26)
[2020-07-09] MEDS: guaiFENesin ER 600 MG TAB PO SCH ×2 (08:27→20:41)
[2020-07-09] MEDS: Citalopram 20 MG TAB PO SCH (08:27)
[2020-07-09] MEDS: Ezetimibe 10 MG TAB PO SCH (08:27)
[2020-07-09] MEDS: Carvedilol 25 MG TAB PO SCH ×2 (08:27→20:42)
[2020-07-09] MEDS: Calcitriol 0.25 MCG CAP PO SCH (08:27)
[2020-07-09] MEDS: NIFEdipine XL 60 MG TAB PO SCH (08:28)
[2020-07-09] MEDS: Apixaban 2.5 MG TAB PO SCH ×2 (08:28→20:41)
[2020-07-09] MEDS: Ferrous Sulfate 325 MG TAB PO SCH ×2 (08:28→17:13)
[2020-07-09] MEDS: Famotidine 20 MG TAB PO SCH (08:28)
[2020-07-09] MEDS ORDERED: Insulin Glargine 35 UNITS in Pre-Filled Syringe 1 EACH SC SCH (09:45)
--- NOTE | 2020-07-09 10:00 | PRG ---
DATE OF SERVICE: 07/09/20 SUBJECTIVE: Ms. Garcia is a 69-year-old black female, seen by the renal service for her acute kidney injury on top of her chronic renal failure. She was initially felt to be volume depleted and was given crystalloids and colloids with slight improvement with the renal function. IV fluid has been discontinued due to some degree of swelling. Creatinine has slowly been creeping up to a most recent value of 3.39 with a GFR dropping from 17 to 16 mL/minute. She has also been anemic and received several units of packed RBCs. She voices no new complaints today. The patient denies any chest pain or shortness of breath. OBJECTIVE: VITAL SIGNS: Blood pressure is 135/60, heart rate 65, respiratory rate 18, temperature 97.6, O2 saturation 100% on room air. GENERAL: The patient is awake, alert, comfortable, not in distress. SKIN: Adequate turgor. HEENT: Slightly pale conjunctivae. Anicteric sclerae. NECK: No neck mass. No carotid bruits. No JVD. CHEST: No deformities. LUNGS: Clear breath sounds. HEART: Normal sinus rhythm. No murmur. No gallops. No rubs. ABDOMEN: Globular, soft. Nontender. No masses. EXTREMITIES: Trace edema. MEDICATIONS: July 09, 2020 reviewed. LABORATORY DATA: July 09, 2020; sodium 144, potassium 4.7, chloride 109, carbon dioxide 24, BUN 47, creatinine 3.39, glucose 131, calcium 8.6. White count 4, hemoglobin 8.2. ASSESSMENT AND PLAN: 1. Anemia, improved with blood transfusion. Continue weekly Epogen. P.r.n. blood transfusion. 2. Acute kidney injury/chronic renal failure: Creatinine slowly worsening in the last several days. GFR 16 mL/minute. This may just simply reflect disease progression on the patient's renal dysfunction. There is no indication for any emergent hemodialysis. Please note, we will time her dialysis as needed. The patient is not clinically uremic and is not volume overloaded. From a renal point of view, the patient can be discharged and we will follow her up at the [facility]. Job ID: [id number] MTDD
[2020-07-09] MEDS: Insulin Glargine 30 UNITS in Pre-Filled Syringe 1 EACH SC SCH ×2 (11:06→21:26)
[2020-07-09] MEDS: Gabapentin 300 MG CAP PO SCH (17:12)
[2020-07-09] MEDS: Atorvastatin Calcium 40 MG TAB PO SCH (20:41)
[2020-07-09] MEDS: Amitriptyline HCl 100 MG TAB PO SCH (20:41)
[2020-07-09] MEDS: Nicotine 14 MG PATCH TD SCH (20:41)
[2020-07-09] MEDS: Oxybutynin ER 5 MG TAB PO SCH (20:42)
[2020-07-10 04:38] LABS: #Eosinphils 0.1 thou/uL (0.0-0.7); #Monocytes 0.6 thou/uL (0.11-0.59); #Neutrophils 2.4 thou/uL (1.40-6.50); %Basophils 0.1 % (0.0-1.0); %Eosinophils 1.5 % (0.0-10.0); %Lymphocytes 23.8 % (21.0-51.0); %Monocytes 14.2 % (0.0-10.0); %Neutrophils 60.5 % (42.0-75.0); Hemoglobin 8.8 g/dL (12.0-16.0); Mean Corpuscular HGB CONC 31.6 g/dL (32.0-36.0); Mean Corpuscular Hemoglobin 28.8 pg (27.0-31.0); Mean Corpuscular Volume 91.1 fL (78.0-98.0); Mean Platelet Volume 7.2 fL (7.4-10.4); Platelet Count 337 thou/uL (130-400); RBC Distribution Width 15.5 % (11.5-14.5); Red Blood Cell (RBC) Count 3.06 mill/uL (4.20-5.40)
[2020-07-10 04:59] LABS: Anion Gap 15 mmol/L (10-20); BUN (Urea Nitrogen) 45 mg/dL (9.8-20.1); Calc. Creatinine Clearance 44 mL/min (70-130); Calcium 8.8 mg/dL (7.8-10.44); Carbon Dioxide 24 mmol/L (23-31); Chloride 109 mmol/L (98-107); Glucose 139 mg/dL (80-115); Potassium 4.9 mmol/L (3.5-5.1); Sodium 143 mmol/L (136-145)
--- NOTE | 2020-07-10 06:24 | PDOC.FM ---
- Subjective Subjective: Patient overall feeling better today. She reports edema has improved, breathing is better, and denies CP and N/V. - Objective MAR Reviewed: Yes Vital Signs & Weight: Vital Signs (12 hours) Temp Pulse Resp BP Pulse Ox 07/10/20 03:23 98.6 F 68 20 159/66 H 95 07/10/20 00:12 67 07/09/20 20:33 98.6 F 70 16 132/52 L 93 L Weight Admit Weight 154.221 kg Weight 164.155 kg I&O: 07/08/20 07/09/20 07/10/20 06:59 06:59 06:59 Intake Total 790 1900 1450 Output Total 2700 2700 4000 Balance -1910 -800 -2550 Result Diagrams: 07/10/20 04:14 07/10/20 04:14 Phys Exam - Physical Examination Constitutional: NAD Respiratory: no wheezing, no rales, clear to auscultation bilateral Cardiovascular: RRR, no significant murmur, no rub Gastrointestinal: soft, non-tender, no distention Chronic, unchange BLE edema, LUE edema markedly improved Dx/Plan - Plan Plan: Hyperglycemia - Likely 2/2 dehydration given glucose >700 and KAYDEN - Continue home insulin and aggressive SSI - ACHS accucheck - Will continue to monitor, 30 u in AM, 30 units PM on dc L arm swelling - US to evaluate for clot was negative 07/06/20 Symptomatic Anemia - Hx of KIMBERLY - Acute drop in hgb from 9.0 on 06/22 - Patient on Eliquis 2/2 hx of BLE clots - Consulted GI Dr. Morgan/Roberth, will hold on scope unless concern for more active bleeding - Colonoscopy Aug 2019 in [place] showing 3mm tubular adenoma, otherwise wnl - transfused 1u pRBC 07/03, 1u 07/04, 1u 07/08 - continue eliquis KAYDEN - Follows with Dr. Spencer - SCr 3.5 on admission, baseline ~2.8 - Dr. Spencer consulted - Albumin Q6h X4 doses on 07/04- - Monitor fluid status - Encourage PO intake, appreciate Dr. Spencer's recs - Ok for dc per Spencer Edema - Patient with significant history of PAD s/p bilateral angioplasty with hx of BLE clots - Appears to be significant chronic changes to skin and lower extremity with open sores - Consider Bilateral arterial US - Keep legs wrapped, elevated HTN - Home Medications, avoid nephrotoxic medications - Patient was off clonidine patch. Will continue current medications at this time. Monitor this AM. GERD - Pepcid BID GI ppx: Pepcid DVT ppx: Hold given concern for GI bleed Diet: HH, CC PCP: MIKAEL Stephens Dispo: Admit to tele inpatient LOS expected> 48 hrs. With improvement today, consider DC with HH. If SNF placement can happen today, will DC SNF. Otherwise will discuss with family and HH agency to formulate safe discharge home. Addendum - Attending - Attending Attestation Date/Time: 07/10/20 1321 I personally evaluated the patient and discussed the management with Dr. Sung I agree with the History, Examination, Assessment and Plan documented above with any addition or exceptions noted below. 69 yo female admitted for pre-renal KAYDEN on CKD along with hyperglycemia with anion gap and continued decline. Patient's renal function has returned to baseline. Glucose at goal. Patient with continued disuse atrophy and worsening chronic conditions. Patient not safe to go back home. She dose have a patient care provider from M to F from 10:00 to 14:00 but no night or weekend coverage. HH no longer evaluating patient because they are not able to and requested she be placed in SNF to PCP. No family able to care for her at home. PT/OT reports reviewed and patient's de-conditioning and habitus make improvement near impossible. Today patient not able to sit herself up in bed to eat breakfast. CM following and working on placement. Hesham
[2020-07-10] MEDS: Mometasone 100 MCG/Formoterol 5 MCG 120 PUFF INHALER INH SCH (07:23)
[2020-07-10] MEDS ORDERED: Ergocalciferol 1.25 MG(50,000 UNITS) CAP PO SCH (09:00)
--- NOTE | 2020-07-10 09:31 | PRG ---
DATE OF SERVICE: 07/10/2020 SUBJECTIVE: Ms. Garcia is a 69-year-old black female, who was initially admitted for symptomatic anemia. She has received several units packed RBC. In addition, we are following up this patient for acute kidney injury on top of her chronic renal failure. She has also received volume repletion. Creatinine is stabilizing at about 3.2. She voices no new complaints. She denies any chest pain or shortness of breath. OBJECTIVE: VITAL SIGNS: Blood pressure 159/66, heart rate 68, respiratory rate 20, temperature 98.6, O2 saturation 95%. GENERAL: Awake, alert, obese, comfortable. SKIN: Adequate turgor. HEENT: Slightly pale conjunctivae. Anicteric sclerae. NECK: No neck mass. No carotid bruits. No JVD. CHEST: No deformities. LUNGS: Clear breath sounds. HEART: Normal sinus rhythm. No murmurs, gallops, or rubs. ABDOMEN: Globular, soft. Nontender. No masses. EXTREMITIES: No edema. No deformities. MEDICATIONS: July 10, 2020 was reviewed. LABORATORY DATA: July 10, 2020; white count 4, hemoglobin 8.8. Sodium 143, potassium 4.9, chloride 109, carbon dioxide 24, BUN 45, creatinine 3.24, GFR 17 mL/minute, calcium 8.8. ASSESSMENT AND PLAN: 1. Anemia, stable, continuing weekly Epogen regimen with this patient. 2. Acute kidney injury on top of chronic renal failure, superimposed prerenal azotemia. Stabilizing renal function. No indication for any dialytic intervention. This patient will eventually need dialytic intervention in the near future. We will time when we will initiate dialysis. At this moment, there is no indication for any dialytic intervention. From a renal point of view, this patient can be discharged. We will [facility]. Job ID: [id number]
[2020-07-10] MEDS: Calcitriol 0.25 MCG CAP PO SCH (09:37)
[2020-07-10] MEDS: Ferrous Sulfate 325 MG TAB PO SCH ×2 (09:37→17:50)
[2020-07-10] MEDS: Famotidine 20 MG TAB PO SCH (09:37)
[2020-07-10] MEDS: Citalopram 20 MG TAB PO SCH (09:38)
[2020-07-10] MEDS: NIFEdipine XL 60 MG TAB PO SCH (09:38)
[2020-07-10] MEDS: Apixaban 2.5 MG TAB PO SCH ×2 (09:38→21:38)
[2020-07-10] MEDS: guaiFENesin ER 600 MG TAB PO SCH ×2 (09:38→21:38)
[2020-07-10] MEDS: Carvedilol 25 MG TAB PO SCH ×2 (09:38→21:38)
[2020-07-10] MEDS: Loratadine 10 MG TAB PO SCH (09:38)
[2020-07-10] MEDS: Ezetimibe 10 MG TAB PO SCH (09:38)
[2020-07-10] MEDS: Insulin Glargine 35 UNITS in Pre-Filled Syringe 1 EACH SC SCH (09:41)
--- NOTE | 2020-07-10 12:23 | PQF ---
CLINICAL DOCUMENTATION CLARIFICATION FORM: Dear Dr. Sung Date: 07/10/20 Please exercise your independent, professional judgment in responding to the clarification form. Clinical indicators are provided on the bottom of this form for your review. Please check appropriate box(es): HEART FAILURE: A. ACUITY [ ] Acute [ ] Acute on Chronic [ X ] Chronic B. TYPE: [ ] Systolic / HFrEF [ X ] Diastolic / HFpEF [ ] Combined Systolic / Diastolic [ ] Hypertensive Heart and Kidney disease [ ] Hypertensive Heart Disease [ ] Hypertensive Kidney Disease [ ] Other diagnosis __Diastolic dysfunction In addition, please specify: Present on Admission (POA): [ X ] Yes [ ] No [ ] Unable to determine For continuity of documentation, please document condition throughout progress notes and discharge summary. Thank You. To be completed by CDI/Coding staff for physician review: CLINICAL INDICATORS - SIGNS / SYMPTOMS / LABS / RESULTS AND LOCATION IN EMR ER Doctor notes: Pt found to have severe anemia and other medical problems with acute fluid overload given Lasix nitro and also gentle transfusion. ER DX: "Acute fluid overload" BNP 42 Echo Jason: EF 55-60% 07/04 consult Spencer: KAYDEN on top of her chronic renal failure.. CHF based on the chest xray.. 07/09 PN (Sorgho) Subjective: Breathing is improved, LE swelling improved Attending: Overload status improved. RISKS FACTORS / RESULTS AND LOCATION IN EMR H&P Upper level: Exam: Extremities: 1+ pitting edema BLE up to knees A/P: BLE edema in setting of PVD ER Record: HPI: long hx of CHF fluid overload TREATMENTS / RESULTS AND LOCATION IN EMR ER Record: 07/03: Water Hauler: Furosemide injection 40mg IV push H&P Upper level: Exam: Extremities: BLE wrapped in CHELSEA bandages CDS Signature: Milana Kuo RN Phone #: [phone] Date: 07/10/20 This is a permanent part of the Medical Record [facility]
[2020-07-10] MEDS: Gabapentin 300 MG CAP PO SCH (17:49)
[2020-07-10] MEDS: Nicotine 14 MG PATCH TD SCH (21:38)
[2020-07-10] MEDS: Oxybutynin ER 5 MG TAB PO SCH (21:38)
[2020-07-10] MEDS: Amitriptyline HCl 100 MG TAB PO SCH (21:38)
[2020-07-10] MEDS: Atorvastatin Calcium 40 MG TAB PO SCH (21:39)
[2020-07-10] MEDS: Insulin Glargine 30 UNITS in Pre-Filled Syringe 1 EACH SC SCH (23:00)
[2020-07-11] MEDS: HumaLOG 300 UNITS/3 ML VIAL SC PRN (06:01)
--- NOTE | 2020-07-11 06:14 | PDOC.FM ---
- Subjective Subjective: Patient feels well this AM. Concerned about her insurance card not being here for acceptance to SNF. Breathing improved, denies CP, improving LE edema. - Objective Vital Signs & Weight: Vital Signs (12 hours) Temp Pulse Resp BP Pulse Ox 07/11/20 04:00 98.8 F 68 20 182/74 H 90 L 07/10/20 21:33 98.2 F 71 16 188/76 H 93 L Weight Admit Weight 154.221 kg Weight 162.114 kg I&O: 07/09/20 07/10/20 07/11/20 06:59 06:59 06:59 Intake Total 1900 1450 1700 Output Total 2700 4000 2600 Balance -800 -2550 -900 Result Diagrams: 07/10/20 04:14 07/10/20 04:14 Phys Exam - Physical Examination Constitutional: NAD Respiratory: no wheezing, no rales, no rhonchi, clear to auscultation bilateral Cardiovascular: RRR, no significant murmur, no rub Gastrointestinal: soft, non-tender, no distention, positive bowel sounds Chronic 2+ LE edema w/ improving LUE edema Dx/Plan - Plan Plan: Hyperglycemia - Likely 2/2 dehydration given glucose >700 and KAYDEN - Continue home insulin and aggressive SSI - ACHS accucheck - Will continue to monitor, 30 u in AM, 30 units PM on dc L arm swelling - US to evaluate for clot was negative 07/06/20 Symptomatic Anemia - Hx of KIMBERLY - Acute drop in hgb from 9.0 on 06/22 - Patient on Eliquis 2/2 hx of BLE clots - Consulted GI Dr. Morgan/Roberth, will hold on scope unless concern for more active bleeding - Colonoscopy Aug 2019 in [place] showing 3mm tubular adenoma, otherwise wnl - transfused 1u pRBC 07/03, 1u 07/04, 1u 07/08 - continue eliquis KAYDEN - Follows with Dr. Spencer - SCr 3.5 on admission, baseline ~2.8 - Dr. Spencer consulted - Albumin Q6h X4 doses on 07/04- - Monitor fluid status - Encourage PO intake, appreciate Dr. Spencer's recs - Ok for dc per Spencer Edema - Patient with significant history of PAD s/p bilateral angioplasty with hx of BLE clots - Appears to be significant chronic changes to skin and lower extremity with open sores - Consider Bilateral arterial US - Keep legs wrapped, elevated HTN - Home Medications, avoid nephrotoxic medications - Patient was off clonidine patch. Will continue current medications at this time. Monitor this AM. - On nifedipine 60 mg QD, if manual BP still high this am, increase to 90qd GERD - Pepcid BID GI ppx: Pepcid DVT ppx: Hold given concern for GI bleed Diet: HH, CC PCP: MIKAEL Stephens Dispo: Admit to tele inpatient LOS expected> 48 hrs. Prior agency no longer will provide services to patient and are recommending inpatient therapy. Will DC to SNF. Medically stable when placement occurs. Addendum - Attending - Attending Attestation Date/Time: 07/11/20 1713 I personally evaluated the patient and discussed the management with Dr. Snug I agree with the History, Examination, Assessment and Plan documented above with any addition or exceptions noted below. Has found placement but awaiting insurance approval. Stable and unchanged. No acute changes. Hesham
[2020-07-11] MEDS: guaiFENesin ER 600 MG TAB PO SCH ×2 (07:44→22:18)
[2020-07-11] MEDS: NIFEdipine XL 60 MG TAB PO SCH (07:44)
[2020-07-11] MEDS: Loratadine 10 MG TAB PO SCH (07:44)
[2020-07-11] MEDS: Ezetimibe 10 MG TAB PO SCH (07:44)
[2020-07-11] MEDS: Famotidine 20 MG TAB PO SCH (07:45)
[2020-07-11] MEDS: Calcitriol 0.25 MCG CAP PO SCH (07:45)
[2020-07-11] MEDS: Apixaban 2.5 MG TAB PO SCH ×2 (07:45→22:18)
[2020-07-11] MEDS: Carvedilol 25 MG TAB PO SCH ×2 (07:45→22:18)
[2020-07-11] MEDS: Citalopram 20 MG TAB PO SCH (07:45)
[2020-07-11] MEDS: Ferrous Sulfate 325 MG TAB PO SCH ×2 (07:45→17:12)
[2020-07-11] MEDS: Insulin Glargine 35 UNITS in Pre-Filled Syringe 1 EACH SC SCH (10:01)
[2020-07-11] MEDS: Mometasone 100 MCG/Formoterol 5 MCG 120 PUFF INHALER INH SCH (11:20)
[2020-07-11 15:34] VITALS: BMI 57.6
[2020-07-11] MEDS: Gabapentin 300 MG CAP PO SCH (17:12)
[2020-07-11] MEDS: Docusate 100 MG CAP PO PRN (18:14)
[2020-07-11] MEDS: Atorvastatin Calcium 40 MG TAB PO SCH (22:17)
[2020-07-11] MEDS: Oxybutynin ER 5 MG TAB PO SCH (22:18)
[2020-07-11] MEDS: Insulin Glargine 30 UNITS in Pre-Filled Syringe 1 EACH SC SCH (22:19)
[2020-07-11] MEDS: Amitriptyline HCl 100 MG TAB PO SCH (22:19)
[2020-07-11] MEDS: Nicotine 14 MG PATCH TD SCH (22:23)
--- NOTE | 2020-07-12 06:00 | PDOC.FM ---
- Subjective Subjective: Patient overall doing well today. Reports that she was feeling wheezy last night which led to 2LNC O2 being placed on patient. Patient feeling much better this AM, NC taken off. Denies SOB, CP, N/V. - Objective MAR Reviewed: Yes Vital Signs & Weight: Vital Signs (12 hours) Temp Pulse Resp BP Pulse Ox 07/12/20 04:40 97.9 F 66 18 136/62 94 L 07/11/20 19:45 98.4 F 62 20 140/68 97 Weight Admit Weight 154.221 kg Weight 157.85 kg I&O: 07/10/20 07/11/20 07/12/20 06:59 06:59 06:59 Intake Total 1450 1700 1750 Output Total 4000 2600 2050 Balance -2550 -900 -300 Result Diagrams: 07/12/20 06:38 07/12/20 14:29 Phys Exam - Physical Examination Constitutional: NAD Respiratory: no wheezing, no rales, no rhonchi, clear to auscultation bilateral Cardiovascular: RRR, no significant murmur, no rub Gastrointestinal: soft, non-tender, no distention, positive bowel sounds Chronic edema of BLE, 1+ edema of LUE Dx/Plan - Plan Plan: Hyperglycemia - Likely 2/2 dehydration given glucose >700 and KAYDEN - Continue home insulin and aggressive SSI - ACHS accucheck - Will continue to monitor, 35 u in AM, 30 units PM L arm swelling - US to evaluate for clot was negative 07/06/20 Symptomatic Anemia - Hx of KIMBERLY - Acute drop in hgb from 9.0 on 06/22 - Patient on Eliquis 2/2 hx of BLE clots - Consulted GI Dr. Morgan/Roberth, will hold on scope unless concern for more active bleeding - Colonoscopy Aug 2019 in [place] showing 3mm tubular adenoma, otherwise wnl - transfused 1u pRBC 07/03, 1u 07/04, 1u 07/08 - continue eliquis KAYDEN - Follows with Dr. Spencer - SCr 3.5 on admission, baseline ~2.8 - Dr. Spencer consulted - Albumin Q6h X4 doses on 07/04- - Monitor fluid status - Encourage PO intake, appreciate Dr. Spencer's recs - Ok for dc per Tj Edema - Patient with significant history of PAD s/p bilateral angioplasty with hx of BLE clots - Appears to be significant chronic changes to skin and lower extremity with open sores - Consider Bilateral arterial US - Keep legs wrapped, elevated HTN - Home Medications, avoid nephrotoxic medications - Patient was off clonidine patch. Will continue current medications at this time. Monitor this AM. - On nifedipine 60 mg QD, if manual BP still high this am, increase to 90qd GERD - Pepcid BID GI ppx: Pepcid DVT ppx: Home Eliquis Diet: HH, CC PCP: MIKAEL Stephens Dispo: Admit to tele inpatient LOS expected> 48 hrs. Prior HH agency no longer will provide services to patient and are recommending inpatient therapy. Will DC to SNF. Medically stable when placement occurs. Addendum - Attending - Attending Attestation Date/Time: 07/12/20 1698 I personally evaluated the patient and discussed the management with Dr. Sung I agree with the History, Examination, Assessment and Plan documented above with any addition or exceptions noted below. Insurance approved SNF. However potassium and Cr increased. Will start IVFs and Kayaxelate. Repeat BMP at 1500. Ok to d/c once improved. Will need to continue to trend labs out patient closely due to worsening CKD. Will need to follow up with Dr. Spencer next week or the following. Hesham
[2020-07-12 07:04] LABS: #Eosinphils 0.1 thou/uL (0.0-0.7); #Lymphocytes 0.9 thou/uL (1.20-3.40); #Monocytes 0.6 thou/uL (0.11-0.59); #Neutrophils 2.5 thou/uL (1.40-6.50); %Basophils 0.4 % (0.0-1.0); %Eosinophils 1.7 % (0.0-10.0); %Lymphocytes 21.6 % (21.0-51.0); %Monocytes 14.5 % (0.0-10.0); %Neutrophils 61.7 % (42.0-75.0); Hemoglobin 8.4 g/dL (12.0-16.0); Mean Corpuscular HGB CONC 30.9 g/dL (32.0-36.0); Mean Corpuscular Volume 90.7 fL (78.0-98.0); Mean Platelet Volume 7.1 fL (7.4-10.4); Platelet Count 357 thou/uL (130-400); RBC Distribution Width 15.3 % (11.5-14.5); White Blood Cell (WBC) Count 4.1 thou/uL (4.8-10.8)
[2020-07-12 07:26] LABS: Anion Gap 15 mmol/L (10-20); BUN (Urea Nitrogen) 41 mg/dL (9.8-20.1); Calc. Creatinine Clearance 40 mL/min (70-130); Calcium 8.5 mg/dL (7.8-10.44); Carbon Dioxide 22 mmol/L (23-31); Chloride 109 mmol/L (98-107); Glucose 167 mg/dL (80-115); Potassium 5.4 mmol/L (3.5-5.1); Sodium 141 mmol/L (136-145)
[2020-07-12] MEDS: Famotidine 20 MG TAB PO SCH (08:36)
[2020-07-12] MEDS: Insulin Glargine 35 UNITS in Pre-Filled Syringe 1 EACH SC SCH (08:36)
[2020-07-12] MEDS: NIFEdipine XL 60 MG TAB PO SCH (08:36)
[2020-07-12] MEDS: Calcitriol 0.25 MCG CAP PO SCH (08:37)
[2020-07-12] MEDS: Citalopram 20 MG TAB PO SCH (08:37)
[2020-07-12] MEDS: Ezetimibe 10 MG TAB PO SCH (08:37)
[2020-07-12] MEDS: Loratadine 10 MG TAB PO SCH (08:37)
[2020-07-12] MEDS: Ferrous Sulfate 325 MG TAB PO SCH ×2 (08:37→16:52)
[2020-07-12] MEDS: Apixaban 2.5 MG TAB PO SCH ×2 (08:37→21:01)
[2020-07-12] MEDS: guaiFENesin ER 600 MG TAB PO SCH ×2 (08:37→21:01)
[2020-07-12] MEDS: Carvedilol 25 MG TAB PO SCH ×2 (08:37→21:01)
[2020-07-12] MEDS ORDERED: Polyethylene Glycol 3350 17 GM Packet PO SCH (10:00)
[2020-07-12] MEDS: Mometasone 100 MCG/Formoterol 5 MCG 120 PUFF INHALER INH SCH (10:05)
[2020-07-12] MEDS ORDERED: Lactated Ringer's 1,000 ML IV SCH (10:15)
[2020-07-12 15:18] LABS: Anion Gap 17 mmol/L (10-20); BUN (Urea Nitrogen) 39 mg/dL (9.8-20.1); Calc. Creatinine Clearance 41 mL/min (70-130); Calcium 8.4 mg/dL (7.8-10.44); Carbon Dioxide 22 mmol/L (23-31); Chloride 108 mmol/L (98-107); Glucose 198 mg/dL (80-115); Potassium 4.8 mmol/L (3.5-5.1); Sodium 142 mmol/L (136-145)
[2020-07-12] MEDS: Gabapentin 300 MG CAP PO SCH (16:52)
[2020-07-12] MEDS: Nicotine 14 MG PATCH TD SCH (20:58)
[2020-07-12] MEDS: Atorvastatin Calcium 40 MG TAB PO SCH (21:00)
[2020-07-12] MEDS: Oxybutynin ER 5 MG TAB PO SCH (21:00)
[2020-07-12] MEDS: Docusate 100 MG CAP PO SCH (21:01)
[2020-07-12] MEDS: Amitriptyline HCl 100 MG TAB PO SCH (21:01)
[2020-07-12] MEDS: Insulin Glargine 30 UNITS in Pre-Filled Syringe 1 EACH SC SCH (21:02)
[2020-07-13 05:23] LABS: Hemoglobin 8.4 g/dL (12.0-16.0); Mean Corpuscular HGB CONC 31.1 g/dL (32.0-36.0); Mean Corpuscular Hemoglobin 28.5 pg (27.0-31.0); Mean Corpuscular Volume 91.8 fL (78.0-98.0); Platelet Count 367 thou/uL (130-400); RBC Distribution Width 15.3 % (11.5-14.5); Red Blood Cell (RBC) Count 2.94 mill/uL (4.20-5.40); White Blood Cell (WBC) Count 4.4 thou/uL (4.8-10.8)
[2020-07-13 05:45] LABS: Anion Gap 15 mmol/L (10-20); BUN (Urea Nitrogen) 40 mg/dL (9.8-20.1); Calc. Creatinine Clearance 42 mL/min (70-130); Calcium 8.5 mg/dL (7.8-10.44); Carbon Dioxide 24 mmol/L (23-31); Chloride 107 mmol/L (98-107); Glucose 194 mg/dL (80-115); Potassium 4.8 mmol/L (3.5-5.1); Sodium 141 mmol/L (136-145)
--- NOTE | 2020-07-13 05:45 | PDOC.FM ---
- Subjective Subjective: Patient doing well this AM. Reports improved respiratory status, denies CP and N/V. Ready to leave the hospital. - Objective MAR Reviewed: Yes Vital Signs & Weight: Vital Signs (12 hours) Temp Pulse Resp BP Pulse Ox 07/13/20 05:28 148/78 H 07/13/20 04:00 98.4 F 66 18 175/70 H 99 07/13/20 01:49 94 L 07/12/20 20:20 98.9 F 87 18 148/62 H 94 L 07/12/20 20:00 94 L Weight Admit Weight 154.221 kg Weight 157.85 kg I&O: 07/11/20 07/12/20 07/13/20 06:59 06:59 06:59 Intake Total 1700 1750 1600 Output Total 2600 2050 Balance -900 -300 1600 Result Diagrams: 07/13/20 04:12 07/13/20 04:12 Phys Exam - Physical Examination Constitutional: NAD Respiratory: no wheezing, no rales, no rhonchi Cardiovascular: RRR, no significant murmur, no rub Gastrointestinal: soft, non-tender, no distention, positive bowel sounds Chronic BLE edema, stable nonpitting edema in LUE Dx/Plan - Plan Plan: Hyperglycemia - Likely 2/2 dehydration given glucose >700 and KAYDEN - Continue home insulin and aggressive SSI - ACHS accucheck - Will continue to monitor, 35 u in AM, 30 units PM L arm swelling - US to evaluate for clot was negative 07/06/20 Symptomatic Anemia - Hx of KIMBERLY - Acute drop in hgb from 9.0 on 06/22 - Patient on Eliquis 2/2 hx of BLE clots - Consulted GI Dr. Morgan/Roberth, will hold on scope unless concern for more active bleeding - Colonoscopy Aug 2019 in [place] showing 3mm tubular adenoma, otherwise wnl - transfused 1u pRBC 07/03, 1u 07/04, 1u 07/08 - continue eliquis KAYDEN - Follows with Dr. Spencer - SCr 3.5 on admission, baseline ~2.8 - Dr. Spencer consulted - Albumin Q6h X4 doses on 07/04- - Monitor fluid status - Encourage PO intake, appreciate Dr. Spencer's recs - Ok for dc per Spencer Edema - Patient with significant history of PAD s/p bilateral angioplasty with hx of BLE clots - Appears to be significant chronic changes to skin and lower extremity with open sores - Consider Bilateral arterial US - Keep legs wrapped, elevated HTN - Home Medications, avoid nephrotoxic medications - Patient was off clonidine patch. Will continue current medications at this time. Monitor this AM. - On nifedipine 60 mg QD, if manual BP still high this am, increase to 90qd GERD - Pepcid BID GI ppx: Pepcid DVT ppx: Home Eliquis Diet: HH, CC PCP: MIKAEL Stephens Dispo: DC today to [facility] Addendum - Attending - Attending Attestation Date/Time: 07/13/20 5697 I personally evaluated the patient and discussed the management with Dr. Sung I agree with the History, Examination, Assessment and Plan documented above with any addition or exceptions noted below. Approved for placement. Ok to dc. Electrolytes stable. Hesham
[2020-07-13] MEDS: Mometasone 100 MCG/Formoterol 5 MCG 120 PUFF INHALER INH SCH (07:59)
[2020-07-13] MEDS: guaiFENesin ER 600 MG TAB PO SCH (08:56)
[2020-07-13] MEDS: Loratadine 10 MG TAB PO SCH (08:57)
[2020-07-13] MEDS: Apixaban 2.5 MG TAB PO SCH (08:57)
[2020-07-13] MEDS: Famotidine 20 MG TAB PO SCH (08:57)
[2020-07-13] MEDS: NIFEdipine XL 60 MG TAB PO SCH (08:58)
[2020-07-13] MEDS: Calcitriol 0.25 MCG CAP PO SCH (08:58)
[2020-07-13] MEDS: Ezetimibe 10 MG TAB PO SCH (08:58)
[2020-07-13] MEDS: Docusate 100 MG CAP PO SCH (08:58)
[2020-07-13] MEDS: Ferrous Sulfate 325 MG TAB PO SCH (08:58)
[2020-07-13] MEDS: Carvedilol 25 MG TAB PO SCH (08:58)
[2020-07-13] MEDS: Citalopram 20 MG TAB PO SCH (08:58)
[2020-07-13] MEDS: Insulin Glargine 35 UNITS in Pre-Filled Syringe 1 EACH SC SCH (08:59)
[2020-07-13] MEDS ORDERED: Polyethylene Glycol 3350 17 GM Packet PO SCH (09:00)
[2020-07-13 13:54] VITALS: BP 138/58; TEMP 98.4
--- NOTE | 2020-07-14 07:32 | DIS ---
DATE OF ADMISSION: 07/03/2020 DATE OF DISCHARGE: 07/13/2020 RESIDENT: Cody Sung MD ADMITTING ATTENDING: Andrea Spicer MD DISCHARGE ATTENDING: Jeannie Gutierrez MD CONSULTS: 1. Nephrology, Dr. Spencer on 07/04/2020. 2. Gastroenterology, Dr. Morgan on 07/03/2020. PROCEDURES: The patient had an ultrasound of left upper extremity for concern of DVT due to swelling. Ultrasound was negative for DVT. The patient had chest x- ray on admission showing cardiomegaly and vascular congestion. PRIMARY DIAGNOSIS: Symptomatic anemia. SECONDARY DIAGNOSES: Hyperglycemia, acute renal injury, edema, hypertension, gastroesophageal reflux disease. DISCHARGE MEDICATIONS: 1. Albuterol 1 puff inhaler q.4 hours p.r.n. 2. Vitamin D2 of 50,000 units p.o. q.7 days. 3. Advair to inhale 2 puffs b.i.d. 4. Atorvastatin 80 mg p.o. at bedtime. 5. Celexa 40 mg p.o. daily. 6. Cimetidine 200 mg p.o. daily. 7. Aspirin 81 mg p.o. daily. 8. Amitriptyline 100 mg p.o. at bedtime. 9. Gabapentin 600 mg p.o. b.i.d. 10. Oxybutynin 5 mg p.o. at bedtime. 11. Calcitriol 0.25 mcg p.o. daily. 12. Zetia 10 mg p.o. daily. 13. Clonidine patch 0.3 mg transdermal q.7 days. 14. Benadryl 25 mg p.o. q.4 hours p.r.n. 15. Coreg 25 mg p.o. b.i.d. 16. Eliquis 2.5 mg p.o. b.i.d. 17. Ferrous sulfate 325 mg p.o. b.i.d. 18. Lantus 35 units subcutaneously q.a.m. 19. Lantus 30 units subcutaneously at bedtime. 20. Lasix 20 mg p.o. p.r.n. for edema. 21. MiraLAX 17 g packet p.o. daily p.r.n. 22. Pepcid 20 mg tablet p.o. daily p.r.n. 23. Nifedipine 60 mg p.o. daily. 24. Erythropoietin 7500 units subcutaneously q.7 days. DISCONTINUED MEDICATIONS: Amlodipine 10 mg discontinued, substituted for nifedipine 60 mg daily. HISTORY OF PRESENT ILLNESS/HOSPITAL COURSE: The patient is a 70-year-old female with complaints of increasing fluid in her legs over the past 2 weeks with intermittent dyspnea. The patient reports that her diet has changed over the holidays and her blood sugars had been running in the 500s for the past 2 weeks. She has been using all medications and insulin as directed per report. Labs on admission were significant for a glucose of 722 with no anion gap. Glucose was controlled with aggressive sliding scale. Nephrology, Dr. Spencer was consulted due to acute kidney injury with serum creatinine 3.5 on admission. Admission labs were also significant for a hemoglobin of 6.1. The patient received 2 units of packed red blood cells and GI was consulted due to concern for GI bleed. The patient's hemoglobin stabilized through hospital stay and GI did not scope the patient. Acute kidney injury mildly improved with fluid resuscitation and one more unit of packed red blood cells per Dr. Spencer. The patient also received albumin infusion for [address] Spencer were to continue to monitor in the clinic for the next couple of months to see how kidney function progresses. Since that point, the patient was stable, however, was in the hospital due to placement issues. The patient was agreeable to [facility] facility for increased rehabilitation. The patient was accepted by the [facility] in [place]. DISPOSITION: Stable. DISCHARGE INSTRUCTIONS: 1. Location: [facility] at [place]. 2. Diet: Diabetic diet. 3. Activity as tolerated, physical therapy and occupational therapy advice. 4. The patient should follow up with PCP, Dr. Stephens, in 2 weeks; and home decorator, Dr. Spencer, within 4 weeks. Job ID: [id number] [facility]
--- NOTE | 2020-07-16 06:13 | PQF ---
CLINICAL DOCUMENTATION CLARIFICATION FORM: Dear : Jeannie Gutierrez Date / Time: 07/16/20 06:13 Please exercise your independent, professional judgment in responding to the clarification form. Clinical indicators are provided on the bottom of this form for your review Please check appropriate box(es) to clarify if the following diagnosis has been ruled in our ruled out: Hyperglycemia hyperosmolar nonketotic state [ ] Ruled in diagnosis [ ] Continue to treat [ ] Resolved [ ] Ruled out diagnosis [ ] Improving [ x ] Cannot rule out diagnosis [ ] Other diagnosis, please specify [ ] Unable to determine Physician Signature: Date/Time: For continuity of documentation, please document condition throughout progress notes and discharge summary. Thank You. To be completed by CDI/Coding staff for physician review: Present Clinical Indicators - Signs / Symptoms / Labs Results and Location in Medical Record [x] Concern for hyperglycemia hyperosmolar nonketotic state HP 07/03 [x] Hyperglucemia likely 2/2 dehydration given glucose >700 and KAYDEN HP 07/03 [x] CC: Edema HP 07/03 [x] Ketones negative HP 07/03 [x] HHS vs hyperglycemia in the setting of DM HP 07/03 [x] Metabolic acidosis HP 07/03 [x] Glucose: 07/0395=520,664 07/0531=355 Laboratory 07/03 Present Risk Factors Results and Location in Medical Record [x] 69 years old female ED Notes 07/03 [x] DM ED Notes 07/03 [x] Smoker ED Notes 07/03 [x] KAYDEN and CKD ED Notes 07/03 [x] Morbid Obesity ED Notes 07/03 Present Treatments Results and Location in Medical Record [x] Insulin 300units subcu SEP 14 [x] IVF SEP 14 [x] Glucagon 1mg IM SEP 14 CDS/Orthotics Prosthetics Technician Signature: Luz Marina Stevensbasil Tucker Phone #: [phone] Date/Time: 07/16/20 This is a permanent part of the Medical Record [facility]
== END 2020-07-13 14:45 | DRG 682 ==
LOC: ERS 09:34 → 2NO 11:29
PROVIDERS: ADMIT Student in an Organized Health Care Education/Training Program; ATTEND Student in an Organized Health Care Education/Training Program
PROC: 30233N1 Transfusion of Nonautologous Red Blood Cells into Peripheral Vein, Percutaneous Approach (ICD-10-PCS; principal; 2020-07-03)
DX: N17.9 Acute kidney failure, unspecified (principal); E11.00 Type 2 diabetes mellitus with hyperosmolarity without nonketotic hyperglycemic-hyperosmolar coma (NKHHC); E87.2 Acidosis; I50.32 Chronic diastolic (congestive) heart failure; Z68.43 Body mass index [BMI] 50.0-59.9, adult; E11.22 Type 2 diabetes mellitus with diabetic chronic kidney disease; Z20.822 Contact with and (suspected) exposure to COVID-19; E11.65 Type 2 diabetes mellitus with hyperglycemia; E11.42 Type 2 diabetes mellitus with diabetic polyneuropathy; E78.5 Hyperlipidemia, unspecified; J44.9 Chronic obstructive pulmonary disease, unspecified; K21.9 Gastro-esophageal reflux disease without esophagitis; D50.9 Iron deficiency anemia, unspecified; D63.1 Anemia in chronic kidney disease; F32.9 Major depressive disorder, single episode, unspecified; F17.210 Nicotine dependence, cigarettes, uncomplicated; E66.01 Morbid (severe) obesity due to excess calories; N18.9 Chronic kidney disease, unspecified; I11.0 Hypertensive heart disease with heart failure; N25.81 Secondary hyperparathyroidism of renal origin; R22.32 Localized swelling, mass and lump, left upper limb; G47.33 Obstructive sleep apnea (adult) (pediatric); E86.0 Dehydration; Z86.718 Personal history of other venous thrombosis and embolism; Z89.421 Acquired absence of other right toe(s); Z79.899 Other long term (current) drug therapy; Z79.84 Long term (current) use of oral hypoglycemic drugs; Z79.82 Long term (current) use of aspirin; Z79.51 Long term (current) use of inhaled steroids
CPT/HCPCS: 36415; 36416; 36430; 71045; 80048; 80053; 81001; 82010; 82550; 83690; 83880; 84484; 85025; 85027; 86850; 86900; 86901; 87086; 87635; 93005; 96374; 96375; C9113; J1815; J1940; P9016; P9047; Q0163; Q5105; U0003

== ENCOUNTER 2020-07-17 08:03 | Inpatient (IN) | payer MEDICARE, MEDICAID, OTHER ==
--- NOTE | 2020-07-17 08:59 | RAD ---
PORTABLE CHEST: HISTORY: Shortness of breath. New onset edema. COMPARISON: 07/03/2020 exam. FINDINGS: Heart size is enlarged. Pulmonary vessels appear engorged. Slight prominence to the right infrahila r region is present with somewhat asymmetric changes in the right base, although this is probably len rly similar to the previous exam given the differences in technique. I think some of this density is overlying the soft tissue. IMPRESSION: Cardiomegaly with some pulmonary vascular engorgement. Increased density in the right lung base coul d indicate some early infiltrative process. This may just be related to overlying soft tissue. POS: BRAYAN
[2020-07-17 09:10] LABS: Hemoglobin 8.8 g/dL (12.0-16.0); Mean Corpuscular HGB CONC 31.2 g/dL (32.0-36.0); Mean Corpuscular Hemoglobin 28.6 pg (27.0-31.0); Mean Corpuscular Volume 91.8 fL (78.0-98.0); Mean Platelet Volume 7.9 fL (7.4-10.4); Platelet Count 223 thou/uL (130-400); RBC Distribution Width 15.5 % (11.5-14.5); Red Blood Cell (RBC) Count 3.09 mill/uL (4.20-5.40); White Blood Cell (WBC) Count 5.5 thou/uL (4.8-10.8)
[2020-07-17 09:27] LABS: Band 3 % (5-11); Eosinophils 2 % (0-10); Hypochromia SLIGHT = 6-15 cells (100X) (0-5/hpf); Lymphocytes 22 % (21-51); MDiff Complete? YES; Monocytes 7 % (0-10); Neutrophil 66 % (42-75); Platelet Morphology Comment Appears Adequate; Polychromasia SLIGHT = 2-3 cells (100X) (0-2/hpf)
[2020-07-17 09:30] LABS: ALT (SGPT) 13 U/L (8-55); AST (SGOT) 17 U/L (5-34); Albumin 3.3 g/dL (3.4-4.8); Alkaline Phosphatase 104 U/L (40-110); Anion Gap 16 mmol/L (10-20); BUN (Urea Nitrogen) 35 mg/dL (9.8-20.1); Bilirubin, Total 0.3 mg/dL (0.2-1.2); Calc. Creatinine Clearance 0 mL/min (70-130); Calcium 8.9 mg/dL (7.8-10.44); Carbon Dioxide 24 mmol/L (23-31); Chloride 111 mmol/L (98-107); Globulin 3.7 g/dL (2.4-3.5); Glucose 106 mg/dL (80-115); Magnesium 2.1 mg/dL (1.6-2.6); Potassium 5.2 mmol/L (3.5-5.1); Sodium 146 mmol/L (136-145)
[2020-07-17] MEDS ORDERED: Furosemide 40 MG/4 ML VIAL ONE (10:26)
[2020-07-17] MEDS ORDERED: Senokot S 8.6-50 MG TAB PO PRN (11:09)
[2020-07-17] MEDS ORDERED: Ondansetron PF 4 MG/2 ML Vial IVP PRN (11:09)
[2020-07-17] MEDS ORDERED: Ondansetron ODT 4 MG TAB PO PRN (11:09)
[2020-07-17] MEDS ORDERED: Dextrose 50% Abboject 50 ML SYRINGE SLOW IVP PRN (11:09)
--- NOTE | 2020-07-17 11:16 | PDOC.FPRHP ---
- History of Present Illness Chief Complaint: Swelling History of Present Illness: Patient is a 70 year old female with history of ESRD not on dialysis, DM2, HTN, HLD, COPD and PVD who presents to the ED from [facility] with complains of left sided facial edema, left arm edema and left leg edema. Patient reports edema was present upon waking this am. Notes sleeping on left side overnight. She denies vision changes, eye pain, facial pain, difficulty speaking, difficulty swallowing, SOB and wheezing. Is SOB with movement at baseline but denies worsening of symptom. Was recently hospitalized from 07/03/20-07/13/20 for s ymptomatic anemia, HHS and KAYDEN. Dr. Spencer was consulted during hospitalization. Discharged home with Lasix 20mg PO PRN for edema. Has not received a dose at [facility] since arrival to facility per their nursing staff. ED Course: In the ED, patient was 99-100% on RA. Given 40mg IV Lasix. Urine output noted. - Allergies/Adverse Reactions Allergies Allergy/AdvReac Type Severity Reaction Status Date / Time hydralazine Allergy Verified 05/20/20 00:40 pregabalin Allergy Verified 05/20/20 00:40 - Home Medications Medication Instructions Recorded Confirmed Type Acetaminophen With Codeine 1 tablet PO DAILY PRN 09/22/18 07/03/20 History [Tylenol with Codeine #3] Albuterol Sulfate [Proair HFA] 1 puff INH Q4HR PRN 09/22/18 07/03/20 History Atorvastatin Calcium 80 mg PO HS 09/22/18 07/03/20 History Citalopram Hydrobromide [CeleXA] 40 mg PO DAILY 09/22/18 07/03/20 History Fluticasone/Salmeterol [Advair HFA 2 inh IH DAILY 09/22/18 07/03/20 History 45/21 Inhaler] Gabapentin 600 mg PO BID 09/22/18 07/03/20 History Ergocalciferol (Vitamin D2) 50,000 unit PO Q7DAYS 10/25/18 07/03/20 History [Vitamin D2] Amitriptyline HCl [Elavil] 100 mg PO HS 04/19/20 07/03/20 History Calcitriol [Rocaltrol] 0.25 mcg PO DAILY 04/19/20 07/03/20 History Cimetidine 200 mg PO DAILY 04/19/20 07/03/20 History Ezetimibe [Zetia] 10 mg PO DAILY 04/19/20 07/03/20 History Oxybutynin Chloride [Oxybutynin 5 mg PO HS 04/19/20 07/03/20 History Chloride ER] Aspirin [Ecotrin Low Strength] 81 mg PO DAILY 05/16/20 07/03/20 History Apixaban [Eliquis] 2.5 mg PO BID #60 tab 05/23/20 07/03/20 Rx Carvedilol [Coreg] 25 mg PO BID #60 tab 05/23/20 07/03/20 Rx Epoetin Donald-Epbx [Retacrit] 7,500 unit SC Q7D vial 05/23/20 07/03/20 Rx Famotidine [Pepcid] 20 mg PO DAILYPRN PRN tab 05/23/20 07/03/20 Rx Ferrous Sulfate [Feosol] 325 mg PO BID-WM tab 05/23/20 07/03/20 Rx Nicotine [Nicoderm CQ] 14 mg TD Q24HR patch 05/23/20 07/03/20 Rx diphenhydrAMINE [Benadryl] 25 mg PO Q4H PRN cap 05/25/20 07/03/20 Rx cloNIDine [Maozksus-GOL-0 Patch] 0.3 mg TD Q7DAYS patch 05/28/20 07/03/20 Rx Furosemide [Lasix] 20 mg PO PRN PRN #30 tab 07/12/20 07/03/20 Rx Insulin Glargine [Lantus Vial] 30 units SC HS vial 07/12/20 Rx Insulin Glargine [Lantus Vial] 35 units SC QAM vial 07/12/20 Rx Polyethylene Glycol 3350 [Miralax] 17 gm PO DAILY pk 07/12/20 Rx NIFEdipine [Nifedipine ER] 60 mg PO DAILY 30 Days #30 07/13/20 Rx tablet.er - History PMHx: ESRD, DM2, HTN, HLD, COPD, peripheral neuropathy, GERD, incontinence, iron deficiency anemia, depression, insomnia, PVD, chronic pain, chronic lower extremities ulcers, overactive bladder, cognitive impairment, morbid obesity PSHx: L leg ulcer, R heel, R big toe amputation, bilateral angioplasty in LE FHx: "Heart problems" Social: smoked 1/2 ppd x 25 yrs, denies alcohol, drug use - Review of Systems General: denies: fever/chills, fatigue Eyes: denies: eye pain, vision changes ENT: denies: nasal congestion, rhinorrhea Respiratory: reports: shortness of breath (with movement). denies: cough, congestion Cardiovascular: reports: edema. denies: chest pain, palpitation Gastrointestinal: denies: nausea, vomiting, diarrhea, constipation, abdominal pain Genitourinary: denies: dysuria, polyuria Skin: reports: other (chronic lower extremity ulcers) Musculoskeletal: denies: pain, tenderness Neurological: reports: weakness (chronic, unchanged from baseline). denies: syncope Psychological: reports: other (Sad over having to be admitted to the hospital). denies: anxiety, depression - Vital signs BP: 137/62, HR 65, RR 22, Temp 98F, O2 sat 100% on RA, 162kg - Physical Exam Constitutional: NAD, awake, alert and oriented -Constitutional: Morbidly obese, tearful when hearing about need to admit HEENT: normocephalic and atraumatic, PERRLA, EOMI, conjunctiva clear, grossly normal vision, grossly normal hearing, MMM -HEENT: No pain ellicited with light, periorbital edema present bilaterally, mallampati score IV Neck: supple, trachea midline Chest: no-tender to palpation Heart: RRR, normal S1/S2 -Heart: 2+ pitting edema on left upper extremity, 1+ pitting edema on right upper extremity, 2+ pitting edema lower extremities bilaterally Difficult to auscultate due to body habitus Lungs: CTAB, no respiratory distress -Lungs: Difficult to auscultate due to body habitus Abdomen: soft, non-tender, bowel sounds present Musculoskeletal: ROM grossly normal Neurological: no focal deficit -Neurological: Speech at baseline. A&Ox4 -Skin: Stage II pressure ulcer on right heel, chronic Right 1st digit amputation Skin breakdown on left busch with weeping Heme/Lymphatic: no unusual bruising or bleeding Psychiatric: normal mood and affect FMR H&P: Results - Labs Result Diagrams: 07/17/20 08:53 07/17/20 08:54 Lab results: WBC 5.5 thou/uL (4.8-10.8) 07/17/20 08:53 Hgb 8.8 g/dL (12.0-16.0) L 07/17/20 08:53 Hct 28.3 % (36.0-47.0) L 07/17/20 08:53 MCV 91.8 fL (78.0-98.0) 07/17/20 08:53 Plt Count 223 thou/uL (130-400) 07/17/20 08:53 Band Neuts % (Manual) 3 % (5-11) L 07/17/20 08:53 Sodium 146 mmol/L (136-145) H 07/17/20 08:54 Potassium 5.2 mmol/L (3.5-5.1) H 07/17/20 08:54 Chloride 111 mmol/L (98-107) H 07/17/20 08:54 Carbon Dioxide 24 mmol/L (23-31) 07/17/20 08:54 BUN 35 mg/dL (9.8-20.1) H 07/17/20 08:54 Creatinine 3.49 mg/dL (0.6-1.1) H 07/17/20 08:54 Glucose 106 mg/dL (80-115) 07/17/20 08:54 Calcium 8.9 mg/dL (7.8-10.44) 07/17/20 08:54 Total Bilirubin 0.3 mg/dL (0.2-1.2) 07/17/20 08:54 AST 17 U/L (5-34) 07/17/20 08:54 ALT 13 U/L (8-55) 07/17/20 08:54 Alkaline Phosphatase 104 U/L (40-110) 07/17/20 08:54 Serum Total Protein 7.0 g/dL (6.0-8.3) 07/17/20 08:54 Albumin 3.3 g/dL (3.4-4.8) L 07/17/20 08:54 - EKG Interpretation EKG: HR 63, NSR - Radiology Interpretation Chest x-ray Status: image reviewed by me, report reviewed by me Additional comment: cardiomegaly, pulmonary vascular engorgement, increase density in right lung base FMR H&P: A/P - Plan Patient is a 70F with PMHx of DM2, HTN, HLD, COPD, ESRD presenting with left sided facial, arm and leg edema Left sided edema likely 2/2 chronic anasarca Longstanding history, acutely worsened this am. Likely due to laying on left side overnight. Has not received Lasix at facility since d/c from hospital on 07/13. S/p Lasix 40mg IV in ED. -Admit to tele obs -Dr. Spencer consulted. Recommended 40mg IV lasix BID and albumin infusion 25g Q6H -Serial exams to monitor edema -CBC, CMP, mag, TSH in am -Echo to evaluate possible cardiorenal contribution. Has not been formally diagnosed but hx of elevated BNP ESRD Creatinine in ED 3.48. Baseline fluctuates 2-3. Dr. Spencer is reservoir engineering advisor -Management per above Hyperkalemia 2/2 ESRD K 5.2 in ED. No EKG changes present -Monitor with am lab. Will likely improve with IV lasix Chronic lower extremity ulcers 2/2 PVD -Wound care consulted -Continue home eliquis DM2 -continue home meds -ISS -ACHS accuchecks COPD Tobacco abuse -Nicotine patch -Continue home inhalers -Duoneb Q4H PRN HTN -continue home meds HLD -continue home meds Peripheral neuropathy -continue home meds GERD -continue home meds Anemia, iron deficiency + chronic disease Previous workup demonstrated likely mix of anemia of chronic disease and iron d eficiency anemia -continue home iron Depression Insomnia -continue home meds Cognitive impairment MOCA at [facility] was -Scheduled to see neurology outpatient for further workup Overactive bladder -Continue home meds Morbid obesity -Aware Chronic pain -Continue home meds Code: FULL Diet: CC, HH DVT ppx: home eliquis PCP: MIKAEL Stephens Dispo: admitted to telemetry obs, expected LOS < 48 hours FMR H&P: Upper Level - Plan Date/Time: 07/17/20 1116 I, [Cherry Spencer], have evaluated this patient and agree with findings/plan as outlined by internal control analyst resident. Pertinent changes/additions are listed here. 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 It started yesterday. She is SOB at baseline but denies any worsening of this. Patient is not a great historian but she states she feels about the same. She hasn't tried any new foods or applied any new topical medications on her face. Denies wheezing or lightheadedness. We were called to the ER to evaluate her for possible d/c back to shelter since she was protecting her airway. With record review she had been getting lasix PRN for LE swelling but hadn't gotten any in her 3 days at the SNF. Her renal function has been tenuous and her Practice Support Specialist, Dr. Spencer, has been following her outpatient. In the ER she was mildly hyperkalemic at 5.2 with no EKG changes. Her Cr is ~3.48 which is around her baseline, she was given 40mg IV lasix. CXR w ith some pulmonary vascular congestion but patient is not requiring any supplemental O2. She has left facial & periorbital swelling and LUE swelling. No conjunctival injection or signs of infection. After discussion with her reservoir engineering advisor, we will continue IV diuresing her with albumin infusion with clinical monitoring. Suspected anasarca from her favoring her left sided in light of her poor renal function however if patient doesn't improve with IV lasix then consider steroids & antihistamine. Airway stable currently. Admit to tele/obs. F/u nephro recs. Will obtain TTE to assess for cardiorenal component. Abx: None Dvt ppx: home eliquis Code: Full Fluids: SL Discussed with Dr. Spicer Addendum - Attending - Attending Attestation Date/Time: 07/17/20 5632 I personally evaluated the patient and discussed the management with Dr. Erwin lindsay/Tj. I agree with the History, Examination, Assessment and Plan documented above with any addition or exceptions noted below. Patient here with recent discharge due to CKD stage four as well as volume overload. She currently appears volume overloaded once again. Creatinine is verging on ESRD. Patient will be admitted for diuresis and volume reduction, nephrology has been consulted. She may be headed for dialysis. Will obtain echo. Albumin per Nephrology. Will need placement again once stable for discharge.
[2020-07-17] MEDS ORDERED: Famotidine 20 MG TAB PO PRN (11:35)
[2020-07-17 12:52] LABS: SARS-CoV-2 NAA Rapid Test Not Detected (NotDetected)
[2020-07-17] MEDS ORDERED: Albuterol Sulfate 1.25 MG/3 ML NEB INH PRN (13:13)
[2020-07-17] MEDS ORDERED: EPOETIN ALFA-EPBX (ESRD) 4,000 UNIT/ML VIAL SC SCH (13:15)
[2020-07-17] MEDS: Albumin 25% 25 GM/100 ML BOT IVPB SCH ×3 (15:10→21:11)
[2020-07-17] MEDS: Nicotine 14 MG PATCH TD SCH (15:10)
[2020-07-17] MEDS ORDERED: Furosemide 40 MG/4 ML VIAL SLOW IVP SCH (17:00)
[2020-07-17] MEDS: Ferrous Sulfate 325 MG TAB PO SCH (18:19)
[2020-07-17] MEDS: Mometasone 100 MCG/Formoterol 5 MCG 120 PUFF INHALER INH SCH (18:59)
[2020-07-17] MEDS ORDERED: Epoetin (ESRD) 20,000 UNITS/ML SC SCH (20:30)
[2020-07-17] MEDS: Gabapentin 300 MG CAP PO SCH (21:11)
[2020-07-17] MEDS: Oxybutynin ER 5 MG TAB PO SCH (21:14)
[2020-07-17] MEDS: Atorvastatin Calcium 40 MG TAB PO SCH (21:14)
[2020-07-17] MEDS: Amitriptyline HCl 100 MG TAB PO SCH (21:15)
[2020-07-17] MEDS: Carvedilol 25 MG TAB PO SCH (21:15)
[2020-07-17] MEDS: Apixaban 2.5 MG TAB PO SCH (21:15)
[2020-07-17] MEDS: Insulin Glargine 30 UNITS in Pre-Filled Syringe 1 EACH SC SCH (21:16)
[2020-07-17] MEDS: Acetaminophen/Codeine 30-300mg Tablet PO PRN (21:20)
[2020-07-17] MEDS: EPOETIN ALFA-EPBX (ESRD) 4,000 UNIT/ML VIAL SC SCH (21:31)
[2020-07-18] MEDS: Albumin 25% 25 GM/100 ML BOT IVPB SCH ×3 (03:55→15:28)
[2020-07-18 05:42] LABS: #Eosinphils 0.1 thou/uL (0.0-0.7); %Eosinophils 1.9 % (0.0-10.0); White Blood Cell (WBC) Count 4.2 thou/uL (4.8-10.8)
[2020-07-18 05:44] LABS: ALT (SGPT) 11 U/L (8-55); AST (SGOT) 14 U/L (5-34); Albumin 3.5 g/dL (3.4-4.8); Alkaline Phosphatase 83 U/L (40-110); Anion Gap 16 mmol/L (10-20); BUN (Urea Nitrogen) 36 mg/dL (9.8-20.1); Bilirubin, Total 0.3 mg/dL (0.2-1.2); Calc. Creatinine Clearance 42 mL/min (70-130); Carbon Dioxide 22 mmol/L (23-31); Chloride 111 mmol/L (98-107); Globulin 3.1 g/dL (2.4-3.5); Glucose 110 mg/dL (80-115); Magnesium 2.1 mg/dL (1.6-2.6); Potassium 4.9 mmol/L (3.5-5.1); Protein, Total 6.6 g/dL (6.0-8.3); Sodium 144 mmol/L (136-145)
[2020-07-18] MEDS: Furosemide 40 MG/4 ML VIAL SLOW IVP SCH ×2 (06:24→15:28)
--- NOTE | 2020-07-18 06:43 | PDOC.FM ---
- Subjective Subjective: Reports improvement of her left sided facial, arm and leg swelling. Denies headache, vision changes, chest pain, palpitations, SOB, abdominal pain and edema. - Objective MAR Reviewed: Yes Vital Signs & Weight: Vital Signs (12 hours) Temp Pulse Resp BP Pulse Ox 07/18/20 04:00 98.5 F 68 20 166/75 H 96 07/18/20 00:55 95 07/17/20 23:31 77 179/77 H 07/17/20 21:10 98.8 F 85 20 201/85 H 97 07/17/20 19:00 94 L 07/17/20 18:59 15 94 L Weight Weight 157.652 kg I&O: 07/16/20 07/17/20 07/18/20 06:59 06:59 06:59 Intake Total 500 Output Total 1600 Balance -1100 Result Diagrams: 07/18/20 08:34 07/18/20 04:17 Phys Exam - Physical Examination Constitutional: NAD Morbidly obese HEENT: sclera anicteric Neck: full ROM Respiratory: clear to auscultation bilateral Poor air movement, limited due to body habitus Cardiovascular: RRR, no significant murmur Limited due to body habitus Gastrointestinal: soft, non-tender, positive bowel sounds Musculoskeletal: edema present (significant improvement of periorbital edema, 1+ pitting edema of left arm, 1+ pitting edema LE bilaterally) Neurological: moves all 4 limbs Psychiatric: normal affect, A&O x 3 Deviation from normal: Stage II pressure ulcer on right heel -: Chronic skin changes bilaterally with skin breakdown Dx/Plan - Plan Plan: Patient is a 70F with PMHx of DM2, HTN, HLD, COPD, ESRD presenting with left sided facial, arm and leg edema Left sided edema likely 2/2 chronic anasarca Longstanding history, acutely worsened this am. Likely due to laying on left side overnight. Has not received Lasix at facility since d/c from hospital on 07/13. S/p Lasix 40mg IV in ED. -Admit to tele obs -Dr. Spencer consulted. Recommended 40mg IV lasix BID and albumin infusion 25g Q6H -F/u echo to evaluate possible cardiorenal contribution. Has not been formally diagnosed but hx of elevated BNP CKD4 Creatinine 3.48 -> 3.18. Baseline fluctuates 2-3. Dr. Spencer is change lead -Management per above Hyperkalemia, resolved 2/2 ESRD K 5.2 in ED, now 4.8 s/p lasix. No EKG changes present -Monitor with am labs Chronic lower extremity ulcers 2/2 PVD -Wound care consulted -Continue home eliquis DM2 -continue home meds -ISS -ACHS accuchecks COPD Tobacco abuse -Nicotine patch -Continue home inhalers -Duoneb Q4H PRN HTN -continue home meds -Was not wearing clonidine patch, last use unknown. Resume today HLD -continue home meds Peripheral neuropathy -continue home meds GERD -continue home meds Anemia, iron deficiency + chronic disease Previous workup demonstrated likely mix of anemia of chronic disease and iron deficiency anemia -continue home iron Depression Insomnia -continue home meds Cognitive impairment MOCA at [facility] was -Scheduled to see neurology outpatient for further workup Overactive bladder -Continue home meds Morbid obesity -Aware Chronic pain -Continue home meds Code: FULL Diet: CC, HH DVT ppx: home eliquis PCP: MIKAEL Stephens Dispo: [facility] pending further medical management Addendum - Attending - Attending Attestation Date/Time: 07/18/20 1110 I personally evaluated the patient and discussed the management with Dr. Stephens. I agree with the History, Examination, Assessment and Plan documented above with any addition or exceptions noted below.
[2020-07-18] MEDS: Mometasone 100 MCG/Formoterol 5 MCG 120 PUFF INHALER INH SCH ×2 (08:16→19:45)
[2020-07-18 08:46] LABS: #Lymphocytes 0.7 thou/uL (1.20-3.40); #Monocytes 0.6 thou/uL (0.11-0.59); #Neutrophils 2.9 thou/uL (1.40-6.50); %Lymphocytes 16.1 % (21.0-51.0); %Monocytes 14.2 % (0.0-10.0); %Neutrophils 67.8 % (42.0-75.0); Hemoglobin 8.2 g/dL (12.0-16.0); Mean Corpuscular HGB CONC 30.5 g/dL (32.0-36.0); Mean Corpuscular Hemoglobin 27.7 pg (27.0-31.0); Mean Corpuscular Volume 90.9 fL (78.0-98.0); Mean Platelet Volume 6.8 fL (7.4-10.4); Platelet Count 297 thou/uL (130-400); RBC Distribution Width 15.4 % (11.5-14.5); Red Blood Cell (RBC) Count 2.97 mill/uL (4.20-5.40)
[2020-07-18] MEDS ORDERED: CIMETIDINE 400 MG PO SCH (09:00)
[2020-07-18] MEDS: Ferrous Sulfate 325 MG TAB PO SCH ×2 (09:47→17:44)
[2020-07-18] MEDS: Apixaban 2.5 MG TAB PO SCH ×2 (09:47→21:55)
[2020-07-18] MEDS: Ezetimibe 10 MG TAB PO SCH (09:48)
[2020-07-18] MEDS: Gabapentin 300 MG CAP PO SCH ×2 (09:48→21:54)
[2020-07-18] MEDS: NIFEdipine XL 60 MG TAB PO SCH (09:48)
[2020-07-18] MEDS: Carvedilol 25 MG TAB PO SCH ×2 (09:49→21:55)
[2020-07-18] MEDS: Citalopram 20 MG TAB PO SCH (09:49)
[2020-07-18] MEDS: Calcitriol 0.25 MCG CAP PO SCH (09:49)
[2020-07-18] MEDS: Polyethylene Glycol 3350 17 GM Packet PO SCH (09:49)
[2020-07-18] MEDS: Aspirin 81 mg Enteric Coated Tablet PO SCH (09:50)
--- NOTE | 2020-07-18 10:22 | PRG ---
DATE OF SERVICE: 07/18/2020 SUBJECTIVE: Ms. Garcia is a 70-year-old black female with chronic renal failure from diabetic nephropathy and was admitted for generalized edema. We are following up this patient for management of her chronic renal failure. I did discuss the case with the family residency program - restart Lasix 40 mg IV every 12 hours and albumin infusion 25 g IV every 6 hours. I had a long discussion with the patient that she may eventually need dialysis. She was somewhat hesitant to that idea. REVIEW OF SYSTEMS: Positive for generalized edema. Positive for leg edema. Denies shortness of breath. No syncopal episode. No chest pain. No fever or chills. No hematochezia. No melena. No hematemesis. No diarrhea. Appetite and energy level are fair. MEDICATIONS: Currently on, 1. Albumin 25 g IV every 6 hours. 2. Tylenol with Codeine p.r.n. 3. Elavil 100 mg at bedtime. 4. Eliquis 2.5 mg p.o. b.i.d. 5. Ecotrin 81 mg once a day. 6. Calcitriol 0.25 mcg daily. 7. Coreg 25 mg p.o. b.i.d. 8. Celexa 40 mg daily. 9. TTS-3 patch every 7 days. 10. Epogen 7500 units subcu every 7 days. 11. Ergocalciferol 1.25 mg p.o. every week. 12. Ezetimibe 10 mg daily. 13. Ferrous sulfate 325 mg once a day. 14. Lasix 40 mg IV every 12 hours. 15. Neurontin 600 mg p.o. b.i.d. 16. Insulin glargine 30 units subcu at bedtime and q.a.m. 17. Humalog sliding scale. 18. Nicotine patch. 19. Procardia XL 60 mg once a day. PHYSICAL EXAMINATION: VITAL SIGNS: Blood pressure is 212/84, heart rate 70, respiratory rate 18, temperature 98.4. Please note, her BP is before BP medications, O2 saturation 94%. GENERAL: The patient is awake, alert, supine, comfortable, not in distress. SKIN: Adequate turgor. HEENT: Slightly pale conjunctivae. Anicteric sclerae. No neck mass. No carotid bruits. No JVD. LUNGS: Decreased breath sounds. HEART: Normal sinus rhythm. No murmur. No gallops. No rubs. ABDOMEN: Globular, soft, nontender. No masses. EXTREMITIES: Positive for edema. LABORATORY DATA: Laboratories of July 18, 2020, white count 4.2, hemoglobin 8.2. Sodium 144, potassium 4.9, chloride 111, carbon dioxide 22, BUN is 36, creatinine 3.18, glucose 110, calcium 9, AST 14, ALT 11. ASSESSMENT AND PLAN: 1. Chronic renal failure from diabetic nephropathy, fluctuating creatinine. Creatinine slightly improved from 3.49 to 3.18. I would continue current diuretic regimen. She is on albumin infusion at the present time. I do not see any indication for any emergency hemodialysis. However, I had long discussion with the patient that she needs to consider dialysis in the near future due to her multiple medical problems, which includes worsening renal dysfunction with diuresis as well as generalized edema. 2. Anemia. Agree with weekly Epogen regimen with this patient. 3. Generalized edema - on IV Lasix. 4. Recheck CBC and basic metabolic in a.m. Job ID: [id number]
[2020-07-18] MEDS: cloNIDine 0.3mg/24 Hour PATCH TD SCH (11:01)
[2020-07-18] MEDS: Insulin Glargine 35 UNITS in Pre-Filled Syringe 1 EACH SC SCH (11:02)
[2020-07-18] MEDS: Nicotine 14 MG PATCH TD SCH (15:28)
[2020-07-18] MEDS: HumaLOG 300 UNITS/3 ML VIAL SC PRN (17:44)
[2020-07-18] MEDS: Amitriptyline HCl 100 MG TAB PO SCH (21:51)
[2020-07-18] MEDS: Atorvastatin Calcium 40 MG TAB PO SCH (21:54)
[2020-07-18] MEDS: Oxybutynin ER 5 MG TAB PO SCH (21:55)
[2020-07-18] MEDS: Insulin Glargine 30 UNITS in Pre-Filled Syringe 1 EACH SC SCH (21:58)
[2020-07-18] MEDS: Acetaminophen/Codeine 30-300mg Tablet PO PRN (21:59)
[2020-07-19 04:40] LABS: #Eosinphils 0.1 thou/uL (0.0-0.7); #Lymphocytes 0.8 thou/uL (1.20-3.40); #Monocytes 0.6 thou/uL (0.11-0.59); #Neutrophils 3.4 thou/uL (1.40-6.50); %Basophils 0.2 % (0.0-1.0); %Eosinophils 2.8 % (0.0-10.0); %Lymphocytes 16.5 % (21.0-51.0); %Monocytes 12.6 % (0.0-10.0); Hemoglobin 7.5 g/dL (12.0-16.0); Mean Corpuscular HGB CONC 31.4 g/dL (32.0-36.0); Mean Corpuscular Hemoglobin 27.9 pg (27.0-31.0); Mean Platelet Volume 7.1 fL (7.4-10.4); Platelet Count 293 thou/uL (130-400); RBC Distribution Width 15.6 % (11.5-14.5); Red Blood Cell (RBC) Count 2.68 mill/uL (4.20-5.40)
[2020-07-19 05:07] LABS: ALT (SGPT) 12 U/L (8-55); AST (SGOT) 15 U/L (5-34); Albumin 3.7 g/dL (3.4-4.8); Alkaline Phosphatase 90 U/L (40-110); Anion Gap 13 mmol/L (10-20); BUN (Urea Nitrogen) 39 mg/dL (9.8-20.1); Bilirubin, Total 0.4 mg/dL (0.2-1.2); Calc. Creatinine Clearance 39 mL/min (70-130); Calcium 9.2 mg/dL (7.8-10.44); Carbon Dioxide 27 mmol/L (23-31); Chloride 107 mmol/L (98-107); Glucose 80 mg/dL (80-115); Potassium 4.7 mmol/L (3.5-5.1); Protein, Total 6.7 g/dL (6.0-8.3); Sodium 142 mmol/L (136-145)
--- NOTE | 2020-07-19 06:20 | PDOC.FM ---
- Subjective Subjective: Says she slept well overnight. Reports continued improvement of edema. Denies lightheadedness, dizziness, headache, vision changes, chest pain, SOB and palpitations. - Objective MAR Reviewed: Yes Vital Signs & Weight: Vital Signs (12 hours) Temp Pulse Resp BP Pulse Ox 07/19/20 03:00 97.8 F 70 20 144/65 H 92 L 07/18/20 21:45 100.1 F H 81 18 157/68 H 92 L 07/18/20 19:46 96 07/18/20 19:45 94 L Weight Admit Weight 156.036 kg Weight 157.652 kg I&O: 07/17/20 07/18/20 07/19/20 06:59 06:59 06:59 Intake Total 500 800 Output Total 1600 1650 Balance -1100 -850 Result Diagrams: 07/19/20 04:03 07/19/20 04:03 Phys Exam - Physical Examination Constitutional: NAD Morbidly obese HEENT: moist MMs, sclera anicteric Neck: full ROM Respiratory: clear to auscultation bilateral Limited due to body habitus, poor air movement Cardiovascular: RRR, no significant murmur Limited due to body habitus Gastrointestinal: soft, non-tender, positive bowel sounds Musculoskeletal: edema present (1+ LE bilaterally, pitting edema of left hand has resolved) Neurological: moves all 4 limbs Psychiatric: normal affect, A&O x 3 Skin: no rash Dx/Plan - Plan Plan: Patient is a 70F with PMHx of DM2, HTN, HLD, COPD, ESRD presenting with left sided facial, arm and leg edema Left sided edema likely 2/2 chronic anasarca Longstanding history, acutely worsened this am. Likely due to laying on left side overnight. Has not received Lasix at facility since d/c from hospital on 07/13. S/p Lasix 40mg IV in ED. -Admit to tele obs -Dr. Spencer consulted. Recommended 40mg IV lasix BID and albumin infusion 25g Q6H -Echo 07/18: EF 55-60%, mild mitral regurg, tricuspid regurg and pulmonic regurg CKD4 Creatinine 3.48 -> 3.18 -> 3.49. Baseline fluctuates 2-3. Dr. Spencer is chief writer -Management per above Hyperkalemia, resolved 2/2 CKD K 5.2 in ED, now 4.8 -> 4.7 s/p lasix. No EKG changes present -Monitor with am labs Chronic lower extremity ulcers 2/2 PVD -Wound care consulted -Continue home eliquis DM2 -continue home meds -ISS -ACHS accuchecks COPD Tobacco abuse -Nicotine patch -Continue home inhalers -Duoneb Q4H PRN HTN -continue home meds -Was not wearing clonidine patch, last use unknown. Resumed 07/18 -BP 220/100 during rounds. Gave clonidine 0.1mg PO once since clonidine patch effect takes 2-3 days HLD -continue home meds Peripheral neuropathy -continue home meds GERD -continue home meds Anemia, iron deficiency + chronic disease Previous workup demonstrated likely mix of anemia of chronic disease and iron deficiency anemia -Hgb 8.8 -> 8.2 -> 7.5. Asymptomatic -continue home iron Depression Insomnia -continue home meds Cognitive impairment MOCA at [facility] was -Scheduled to see neurology outpatient for further workup Overactive bladder -Continue home meds Morbid obesity -Aware Chronic pain -Continue home meds Code: FULL Diet: CC, HH DVT ppx: home eliquis PCP: MIKAEL Stephens Dispo: [facility] pending further medical management Addendum - Attending - Attending Attestation Date/Time: 07/19/20 2310 I personally evaluated the patient and discussed the management with Dr. Stephens. I agree with the History, Examination, Assessment and Plan documented above with any addition or exceptions noted below.
[2020-07-19] MEDS: Furosemide 40 MG/4 ML VIAL SLOW IVP SCH ×2 (06:38→15:27)
[2020-07-19] MEDS: Mometasone 100 MCG/Formoterol 5 MCG 120 PUFF INHALER INH SCH ×2 (07:57→19:18)
[2020-07-19] MEDS: Ferrous Sulfate 325 MG TAB PO SCH ×2 (08:22→17:38)
[2020-07-19] MEDS: Aspirin 81 mg Enteric Coated Tablet PO SCH (08:22)
[2020-07-19] MEDS: Ezetimibe 10 MG TAB PO SCH (08:22)
[2020-07-19] MEDS: NIFEdipine XL 60 MG TAB PO SCH (08:22)
[2020-07-19] MEDS: Citalopram 20 MG TAB PO SCH (08:22)
[2020-07-19] MEDS: Carvedilol 25 MG TAB PO SCH ×2 (08:22→22:25)
[2020-07-19] MEDS: Apixaban 2.5 MG TAB PO SCH ×2 (08:23→22:25)
[2020-07-19] MEDS: Polyethylene Glycol 3350 17 GM Packet PO SCH (08:23)
[2020-07-19] MEDS: Calcitriol 0.25 MCG CAP PO SCH (08:23)
[2020-07-19] MEDS: Gabapentin 300 MG CAP PO SCH ×2 (08:23→22:24)
[2020-07-19] MEDS ORDERED: cloNIDine 0.1 MG TAB PO SCH (08:42)
[2020-07-19] MEDS: Insulin Glargine 35 UNITS in Pre-Filled Syringe 1 EACH SC SCH (08:56)
--- NOTE | 2020-07-19 09:17 | PRG ---
DATE OF SERVICE: 07/19/2020 SUBJECTIVE: Ms. Garcia is a 70-year-old black female with chronic renal failure from diabetic nephropathy. She was admitted due to generalized edema. We have started her on albumin and Lasix. She denies any overt shortness of breath, but she still has some generalized edema. MEDICATIONS: Medications of July 19, 2020 were reviewed. PHYSICAL EXAMINATION: VITAL SIGNS: Blood pressure 217/82, heart rate 96, respiratory rate 20, O2 saturation 95%. GENERAL: The patient is awake, comfortable, supine, not in overt distress, obese. SKIN: Adequate turgor. HEENT: Pale conjunctivae, anicteric sclerae. NECK: No neck mass. No carotid bruits. No JVD. CHEST: No deformities. LUNGS: Clear. Decreased breath sounds. HEART: Normal sinus rhythm. No murmurs, gallops, or rubs. ABDOMEN: Globular, soft, nontender. No masses. EXTREMITIES: Positive for edema. LABORATORY DATA: Laboratories of July 19, 2020; white count 5, hemoglobin 7.5. Sodium 142, potassium 4.7, chloride 107, carbon dioxide 27, BUN 39, creatinine 3.48, glucose 80, calcium 9.2. LFTs normal. ASSESSMENT AND PLAN: 1. Chronic renal failure from diabetic nephropathy, fluctuating creatinine. I had a long discussion with the patient about initiating dialysis. She is like to think about it. For the moment, we will continue current diuretic regimen. Lasix 40 mg IV q.12. There is no indication for any emergent hemodialysis. 2. P.r.n. blood transfusion - the patient has been restarted back on her Epogen regimen 7500 units subcu q.7 days. Recheck CBC and base met in a.m. Job ID: [id number]
[2020-07-19] MEDS: Dextrose 5% in Water 1,000 ML IV PRN (12:31)
--- NOTE | 2020-07-19 12:40 | PDOC.BPN ---
- Brief Progress Note Encounter Date: 07/19/20 Encounter Time: 12:40 KITA KASEY called at 1200 after patient had increased somnolence per nursing. Upon arrival, patient was responsive to loud stimuli but quickly returned to sleep. Also responded to sternal rub. BP elevated at 220s/100s. HR 80s. Pulse ox 99% on 2L. BG 38. 1 amp D50 given, BG improved 122. Patient started on D5 @ 75. Will complete BG checks Q2H. Of note, during pre-rounds at 0700, patient was talkative and at baseline mentation. Was noted to be sleepy during rounds at 1000 but responded to questions appropriately. Nursing reports patient received 35 units Lantus this am and only at fruit cup at breakfast. Cause is likely hypoglycemia due to decreased PO intake in setting of insulin use. Will order CT head to further investigate. Has received clonidine 0.1mg PO due to elevated BP noted during rounds. Will closely monitor and adjust plan as indicated.
--- NOTE | 2020-07-19 13:54 | CT ---
Exam: Head CT without contrast HISTORY: Hypoglycemic patient. Hypertension. Patient is not waking up. Altered mental status. COMPARISON: 01/06/2020 FINDINGS: Hemorrhage: No intraparenchymal hemorrhage or extra-axial hematoma. Brain parenchyma: Cortical penaloza-white matter differentiation is preserved. No mass effect or midline shift. Basilar cisterns are patent. Ventricular system: Ventricles and sulci are patent and symmetric. Cavum septum pellucidum and cavum Dani are redemonstrated. Calvarium: Intact. Sinuses and mastoid air cells: Adequate aeration. IMPRESSION: No acute intracranial process.
[2020-07-19] MEDS: Nicotine 14 MG PATCH TD SCH (15:27)
[2020-07-19] MEDS: Amitriptyline HCl 100 MG TAB PO SCH (22:25)
[2020-07-19] MEDS: Atorvastatin Calcium 40 MG TAB PO SCH (22:25)
[2020-07-19] MEDS: Oxybutynin ER 5 MG TAB PO SCH (22:25)
[2020-07-19] MEDS ORDERED: NIFEdipine 10 MG CAP PO PRN (22:43)
[2020-07-20] MEDS: Dextrose 5% in Water 1,000 ML IV PRN (00:44)
[2020-07-20 04:45] LABS: ALT (SGPT) 11 U/L (8-55); AST (SGOT) 18 U/L (5-34); Albumin 3.4 g/dL (3.4-4.8); Alkaline Phosphatase 94 U/L (40-110); Anion Gap 20 mmol/L (10-20); BUN (Urea Nitrogen) 37 mg/dL (9.8-20.1); Bilirubin, Total 0.4 mg/dL (0.2-1.2); Calc. Creatinine Clearance 36 mL/min (70-130); Calcium 8.9 mg/dL (7.8-10.44); Carbon Dioxide 16 mmol/L (23-31); Chloride 108 mmol/L (98-107); Globulin 3.4 g/dL (2.4-3.5); Glucose 144 mg/dL (80-115); Potassium 4.9 mmol/L (3.5-5.1); Protein, Total 6.8 g/dL (6.0-8.3); Sodium 139 mmol/L (136-145)
[2020-07-20] MEDS: Furosemide 40 MG/4 ML VIAL SLOW IVP SCH ×2 (06:11→08:50)
--- NOTE | 2020-07-20 06:23 | PDOC.FM ---
- Subjective Subjective: Says she is feeling better this am. Denies headache, vision changes, chest pain, SOB, palpitations, nausea and abdominal pain. Says she is leaning toward proceeding with dialysis. - Objective MAR Reviewed: Yes Vital Signs & Weight: Vital Signs (12 hours) Temp Pulse Resp BP Pulse Ox 07/20/20 04:55 97.4 F L 75 20 156/69 H 99 07/19/20 23:46 220/88 H 07/19/20 22:14 180/80 H 07/19/20 20:06 97.3 F L 63 16 198/87 H 100 Weight Admit Weight 156.036 kg Weight 157.51 kg I&O: 07/18/20 07/19/20 07/20/20 06:59 06:59 06:59 Intake Total 500 1520 Output Total 1600 2550 Balance -1100 -1030 Result Diagrams: 07/20/20 06:05 07/20/20 04:14 Phys Exam - Physical Examination Constitutional: NAD Morbidly obese HEENT: moist MMs, sclera anicteric Neck: full ROM Respiratory: no wheezing, clear to auscultation bilateral On 2L Cardiovascular: RRR, no significant murmur Gastrointestinal: soft, non-tender, positive bowel sounds Musculoskeletal: edema present (1+ pitting edema bilateral LE) Neurological: moves all 4 limbs At baseline mentation Psychiatric: normal affect, A&O x 3 Skin: no rash Deviation from normal: CHELSEA wrap in place on lower leg bilaterally Dx/Plan - Plan Plan: Patient is a 70F with PMHx of DM2, HTN, HLD, COPD, ESRD presenting with left sided facial, arm and leg edema Left sided edema, resolved 2/2 chronic anasarca Longstanding history, acutely worsened this am. Likely due to laying on left side overnight. Has not received Lasix at facility since d/c from hospital on 07/13. S/p Lasix 40mg IV in ED. -Admit to tele obs -Dr. Spencer consulted. Recommended 40mg IV lasix BID and albumin infusion 25g Q6H. Discussed dialysis with patient - will f/u today on decision -Echo 07/18: EF 55-60%, mild mitral regurg, tricuspid regurg and pulmonic regurg CKD4 Creatinine 3.48 -> 3.18 -> 3.49 -> 3.70. Baseline fluctuates 2-3. 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 s/p lasix. No EKG changes present -Monitor with am labs Chronic lower extremity ulcers 2/2 PVD -Wound care consulted -Continue home eliquis DM2 -continue home meds -ISS -ACHS accuchecks COPD Tobacco abuse -Nicotine patch -Continue home inhalers -Duoneb Q4H PRN HTN -continue home meds -Was not wearing clonidine patch, last use unknown. Resumed 07/18 -Received 1 dose of nifedipine 10mg overnight due to SBP 220 HLD -continue home meds Peripheral neuropathy -continue home meds GERD -continue home meds Anemia, iron deficiency + chronic disease Previous workup demonstrated likely mix of anemia of chronic disease and iron deficiency anemia -Hgb 8.8 -> 8.2 -> 7.5. Asymptomatic -continue home iron Depression Insomnia -continue home meds Cognitive impairment MOCA at [facility] was -Scheduled to see neurology outpatient for further workup Overactive bladder -Continue home meds Morbid obesity -Aware Chronic pain -Continue home meds Code: FULL Diet: CC, HH DVT ppx: home eliquis PCP: MIKAEL Stephens Dispo: [facility] pending further medical management Addendum - Attending - Attending Attestation Date/Time: 07/20/20 8076 I personally evaluated the patient and discussed the management with Dr. Stephnes. I agree with the History, Examination, Assessment and Plan documented above with any addition or exceptions noted below. Patient stable, volume status much improved. Renal function continues to worsen. Needs decision regarding HD initiation. Further mgmt pending that decision.
[2020-07-20] MEDS: Mometasone 100 MCG/Formoterol 5 MCG 120 PUFF INHALER INH SCH ×2 (07:03→19:20)
--- NOTE | 2020-07-20 08:37 | PRG ---
DATE OF SERVICE: 07/20/20 SUBJECTIVE: Ms. Garcia is a 70-year-old black female with known history of chronic renal failure from diabetic nephropathy. She was admitted for generalized edema. She has been started on her diuretics. However, we noted the renal function has been slowly worsening with the diuretic regimen. She is currently on furosemide 40 mg b.i.d. Our plan is to decrease this to once a day. I have discussed with this patient regarding dialysis and she is still undecided. She voices no new complaints. Denies any chest pain or shortness of breath. OBJECTIVE: VITAL SIGNS: Blood pressure is 172/90, heart rate 60, respiratory rate 18, temperature 98.5, O2 saturation 100%. GENERAL: The patient is awake comfortable, obese, not in distress. SKIN: Adequate turgor. HEENT: Pale conjunctivae. Anicteric sclerae. NECK: No neck mass. No carotid bruits. No JVD. CHEST: No deformities. LUNGS: Decreased breath sounds. HEART: Normal sinus rhythm. No murmur. No gallops. No rubs. ABDOMEN: Globular, soft, nontender. No masses. EXTREMITIES: Positive for edema. MEDICATIONS: Medications of July 20, 2020, reviewed. LABORATORY DATA: Laboratories of July 20, 2020; sodium 139, potassium 4.9, chloride 108, carbon dioxide 16, BUN 37, creatinine 3.7, GFR 15 mL/minute. AST 18, ALT 11. White count 5, hemoglobin 7.5. ASSESSMENT AND PLAN: 1. Anemia. Continuing weekly Epogen. P.r.n. blood transfusion for hemoglobin less than 7. 2. Acute kidney injury/chronic renal failure-renal function slightly worsened today. Decreased Lasix from 40 mg IV q.12 to once a day. Again, I had a long discussion with the patient regarding dialysis. She is hesitant to proceed at the moment. We will discuss this again in a.m. Recheck CBC and basic met in a.m. Job ID: [id number] MTDD
[2020-07-20] MEDS: Citalopram 20 MG TAB PO SCH (08:50)
[2020-07-20] MEDS: Gabapentin 300 MG CAP PO SCH ×2 (08:50→21:12)
[2020-07-20] MEDS: Ferrous Sulfate 325 MG TAB PO SCH ×2 (08:50→17:20)
[2020-07-20] MEDS: Polyethylene Glycol 3350 17 GM Packet PO SCH (08:51)
[2020-07-20] MEDS: Aspirin 81 mg Enteric Coated Tablet PO SCH (08:51)
[2020-07-20] MEDS: Calcitriol 0.25 MCG CAP PO SCH (08:51)
[2020-07-20] MEDS: NIFEdipine XL 60 MG TAB PO SCH (08:51)
[2020-07-20] MEDS: Apixaban 2.5 MG TAB PO SCH ×2 (08:51→21:12)
[2020-07-20] MEDS: Ezetimibe 10 MG TAB PO SCH (08:51)
[2020-07-20] MEDS: Carvedilol 25 MG TAB PO SCH ×2 (08:51→23:11)
[2020-07-20 10:36] LABS: #Eosinphils 0.2 thou/uL (0.0-0.7); #Monocytes 0.6 thou/uL (0.11-0.59); #Neutrophils 2.3 thou/uL (1.40-6.50); %Basophils 0.2 % (0.0-1.0); %Lymphocytes 23.9 % (21.0-51.0); %Monocytes 14.1 % (0.0-10.0); %Neutrophils 56.8 % (42.0-75.0); Hemoglobin 8.4 g/dL (12.0-16.0); Hypochromia SLIGHT = 6-15 cells (100X) (0-5/hpf); MDiff Complete? YES; Mean Corpuscular HGB CONC 29.6 g/dL (32.0-36.0); Mean Corpuscular Hemoglobin 26.7 pg (27.0-31.0); Mean Corpuscular Volume 90.2 fL (78.0-98.0); Mean Platelet Volume 7.9 fL (7.4-10.4); Platelet Count 244 thou/uL (130-400); Platelet Morphology Comment Appears Adequate; Polychromasia SLIGHT = 2-3 cells (100X) (0-2/hpf); RBC Distribution Width 15.4 % (11.5-14.5); Red Blood Cell (RBC) Count 3.13 mill/uL (4.20-5.40); White Blood Cell (WBC) Count 4.1 thou/uL (4.8-10.8)
[2020-07-20] MEDS: Nicotine 14 MG PATCH TD SCH (13:19)
[2020-07-20] MEDS ORDERED: cloNIDine 0.2 MG TAB PO ONE (13:48)
[2020-07-20] MEDS ORDERED: cloNIDine 0.2 MG TAB PO SCH (18:15)
[2020-07-20] MEDS: Acetaminophen/Codeine 30-300mg Tablet PO PRN (18:31)
[2020-07-20] MEDS: Atorvastatin Calcium 40 MG TAB PO SCH (21:12)
[2020-07-20] MEDS: Amitriptyline HCl 100 MG TAB PO SCH (21:12)
[2020-07-20] MEDS: Oxybutynin ER 5 MG TAB PO SCH (21:13)
[2020-07-20] MEDS ORDERED: Insulin Glargine 10 UNITS in Pre-Filled Syringe 1 EACH SC SCH (21:30)
[2020-07-21] MEDS ORDERED: cloNIDine 0.2 MG TAB PO SCH (01:45)
[2020-07-21 04:54] LABS: #Eosinphils 0.1 thou/uL (0.0-0.7); #Lymphocytes 0.9 thou/uL (1.20-3.40); #Monocytes 0.6 thou/uL (0.11-0.59); #Neutrophils 2.8 thou/uL (1.40-6.50); %Basophils 0.3 % (0.0-1.0); %Eosinophils 1.8 % (0.0-10.0); %Lymphocytes 19.9 % (21.0-51.0); %Monocytes 14.1 % (0.0-10.0); Mean Corpuscular HGB CONC 31.6 g/dL (32.0-36.0); Mean Corpuscular Hemoglobin 28.2 pg (27.0-31.0); Mean Corpuscular Volume 89.3 fL (78.0-98.0); Mean Platelet Volume 6.9 fL (7.4-10.4); Platelet Count 257 thou/uL (130-400); RBC Distribution Width 15.4 % (11.5-14.5); Red Blood Cell (RBC) Count 2.83 mill/uL (4.20-5.40); White Blood Cell (WBC) Count 4.4 thou/uL (4.8-10.8)
[2020-07-21 05:25] LABS: ALT (SGPT) 11 U/L (8-55); AST (SGOT) 13 U/L (5-34); Albumin 3.2 g/dL (3.4-4.8); Alkaline Phosphatase 90 U/L (40-110); Anion Gap 17 mmol/L (10-20); BUN (Urea Nitrogen) 41 mg/dL (9.8-20.1); Bilirubin, Total 0.3 mg/dL (0.2-1.2); Calc. Creatinine Clearance 38 mL/min (70-130); Calcium 8.5 mg/dL (7.8-10.44); Carbon Dioxide 23 mmol/L (23-31); Chloride 104 mmol/L (98-107); Glucose 225 mg/dL (80-115); Protein, Total 6.2 g/dL (6.0-8.3); Sodium 139 mmol/L (136-145)
--- NOTE | 2020-07-21 06:03 | PDOC.FM ---
- Subjective Subjective: Overnight carvedilol held due to low HR 58. Otherwise, no acute overnight events. This AM endorses swelling that is bothersome but is unchanged from her usual swelling. No chest pain, SOB. - Objective Vital Signs & Weight: Vital Signs (12 hours) Temp Pulse Resp BP BP Pulse Ox 07/21/20 01:18 93 196/72 H 07/20/20 19:46 98.8 F 70 20 189/74 H 99 07/20/20 18:31 217/82 H Weight Admit Weight 156.036 kg Weight 157.079 kg I&O: 07/19/20 07/20/20 07/21/20 06:59 06:59 06:59 Intake Total 1520 1380 1320 Output Total 2550 1750 3700 Balance -8929 -274 -5472 Result Diagrams: 07/21/20 04:30 07/21/20 04:30 EKG Reviewed by me: Yes (tele: NSR 60s) Phys Exam - Physical Examination Constitutional: NAD HEENT: moist MMs Neck: supple Respiratory: no wheezing decreased breath sounds bilaterally Cardiovascular: RRR, no significant murmur Gastrointestinal: soft, non-tender Musculoskeletal: pulses present, edema present (non-pitting edema of bilateral upper extremities) 1-2+ pitting edema above compression stockings bilateral LE Psychiatric: A&O x 3 Deviation from normal: flat affect Skin: normal turgor, cap refill <2 seconds Dx/Plan - Plan Plan: Patient is a 70F with PMHx of DM2, HTN, HLD, COPD, ESRD presenting with left sided facial, arm and leg edema Left sided edema, resolved 2/2 chronic anasarca Longstanding history, acutely worsened this am. Likely due to laying on left side overnight. Has not received Lasix at facility since d/c from hospital on 07/13. S/p Lasix 40mg IV in ED. -Admit to tele obs -Dr. Spencer, nephrology following: - decreased lasix to 40mg IV once daily due to rising Cr - will likely need dialysis -Echo 07/18: EF 55-60%, mild mitral regurg, tricuspid regurg and pulmonic regurg CKD4 Creatinine 3.48 -> 3.18 -> 3.49 -> 3.70 > 3.53. Baseline fluctuates 2-3. 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 -Dr. Spencer following, appreciate recs - likely may need dialysis as above HTN urgency Elevated BPs on admission, was not wearing clonidine patch on admission. BP remains elevated, likely contributing to worsening kidney function. - current regimen: carvedilol 25mg BID, clonidine 0.3 mg patch q7d, procardia 60mg, lasix 40mg IV qd (per nephro) - carvedilol held overnight due to HR 58, remains with HR in 60s this AM - if unable to tolerate carvedilol, would consider increasing procardia to 90mg, will discuss with nephro first Hyperkalemia, resolved 2/2 CKD K 5.2 in ED, now 4.8 -> 4.7 -> 4.9. s/p lasix. No EKG changes present on admission. NSR on tele. -Monitor with am labs Chronic lower extremity ulcers 2/2 PVD -Wound care consulted -Continue home eliquis DM2, hypoglycemia Hypoglycemic episode with BG 30, likely due to decrease PO intake with decreased renal clearance of insulin due to worsening renal function. - stopped home lantus, resumed lantus at 10u last night - continue SSI - will adjust AM lantus pending SSI requirements today - hypoglycemia precautions COPD Tobacco abuse -Nicotine patch -Continue home inhalers -Duoneb Q4H PRN HLD -continue home meds Peripheral neuropathy -continue home meds GERD -continue home meds Anemia, iron deficiency + chronic disease Previous workup demonstrated likely mix of anemia of chronic disease and iron deficiency anemia -Hgb 8.8 -> 8.2 -> 7.5. Asymptomatic -continue home iron Depression Insomnia -continue home meds Cognitive impairment M[facility]A at [facility] was -Scheduled to see neurology outpatient for further workup Overactive bladder -Continue home meds Morbid obesity -Aware Chronic pain -Continue home meds Code: FULL Diet: CC, HH DVT ppx: home eliquis PCP: MIKAEL Stephens Dispo: [facility] pending further medical management Addendum - Attending - Attending Attestation Date/Time: 07/21/20 1801 I personally evaluated the patient and discussed the management with Dr. Anderson. I agree with the History, Examination, Assessment and Plan documented above with any addition or exceptions noted below. Nephrology recommends dialysis. Dr. Cao will evaluate on Thursday. Continue current diuretics for now.
[2020-07-21] MEDS: Mometasone 100 MCG/Formoterol 5 MCG 120 PUFF INHALER INH SCH ×2 (08:09→19:45)
[2020-07-21] MEDS: Carvedilol 25 MG TAB PO SCH ×3 (08:44→19:59)
[2020-07-21] MEDS: NIFEdipine XL 60 MG TAB PO SCH (08:44)
[2020-07-21] MEDS: Apixaban 2.5 MG TAB PO SCH (08:44)
[2020-07-21] MEDS: Gabapentin 300 MG CAP PO SCH ×2 (08:44→19:59)
[2020-07-21] MEDS: Ferrous Sulfate 325 MG TAB PO SCH ×2 (08:44→15:57)
[2020-07-21] MEDS: Aspirin 81 mg Enteric Coated Tablet PO SCH (08:45)
[2020-07-21] MEDS: Calcitriol 0.25 MCG CAP PO SCH (08:45)
[2020-07-21] MEDS: Ezetimibe 10 MG TAB PO SCH (08:45)
[2020-07-21] MEDS: Furosemide 40 MG/4 ML VIAL SLOW IVP SCH (08:45)
[2020-07-21] MEDS: Citalopram 20 MG TAB PO SCH (08:45)
[2020-07-21] MEDS: Polyethylene Glycol 3350 17 GM Packet PO SCH (08:47)
[2020-07-21] MEDS ORDERED: Tuberculin PPD 0.1 ML VIAL I-DERMAL SCH ×2 (11:00→11:15)
--- NOTE | 2020-07-21 11:11 | PRG ---
DATE OF SERVICE: 07/21/2020 SUBJECTIVE: Ms. Garcia is a 70-year-old black female with chronic renal failure from diabetic nephropathy. She has been having intermittent generalized edema as well as worsening renal function. She is currently on diuretic regimen, which has been adjusted downwards due to the rising creatinine. The patient has finally decided to pursue dialysis. My bias is to initiate dialysis due to volume overload with this patient. She voices no new complaints. OBJECTIVE: VITAL SIGNS: Blood pressure 152/67, heart rate 99, respiratory rate 18, O2 saturation 94% on 2 L. GENERAL: Awake, alert, supine, obese, not in distress. SKIN: Adequate turgor. HEENT: Slightly pale conjunctivae. Anicteric sclerae. No neck mass. No carotid bruits. No JVD. CHEST: No deformities. LUNGS: Decreased breath sounds. HEART: Normal sinus rhythm. No murmur. No gallops. No rubs. ABDOMEN: Globular, soft, nontender. No masses. EXTREMITIES: Positive for edema, but no deformities. MEDICATIONS: Of July 21, 2020, were reviewed. LABORATORY DATA: Laboratories of July 21, 2020: White count 4.4, hemoglobin 8. Sodium 139, potassium 5, chloride 104, carbon dioxide 23, BUN 41, creatinine 3.53. AST 13, ALT 11, albumin 3.2. ASSESSMENT AND PLAN: 1. Chronic renal failure - due to volume overload. The patient will be initiated with hemodialysis. Surgical consult will be done with Dr. Cao for placement of a tunneled dialysis catheter as well as AV fistula. Fluid removal will also be done with hemodialysis. 2. Anemia. Continuing weekly Epogen. P.r.n. blood transfusion. 3. Generalized edema. Continue current diuretic regimen. Initiate dialysis. We will recheck CBC and basic metabolics in a.m. Job ID: [id number]
--- NOTE | 2020-07-21 12:19 | PDOC.BPN ---
- Brief Progress Note Encounter Date: 07/21/20 Encounter Time: 12:16 Case discussed with nephrology (Dr. Spencer). Briefly this is a 70-year-old female with chronic kidney disease that has progressed to end-stage renal disease complicated by fluid overload with multiple hospital admissions. She has been evaluated by nephrology and has been deemed a candidate for hemodialysis. Patient is not in need of acute dialysis. Will defer consultation to Dr. Cao Thursday. Case tentatively posted for Thursday Will order venous mapping Avoid IV sticks in nondominant upper extremity.
[2020-07-21 12:58] LABS: HBSAB Concentration Less than 8.00 mIU/mL; Hep B Surf AB Non-Reactive (NonReactive); Hep C IgG Ab Non-Reactive (NonReactive); Hep C Index 0.07 S/CO (0-0.79)
[2020-07-21 12:59] LABS: HBSAg Index 0.16 S/CO (0-0.99); Hep B Core Total Ab Non-Reactive (NonReactive); Hep B Core Total Index 0.05 S/CO (0-0.79); Hep B Surf Ag Non-Reactive S/CO (NonReactive)
--- NOTE | 2020-07-21 14:20 | EKG ---
Test Reason : Blood Pressure : / mmHG Vent. Rate : 063 BPM Atrial Rate : 064 BPM P-R Int : 000 ms QRS Dur : 116 ms QT Int : 454 ms P-R-T Axes : 000 016 032 degrees QTc Int : 464 ms Sinus rhythm Low voltage QRS Nonspecific T wave abnormality Abnormal ECG Confirmed by TANG JOHNSON DO ([id number]), senior technical editor ITA KAPOOR ([id number]) on 07/21/2020 2:20:22 PM Referred By: Confirmed By:TANG JOHNSON DO
[2020-07-21] MEDS: Nicotine 14 MG PATCH TD SCH (15:57)
--- NOTE | 2020-07-21 16:31 | ULT ---
Exam: Vein mapping for dialysis access HISTORY: End-stage renal disease. TECHNIQUE: Multiplanar grayscale and color Doppler images were obtained in a bilateral upper extremit y venous ultrasound. Spectral analysis of the Doppler waveforms of the vessels were performed. FINDINGS: The bilateral internal jugular veins and subclavian veins are patent without evidence of th rombus. Right brachial artery 5.0 mm Right radial artery 2.5 mm Right ulnar artery 2.8 mm Left brachial artery 4.7 mm Left radial artery 4.9 mm Left ulnar artery 3.0 mm RIGHT CEPHALIC VEIN in millimeters There is absence of flow and echogenic material as well as decreased lumen compressibility involving the right upper extremity cephalic vein from the level of the mid arm to the level of the forearm compatible with occlusive thrombus. RIGHT BASILIC VEIN in millimeters 5.0 -- Shoulder 5.5 -- Upper arm 4.5 -- Mid upper arm 4.8 -- Just proximal to the elbow 1.8 -- Just distal to the elbow 1.8 -- Forearm 1.4 -- Wrist LEFT CEPHALIC VEIN in millimeters 4.6 -- Shoulder 3.8 -- Upper arm 4.4 -- Mid upper arm 3.9 -- Just proximal to the elbow 3.7 -- Just distal to the elbow 3.2 -- Forearm 3.5 -- Wrist LEFT BASILIC VEIN in millimeters 4.1 -- Shoulder 3.8 -- Upper arm 3.9 -- Mid upper arm 3.9 -- Just proximal to the elbow 3.4 -- Just distal to the elbow 2.7 -- Forearm 2.7 -- Wrist Mild subcutaneous edema is seen within the lower left upper extremity. IMPRESSION: 1. Occlusive thrombus involving majority of the right upper extremity cephalic vein. This is a superf icial vein. 2. Mild subcutaneous edema involving the left forearm. 3. Vein mapping for dialysis access as above
[2020-07-21] MEDS: Amitriptyline HCl 100 MG TAB PO SCH (19:58)
[2020-07-21] MEDS: Atorvastatin Calcium 40 MG TAB PO SCH (19:58)
[2020-07-21] MEDS: Oxybutynin ER 5 MG TAB PO SCH (20:00)
[2020-07-22 05:02] LABS: ALT (SGPT) 11 U/L (8-55); AST (SGOT) 11 U/L (5-34); Albumin 3.3 g/dL (3.4-4.8); Alkaline Phosphatase 87 U/L (40-110); Anion Gap 17 mmol/L (10-20); BUN (Urea Nitrogen) 45 mg/dL (9.8-20.1); Bilirubin, Total 0.3 mg/dL (0.2-1.2); Calc. Creatinine Clearance 37 mL/min (70-130); Calcium 8.6 mg/dL (7.8-10.44); Carbon Dioxide 25 mmol/L (23-31); Chloride 104 mmol/L (98-107); Globulin 3.1 g/dL (2.4-3.5); Glucose 136 mg/dL (80-115); Potassium 4.9 mmol/L (3.5-5.1); Protein, Total 6.4 g/dL (6.0-8.3); Sodium 141 mmol/L (136-145)
[2020-07-22 05:35] LABS: Band 2 % (5-11); Eosinophils 1 % (0-10); Hemoglobin 8.1 g/dL (12.0-16.0); Lymphocytes 27 % (21-51); MDiff Complete? YES; Mean Corpuscular HGB CONC 31.9 g/dL (32.0-36.0); Mean Corpuscular Hemoglobin 28.2 pg (27.0-31.0); Mean Corpuscular Volume 88.6 fL (78.0-98.0); Mean Platelet Volume 7.2 fL (7.4-10.4); Monocytes 12 % (0-10); Neutrophil 58 % (42-75); Platelet Count 268 thou/uL (130-400); RBC Distribution Width 15.4 % (11.5-14.5); Red Blood Cell (RBC) Count 2.86 mill/uL (4.20-5.40); White Blood Cell (WBC) Count 4.9 thou/uL (4.8-10.8)
--- NOTE | 2020-07-22 05:57 | PDOC.FM ---
- Subjective Subjective: No acute overnight events. Feeling somewhat more swollen this AM. Some L arm pain associated with IV in L arm. No chest pain, SOB, palpitations. Feeling nervous about upcoming procedures, dialysis. - Objective Vital Signs & Weight: Vital Signs (12 hours) Temp Pulse Resp BP Pulse Ox 07/22/20 04:59 98 F 62 14 146/75 H 96 07/21/20 19:57 99.2 F 67 17 154/67 H 96 Weight Admit Weight 156.036 kg Weight 157.714 kg I&O: 07/20/20 07/21/20 07/22/20 06:59 06:59 06:59 Intake Total 1380 1800 20 Output Total 1750 4400 1850 Balance -370 -8363 -4072 Result Diagrams: 07/22/20 03:55 07/22/20 03:55 Phys Exam - Physical Examination Constitutional: NAD HEENT: moist MMs Neck: supple Respiratory: no wheezing, no rales, clear to auscultation bilateral Cardiovascular: RRR, no significant murmur abdominal wall edema Musculoskeletal: edema present (pitting edema to knees, BLE with compressive wraps) Neurological: moves all 4 limbs Psychiatric: A&O x 3 Deviation from normal: anxious affect Skin: normal turgor Dx/Plan - Plan Plan: Patient is a 70F with PMHx of DM2, HTN, HLD, COPD, ESRD presenting with left sided facial, arm and leg edema ESRD Worsening creatinine, persistent anasarca. - Nephro Dr. Spencer consulted, recommends dialysis - will continue with IV lasix 40mg once daily for now - General surgery consulted, Dr. Cao to see 07/23, tentatively planning for hemodialysis catheter & fistula on 07/24 - eliquis held for surgery - will not bridge with heparin at this time Left sided edema, resolved 2/2 chronic anasarca Longstanding history, slightly worsened this AM. Acutely worsened on admission, had not received Lasix at facility since d/c from hospital on 07/13. S/p Lasix 40mg IV in ED. -Admit to tele -Dr. Spencer, nephrology following: - decreased lasix to 40mg IV once daily due to rising Cr - planning for dialysis -Echo 07/18: EF 55-60%, mild mitral regurg, tricuspid regurg and pulmonic regurg HTN urgency Elevated BPs on admission, was not wearing clonidine patch on admission. BP remains elevated, likely contributing to worsening kidney function. - current regimen: carvedilol 25mg BID, clonidine 0.3 mg patch q7d, procardia 60mg, lasix 40mg IV qd (per nephro) - discussed regimen with nephrology, will consider adding minoxidil if indicated after dialysis can be started Hyperkalemia, resolved 2/2 CKD K 5.2 in ED, now 4.8 -> 4.7 -> 4.9. s/p lasix. No EKG changes present on admission. NSR on tele. -Monitor with am labs Chronic lower extremity ulcers 2/2 PVD -Wound care consulted - eliquis held for surgery DM2, hypoglycemia Hypoglycemic episode with BG 30, likely due to decrease PO intake with decreased renal clearance of insulin due to worsening renal function. - stopped home lantus due to hypoglycemia - received 10u lantus on 07/20, did not require any SSI yesterday - continue SSI - hypoglycemia precautions COPD Tobacco abuse -Nicotine patch -Continue home inhalers -Duoneb Q4H PRN HLD -continue home meds Peripheral neuropathy -continue home meds GERD -continue home meds Anemia, iron deficiency + chronic disease Previous workup demonstrated likely mix of anemia of chronic disease and iron deficiency anemia -Hgb 8.8 -> 8.2 -> 7.5. Asymptomatic -continue home iron Depression Insomnia -continue home meds Cognitive impairment [facility] at [facility] was -Scheduled to see neurology outpatient for further workup Overactive bladder -Continue home meds Morbid obesity -Aware Chronic pain -Continue home meds Code: FULL Diet: CC, HH DVT ppx: home eliquis - HELD for surgery 07/21 PCP: MIKAEL Stephens Dispo: [facility] pending further medical management Addendum - Attending - Attending Attestation Date/Time: 07/22/20 4091 I personally evaluated the patient and discussed the management with Dr. Anderson. I agree with the History, Examination, Assessment and Plan documented above with any addition or exceptions noted below. The patient is more edematous today. Increasing IV lasix. Plan for dialysis catheter on Thursday.
[2020-07-22] MEDS: Mometasone 100 MCG/Formoterol 5 MCG 120 PUFF INHALER INH SCH ×2 (07:44→19:17)
[2020-07-22] MEDS: Gabapentin 300 MG CAP PO SCH ×2 (09:32→20:47)
[2020-07-22] MEDS: Furosemide 40 MG/4 ML VIAL SLOW IVP SCH ×3 (09:32→15:44)
[2020-07-22] MEDS: Calcitriol 0.25 MCG CAP PO SCH (09:32)
[2020-07-22] MEDS: NIFEdipine XL 60 MG TAB PO SCH (09:32)
[2020-07-22] MEDS: Citalopram 20 MG TAB PO SCH (09:32)
[2020-07-22] MEDS: Ferrous Sulfate 325 MG TAB PO SCH ×2 (09:32→15:44)
[2020-07-22] MEDS: Aspirin 81 mg Enteric Coated Tablet PO SCH (09:32)
[2020-07-22] MEDS: Ezetimibe 10 MG TAB PO SCH (09:33)
[2020-07-22] MEDS: Polyethylene Glycol 3350 17 GM Packet PO SCH (09:33)
[2020-07-22] MEDS: Carvedilol 25 MG TAB PO SCH ×2 (09:33→20:47)
--- NOTE | 2020-07-22 12:02 | PRG ---
DATE OF SERVICE: 07/22/2020 SUBJECTIVE: Ms. Garcia is a 70-year-old black female, followed up by the Renal Service for her chronic renal failure from diabetic nephropathy. She has been having intermittent volume overload and has progressive azotemia. For this reason, we have plan for initiation of dialysis. The patient has agreed with this. I did discuss the case with the surgeon. Placement of a tunneled dialysis catheter and AV fistula will be done this coming Thursday or two days from now. She is a bit more volume overloaded today. For that reason, I discussed the case with the residency staff. We will increase Lasix from 40 mg IV daily to twice a day. OBJECTIVE: VITAL SIGNS: Blood pressure 174/71, heart rate 66, respiratory rate 18, temperature 98.6, O2 saturation 92% on room air. GENERAL: The patient is awake, supine, comfortable, obese. SKIN: Adequate turgor. HEENT: Slightly pale conjunctivae. Anicteric sclerae. NECK: No neck mass. No carotid bruits. No JVD. CHEST: No deformities. LUNGS: Decreased breath sounds. HEART: Normal sinus rhythm. No murmurs, gallops, or rubs. ABDOMEN: Globular, soft, nontender. No masses. EXTREMITIES: Positive for edema. MEDICATIONS: Medications of July 22, 2020, reviewed. LABORATORY DATA: Laboratories of July 22, 2020; white count 4.9, hemoglobin 8.1. Sodium 141, potassium 4.9, chloride 104, carbon dioxide 25, BUN 45, creatinine 3.61, AST 11, ALT 11. ASSESSMENT AND PLAN: 1. Chronic renal failure/volume overload. We will initiate dialysis. Awaiting placement of a tunneled dialysis catheter and arteriovenous fistula, and we will then initiate dialysis with this patient. Continue supportive care. We will increase Lasix from 40 mg IV daily to b.i.d. dosing. 2. Anemia. Continue Epogen regimen. P.r.n. blood transfusion for hemoglobin less than 7. 3. Hypertension. Continue current blood pressure medications. Once dialysis has been initiated, consider starting minoxidil 5 mg tablet at bedtime. We will recheck CBC and basic metabolic panel. Job ID: [id number]
[2020-07-22] MEDS: Nicotine 14 MG PATCH TD SCH (15:44)
[2020-07-22] MEDS: Amitriptyline HCl 100 MG TAB PO SCH (20:47)
[2020-07-22] MEDS: Atorvastatin Calcium 40 MG TAB PO SCH (20:47)
[2020-07-22] MEDS: Oxybutynin ER 5 MG TAB PO SCH (20:49)
[2020-07-23 04:47] LABS: ALT (SGPT) 8 U/L (8-55); AST (SGOT) 11 U/L (5-34); Albumin 3.2 g/dL (3.4-4.8); Alkaline Phosphatase 87 U/L (40-110); Anion Gap 16 mmol/L (10-20); BUN (Urea Nitrogen) 49 mg/dL (9.8-20.1); Bilirubin, Total 0.3 mg/dL (0.2-1.2); Calc. Creatinine Clearance 35 mL/min (70-130); Calcium 8.5 mg/dL (7.8-10.44); Carbon Dioxide 24 mmol/L (23-31); Chloride 103 mmol/L (98-107); Globulin 3.1 g/dL (2.4-3.5); Glucose 192 mg/dL (80-115); Protein, Total 6.3 g/dL (6.0-8.3); Sodium 138 mmol/L (136-145)
[2020-07-23 05:26] LABS: #Eosinphils 0.1 thou/uL (0.0-0.7); #Lymphocytes 0.9 thou/uL (1.20-3.40); #Monocytes 0.6 thou/uL (0.11-0.59); #Neutrophils 2.8 thou/uL (1.40-6.50); %Basophils 0.2 % (0.0-1.0); %Eosinophils 2.8 % (0.0-10.0); %Lymphocytes 20.9 % (21.0-51.0); %Monocytes 14.3 % (0.0-10.0); %Neutrophils 61.8 % (42.0-75.0); Hemoglobin 7.9 g/dL (12.0-16.0); Mean Corpuscular HGB CONC 31.5 g/dL (32.0-36.0); Mean Corpuscular Hemoglobin 27.7 pg (27.0-31.0); Mean Corpuscular Volume 87.8 fL (78.0-98.0); Mean Platelet Volume 7.1 fL (7.4-10.4); Platelet Count 245 thou/uL (130-400); RBC Distribution Width 15.4 % (11.5-14.5); Red Blood Cell (RBC) Count 2.84 mill/uL (4.20-5.40); White Blood Cell (WBC) Count 4.5 thou/uL (4.8-10.8)
[2020-07-23] MEDS: Furosemide 40 MG/4 ML VIAL SLOW IVP SCH ×2 (05:46→15:55)
--- NOTE | 2020-07-23 06:02 | PDOC.FM ---
- Subjective Subjective: No events overnight. Feels well. No headache, chest pain, SOB, and nausea. - Objective MAR Reviewed: Yes Vital Signs & Weight: Vital Signs (12 hours) Temp Pulse Resp BP Pulse Ox 07/23/20 04:00 98.9 F 62 20 171/79 H 95 07/22/20 19:29 98.7 F 88 20 144/63 H 86 L Weight Admit Weight 156.036 kg Weight 155.038 kg I&O: 07/21/20 07/22/20 07/23/20 06:59 06:59 06:59 Intake Total 1800 20 1130 Output Total 4400 1850 2950 Balance -2600 -9380 -1820 Result Diagrams: 07/23/20 05:14 07/23/20 03:45 Phys Exam - Physical Examination Constitutional: NAD Morbid obesity HEENT: moist MMs, sclera anicteric Neck: full ROM Respiratory: no wheezing, clear to auscultation bilateral Cardiovascular: RRR, no significant murmur Gastrointestinal: soft, non-tender Musculoskeletal: edema present (pitting edema to lower extremity bilaterally, CHELSEA wrap in place) Neurological: moves all 4 limbs Psychiatric: normal affect Skin: no rash Dx/Plan - Plan Plan: Patient is a 70F with PMHx of DM2, HTN, HLD, COPD, ESRD presenting with left sided facial, arm and leg edema ESRD Worsening creatinine, persistent anasarca. - Nephro Dr. Spencer consulted, recommends dialysis - will continue with IV lasix 40mg BID - General surgery consulted, Dr. Cao to see 07/23, tentatively planning for hemodialysis catheter & fistula on 07/24 - eliquis held for surgery - will not bridge with heparin at this time Left sided edema, resolved 2/2 chronic anasarca Longstanding history. Acutely worsened on admission, had not received Lasix at facility since d/c from hospital on 07/13. -Improved with Lasix 40mg IV BID -Echo 07/18: EF 55-60%, mild mitral regurg, tricuspid regurg and pulmonic regurg -Nephro, Dr. Spencer, consulted - see above HTN urgency Elevated BPs on admission, was not wearing clonidine patch on admission. BP remains elevated, likely contributing to worsening kidney function. - current regimen: carvedilol 25mg BID, clonidine 0.3 mg patch q7d, procardia 60mg, lasix 40mg IV qd (per nephro) - discussed regimen with nephrology, will consider adding minoxidil if indicated after dialysis can be started Hyperkalemia, resolved 2/2 CKD K 5.2 in ED, now 4.8 -> 4.7 -> 4.9. s/p lasix. No EKG changes present on admis daniela. NSR on tele. -Monitor with am labs Chronic lower extremity ulcers 2/2 PVD -Wound care consulted - eliquis held for surgery DM2 - stopped home lantus due to hypoglycemia episode on 07/19 - required 2 units SS overnight - continue mild SSI - hypoglycemia precautions COPD Tobacco abuse -Nicotine patch -Continue home inhalers -Duoneb Q4H PRN HLD -continue home meds Peripheral neuropathy -continue home meds GERD -continue home meds Anemia, iron deficiency + chronic disease Previous workup demonstrated likely mix of anemia of chronic disease and iron deficiency anemia -Hgb 8.8 -> 8.2 -> 7.5. Asymptomatic -continue home iron Depression Insomnia -continue home meds Cognitive impairment [facility] at [facility] was -Scheduled to see neurology outpatient for further workup Overactive bladder -Continue home meds Morbid obesity -Aware Chronic pain -Continue home meds Recurrent DVTs Elevated factor 8 -Work-up completed in 10/22 after bilateral DVTs -Holding home eliquis for surgery Code: FULL Diet: CC, HH DVT ppx: home eliquis - HELD for surgery PCP: MIKAEL Stephens Dispo: [facility] pending further medical management Addendum - Attending - Attending Attestation Date/Time: 07/23/20 0975 I personally evaluated the patient and discussed the management with Dr. Stephens. I agree with the History, Examination, Assessment and Plan documented above with any addition or exceptions noted below. Patient will have dialysis catheter placed. Continue lasix for now but anticipate dialysis will help with volume status when it initiates.
[2020-07-23] MEDS: HumaLOG 300 UNITS/3 ML VIAL SC PRN (06:15)
[2020-07-23] MEDS: Mometasone 100 MCG/Formoterol 5 MCG 120 PUFF INHALER INH SCH ×2 (07:17→23:21)
--- NOTE | 2020-07-23 08:52 | PRG ---
DATE OF SERVICE: 07/23/2020 SUBJECTIVE: Ms. Garcia is a 70-year-old black female, initially admitted for symptomatic anemia/CHF. We are following up for chronic renal failure from diabetic nephropathy. Renal function remains unimproved and she has been in volume overload. For that reason, we have decided to initiate dialysis with her. Yesterday, Lasix was increased to 40 mg IV every 12 hours. She still has some mild shortness of breath today. She is scheduled for placement of a tunneled dialysis catheter and AV fistula. OBJECTIVE: VITAL SIGNS: Blood pressure is 166/67, heart rate 55, respiratory rate 18, temperature 98.3, O2 saturation 96%. GENERAL: The patient is awake, alert, obese, comfortable, not in overt distress. SKIN: Adequate turgor. HEENT: Slightly pale conjunctivae. Anicteric sclerae. NECK: No neck mass. No carotid bruits. No JVD. CHEST: No deformities. LUNGS: Decreased breath sounds. No wheezing. HEART: Normal sinus rhythm. No murmur. No gallops. No rubs. ABDOMEN: Globular, soft, nontender. No masses. EXTREMITIES: No edema, no deformities. MEDICATIONS: July 23, 2020, was reviewed. LABORATORY DATA: July 23, 2020, white count 4.5, hemoglobin 7.9, hematocrit 25. Sodium 138, potassium 5, chloride 103, carbon dioxide 24, BUN 49, creatinine 3.78, GFR 14 mL/min, glucose 192, calcium 8.5, AST 11, ALT 8, albumin 3.2. ASSESSMENT AND PLAN: 1. Congestive heart failure/volume overload. We will initiate dialysis either today or tomorrow when the line is placed this morning. Unclear what time the line will be placed. 2. Chronic renal failure - initiate hemodialysis due to the volume overload and progressive azotemia. I have discussed the case with the dialysis nurses. If the line is placed early enough, we can dialyze her later today for one hour and attempt 1 L fluid removal. 3. Anemia. P.r.n. blood transfusion. Continue weekly Epogen. 4. Recheck CBC, basic metabolic in a.m. Job ID: [id number]
[2020-07-23] MEDS ORDERED: Bupivacaine HCl 0.5%/Epinephrine 1:200,000/PF 30 ml Vial ONE (08:59)
[2020-07-23] MEDS ORDERED: Fentanyl 100 MCG/2 ML VIAL ONE ×2 (09:32→09:47)
[2020-07-23] MEDS ORDERED: Propofol 500 MG/50 ML VIAL ONE ×2 (09:32→09:33)
[2020-07-23] MEDS ORDERED: Midazolam HCl 2 mg/2 ml Vial ONE ×2 (09:32→09:47)
[2020-07-23] MEDS ORDERED: Ketamine 50 MG/ML (10ML VIAL) ONE (09:32)
[2020-07-23] MEDS ORDERED: Protamine Sulfate 50 MG/5 ML VIAL ONE (09:49)
[2020-07-23] MEDS ORDERED: Heparin 10,000 UNITS/ 10 ML VIAL ONE (09:49)
[2020-07-23] MEDS ORDERED: Bupivacaine PF 0.5% 30 ML VIAL ONE ×2 (09:49)
[2020-07-23] MEDS ORDERED: Sodium Chloride 0.9% 20 ML ONE (09:49)
[2020-07-23] MEDS ORDERED: EPINEPHrine 1 MG/ML AMP ONE (09:49)
[2020-07-23] MEDS ORDERED: Heparin 5,000 UNITS/ML VIAL ONE (09:49)
--- NOTE | 2020-07-23 10:59 | CON ---
DATE OF CONSULTATION: HISTORY: A 70-year-old black female, morbidly obese, 55.2 BMI, 5 feet 6 inches, 341 pounds, insulin-dependent diabetes mellitus, hypertension, admitted with facial swelling, found to need dialysis access. She has been on Eliquis for recurrent DVTs, lower extremities, held since 07/21/2000. Ultrasound vein mapping revealed thrombosed cephalic vein, right arm; acceptable vein caliber, left arm. She has some swelling in the left forearm from infiltrated IV, but her antecubital area appears accessible. Plan is placement of a hemodialysis catheter, central line, and left arm fistula. She may have acceptable veins in the wrist. SOCIAL HISTORY: Tobacco cessation 4 weeks ago, abused prior to that; alcohol occasionally. MEDICATIONS: At home: 1. Colace. 2. Advair inhaler. 3. Iron sulfate. 4. Insulin. 5. Pepcid. 6. Lasix. 7. MiraLAX. 8. Oxybutynin. 9. Nicoderm. 10. Nifedipine. 11. Gabapentin. 12. Zetia. 13. Vitamin D2. 14. Eliquis. 15. Retacrit. 16. Benadryl. 17. Celexa. 18. Cimetidine. 19. Catapres patch q.7 days. 20. Coreg 25 b.i.d. 21. Calcitriol. 22. Atorvastatin. 23. Aspirin. 24. Amitriptyline. 25. Albuterol sulfate. PAST SURGICAL HISTORY: Hysterectomy, right heel great toe amputation, angioplasties, lower extremities. FAMILY HISTORY: Cardiac disease. PAST MEDICAL HISTORY: Metabolic syndrome; morbid obesity; end-stage renal disease; diabetes mellitus, type 2, insulin dependent; hypertension; COPD; neuropathy; GERD; incontinence; iron-deficiency anemia; insomnia; depression; chronic kidney disease, end-stage renal disease; PAD; chronic pain; chronic venous stasis disease with ulceration, venous compression dressings in place; bladder incontinence. REVIEW OF SYSTEMS: Otherwise noncontributory. PHYSICAL EXAMINATION: VITAL SIGNS: Height 5 feet 6 inches, 341 pounds, 55 BMI, 98.3, 55, 166/67. LUNGS: Clear to auscultation. CARDIAC: Regular rate and rhythm without murmur or gallop. ABDOMEN: Soft, obese, nontender. No hernias evident. EXTREMITIES: Compression dressings for venous stasis ulcers in both lower extremities. Palpable radial pulses. Mild edema, left forearm consistent with previous access. ASSESSMENT AND PLAN: 1. End-stage renal disease secondary to metabolic syndrome. Plan hemodialysis catheter, central line, and left arm fistula. She understands risks and benefits, consents. 2. Other medical problems as outlined above. Job ID: [id number]
[2020-07-23] MEDS ORDERED: Lidocaine 2% w/Epinephrine 1:200K 20 ML VIAL ONE (11:08)
[2020-07-23] MEDS ORDERED: READ PPD TEST SITE PO SCH (13:00)
[2020-07-23] MEDS ORDERED: Acetaminophen 500 MG TAB PO PRN (13:19)
[2020-07-23] MEDS ORDERED: Promethazine HCl 25 MG/ML VIAL SLOW IVP PRN (13:40)
[2020-07-23] MEDS ORDERED: Promethazine HCl 25 MG/ML VIAL IM PRN (13:40)
[2020-07-23] MEDS ORDERED: Ondansetron HCl/PF 4 MG/2 ML Vial IVP PRN (13:40)
--- NOTE | 2020-07-23 13:49 | RAD ---
Chest one view HISTORY: Central line placement. COMPARISON: 07/17/2020. FINDINGS: Cardiac silhouette is magnified and enlarged. Pulmonary vasculature is engorged. Mediastinum is midline with aortic calcification. Dorsal column stimulator leads again demonstrated o anne the mid thoracic spine. Tip of a left subclavian central venous catheter projects over the superior vena cava. Tip of a large caliber dual lumen right internal jugular central venous catheter projects over the ri ght atrium. No evidence of pneumothorax. Parenchymal infiltrate at the right base is less dense than on the prior exam. Linear atelectasis pro jects over the anterior segment right upper lobe. IMPRESSION : Bilateral central venous catheters are in good radiographic position. Improved aeration right lung base. Cardiomegaly.
[2020-07-23] MEDS: Ferrous Sulfate 325 MG TAB PO SCH ×2 (15:02→15:55)
[2020-07-23] MEDS: Carvedilol 25 MG TAB PO SCH ×2 (15:02→21:57)
[2020-07-23] MEDS: Gabapentin 300 MG CAP PO SCH ×2 (15:03→21:57)
--- NOTE | 2020-07-23 15:03 | OP ---
DATE OF PROCEDURE: 07/23/2020 PREOPERATIVE DIAGNOSES: Morbid obesity, end-stage renal disease, in need of dialysis access. POSTOPERATIVE DIAGNOSES: Morbid obesity, end-stage renal disease, in need of dialysis access. PROCEDURES PERFORMED: Right IJ cuffed tunneled hemodialysis catheter, left subclavian vein triple-lumen catheter (left IJ could not be visualized for access). Left arm primary fistula, perforating branch of antecubital vein to proximal radial artery with outflow cephalic vein upper arm only. Note, cephalic vein at the wrist explored due to suggestive of vein mapping that it might be adequate, but it was inadequate. ANESTHESIA: Regional, TIVA, local. Ultrasound and fluoroscopy used. Local 0.5% Marcaine 30 mL mixed with 1% Xylocaine with epinephrine 20 mL. DESCRIPTION OF PROCEDURE: The patient was taken to the operating room, where under intravenous sedation, neck and chest prepared with ChloraPrep and draped in routine fashion. Local anesthetic was infiltrated in the skin and subcutaneous tissue about the operative site. Ultrasound guidance was used to cannulate the right internal jugular vein, and J-wire threaded, trocar catheter removed. I could not visualize the left internal jugular vein after much resistance, I then placed a left subclavian vein triple-lumen catheter using a Seldinger technique into the subclavian vein, removed the J-wire, securing the catheter with 3-0 nylon suture. Each port aspirated of blood, flushed with saline solution. The patient tolerated the procedure well. A stab incision was made over the right chest and the pre-curved [employer] cuffed tunneled hemodialysis catheter tunneled between the 2 incisions, placing the fabric cuff beneath the skin exit site, catheter secured with 2 interrupted suture of 3-0 nylon, sterile dressings applied. Small and medium sized dilators placed over the J-wire into the internal jugular vein and removed. Dilator and Peel-Away sheath placed over the J-wire into the superior vena cava, and dilator and J-wire removed. Catheter placed with Peel-Away sheath. Peel-Away sheath removed. Platysma was approximated with 4-0 Monocryl, skin with subdermal 4-0 Monocryl and Yeadon glue applied. Each port aspirated of blood, flushed with saline solution and heparinized saline solution, 1000 units of heparin per mL, indicating volume of the port. Sterile dressings applied. Attention was then turned to the left arm, which was prepared with ChloraPrep and draped in routine fashion. Incision made in the left wrist, finding the vein inadequate, approximated the subcutaneous tissue with 3-0 Monocryl, skin with subdermal 4-0 Monocryl and Yeadon glue applied. Attention was then turned to the proximal volar forearm, just below the antecubital fossa. A longitudinal skin incision was made below the antecubital fossa, carried down through skin and subcutaneous tissue, identifying a good-sized perforating branch of antecubital vein, dissected free, dividing branch between 4-0 silk ties and clips, spatulating over branch points, interrogating with coronary dilators, passing coronary dilators from 2 mm to 4 mm coronary dilator out the cephalic vein outflow without obstruction. So, outflow was the cephalic vein. No communication in basilic vein noted. There was excellent antecubital vein toward the forearm despite inadequate wrist cephalic vein. The patient was given 6000 units of heparin intravenously. After adequate circulation time, the proximal radial artery and distal radial artery clamped with atraumatic vascular clamps. Longitudinal arteriotomy made sharply, elongated with the Salas scissors and end perforating branch of antecubital vein anastomosed to the side proximal radial artery with continuous suture of 6-0 Prolene. Branches ligated with 4-0 silk ties. Vascular clamps released. There was good flow out the cephalic vein, evident by Doppler interrogation. The patient tolerated the procedure well. Good hemostasis noted. The patient was given 50 mg of protamine intravenously. Subcutaneous tissue was approximated with 3-0 Monocryl, skin with subdermal 4-0 Monocryl, and Yeadon glue applied. Job ID: [id number]
[2020-07-23] MEDS: Calcitriol 0.25 MCG CAP PO SCH (15:54)
[2020-07-23] MEDS: Aspirin 81 mg Enteric Coated Tablet PO SCH (15:54)
[2020-07-23] MEDS: Polyethylene Glycol 3350 17 GM Packet PO SCH (15:54)
[2020-07-23] MEDS: Ezetimibe 10 MG TAB PO SCH (15:54)
[2020-07-23] MEDS: NIFEdipine XL 60 MG TAB PO SCH (15:54)
[2020-07-23] MEDS: Citalopram 20 MG TAB PO SCH (15:54)
[2020-07-23] MEDS: Nicotine 14 MG PATCH TD SCH (18:26)
[2020-07-23] MEDS: traMADol HCl 50 MG TAB PO PRN (20:06)
[2020-07-23] MEDS ORDERED: CEFAZOLIN 2 GM in Premix Bag 1 BAG IVPB SCH (20:15)
[2020-07-23] MEDS ORDERED: Sodium Chloride 0.9% 10 ML ONE (21:39)
[2020-07-23] MEDS: Oxybutynin ER 5 MG TAB PO SCH (21:57)
[2020-07-23] MEDS: Atorvastatin Calcium 40 MG TAB PO SCH (21:57)
[2020-07-23] MEDS: Amitriptyline HCl 100 MG TAB PO SCH (21:57)
[2020-07-24 04:49] LABS: #Eosinphils 0.2 thou/uL (0.0-0.7); #Lymphocytes 0.8 thou/uL (1.20-3.40); #Monocytes 0.6 thou/uL (0.11-0.59); #Neutrophils 3.9 thou/uL (1.40-6.50); %Basophils 0.2 % (0.0-1.0); %Eosinophils 3.4 % (0.0-10.0); %Lymphocytes 14.9 % (21.0-51.0); %Monocytes 11.1 % (0.0-10.0); %Neutrophils 70.4 % (42.0-75.0); Hemoglobin 7.6 g/dL (12.0-16.0); Mean Corpuscular HGB CONC 31.9 g/dL (32.0-36.0); Mean Corpuscular Hemoglobin 28.1 pg (27.0-31.0); Mean Corpuscular Volume 88.2 fL (78.0-98.0); Mean Platelet Volume 7.2 fL (7.4-10.4); Platelet Count 232 thou/uL (130-400); RBC Distribution Width 15.4 % (11.5-14.5); Red Blood Cell (RBC) Count 2.71 mill/uL (4.20-5.40); White Blood Cell (WBC) Count 5.6 thou/uL (4.8-10.8)
[2020-07-24 05:27] LABS: ALT (SGPT) 7 U/L (8-55); AST (SGOT) 12 U/L (5-34); Albumin 3.3 g/dL (3.4-4.8); Alkaline Phosphatase 88 U/L (40-110); Anion Gap 16 mmol/L (10-20); BUN (Urea Nitrogen) 45 mg/dL (9.8-20.1); Bilirubin, Total 0.2 mg/dL (0.2-1.2); Calc. Creatinine Clearance 39 mL/min (70-130); Calcium 8.7 mg/dL (7.8-10.44); Carbon Dioxide 27 mmol/L (23-31); Chloride 103 mmol/L (98-107); Globulin 3.2 g/dL (2.4-3.5); Glucose 185 mg/dL (80-115); Potassium 4.8 mmol/L (3.5-5.1); Protein, Total 6.5 g/dL (6.0-8.3); Sodium 141 mmol/L (136-145)
[2020-07-24] MEDS: Furosemide 40 MG/4 ML VIAL SLOW IVP SCH (06:13)
--- NOTE | 2020-07-24 06:18 | PDOC.FM ---
- Subjective Subjective: No events overnight. Notes some fatigue after dialysis yesterday but says she is feeling well now. No headache, vision changes, chest pain, SOB, palpitations and nausea. - Objective MAR Reviewed: Yes Vital Signs & Weight: Vital Signs (12 hours) Temp Pulse Resp BP Pulse Ox 07/24/20 03:35 98.6 F 67 20 156/71 H 93 L 07/23/20 20:05 97.8 F 68 18 177/77 H 95 Weight Admit Weight 156.036 kg Weight 152 kg I&O: 07/22/20 07/23/20 07/24/20 06:59 06:59 06:59 Intake Total 20 1130 970 Output Total 1850 2950 700 Balance -1830 -1820 270 Result Diagrams: 07/24/20 04:30 07/24/20 04:30 Phys Exam - Physical Examination Constitutional: NAD Morbidly obese HEENT: moist MMs, sclera anicteric Neck: full ROM Respiratory: no wheezing, clear to auscultation bilateral Cardiovascular: RRR, no significant murmur Gastrointestinal: soft, non-tender, positive bowel sounds Musculoskeletal: no edema Neurological: moves all 4 limbs Psychiatric: normal affect, A&O x 3 Skin: no rash Deviation from normal: Clean, dry at catheter placement Dx/Plan - Plan Plan: Patient is a 70F with PMHx of DM2, HTN, HLD, COPD, ESRD presenting with left sided facial, arm and leg edema ESRD Worsening creatinine, persistent anasarca. - Nephro Dr. Spencer consulted. F/u recs - Initiated dialysis on 07/23 - IV lasix 40mg BID - General surgery, Dr. Field, consulted. Underwent R IJ tunneled hemodialysis catheter, L subclavian triple-luman catheter and L fistula placement on 07/23 Chronic anasarca Longstanding history. Acutely worsened on admission, had not received Lasix at facility since d/c from hospital on 07/13. -Improved with Lasix 40mg IV BID -Echo 07/18: EF 55-60%, mild mitral regurg, tricuspid regurg and pulmonic regurg -Nephro, Dr. Spencer, consulted - see above HTN Elevated BPs on admission, was not wearing clonidine patch. BP remains persistently elevated, although improved - current regimen: carvedilol 25mg BID, clonidine 0.3 mg patch q7d, procardia 60mg, lasix 40mg IV qd (per nephro) - discussed regimen with nephrology, will consider adding minoxidil Hyperkalemia, resolved 2/2 CKD K 5.2 in ED, downtrended s/p lasix. No EKG changes present on admission. NSR on tele. -Monitor with am labs Chronic lower extremity ulcers 2/2 PVD -Wound care consulted DM2 - stopped home lantus due to hypoglycemia episode on 07/19 - continue mild SSI - hypoglycemia precautions COPD Tobacco abuse -Nicotine patch -Continue home inhalers -Duoneb Q4H PRN HLD -continue home meds Peripheral neuropathy -continue home meds GERD -continue home meds Anemia, iron deficiency + chronic disease Previous workup demonstrated likely mix of anemia of chronic disease and iron deficiency anemia -Hgb 8.8 -> 8.2 -> 7.5. Asymptomatic -continue home iron Depression Insomnia -continue home meds Cognitive impairment MOCA at [facility] was -Scheduled to see neurology outpatient for further workup Overactive bladder -Continue home meds Morbid obesity -Aware Chronic pain -Continue home meds Recurrent DVTs Elevated factor 8 -Work-up completed in 10/22 after bilateral DVTs -Holding home eliquis for surgery Code: FULL Diet: CC, HH DVT ppx: home eliquis - HELD for surgery PCP: MIKAEL Stephens Dispo: [facility] pending further medical management and coordination of o utpatient dialysis Addendum - Attending - Attending Attestation Date/Time: 07/24/20 2222 I personally evaluated the patient and discussed the management with Dr. Stephens. I agree with the History, Examination, Assessment and Plan documented above with any addition or exceptions noted below. Asymptomatic besides swelling left hand. Await nephro recs.
[2020-07-24] MEDS: HumaLOG 300 UNITS/3 ML VIAL SC PRN ×2 (06:20→17:19)
[2020-07-24] MEDS: traMADol HCl 50 MG TAB PO PRN ×3 (06:26→20:55)
[2020-07-24] MEDS: Mometasone 100 MCG/Formoterol 5 MCG 120 PUFF INHALER INH SCH ×2 (08:05→19:03)
[2020-07-24] MEDS ORDERED: Ergocalciferol 1.25 MG(50,000 UNITS) CAP PO SCH (09:00)
--- NOTE | 2020-07-24 09:24 | PRG ---
DATE OF SERVICE: 07/24/2020 SUBJECTIVE: Ms. Garcia is a 70-year-old black female, followed up by the Renal Service for her chronic renal failure from diabetic nephropathy. Due to volume overload and worsening renal dysfunction, the patient has been initiated dialysis. She underwent an hour of hemodialysis yesterday. She is undergoing a 2-hour hemodialysis today. No new complaints. No chest pain or shortness of breath. Agree to hold off Lasix. OBJECTIVE: VITAL SIGNS: Blood pressure 156/71, heart rate 67, respiratory rate 20, temperature 98.6, O2 sats 93%. GENERAL: The patient is awake, alert, supine, obese, not in distress. SKIN: Adequate turgor. HEENT: Slightly pale conjunctivae. Anicteric sclerae. NECK: No neck mass. No carotid bruits. No JVD. CHEST: No deformities. LUNGS: Decreased breath sounds. HEART: Normal sinus rhythm. No murmurs, gallops, or rubs. ABDOMEN: Globular, soft, nontender. No masses. EXTREMITIES: Positive for edema. MEDICATIONS: Medications of July 24, 2020 reviewed. LABORATORY DATA: Laboratories of July 24, 2020, white count 5.6, hemoglobin 7.6. Sodium 141, potassium 4.8, chloride 103, carbon dioxide 27, BUN 45, creatinine 3.42, glucose 185, calcium 8.7, albumin 3.3. ASSESSMENT AND PLAN: 1. Anemia. P.r.n. blood transfusion for hemoglobin less than 7. Continue weekly Epogen. 2. End-stage renal disease/chronic renal failure-patient undergoing 2 hour hemodialysis. Fluid removal as tolerated. Attempt between 2 and 3 L of fluid removal. We will agree to discontinue IV furosemide. 3. Awaiting outpatient dialysis placement. Job ID: [id number]
[2020-07-24] MEDS ORDERED: Heparin 10,000 UNITS/ 10 ML VIAL ONE (09:29)
[2020-07-24] MEDS: Polyethylene Glycol 3350 17 GM Packet PO SCH (11:25)
[2020-07-24] MEDS: Gabapentin 300 MG CAP PO SCH ×2 (11:25→20:57)
[2020-07-24] MEDS: Citalopram 20 MG TAB PO SCH (11:25)
[2020-07-24] MEDS: Carvedilol 25 MG TAB PO SCH ×2 (11:26→20:56)
[2020-07-24] MEDS: Ferrous Sulfate 325 MG TAB PO SCH ×2 (11:26→17:18)
[2020-07-24] MEDS: Ezetimibe 10 MG TAB PO SCH (11:26)
[2020-07-24] MEDS: Aspirin 81 mg Enteric Coated Tablet PO SCH (11:26)
[2020-07-24] MEDS: NIFEdipine XL 60 MG TAB PO SCH (11:26)
[2020-07-24] MEDS: Calcitriol 0.25 MCG CAP PO SCH (11:26)
[2020-07-24] MEDS: Nicotine 14 MG PATCH TD SCH (13:27)
--- NOTE | 2020-07-24 14:39 | PQF ---
CLINICAL DOCUMENTATION CLARIFICATION FORM: Dear Dr. Stephens/ Attending Dr. Trujillo Date: 07/24/2020 Please exercise your independent, professional judgment in responding to the clarification form. Clinical indicators are provided on the bottom of this form for your review. Please check appropriate box(es): HEART FAILURE: A. ACUITY [ ] Acute [ ] Acute on Chronic [ ] Chronic B. TYPE: [ ] Systolic / HFrEF [ ] Diastolic / HFpEF [ ] Combined Systolic / Diastolic [ ] Hypertensive Heart and Kidney disease [ ] Hypertensive Heart Disease [ ] Hypertensive Kidney Disease [ ] Other diagnosis [ ] Unable to determine EF 55-60% on recent echo. Volume status is due to ESRD. No diagnosis of heart failure. In addition, please specify: Present on Admission (POA): [ ] Yes [ X ] No [ ] Unable to determine For continuity of documentation, please document condition throughout progress notes and discharge summary. Thank You. To be completed by CDI/Coding staff for physician review: CLINICAL INDICATORS - SIGNS / SYMPTOMS / LABS / RESULTS AND LOCATION IN EMR *H&P 07/17 (Angelo): Radiology: Chest XRY: Cardiomegaly, pulmonary vascular engorgement, increase density in right lung base A/P: L sided edema likely 2/2 chronic anasarca. ESRD *07/22 pn (Rehg) Dx/Plan: Echo 07/18: EF 55-60% Attending (Jacques) The pt is more edematous today. *07/23 pn (Spencer): SUB: initially admitted for symptomatic anemia/CHF. A/P: Congestive heart failure/volume overload. RISKS FACTORS / RESULTS AND LOCATION IN EMR *H&P 07/17 (Angelo) HPI: hx of ESRD not on dialysis, DM2, HTN, COPD, and PVD. Attending (Nayan) Pt here with recent discharge due to CKD 4 as well as volume overload. TREATMENTS / RESULTS AND LOCATION IN EMR *07/18 pn (Angelo) Plan: F/u echo to evaluate possible cardiorenal contribution. *07/22 pn Attending (Jacques) Plan: Increasing IV lasix. Plan for dialysis catheter on Thursday. *07/23 pn (Spencer)SUB: Yesterday, Lasix was increased to 40 mg IV every 12 hrs. Thank you, Shruthi Mack RN, [email or web address] Cell This is a permanent part of the Medical Record [facility]
[2020-07-24] MEDS: Acetaminophen 325 MG TAB PO PRN ×2 (14:56→21:11)
[2020-07-24] MEDS: Acetaminophen/Codeine 30-300mg Tablet PO PRN (17:18)
--- NOTE | 2020-07-24 18:46 | PRG ---
DATE OF SERVICE: 07/24/2020 Ms. Garcia is doing well today. Extremities are still edematous. She feels somewhat better. Hemodialysis catheter functioning well. Central line functioning well. Left arm fistula, good thrill and bruit. Surgical wounds look good. At this point, I will see her as needed. This hospitalization, she should exercise the left arm. She should follow up with me in about 4 to 5 weeks. I will see her as needed. Please call if necessary. Job ID: [id number]
[2020-07-24] MEDS: Atorvastatin Calcium 40 MG TAB PO SCH (20:56)
[2020-07-24] MEDS: Amitriptyline HCl 100 MG TAB PO SCH (20:57)
[2020-07-24] MEDS: Oxybutynin ER 5 MG TAB PO SCH (20:57)
[2020-07-24] MEDS: Insulin Glargine 30 UNITS in Pre-Filled Syringe 1 EACH SC SCH (22:17)
[2020-07-24] MEDS: EPOETIN ALFA-EPBX (ESRD) 4,000 UNIT/ML VIAL SC SCH (22:18)
[2020-07-25 05:37] LABS: ALT (SGPT) Less than 7 U/L (8-55); AST (SGOT) 11 U/L (5-34); Albumin 3.2 g/dL (3.4-4.8); Alkaline Phosphatase 87 U/L (40-110); Anion Gap 14 mmol/L (10-20); BUN (Urea Nitrogen) 36 mg/dL (9.8-20.1); Bilirubin, Total 0.2 mg/dL (0.2-1.2); Calc. Creatinine Clearance 39 mL/min (70-130); Calcium 8.7 mg/dL (7.8-10.44); Carbon Dioxide 28 mmol/L (23-31); Chloride 103 mmol/L (98-107); Globulin 3.1 g/dL (2.4-3.5); Glucose 163 mg/dL (80-115); Potassium 4.5 mmol/L (3.5-5.1); Protein, Total 6.3 g/dL (6.0-8.3); Sodium 140 mmol/L (136-145)
[2020-07-25 05:52] LABS: Hemoglobin 7.5 g/dL (12.0-16.0); Mean Corpuscular HGB CONC 31.8 g/dL (32.0-36.0); Mean Corpuscular Hemoglobin 28.3 pg (27.0-31.0); Mean Corpuscular Volume 89.1 fL (78.0-98.0); Mean Platelet Volume 7.4 fL (7.4-10.4); Platelet Count 214 thou/uL (130-400); RBC Distribution Width 15.7 % (11.5-14.5); Red Blood Cell (RBC) Count 2.66 mill/uL (4.20-5.40); White Blood Cell (WBC) Count 4.3 thou/uL (4.8-10.8)
[2020-07-25 06:03] LABS: Band 11 % (5-11); Eosinophils 2 % (0-10); Lymphocytes 30 % (21-51); MDiff Complete? YES; Monocytes 13 % (0-10); Neutrophil 44 % (42-75)
--- NOTE | 2020-07-25 06:14 | PDOC.FM ---
- Subjective Subjective: No events overnight. Feeling well this am. No headache, vision changes, chest pain, SOB, palpitations, nausea and abdominal pain. - Objective MAR Reviewed: Yes Vital Signs & Weight: Vital Signs (12 hours) Temp Pulse Resp BP Pulse Ox 07/25/20 04:51 98.6 F 54 L 13 151/67 H 95 07/25/20 01:16 98.3 F 60 12 148/69 H 97 07/24/20 20:43 99.7 F H 70 17 136/91 H 100 Weight Admit Weight 156.036 kg Weight 146.709 kg I&O: 07/23/20 07/24/20 07/25/20 06:59 06:59 06:59 Intake Total 1130 1470 970 Output Total 2950 1900 1200 Balance -1820 -430 -230 Result Diagrams: 07/25/20 04:22 07/25/20 04:22 Phys Exam - Physical Examination Constitutional: NAD Morbidly obese HEENT: moist MMs, sclera anicteric Neck: full ROM Respiratory: no wheezing, clear to auscultation bilateral Cardiovascular: RRR, no significant murmur Gastrointestinal: soft, non-tender, positive bowel sounds Musculoskeletal: no edema CHELSEA wrap in place for bilat LE Neurological: moves all 4 limbs Psychiatric: normal affect, A&O x 3 Skin: no rash Deviation from normal: Clean, dry Dx/Plan - Plan Plan: Patient is a 70F with PMHx of DM2, HTN, HLD, COPD, ESRD presenting with left sided facial, arm and leg edema ESRD Worsening creatinine, persistent anasarca. - Nephro Dr. Spencer consulted. F/u recs - Initiated dialysis on 07/23, underwent 07/24 - General surgery, Dr. Field, consulted. Underwent R IJ tunneled hemodialysis catheter, L subclavian triple-luman catheter and L fistula placement on 07/23 -F/u in 4-5 weeks -Resume Eliquis 2 days post-op Chronic anasarca Longstanding history. Acutely worsened on admission, had not received Lasix at f acility since d/c from hospital on 07/13. -Improved with Lasix 40mg IV BID then dialysis -Echo 07/18: EF 55-60%, mild mitral regurg, tricuspid regurg and pulmonic regurg -Nephro, Dr. Spencer, consulted - see above HTN Elevated BPs on admission, was not wearing clonidine patch. BP remains persistently elevated, although improved - current regimen: carvedilol 25mg BID, clonidine 0.3 mg patch q7d, procardia 60mg, lasix 40mg IV qd (per nephro) - discussed regimen with nephrology, will consider adding minoxidil if BP is above goal Hyperkalemia, resolved 2/2 CKD K 5.2 in ED, downtrended s/p lasix. No EKG changes present on admission. NSR on tele. -Monitor with am labs Chronic lower extremity ulcers 2/2 PVD -Wound care consulted DM2 - stopped home lantus due to hypoglycemia episode on 07/19 - continue mild SSI - hypoglycemia precautions COPD Tobacco abuse -Nicotine patch -Continue home inhalers -Duoneb Q4H PRN HLD -continue home meds Peripheral neuropathy -continue home meds GERD -continue home meds Anemia, iron deficiency + chronic disease Previous workup demonstrated likely mix of anemia of chronic disease and iron deficiency anemia -Hgb 8.8 -> 8.2 -> 7.6 -> 7.5. Asymptomatic -continue home iron Depression Insomnia -continue home meds Cognitive impairment M[facility]A at [facility] was -Scheduled to see neurology outpatient for further workup Overactive bladder -Continue home meds Morbid obesity -Aware Chronic pain -Continue home meds Recurrent DVTs Elevated factor 8 -Work-up completed in 10/22 after bilateral DVTs -Holding home eliquis for 2 days post-op Code: FULL Diet: CC, HH DVT ppx: home eliquis - HELD for surgery PCP: MIKAEL Stephens Dispo: [facility] pending coordination of outpatient dialysis Addendum - Attending - Attending Attestation Date/Time: 07/25/20 [id number] I personally evaluated the patient and discussed the management with Dr. Stephens. I agree with the History, Examination, Assessment and Plan documented above with any addition or exceptions noted below.
[2020-07-25] MEDS: HumaLOG 300 UNITS/3 ML VIAL SC PRN (06:35)
[2020-07-25] MEDS: Mometasone 100 MCG/Formoterol 5 MCG 120 PUFF INHALER INH SCH ×2 (07:19→19:39)
--- NOTE | 2020-07-25 09:00 | PRG ---
DATE OF SERVICE: 07/25/2020 SERVICE: Renal Medicine. SUBJECTIVE: Ms. Garcia is a black female, followed up for her chronic renal failure from diabetic nephropathy. Hemodialysis has been initiated due to volume overload. The patient is currently undergoing hemodialysis. We are doing a 3-hour hemodialysis today with fluid removal of about 3 L. The patient voices no other complaints. No chest pain or shortness of breath. OBJECTIVE: VITAL SIGNS: Blood pressure is 151/67, heart rate 54, respiratory rate 13, temperature 98.6, and O2 saturation 95%. GENERAL: Awake, alert, supine, comfortable, obese, not in distress. SKIN: Adequate turgor. HEENT: Slightly pale conjunctivae. Anicteric sclerae. NECK: No neck mass. No carotid bruits. No JVD. CHEST: No deformities. LUNGS: Clear breath sounds. HEART: Normal sinus rhythm. No murmur. No gallops. No rubs. ABDOMEN: Globular, soft, and nontender. No masses. EXTREMITIES: Trace edema. MEDICATIONS: Of July 25, 2020, reviewed. LABORATORY DATA: Laboratories of July 25, 2020; white count 4.2, hemoglobin 7.5. Sodium 140, potassium 4.5, chloride 103, carbon dioxide 28, BUN 36, creatinine 3.2, glucose 163, AST 11, ALT less than 7, and albumin 3.2. ASSESSMENT AND PLAN: 1. Chronic renal failure/end-stage renal disease - the patient undergoing hemodialysis at the present time. Attempting a 3 L fluid removal as tolerated by the patient. Continue daily dialysis. I have scheduled this patient for another 4 hour hemodialysis in a.m. 2. Anemia, continuing weekly Epogen. P.r.n. blood transfusion for hemoglobin less than 7. 3. Congestive heart failure, clinically improving with fluid removal with hemodialysis. Recheck CBC and basic metabolic panel in a.m. Job ID: [id number] [facility]
[2020-07-25] MEDS ORDERED: Heparin 10,000 UNITS/ 10 ML VIAL ONE (12:16)
[2020-07-25] MEDS: Ferrous Sulfate 325 MG TAB PO SCH ×2 (12:20→16:28)
[2020-07-25 14:07] VITALS: BMI 52.2
[2020-07-25] MEDS: Gabapentin 300 MG CAP PO SCH ×2 (15:03→20:38)
[2020-07-25] MEDS: Aspirin 81 mg Enteric Coated Tablet PO SCH (15:04)
[2020-07-25] MEDS: Carvedilol 25 MG TAB PO SCH ×2 (15:04→20:38)
[2020-07-25] MEDS: cloNIDine 0.3mg/24 Hour PATCH TD SCH (15:04)
[2020-07-25] MEDS: Ezetimibe 10 MG TAB PO SCH (15:04)
[2020-07-25] MEDS: Calcitriol 0.25 MCG CAP PO SCH (15:04)
[2020-07-25] MEDS: Citalopram 20 MG TAB PO SCH (15:04)
[2020-07-25] MEDS: Nicotine 14 MG PATCH TD SCH (15:05)
[2020-07-25] MEDS: NIFEdipine XL 60 MG TAB PO SCH (15:05)
[2020-07-25] MEDS: Polyethylene Glycol 3350 17 GM Packet PO SCH (15:05)
--- NOTE | 2020-07-25 16:08 | PDOC.PALCO ---
Palliative Care Consult - Consult Details Requesting Physician: Dr Stephens Reason for Consult: goals of care, coping issues Family Members Present: none - Pertinent HPI 70-year-old female with history of end-stage renal disease who has recently started dialysis. Past medical history includes diabetes type 2 hypertension hyperlipidemia, COPD and PVD. She came to the ED PE from a nursing home facility with complaints of edema primarily on her left side. Had increasing shortness of breath with movement. Last hospitalization was from 1228 to July 13, 2020 for symptomatic anemia and acute kidney injury. She has had a AV fistula several days ago and has been dialyzed for fluid removal. She states he has been crying and has sister Yola Lopez who lives in [place] who is supportive. She is not concerned about starting dialysis but she is familiar with it. She plans to eventually return to her home with van transportation to dialysis treatments 3 times a week. - Pertinent PMH End-stage renal disease, DM 2, hypertension, hyperlipidemia, COPD, peripheral neuropathy, GERD, iron deficiency anemia, depression, insomnia, PVD, chronic pain, chronic lower extremity ulcers, overactive bladder, cognitive impairment, morbid obesity - Social History Smoking Status: Former smoker Smoking: less than 1 pack/day Alcohol Use: none Drug Use History: none Living Situation: group home resident - Medications MAR Reviewed: Yes - Allergies Allergies/Adverse Reactions: Allergies Allergy/AdvReac Type Severity Reaction Status Date / Time hydralazine Allergy Verified 05/20/20 00:40 pregabalin Allergy Verified 05/20/20 00:40 - ROS Constitutional: alert Respiratory: shortness of breath with extertion Cardiology: edema, orthopnea Genitourinary: incontinence Musculoskeletal: arthritis/arthralgias, limited mobility - Objective Vital Signs: Vital Signs - Most Recent Temp Pulse Resp BP Pulse Ox 97.1 F L 80 16 164/70 H 97 07/25/20 14:14 07/25/20 14:14 07/25/20 14:14 07/25/20 14:14 07/25/20 14:14 - Physical Exam Constitutional: NAD HEENT: EOMI, moist MMs, sclera anicteric Respiratory: clear to auscultation bilateral, no wheezing, unlabored breathing Cardiovascular: no rub, no significant murmur, RRR Gastrointestinal: soft, non-tender, positive bowel sounds Genitourinary: stress incontinence Musculoskeletal: no cyanosis Deviation from normal: Peripheral edema +2 pedal, left arm swollen Neurology: moves all 4 limbs, no focal deficits, normal sensation Skin: cap refill <2 seconds, no lesions, normal turgor Psychiatric: A&O x 3, normal affect, normal mood - Problem List (1) ESRD (end stage renal disease) on dialysis Code(s): N18.6 - END STAGE RENAL DISEASE; Z99.2 - DEPENDENCE ON RENAL DIALYSIS Current Visit: Yes Status: Acute (2) KAYDEN (acute kidney injury) Code(s): N17.9 - ACUTE KIDNEY FAILURE, UNSPECIFIED Current Visit: No Status: Acute (3) CKD (chronic kidney disease) Code(s): N18.9 - CHRONIC KIDNEY DISEASE, UNSPECIFIED Current Visit: No Status: Acute (4) Diabetes mellitus Code(s): E11.9 - TYPE 2 DIABETES MELLITUS WITHOUT COMPLICATIONS Current Visit: No Status: Acute (5) HTN (hypertension) Code(s): I10 - ESSENTIAL (PRIMARY) HYPERTENSION Current Visit: No Status: Acute (6) Morbid obesity Code(s): E66.01 - MORBID (SEVERE) OBESITY DUE TO EXCESS CALORIES Current Visit: No Status: Acute (7) Palliative care encounter Code(s): Z51.5 - ENCOUNTER FOR PALLIATIVE CARE Current Visit: Yes Status: Acute - Plan/Recommendations Plan: Introduced palliative care for coping with recent beginning of end-stage renal disease with dialysis Reviewed current status and Mrs. Ferrera feels comfortable with dialysis and her goal is to return home with assistance with transportation to dialysis 3 times a week 60 minutes spent on this encounter with >50% of the time in counseling and coordination of care. Thank you for this very appropriate consult.
[2020-07-25] MEDS: Apixaban 2.5 MG TAB PO SCH (20:38)
[2020-07-25] MEDS: Oxybutynin ER 5 MG TAB PO SCH (20:38)
[2020-07-25] MEDS: Atorvastatin Calcium 40 MG TAB PO SCH (20:38)
[2020-07-25] MEDS: Amitriptyline HCl 100 MG TAB PO SCH (20:38)
[2020-07-26 04:12] LABS: #Eosinphils 0.3 thou/uL (0.0-0.7); #Monocytes 0.7 thou/uL (0.11-0.59); #Neutrophils 2.7 thou/uL (1.40-6.50); %Basophils 0.3 % (0.0-1.0); %Eosinophils 6.3 % (0.0-10.0); %Lymphocytes 21.6 % (21.0-51.0); %Monocytes 14.5 % (0.0-10.0); %Neutrophils 57.4 % (42.0-75.0); Hemoglobin 7.6 g/dL (12.0-16.0); Mean Corpuscular HGB CONC 31.1 g/dL (32.0-36.0); Mean Corpuscular Hemoglobin 27.7 pg (27.0-31.0); Mean Corpuscular Volume 88.9 fL (78.0-98.0); Mean Platelet Volume 7.3 fL (7.4-10.4); Platelet Count 227 thou/uL (130-400); RBC Distribution Width 15.8 % (11.5-14.5); Red Blood Cell (RBC) Count 2.74 mill/uL (4.20-5.40); White Blood Cell (WBC) Count 4.7 thou/uL (4.8-10.8)
[2020-07-26 04:34] LABS: ALT (SGPT) Less than 7 U/L (8-55); AST (SGOT) 11 U/L (5-34); Albumin 3.2 g/dL (3.4-4.8); Alkaline Phosphatase 87 U/L (40-110); Anion Gap 12 mmol/L (10-20); BUN (Urea Nitrogen) 30 mg/dL (9.8-20.1); Bilirubin, Total 0.3 mg/dL (0.2-1.2); Calc. Creatinine Clearance 41 mL/min (70-130); Calcium 8.4 mg/dL (7.8-10.44); Carbon Dioxide 30 mmol/L (23-31); Chloride 99 mmol/L (98-107); Globulin 3.3 g/dL (2.4-3.5); Glucose 234 mg/dL (80-115); Potassium 4.2 mmol/L (3.5-5.1); Protein, Total 6.5 g/dL (6.0-8.3); Sodium 137 mmol/L (136-145)
[2020-07-26] MEDS: HumaLOG 300 UNITS/3 ML VIAL SC PRN (06:29)
--- NOTE | 2020-07-26 06:55 | PDOC.FM ---
- Subjective Subjective: No events overnight. Feeling well this am. Reports dialysis is going well, less fatigue after yesterday's session. No headache, vision changes, chest pain, SOB, palpitations, nausea and abdominal pain. - Objective MAR Reviewed: Yes Vital Signs & Weight: Vital Signs (12 hours) Temp Pulse Resp BP Pulse Ox 07/26/20 03:27 97.9 F 68 17 123/59 L 94 L 07/25/20 19:10 98.7 F 75 17 143/65 H 95 Weight Admit Weight 156.036 kg Weight 149 kg I&O: 07/24/20 07/25/20 07/26/20 06:59 06:59 06:59 Intake Total 1470 1130 960 Output Total 1900 1200 3100 Balance -430 70 -2140 Result Diagrams: 07/26/20 03:30 07/26/20 03:30 Phys Exam - Physical Examination Constitutional: NAD Morbidly obese HEENT: moist MMs, sclera anicteric Neck: full ROM Respiratory: no wheezing, clear to auscultation bilateral Cardiovascular: RRR, no significant murmur Gastrointestinal: soft, non-tender, positive bowel sounds Musculoskeletal: no edema CHELSEA wrap in place bilaterally Neurological: non-focal, moves all 4 limbs Psychiatric: normal affect, A&O x 3 Skin: no rash Dx/Plan - Plan Plan: Patient is a 70F with PMHx of DM2, HTN, HLD, COPD, ESRD presenting with left sided facial, arm and leg edema ESRD Worsening creatinine, persistent anasarca. - Nephro Dr. Spencer consulted. F/u recs - Initiated dialysis on 07/23, underwent 07/24 - General surgery, Dr. Field, consulted. Underwent R IJ tunneled hemodialysis catheter, L subclavian triple-luman catheter and L fistula placement on 07/23 -F/u in 4-5 weeks -Resume Eliquis 2 days post-op, today Chronic anasarca Longstanding history. Acutely worsened on admission, had not received Lasix at facility since d/c from hospital on 07/13. -Improved with Lasix 40mg IV BID then dialysis -Echo 07/18: EF 55-60%, mild mitral regurg, tricuspid regurg and pulmonic regurg -Nephro, Dr. Spencer, consulted - see above HTN Elevated BPs on admission, was not wearing clonidine patch. BP improved after dialysis initiation - current regimen: carvedilol 25mg BID, clonidine 0.3 mg patch q7d, procardia 60mg, lasix 40mg IV qd (per nephro) - discussed regimen with nephrology, will consider adding minoxidil if BP is above goal Hyperkalemia, resolved 2/2 CKD K 5.2 in ED, downtrended s/p lasix. No EKG changes present on admission. NSR on tele. -Monitor with am labs Chronic lower extremity ulcers 2/2 PVD -Wound care consulted DM2 - stopped home lantus due to hypoglycemia episode on 07/19. Resume Lantus at 10 daily this am - continue mild SSI - hypoglycemia precautions COPD Tobacco abuse -Nicotine patch -Continue home inhalers -Duoneb Q4H PRN HLD -continue home meds Peripheral neuropathy -continue home meds GERD -continue home meds Anemia, iron deficiency + chronic disease Previous workup demonstrated likely mix of anemia of chronic disease and iron deficiency anemia -Hgb 8.8 -> 8.2 -> 7.6 -> 7.5. Asymptomatic -continue home iron Depression Insomnia -continue home meds Cognitive impairment MOCA at [facility] was -Scheduled to see neurology outpatient for further workup Overactive bladder -Continue home meds Morbid obesity -Aware Chronic pain -Continue home meds Recurrent DVTs Elevated factor 8 -Work-up completed in 10/22 after bilateral DVTs -Holding home eliquis for 2 days post-op. Resume today Code: FULL Diet: CC, HH DVT ppx: home eliquis PCP: MIKAEL Stephens Dispo: [facility] pending insurance approval of outpatient dialysis Addendum - Attending - Attending Attestation Date/Time: 07/26/20 8205 I personally evaluated the patient and discussed the management with Dr. Stephens. I agree with the History, Examination, Assessment and Plan documented above with any addition or exceptions noted below. Hopeful placement today.
[2020-07-26] MEDS: Mometasone 100 MCG/Formoterol 5 MCG 120 PUFF INHALER INH SCH ×2 (07:18→18:54)
--- NOTE | 2020-07-26 08:57 | PRG ---
DATE OF SERVICE: 07/26/2020 SUBJECTIVE: Ms. Garcia is a 70-year-old black female, followed by the Renal service for her progressive azotemia and volume overload. She has been initiated on dialysis and tolerating treatment. She is scheduled for 3.5 hour hemodialysis today. She is improving with regard to her shortness of breath. No new no new complaints. Appetite is fair. OBJECTIVE: VITAL SIGNS: Blood pressure 151/64, heart rate 59, respiratory rate 16, temperature 97.4, O2 saturation 96%. GENERAL: The patient is awake, alert, comfortable, not in overt distress. SKIN: Adequate turgor. HEENT: She has slightly pale conjunctivae. Anicteric sclerae. No neck mass. No carotid bruits. No JVD. CHEST: No deformities. LUNGS: Decreased breath sounds. HEART: Normal sinus rhythm. No murmurs, gallops, or rubs. ABDOMEN: Globular, soft, nontender. No masses. EXTREMITIES: Trace edema. Positive for leg dressing. MEDICATIONS: Of July 26, 2020 was reviewed. LABORATORY DATA: July 26, 2020, white count 4.7, hemoglobin 7.6, sodium 137, potassium 4.2, chloride 99, carbon dioxide 30, BUN 30, creatinine 3.12, AST 11, ALT less than 7. ASSESSMENT AND PLAN: 1. Chronic renal failure/end-stage renal disease, continuing hemodialysis regimen. I have scheduled the patient for 3.5 hour hemodialysis. Fluid removal as tolerated. The patient has a placement for outpatient dialysis at [facility] on Thursday, Thursday, and Thursday schedule. 2. Anemia. Continue weekly Epogen. P.r.n. blood transfusion. 3. Volume overload, clinically much improved with fluid removal with dialysis. 4. Hypertension. Fair control, continue current BP medications. 5. Patient from a renal point of view, can be discharged any time. Job ID: [id number]
[2020-07-26] MEDS: Ferrous Sulfate 325 MG TAB PO SCH ×2 (09:21→16:46)
[2020-07-26] MEDS ORDERED: Heparin 10,000 UNITS/ 10 ML VIAL ONE (12:52)
[2020-07-26] MEDS: Apixaban 2.5 MG TAB PO SCH ×2 (13:45→20:32)
[2020-07-26] MEDS: Aspirin 81 mg Enteric Coated Tablet PO SCH (13:45)
[2020-07-26] MEDS: Carvedilol 25 MG TAB PO SCH ×2 (13:45→20:31)
[2020-07-26] MEDS: Gabapentin 300 MG CAP PO SCH ×2 (13:45→20:31)
[2020-07-26] MEDS: Ezetimibe 10 MG TAB PO SCH (13:46)
[2020-07-26] MEDS: Nicotine 14 MG PATCH TD SCH (13:46)
[2020-07-26] MEDS: Calcitriol 0.25 MCG CAP PO SCH (13:46)
[2020-07-26] MEDS: NIFEdipine XL 60 MG TAB PO SCH (13:46)
[2020-07-26] MEDS: Citalopram 20 MG TAB PO SCH (13:46)
[2020-07-26] MEDS: Polyethylene Glycol 3350 17 GM Packet PO SCH (13:46)
[2020-07-26] MEDS: Atorvastatin Calcium 40 MG TAB PO SCH (20:31)
[2020-07-26] MEDS: Amitriptyline HCl 100 MG TAB PO SCH (20:31)
[2020-07-26] MEDS: Oxybutynin ER 5 MG TAB PO SCH (20:31)
[2020-07-27 05:01] LABS: #Eosinphils 0.2 thou/uL (0.0-0.7); #Lymphocytes 1.1 thou/uL (1.20-3.40); #Monocytes 0.7 thou/uL (0.11-0.59); #Neutrophils 3.6 thou/uL (1.40-6.50); %Basophils 0.1 % (0.0-1.0); %Eosinophils 4.1 % (0.0-10.0); %Lymphocytes 19.1 % (21.0-51.0); %Monocytes 12.7 % (0.0-10.0); Hemoglobin 7.3 g/dL (12.0-16.0); Mean Corpuscular HGB CONC 30.9 g/dL (32.0-36.0); Mean Corpuscular Hemoglobin 27.5 pg (27.0-31.0); Mean Corpuscular Volume 89.1 fL (78.0-98.0); Mean Platelet Volume 7.3 fL (7.4-10.4); Platelet Count 219 thou/uL (130-400); Red Blood Cell (RBC) Count 2.66 mill/uL (4.20-5.40); White Blood Cell (WBC) Count 5.7 thou/uL (4.8-10.8)
[2020-07-27 05:20] LABS: ALT (SGPT) Less than 7 U/L (8-55); AST (SGOT) 13 U/L (5-34); Albumin 3.1 g/dL (3.4-4.8); Alkaline Phosphatase 87 U/L (40-110); Anion Gap 14 mmol/L (10-20); BUN (Urea Nitrogen) 25 mg/dL (9.8-20.1); Bilirubin, Total 0.3 mg/dL (0.2-1.2); Calc. Creatinine Clearance 43 mL/min (70-130); Calcium 8.7 mg/dL (7.8-10.44); Carbon Dioxide 28 mmol/L (23-31); Chloride 97 mmol/L (98-107); Globulin 3.3 g/dL (2.4-3.5); Glucose 254 mg/dL (80-115); Potassium 3.8 mmol/L (3.5-5.1); Protein, Total 6.4 g/dL (5.8-8.1); Sodium 135 mmol/L (136-145)
[2020-07-27] MEDS: HumaLOG 300 UNITS/3 ML VIAL SC PRN ×3 (05:55→20:27)
--- NOTE | 2020-07-27 06:39 | PDOC.FM ---
- Subjective Subjective: Slept well overnight. Feels well. No headache, vision changes, chest pain, SOB, and abdominal pain. Ready to leave - Objective MAR Reviewed: Yes Vital Signs & Weight: Vital Signs (12 hours) Temp Pulse Resp BP Pulse Ox 07/27/20 03:40 99.0 F 65 17 146/61 H 94 L 07/26/20 20:30 99.0 F 61 16 142/67 H 95 Weight Admit Weight 156.036 kg Weight 149.7 kg I&O: 07/25/20 07/26/20 07/27/20 06:59 06:59 06:59 Intake Total 1130 970 490 Output Total 1200 3100 3100 Balance -70 -3884 -8337 Result Diagrams: 07/27/20 04:48 07/27/20 04:48 Phys Exam - Physical Examination Constitutional: NAD Morbidly obese HEENT: moist MMs, sclera anicteric Neck: full ROM Respiratory: no wheezing, clear to auscultation bilateral Cardiovascular: RRR, no significant murmur Gastrointestinal: soft, non-tender, positive bowel sounds Musculoskeletal: no edema CHELSEA wrap Neurological: moves all 4 limbs Psychiatric: normal affect, A&O x 3 Skin: no rash Dx/Plan - Plan Plan: Patient is a 70F with PMHx of DM2, HTN, HLD, COPD, ESRD presenting with left sided facial, arm and leg edema ESRD Worsening creatinine, persistent anasarca. - Nephro Dr. Spencer consulted. F/u recs - Initiated dialysis on 07/23 - General surgery, Dr. Field, consulted. Underwent R IJ tunneled hemodialysis catheter, L subclavian triple-luman catheter and L fistula placement on 07/23 -F/u in 4-5 weeks -Resume Eliquis 2 days post-op, 07/26 Chronic anasarca Longstanding history. Acutely worsened on admission, had not received Lasix at facility since d/c from hospital on 07/13. -Improved with Lasix 40mg IV BID then dialysis -Echo 07/18: EF 55-60%, mild mitral regurg, tricuspid regurg and pulmonic regurg -NephroDr. Spencer, consulted - see above HTN Elevated BPs on admission, was not wearing clonidine patch. BP improved after dialysis initiation - current regimen: carvedilol 25mg BID, clonidine 0.3 mg patch q7d, procardia 60mg, lasix 40mg IV qd (per nephro) - discussed regimen with nephrology, will consider adding minoxidil if BP is above goal Hyperkalemia, resolved 2/2 CKD K 5.2 in ED, downtrended s/p lasix. No EKG changes present on admission. NSR on tele. -Monitor with am labs Chronic lower extremity ulcers 2/2 PVD -Wound care consulted DM2 - Hypoglycemia episode on 07/19. Resume Lantus at 10 daily today - continue mild SSI - hypoglycemia precautions COPD Tobacco abuse -Nicotine patch -Continue home inhalers -Duoneb Q4H PRN HLD -continue home meds Peripheral neuropathy -continue home meds GERD -continue home meds Anemia, iron deficiency + chronic disease Previous workup demonstrated likely mix of anemia of chronic disease and iron deficiency anemia -Hgb 8.8 -> 8.2 -> 7.6 -> 7.5. Asymptomatic -continue home iron Depression Insomnia -continue home meds Cognitive impairment MOCA at [facility] was -Scheduled to see neurology outpatient for further workup Overactive bladder -Continue home meds Morbid obesity -Aware Chronic pain -Continue home meds Recurrent DVTs Elevated factor 8 -Work-up completed in 10/22 after bilateral DVTs -Holding home eliquis for 2 days post-op. Resume today Code: FULL Diet: CC, HH DVT ppx: home eliquis PCP: MIKAEL Stephens Dispo: [facility] pending insurance approval of outpatient dialysis Addendum - Attending - Attending Attestation Date/Time: 07/27/20 9959 I personally evaluated the patient and discussed the management with the team. I agree with the History, Examination, Assessment and Plan documented above with any addition or exceptions noted below.
[2020-07-27] MEDS: Mometasone 100 MCG/Formoterol 5 MCG 120 PUFF INHALER INH SCH ×2 (07:30→18:42)
[2020-07-27] MEDS ORDERED: EPOETIN ALFA-EPBX (ESRD) 4,000 UNIT/ML VIAL SC SCH (08:17)
--- NOTE | 2020-07-27 08:43 | PRG ---
DATE OF SERVICE: 07/27/2020 SUBJECTIVE: Ms. Garcia is a 70-year-old black female, followed up by the Renal Service for her chronic renal failure. Her renal function has worsened and due to progressive azotemia and volume overload, we have initiated dialysis. She is currently tolerating current dialysis. We are awaiting for outpatient dialysis placement. She is currently undergoing hemodialysis. I will attempt 2 L of fluid removal with this patient with a 3-hour hemodialysis. I have now placed her on a regular three times a week hemodialysis-Thursday, Thursday, and Thursday. She voices no new complaints. She denies any chest pain or shortness of breath. She tells me her leg edema is much improved. OBJECTIVE: VITAL SIGNS: Blood pressure is 161/71, heart rate 85, respiratory rate 18, temperature 98.9, and O2 saturation 95%. GENERAL: Awake, comfortable, obese, not in distress. SKIN: Adequate turgor. HEENT: Pale conjunctivae. Anicteric sclerae. NECK: No neck mass. No carotid bruits. No JVD. CHEST: No deformities. LUNGS: Decreased breath sounds. No wheezing. No crackles. HEART: Normal sinus rhythm. No murmur. No gallops. No rubs. ABDOMEN: Globular, soft, and nontender. No masses. EXTREMITIES: No edema. No deformities. MEDICATIONS: Medications of July 27, 2020, were reviewed. LABORATORY DATA: Laboratories of July 27, 2020; white count 5.7, hemoglobin 7.3, sodium 135, potassium 3.8, chloride 97, carbon dioxide 28, BUN 25, creatinine 2.98, glucose 254, AST 13, ALT less than 7, and albumin 3.1. ASSESSMENT AND PLAN: 1. Anemia-hemoglobin noted at 7.3. We will increase Epogen to 10,000 units subcu q.week. In addition, the patient is on iron supplementation. P.r.n. blood transfusion for hemoglobin less than 7. 2. Volume overload/shortness of breath, improving with fluid removal with daily hemodialysis. Leg edema is much improved. She denies any shortness of breath. 3. End-stage renal disease/chronic renal failure, continuing hemodialysis regimen. We will place this patient now on a Thursday, Thursday, and Thursday hemodialysis at least 3-1/2 hours per treatment next week. Fluid removal as tolerated by the patient. We are currently awaiting placement with this patient. In the future, consider decreasing gabapentin to 600 mg once a day due to her end-stage renal disease. Recheck CBC and basic met in a.m. Job ID: [id number]
[2020-07-27] MEDS ORDERED: Insulin Glargine 10 UNITS in Pre-Filled Syringe 1 EACH SC SCH (09:00)
[2020-07-27] MEDS ORDERED: EPOETIN ALFA-EPBX (ESRD) 10,000 UNIT/ML VIAL SC SCH (12:00)
[2020-07-27] MEDS: NIFEdipine XL 60 MG TAB PO SCH (12:16)
[2020-07-27] MEDS: Calcitriol 0.25 MCG CAP PO SCH (12:16)
[2020-07-27] MEDS: Gabapentin 300 MG CAP PO SCH ×2 (12:16→20:28)
[2020-07-27] MEDS: Polyethylene Glycol 3350 17 GM Packet PO SCH (12:16)
[2020-07-27] MEDS: Aspirin 81 mg Enteric Coated Tablet PO SCH (12:16)
[2020-07-27] MEDS: Apixaban 2.5 MG TAB PO SCH ×2 (12:17→20:28)
[2020-07-27] MEDS: Ezetimibe 10 MG TAB PO SCH (12:17)
[2020-07-27] MEDS: Ferrous Sulfate 325 MG TAB PO SCH ×2 (12:17→16:32)
[2020-07-27] MEDS: Carvedilol 25 MG TAB PO SCH ×2 (12:17→20:28)
[2020-07-27] MEDS: Citalopram 20 MG TAB PO SCH (12:17)
[2020-07-27] MEDS ORDERED: Heparin 10,000 UNITS/ 10 ML VIAL ONE (12:48)
[2020-07-27] MEDS: Nicotine 14 MG PATCH TD SCH (16:32)
[2020-07-27] MEDS: Atorvastatin Calcium 40 MG TAB PO SCH (20:28)
[2020-07-27] MEDS: Amitriptyline HCl 100 MG TAB PO SCH (20:28)
[2020-07-27] MEDS: Oxybutynin ER 5 MG TAB PO SCH (20:28)
[2020-07-28 04:34] LABS: #Eosinphils 0.3 thou/uL (0.0-0.7); #Lymphocytes 1.1 thou/uL (1.20-3.40); #Monocytes 0.8 thou/uL (0.11-0.59); #Neutrophils 3.5 thou/uL (1.40-6.50); %Basophils 0.4 % (0.0-1.0); %Eosinophils 5.7 % (0.0-10.0); %Lymphocytes 19.1 % (21.0-51.0); %Monocytes 13.9 % (0.0-10.0); %Neutrophils 60.9 % (42.0-75.0); Mean Corpuscular HGB CONC 30.9 g/dL (32.0-36.0); Mean Corpuscular Hemoglobin 27.4 pg (27.0-31.0); Mean Corpuscular Volume 88.7 fL (78.0-98.0); Mean Platelet Volume 7.5 fL (7.4-10.4); Platelet Count 215 thou/uL (130-400); RBC Distribution Width 15.9 % (11.5-14.5); Red Blood Cell (RBC) Count 2.56 mill/uL (4.20-5.40); White Blood Cell (WBC) Count 5.7 thou/uL (4.8-10.8)
[2020-07-28 04:59] LABS: ALT (SGPT) Less than 7 U/L (8-55); AST (SGOT) 14 U/L (5-34); Albumin 3.1 g/dL (3.4-4.8); Alkaline Phosphatase 83 U/L (40-110); Anion Gap 13 mmol/L (10-20); BUN (Urea Nitrogen) 21 mg/dL (9.8-20.1); Bilirubin, Total 0.3 mg/dL (0.2-1.2); Calc. Creatinine Clearance 46 mL/min (70-130); Calcium 8.6 mg/dL (7.8-10.44); Carbon Dioxide 28 mmol/L (23-31); Chloride 97 mmol/L (98-107); Globulin 3.2 g/dL (2.4-3.5); Glucose 227 mg/dL (80-115); Potassium 3.9 mmol/L (3.5-5.1); Protein, Total 6.3 g/dL (5.8-8.1); Sodium 134 mmol/L (136-145)
[2020-07-28] MEDS: HumaLOG 300 UNITS/3 ML VIAL SC PRN ×2 (06:13→18:21)
--- NOTE | 2020-07-28 06:19 | PDOC.FM ---
- Subjective Subjective: Slept well overnight. Feels well. No lightheadedness, dizziness, fatigue, headache, vision changes, chest pain, SOB, and abdominal pain. Ready to leave - Objective MAR Reviewed: Yes Vital Signs & Weight: Vital Signs (12 hours) Temp Pulse Resp BP Pulse Ox 07/28/20 05:56 92 L 07/28/20 03:39 98.8 F 59 L 20 149/66 H 92 L 07/28/20 00:00 62 07/27/20 19:35 99 F 70 18 140/65 100 07/27/20 18:43 92 L 07/27/20 18:42 92 L Weight Admit Weight 156.036 kg Weight 145.83 kg I&O: 07/26/20 07/27/20 07/28/20 06:59 06:59 06:59 Intake Total 970 490 Output Total 3100 3100 Balance -2130 -2610 Result Diagrams: 07/28/20 04:15 07/28/20 04:15 Phys Exam - Physical Examination Constitutional: NAD HEENT: moist MMs, sclera anicteric Neck: full ROM Respiratory: no wheezing, clear to auscultation bilateral Cardiovascular: RRR, no significant murmur Gastrointestinal: soft, non-tender, positive bowel sounds Musculoskeletal: edema present (trace bilateraly LE pitting edema) Neurological: moves all 4 limbs Psychiatric: normal affect, A&O x 3 Skin: no rash Dx/Plan - Plan Plan: Patient is a 70F with PMHx of DM2, HTN, HLD, COPD, ESRD presenting with left sided facial, arm and leg edema ESRD Worsening creatinine, persistent anasarca. - Nephro Dr. Spencer consulted. F/u recs - Initiated dialysis on 07/23. M/W/F schedule - General surgery, Dr. Field, consulted. Underwent R IJ tunneled hemodialysis catheter, L subclavian triple-luman catheter and L fistula placement on 07/23 -F/u in 4-5 weeks -Resume Eliquis 2 days post-op, 07/26 Chronic anasarca Longstanding history. Acutely worsened on admission, had not received Lasix at facility since d/c from hospital on 07/13. -Improved with Lasix 40mg IV BID then dialysis -Echo 07/18: EF 55-60%, mild mitral regurg, tricuspid regurg and pulmonic regurg -Nephro, Dr. Spencer, consulted - see above HTN Elevated BPs on admission, was not wearing clonidine patch. BP improved after dialysis initiation - current regimen: carvedilol 25mg BID, clonidine 0.3 mg patch q7d, procardia 60mg - discussed regimen with nephrology, will consider adding minoxidil if BP is above goal Hyperkalemia, resolved 2/2 CKD K 5.2 in ED, downtrended s/p lasix. No EKG changes present on admission. NSR on tele. -Monitor with am labs Chronic lower extremity ulcers 2/2 PVD -Wound care consulted DM2 - Hypoglycemia episode on 07/19. Resumed Lantus at 10 daily on 07/27. - continue mild SSI - hypoglycemia precautions COPD Tobacco abuse -Nicotine patch -Continue home inhalers -Duoneb Q4H PRN HLD -continue home meds Peripheral neuropathy -continue home meds GERD -continue home meds Anemia, iron deficiency + chronic disease Previous workup demonstrated likely mix of anemia of chronic disease and iron deficiency anemia -Hgb 8.8 -> 8.2 -> 7.6 -> 7.5 -> 7.6 -> 7.3 -> 7. Asymptomatic -Transfuse 1 unit pRBC this am -continue home iron Depression Insomnia -continue home meds Cognitive impairment MOCA at [facility] was -Scheduled to see neurology outpatient for further workup Overactive bladder -Continue home meds Morbid obesity -Aware Chronic pain -Continue home meds Recurrent DVTs Elevated factor 8 -Work-up completed in 10/22 after bilateral DVTs -Holding home eliquis for 2 days post-op. Resumed 07/26 Code: FULL Diet: CC, HH DVT ppx: home eliquis PCP: MIKAEL Stephens Dispo: [facility] pending insurance approval of outpatient dialysis Addendum - Attending - Attending Attestation Date/Time: 07/28/20 1045 I personally evaluated the patient and discussed the management with Dr. Stephens. I agree with the History, Examination, Assessment and Plan documented above with any addition or exceptions noted below.
[2020-07-28] MEDS: Mometasone 100 MCG/Formoterol 5 MCG 120 PUFF INHALER INH SCH ×2 (07:39→19:26)
--- NOTE | 2020-07-28 08:15 | PRG ---
DATE OF SERVICE: 07/28/2020 SUBJECTIVE: Ms. Garcia is a 70-year-old black female who was admitted for symptomatic anemia. During this hospitalization, she developed volume overload as well as progressive azotemia. In spite of volume repletion, no improvement of the renal function. Due to the persistent volume overload as well as progressive azotemia, she was initiated on dialysis. She underwent dialysis yesterday and tolerated said treatment. Fluid removal was done. This morning, she was noted to be more anemic. She denies any overt chest pain or shortness of breath with this. Her hemoglobin was noted at 7. The patient denies any fever or chills. OBJECTIVE: VITAL SIGNS: Blood pressure is 149/66, heart rate 59, respiratory rate 20, temperature 98.8, O2 saturation 92%. GENERAL: The patient is awake, comfortable, obese, not in distress. SKIN: Adequate turgor. HEENT: Pale conjunctivae. Anicteric sclerae. No neck mass. No carotid bruits. No JVD. CHEST: No deformities. LUNGS: Decreased breath sounds. No wheezing. No crackles. HEART: Normal sinus rhythm. No murmur. No gallops. No rubs. ABDOMEN: Globular, soft, nontender. No masses. EXTREMITIES: Trace edema. MEDICATIONS: July 28, 2020, was reviewed. LABORATORY DATA: July 28, 2020, white count 5.7, hemoglobin 7. Sodium 134, potassium 3.9, chloride 97, carbon dioxide 28, BUN 21, creatinine 2.74, glucose 227, albumin 3.1. LFTs normal. ASSESSMENT AND PLAN: 1. Anemia-worsening hemoglobin. We will transfuse 1 unit of packed RBC today. Recently, we increased the Epogen to 10,000 units subcu every week. 2. End-stage renal disease/chronic renal failure, continuing hemodialysis regimen. I do not find any indication for any emergent dialysis today with this patient. I will reschedule her back for dialysis this coming Thursday. 3. Hypertension, much improved with fluid removal and continuation of her antihypertensive regimen. We will recheck CBC and basic metabolic in a.m. Job ID: [id number]
[2020-07-28] MEDS ORDERED: Insulin Glargine 12 UNITS in Pre-Filled Syringe 1 EACH SC SCH (08:56)
[2020-07-28] MEDS: Gabapentin 300 MG CAP PO SCH ×2 (09:43→21:09)
[2020-07-28] MEDS: Ferrous Sulfate 325 MG TAB PO SCH ×2 (09:44→18:21)
[2020-07-28] MEDS: NIFEdipine XL 60 MG TAB PO SCH (09:44)
[2020-07-28] MEDS: Aspirin 81 mg Enteric Coated Tablet PO SCH (09:44)
[2020-07-28] MEDS: Citalopram 20 MG TAB PO SCH (09:44)
[2020-07-28] MEDS: Carvedilol 25 MG TAB PO SCH ×2 (09:44→21:08)
[2020-07-28] MEDS: Calcitriol 0.25 MCG CAP PO SCH (09:44)
[2020-07-28] MEDS: Ezetimibe 10 MG TAB PO SCH (09:45)
[2020-07-28] MEDS: Apixaban 2.5 MG TAB PO SCH ×2 (09:45→21:08)
[2020-07-28] MEDS: Polyethylene Glycol 3350 17 GM Packet PO SCH (09:45)
[2020-07-28] MEDS: Nicotine 14 MG PATCH TD SCH (15:25)
[2020-07-28] MEDS: Atorvastatin Calcium 40 MG TAB PO SCH (21:08)
[2020-07-28] MEDS: Amitriptyline HCl 100 MG TAB PO SCH (21:08)
[2020-07-28] MEDS: Oxybutynin ER 5 MG TAB PO SCH (21:09)
[2020-07-28] MEDS: Acetaminophen/Codeine 30-300mg Tablet PO PRN (21:13)
[2020-07-29] MEDS: Acetaminophen/Codeine 30-300mg Tablet PO PRN ×2 (01:20→09:30)
[2020-07-29 05:47] LABS: #Eosinphils 0.3 thou/uL (0.0-0.7); #Lymphocytes 1.2 thou/uL (1.20-3.40); #Monocytes 0.6 thou/uL (0.11-0.59); #Neutrophils 3.5 thou/uL (1.40-6.50); %Basophils 0.2 % (0.0-1.0); %Eosinophils 5.6 % (0.0-10.0); %Monocytes 10.9 % (0.0-10.0); %Neutrophils 61.3 % (42.0-75.0); Hemoglobin 8.1 g/dL (12.0-16.0); Mean Corpuscular HGB CONC 31.3 g/dL (32.0-36.0); Mean Corpuscular Hemoglobin 27.7 pg (27.0-31.0); Mean Corpuscular Volume 88.5 fL (78.0-98.0); Mean Platelet Volume 7.2 fL (7.4-10.4); Platelet Count 214 thou/uL (130-400); RBC Distribution Width 15.5 % (11.5-14.5); Red Blood Cell (RBC) Count 2.93 mill/uL (4.20-5.40); White Blood Cell (WBC) Count 5.6 thou/uL (4.8-10.8)
[2020-07-29 06:08] LABS: ALT (SGPT) Less than 7 U/L (8-55); AST (SGOT) 17 U/L (5-34); Albumin 3.2 g/dL (3.4-4.8); Alkaline Phosphatase 93 U/L (40-110); Anion Gap 12 mmol/L (10-20); BUN (Urea Nitrogen) 28 mg/dL (9.8-20.1); Bilirubin, Total 0.3 mg/dL (0.2-1.2); Calc. Creatinine Clearance 38 mL/min (70-130); Calcium 8.9 mg/dL (7.8-10.44); Carbon Dioxide 28 mmol/L (23-31); Chloride 96 mmol/L (98-107); Globulin 3.4 g/dL (2.4-3.5); Glucose 208 mg/dL (80-115); Potassium 3.9 mmol/L (3.5-5.1); Protein, Total 6.6 g/dL (5.8-8.1); Sodium 132 mmol/L (136-145)
--- NOTE | 2020-07-29 06:20 | PDOC.FM ---
- Subjective Subjective: Says she is ready to go back to [facility]. Denies headache, vision changes, chest pain, SOB, nausea, and abdominal pain. - Objective MAR Reviewed: Yes Vital Signs & Weight: Vital Signs (12 hours) Temp Pulse Resp BP Pulse Ox 07/29/20 04:00 98.5 F 61 14 133/63 94 L 07/29/20 00:00 62 07/28/20 19:27 93 L 07/28/20 19:26 93 L 07/28/20 19:01 98.6 F 63 18 141/64 H 99 Weight Admit Weight 156.036 kg Weight 145.83 kg I&O: 07/27/20 07/28/20 07/29/20 06:59 06:59 06:59 Intake Total 490 1070 Output Total 3100 700 Balance -2610 370 Result Diagrams: 07/29/20 05:38 07/29/20 05:38 Phys Exam - Physical Examination Constitutional: NAD Morbid obesity HEENT: moist MMs, sclera anicteric Neck: full ROM Respiratory: no wheezing, clear to auscultation bilateral Cardiovascular: RRR, no significant murmur Gastrointestinal: soft, non-tender, positive bowel sounds Musculoskeletal: edema present (trace pitting edema, lower extremities bilaterally) Neurological: moves all 4 limbs Psychiatric: normal affect, A&O x 3 Skin: no rash Dx/Plan - Plan Plan: Patient is a 70F with PMHx of DM2, HTN, HLD, COPD, ESRD presenting with left sided facial, arm and leg edema ESRD Worsening creatinine, persistent anasarca. - Nephro Dr. Spencer consulted. F/u recs - Initiated dialysis on 07/23. M/W/F schedule - General surgery, Dr. Field, consulted. Underwent R IJ tunneled hemodialysis catheter, L subclavian triple-luman catheter and L fistula placement on 07/23 -F/u in 4-5 weeks -Resume Eliquis 2 days post-op, 07/26 Chronic anasarca Longstanding history. Acutely worsened on admission, had not received Lasix at facility since d/c from hospital on 07/13. -Improved with Lasix 40mg IV BID then dialysis -Echo 07/18: EF 55-60%, mild mitral regurg, tricuspid regurg and pulmonic regurg -Nephro, Dr. Spencer, consulted - see above HTN Elevated BPs on admission, was not wearing clonidine patch. BP improved after dialysis initiation - current regimen: carvedilol 25mg BID, clonidine 0.3 mg patch q7d, procardia 60mg - discussed regimen with nephrology, will consider adding minoxidil if BP is above goal Hyperkalemia, resolved 2/2 CKD K 5.2 in ED, downtrended s/p lasix. No EKG changes present on admission. NSR on tele. -Monitor with am labs Chronic lower extremity ulcers 2/2 PVD -Wound care consulted DM2 - Hypoglycemia episode on 07/19. Resumed Lantus at 10 daily on 07/27. Will increase to Lantus 14 daily - continue mild SSI - hypoglycemia precautions COPD Tobacco abuse -Nicotine patch -Continue home inhalers -Duoneb Q4H PRN HLD -continue home meds Peripheral neuropathy -continue home meds GERD -continue home meds Anemia, iron deficiency + chronic disease Previous workup demonstrated likely mix of anemia of chronic disease and iron deficiency anemia -Hgb 7 -> 8.1 s/p 1 unit pRBC on 07/28 -Transfuse 1 unit pRBC this am -continue home iron Depression Insomnia -continue home meds Cognitive impairment [facility] at [facility] was -Scheduled to see neurology outpatient for further workup Overactive bladder -Continue home meds Morbid obesity -Aware Chronic pain -Continue home meds Recurrent DVTs Elevated factor 8 -Work-up completed in 10/22 after bilateral DVTs -Holding home eliquis for 2 days post-op. Resumed 07/26 Code: FULL Diet: CC, HH DVT ppx: home eliquis PCP: MIKAEL Stephens Dispo: [facility] pending insurance approval of outpatient dialysis Addendum - Attending - Attending Attestation Date/Time: 07/29/20 1106 I personally evaluated the patient and discussed the management with Dr. Stephens. I agree with the History, Examination, Assessment and Plan documented above with any addition or exceptions noted below.
[2020-07-29] MEDS: HumaLOG 300 UNITS/3 ML VIAL SC PRN ×3 (06:21→21:09)
[2020-07-29] MEDS: Mometasone 100 MCG/Formoterol 5 MCG 120 PUFF INHALER INH SCH ×2 (07:27→20:11)
[2020-07-29] MEDS: NIFEdipine XL 60 MG TAB PO SCH (09:27)
[2020-07-29] MEDS: Calcitriol 0.25 MCG CAP PO SCH (09:27)
[2020-07-29] MEDS: Citalopram 20 MG TAB PO SCH (09:27)
[2020-07-29] MEDS: Apixaban 2.5 MG TAB PO SCH ×2 (09:27→21:08)
[2020-07-29] MEDS: Carvedilol 25 MG TAB PO SCH ×2 (09:27→21:08)
[2020-07-29] MEDS: Ezetimibe 10 MG TAB PO SCH (09:27)
[2020-07-29] MEDS: Ferrous Sulfate 325 MG TAB PO SCH ×2 (09:28→18:20)
[2020-07-29] MEDS: Gabapentin 300 MG CAP PO SCH ×2 (09:28→21:08)
[2020-07-29] MEDS: Aspirin 81 mg Enteric Coated Tablet PO SCH (09:28)
[2020-07-29] MEDS: Polyethylene Glycol 3350 17 GM Packet PO SCH (09:29)
[2020-07-29] MEDS: Acetaminophen 325 MG TAB PO PRN (09:33)
[2020-07-29] MEDS: traMADol HCl 50 MG TAB PO PRN (09:33)
[2020-07-29] MEDS: Insulin Glargine 14 UNITS in Pre-Filled Syringe 1 EACH SC SCH (09:35)
--- NOTE | 2020-07-29 10:50 | PRG ---
DATE OF SERVICE: 07/29/2020 SUBJECTIVE: Ms. Garcia is a 70-year-old black female, followed up for her ESRD/chronic renal failure. Due to volume overload and progressive azotemia, she has been initiated on hemodialysis. She is doing well. She was also given 1 unit of packed RBC yesterday for her anemia. No new complaints today. No chest pain or shortness of breath. OBJECTIVE: VITAL SIGNS: Blood pressure 139/62, heart rate 59, respiratory rate 18, temperature 96.5, O2 saturation 100%. GENERAL: The patient is awake, alert, comfortable, not in distress. SKIN: Adequate turgor. HEENT: Slightly pale conjunctivae. Anicteric sclerae. No neck mass. No carotid bruits. No JVD. CHEST: No deformities. LUNGS: Decreased breath sounds. HEART: Normal sinus rhythm. No murmur. No gallops. No rubs. ABDOMEN: Globular, soft, nontender. No masses. EXTREMITIES: No edema. No deformities. MEDICATIONS: Of July 29, 2020, were reviewed. LABORATORY DATA: Laboratories of July 29, 2020: White count 5.6, hemoglobin 8.1. Sodium 132, potassium 3.9, chloride 96, carbon dioxide 28, BUN 28, creatinine 3.23, glucose 208, calcium 8.9, AST 17, ALT less than 7, albumin is 3.2. ASSESSMENT AND PLAN: 1. End-stage renal disease, stable. We will continue current hemodialysis regimen. Continue Thursday, Thursday, and Thursday dialysis schedule. Again, fluid removal only as tolerated. 2. Anemia, status post blood transfusion. Continue weekly Epogen. 3. Volume overload - feeling much better. Again, fluid removal with hemodialysis. Recheck CBC and basic metabolics in a.m. Job ID: [id number]
[2020-07-29] MEDS: Nicotine 14 MG PATCH TD SCH (15:50)
[2020-07-29] MEDS: Atorvastatin Calcium 40 MG TAB PO SCH (21:08)
[2020-07-29] MEDS: Amitriptyline HCl 100 MG TAB PO SCH (21:08)
[2020-07-29] MEDS: Oxybutynin ER 5 MG TAB PO SCH (21:09)
[2020-07-30] MEDS ORDERED: Acetaminophen/Codeine 30-300mg Tablet PO PRN (00:01)
[2020-07-30 04:33] LABS: #Eosinphils 0.2 thou/uL (0.0-0.7); #Lymphocytes 1.1 thou/uL (1.20-3.40); #Monocytes 0.7 thou/uL (0.11-0.59); #Neutrophils 3.6 thou/uL (1.40-6.50); %Basophils 0.3 % (0.0-1.0); %Eosinophils 4.1 % (0.0-10.0); %Lymphocytes 19.6 % (21.0-51.0); %Monocytes 12.8 % (0.0-10.0); %Neutrophils 63.2 % (42.0-75.0); Hemoglobin 8.3 g/dL (12.0-16.0); Mean Corpuscular HGB CONC 31.5 g/dL (32.0-36.0); Mean Corpuscular Hemoglobin 27.9 pg (27.0-31.0); Mean Corpuscular Volume 88.5 fL (78.0-98.0); Mean Platelet Volume 7.4 fL (7.4-10.4); Platelet Count 227 thou/uL (130-400); RBC Distribution Width 15.7 % (11.5-14.5); Red Blood Cell (RBC) Count 2.97 mill/uL (4.20-5.40); White Blood Cell (WBC) Count 5.7 thou/uL (4.8-10.8)
[2020-07-30 04:55] LABS: ALT (SGPT) 7 U/L (8-55); AST (SGOT) 14 U/L (5-34); Albumin 3.2 g/dL (3.4-4.8); Alkaline Phosphatase 93 U/L (40-110); Anion Gap 12 mmol/L (10-20); BUN (Urea Nitrogen) 36 mg/dL (9.8-20.1); Bilirubin, Total 0.3 mg/dL (0.2-1.2); Calc. Creatinine Clearance 34 mL/min (70-130); Calcium 8.8 mg/dL (7.8-10.44); Carbon Dioxide 28 mmol/L (23-31); Chloride 94 mmol/L (98-107); Globulin 3.4 g/dL (2.4-3.5); Glucose 213 mg/dL (80-115); Potassium 4.1 mmol/L (3.5-5.1); Protein, Total 6.6 g/dL (5.8-8.1); Sodium 130 mmol/L (136-145)
--- NOTE | 2020-07-30 06:49 | PDOC.FM ---
- Subjective Subjective: Ms. Garcia is tearful this morning stating she is tired of being in the hospital. She says she is otherwise feeling well and is tolerating dialysis well. - Objective Vital Signs & Weight: Vital Signs (12 hours) Temp Pulse Resp BP Pulse Ox 07/30/20 05:26 93 L 07/30/20 04:00 97.2 F L 91 22 H 142/97 H 93 L 07/30/20 00:00 59 L 07/29/20 20:12 94 L 07/29/20 20:11 94 L 07/29/20 19:29 98.6 F 62 18 124/83 98 Weight Admit Weight 156.036 kg Weight 148.007 kg I&O: 07/28/20 07/29/20 07/30/20 06:59 06:59 06:59 Intake Total 1790 Output Total 950 500 Balance 840 -500 Result Diagrams: 07/30/20 04:08 07/30/20 04:08 EKG Reviewed by me: Yes (tele: SR 50-60s) Phys Exam - Physical Examination Constitutional: NAD HEENT: moist MMs, sclera anicteric Neck: full ROM Respiratory: clear to auscultation bilateral Cardiovascular: RRR Gastrointestinal: soft, non-tender Musculoskeletal: pulses present, edema present swollen LUE Neurological: non-focal Psychiatric: A&O x 3 Deviation from normal: tearful Skin: no rash Dx/Plan - Plan Plan: Patient is a 70F with PMHx of DM2, HTN, HLD, COPD, ESRD presenting with left sided facial, arm and leg edema ESRD Worsening creatinine, persistent anasarca. - Nephro Dr. Spencer consulted. F/u recs - Initiated dialysis on 07/23. M/W/F schedule - General surgery, Dr. Field, consulted. Underwent R IJ tunneled hemodialysis catheter, L subclavian triple-luman catheter and L fistula placement on 07/23 -F/u in 4-5 weeks -Resumed Eliquis 2 days post-op, 07/26 Chronic anasarca Longstanding history. Acutely worsened on admission, had not received Lasix at facility since d/c from hospital on 07/13. -Improved with Lasix 40mg IV BID then dialysis -Echo 07/18: EF 55-60%, mild mitral regurg, tricuspid regurg and pulmonic regurg -Nephro, Dr. Spencer, consulted - see above HTN Elevated BPs on admission, was not wearing clonidine patch. BP improved after dialysis initiation - current regimen: carvedilol 25mg BID, clonidine 0.3 mg patch q7d, procardia 60mg - discussed regimen with nephrology, will consider adding minoxidil if BP is above goal Hyperkalemia, resolved 2/2 CKD K 5.2 in ED, downtrended s/p lasix. No EKG changes present on admission. NSR on tele. -Continue to monitor with am labs. 4.1 this AM Chronic lower extremity ulcers 2/2 PVD -Wound care consulted DM2 - Hypoglycemia episode on 07/19. Resumed Lantus at 10 daily on 07/27. Increased to Lantus 14 yesterday. Glucose range 180-210. - Increase Lantus to 16u today. - continue mild SSI - hypoglycemia precautions COPD -Continue home inhalers -Duoneb Q4H PRN Tobacco abuse -Nicotine patch HLD -continue home meds Peripheral neuropathy -continue home meds GERD -continue home meds Anemia, iron deficiency + chronic disease Previous workup demonstrated likely mix of anemia of chronic disease and iron deficiency anemia -Hgb 7 -> 8.1 s/p 1 unit pRBC on 07/28 -Transfuse 1 unit pRBC yesterday. Hgb 8.3 this AM. -continue home iron Depression Insomnia -continue home meds Cognitive impairment MOCA at [facility] was -Scheduled to see neurology outpatient for further workup Overactive bladder -Continue home meds Morbid obesity -Aware Chronic pain -Continue home meds Recurrent DVTs Elevated factor 8 -Work-up completed in 10/22 after bilateral DVTs -Holding home eliquis for 2 days post-op. Resumed 07/26 Code: FULL Diet: CC, HH DVT ppx: home eliquis PCP: MIKAEL Stephens Dispo: [facility] pending insurance approval of outpatient dialysis Addendum - Attending - Attending Attestation Date/Time: 07/30/20 0406 I personally evaluated the patient and discussed the management with Dr. Edmondson. I agree with the History, Examination, Assessment and Plan documented above with any addition or exceptions noted below. Can d/c once outpt chair approved.
[2020-07-30] MEDS: HumaLOG 300 UNITS/3 ML VIAL SC PRN (07:15)
[2020-07-30] MEDS: Mometasone 100 MCG/Formoterol 5 MCG 120 PUFF INHALER INH SCH (07:29)
--- NOTE | 2020-07-30 09:11 | PRG ---
DATE OF SERVICE: 07/30/2020 SUBJECTIVE: Ms. Garcia is a 70-year-old black female, followed up for chronic renal failure/ESRD. She voices no new complaints today. She denies any chest pain or shortness of breath. We are currently awaiting outpatient dialysis placement. OBJECTIVE: VITAL SIGNS: Blood pressure is 161/71, heart rate 57, respiratory rate 18, temperature 98, O2 saturations 98%. GENERAL: The patient is awake, alert, comfortable, not in overt distress. SKIN: Adequate turgor. HEENT: Slightly pale conjunctivae. Anicteric sclerae. No neck mass. No carotid bruits. No JVD. CHEST: No deformities. LUNGS: Clear breath sounds. HEART: Normal sinus rhythm. No murmurs, no gallops, no rubs. ABDOMEN: Globular, soft, nontender. No masses. EXTREMITIES: Trace edema. MEDICATIONS: Medications of July 30, 2020 reviewed. LABORATORY DATA: Laboratories of July 30, 2020; white count 5.7, hemoglobin 8.3. Sodium 130, potassium 4.1, chloride 94, carbon dioxide 28, BUN 36, creatinine 3.71, GFR 15 mL/minute, glucose 213, calcium 8.8, AST 14, ALT 7, albumin 3.2. ASSESSMENT AND PLAN: 1. End-stage renal disease/chronic renal failure. Continuing Thursday, Thursday, and Thursday hemodialysis. Fluid removal as tolerated by the patient. No changes to be made with the current hemodialysis regimen. 2. Chronic anemia. Continuing weekly Epogen. Recently, Epogen has been increased to 10,000 units subcu daily. 3. Volume overload, much improved with fluid removal with hemodialysis. Awaiting outpatient dialysis placement. 4. Recheck CBC and basic metabolic profile. Job ID: [id number]
[2020-07-30] MEDS ORDERED: Insulin Glargine 16 UNITS in Pre-Filled Syringe 1 EACH SC SCH (11:24)
[2020-07-30] MEDS ORDERED: Heparin 10,000 UNITS/ 10 ML VIAL ONE (12:43)
[2020-07-30] MEDS: NIFEdipine XL 60 MG TAB PO SCH (12:47)
[2020-07-30] MEDS: Gabapentin 300 MG CAP PO SCH (12:47)
[2020-07-30] MEDS: Ezetimibe 10 MG TAB PO SCH (12:47)
[2020-07-30] MEDS: Ferrous Sulfate 325 MG TAB PO SCH (12:48)
[2020-07-30] MEDS: Citalopram 20 MG TAB PO SCH (12:48)
[2020-07-30] MEDS: Calcitriol 0.25 MCG CAP PO SCH (12:48)
[2020-07-30] MEDS: Insulin Glargine 14 UNITS in Pre-Filled Syringe 1 EACH SC SCH (12:49)
[2020-07-30] MEDS: Aspirin 81 mg Enteric Coated Tablet PO SCH (12:49)
[2020-07-30] MEDS: Apixaban 2.5 MG TAB PO SCH (12:49)
[2020-07-30] MEDS: Polyethylene Glycol 3350 17 GM Packet PO SCH (12:49)
[2020-07-30] MEDS: Nicotine 14 MG PATCH TD SCH (12:53)
[2020-07-30] MEDS: Carvedilol 25 MG TAB PO SCH (13:00)
[2020-07-30 16:25] VITALS: BP 154/69; TEMP 98.5
[2020-07-31] MEDS ORDERED: Insulin Glargine 16 UNITS in Pre-Filled Syringe 1 EACH SC SCH (09:00)
== END 2020-07-30 17:40 | DRG 628 ==
LOC: ERS 08:03 → OBSVTOIN 13:49 → 2NO 13:49
PROVIDERS: ADMIT Family Medicine; ATTEND Family Medicine
PROC: 5A1D70Z Performance of Urinary Filtration, Intermittent, Less than 6 Hours Per Day (ICD-10-PCS; 2020-07-17)
PROC: 031C0ZF Bypass Left Radial Artery to Lower Arm Vein, Open Approach (ICD-10-PCS; principal; 2020-07-23)
PROC: 0JH63XZ Insertion of Tunneled Vascular Access Device into Chest Subcutaneous Tissue and Fascia, Percutaneous Approach (ICD-10-PCS; 2020-07-23)
PROC: 02HV33Z Insertion of Infusion Device into Superior Vena Cava, Percutaneous Approach (ICD-10-PCS; 2020-07-23)
PROC: B548ZZA Ultrasonography of Superior Vena Cava, Guidance (ICD-10-PCS; 2020-07-23)
PROC: 30233N1 Transfusion of Nonautologous Red Blood Cells into Peripheral Vein, Percutaneous Approach (ICD-10-PCS; 2020-07-28)
DX: E87.5 Hyperkalemia (principal); N18.6 End stage renal disease; D66 Hereditary factor VIII deficiency; Z68.43 Body mass index [BMI] 50.0-59.9, adult; N17.9 Acute kidney failure, unspecified; E11.22 Type 2 diabetes mellitus with diabetic chronic kidney disease; Z51.5 Encounter for palliative care; Z20.822 Contact with and (suspected) exposure to COVID-19; E78.5 Hyperlipidemia, unspecified; J44.9 Chronic obstructive pulmonary disease, unspecified; E11.51 Type 2 diabetes mellitus with diabetic peripheral angiopathy without gangrene; D63.1 Anemia in chronic kidney disease; F17.210 Nicotine dependence, cigarettes, uncomplicated; E66.01 Morbid (severe) obesity due to excess calories; L89.612 Pressure ulcer of right heel, stage 2; D50.9 Iron deficiency anemia, unspecified; F32.9 Major depressive disorder, single episode, unspecified; G47.00 Insomnia, unspecified; G31.84 Mild cognitive impairment of uncertain or unknown etiology; N32.81 Overactive bladder; G89.29 Other chronic pain; K21.9 Gastro-esophageal reflux disease without esophagitis; I10 Essential (primary) hypertension; E11.649 Type 2 diabetes mellitus with hypoglycemia without coma; Z88.8 Allergy status to other drugs, medicaments and biological substances; Z79.51 Long term (current) use of inhaled steroids; Z79.899 Other long term (current) drug therapy; Z79.82 Long term (current) use of aspirin; Z79.4 Long term (current) use of insulin; Z79.01 Long term (current) use of anticoagulants; I16.0 Hypertensive urgency; E87.70 Fluid overload, unspecified; E88.81 Metabolic syndrome and other insulin resistance; R32 Unspecified urinary incontinence
CPT/HCPCS: 0240U; 36415; 36416; 36430; 70450; 71045; 80053; 83735; 84443; 85025; 86580; 86704; 86706; 86803; 86850; 86900; 86901; 87340; 90935; 93005; 93306; 93970; 94664; 94760; 96365; 96374; 96375; 96376; C1751; C1752; G0257; G0378; J0171; J0690; J1644; J1815; J1940; J2250; J2704; J2720; J3010; P9016; P9047; Q5105; S0020

== ENCOUNTER 2020-09-11 03:36 | Emergency (ER) | payer MEDICARE, MEDICAID ==
[2020-09-11 05:15] LABS: #Eosinphils 0.1 thou/uL (0.0-0.7); #Lymphocytes 0.6 thou/uL (1.20-3.40); #Monocytes 0.5 thou/uL (0.11-0.59); #Neutrophils 3.1 thou/uL (1.40-6.50); %Basophils 0.2 % (0.0-1.0); %Eosinophils 1.3 % (0.0-10.0); %Lymphocytes 14.7 % (21.0-51.0); %Monocytes 12.3 % (0.0-10.0); %Neutrophils 71.5 % (42.0-75.0); Hemoglobin 5.4 g/dL (12.0-16.0); Mean Corpuscular HGB CONC 33.2 g/dL (32.0-36.0); Mean Corpuscular Hemoglobin 29.8 pg (27.0-31.0); Mean Corpuscular Volume 89.6 fL (78.0-98.0); Mean Platelet Volume 6.9 fL (7.4-10.4); Platelet Count 255 thou/uL (130-400); Red Blood Cell (RBC) Count 1.82 mill/uL (4.20-5.40); White Blood Cell (WBC) Count 4.3 thou/uL (4.8-10.8)
[2020-09-11 05:26] LABS: ALT (SGPT) 11 U/L (8-55); AST (SGOT) 17 U/L (5-34); Albumin 3.3 g/dL (3.4-4.8); Alkaline Phosphatase 94 U/L (40-110); Anion Gap 18 mmol/L (10-20); BUN (Urea Nitrogen) 85 mg/dL (9.8-20.1); Bilirubin, Total 0.4 mg/dL (0.2-1.2); Calc. Creatinine Clearance 0 mL/min (70-130); Calcium 8.7 mg/dL (7.8-10.44); Carbon Dioxide 25 mmol/L (23-31); Chloride 103 mmol/L (98-107); Globulin 3.6 g/dL (2.4-3.5); Glucose 163 mg/dL (80-115); Potassium 5.8 mmol/L (3.5-5.1); Protein, Total 6.9 g/dL (5.8-8.1); Sodium 140 mmol/L (136-145)
[2020-09-11] MEDS ORDERED: Acetaminophen 500 MG TAB ONE (07:07)
[2020-09-11] MEDS ORDERED: Epoetin (ESRD) 20,000 UNITS/ML SC SCH (09:45)
[2020-09-11] MEDS ORDERED: EPOETIN ALFA-EPBX (ESRD) 4,000 UNIT/ML VIAL SC SCH (10:00)
[2020-09-11] MEDS ORDERED: Heparin 10,000 UNITS/ 10 ML VIAL ONE (10:40)
[2020-09-11] MEDS ORDERED: traMADol HCl 50 MG TAB PO SCH (11:30)
== END 2020-09-11 15:07 | disposition home or self-care (01) ==
LOC: ERS 03:36
DX: E87.5 Hyperkalemia (principal); D50.9 Iron deficiency anemia, unspecified; K21.9 Gastro-esophageal reflux disease without esophagitis; I11.0 Hypertensive heart disease with heart failure; I50.9 Heart failure, unspecified; E11.40 Type 2 diabetes mellitus with diabetic neuropathy, unspecified; E78.5 Hyperlipidemia, unspecified; J44.9 Chronic obstructive pulmonary disease, unspecified
CPT/HCPCS: 36430; 71045; 80053; 83880; 85025; 86850; 86900; 86901; 86920; 86922; 93005; P9016; Q5105; 36415; 90935; G0257; J1644

== ENCOUNTER 2020-09-20 15:11 | Day surgery (SDC) | payer MEDICARE, MEDICAID ==
[2020-09-21 02:28] LABS: #Eosinphils 0.1 thou/uL (0.0-0.7); #Lymphocytes 0.7 thou/uL (1.20-3.40); #Monocytes 0.5 thou/uL (0.11-0.59); #Neutrophils 2.6 thou/uL (1.40-6.50); %Basophils 0.2 % (0.0-1.0); %Eosinophils 2.4 % (0.0-10.0); %Lymphocytes 18.5 % (21.0-51.0); %Monocytes 13.8 % (0.0-10.0); %Neutrophils 65.2 % (42.0-75.0); Hemoglobin 7.6 g/dL (12.0-16.0); Mean Corpuscular HGB CONC 33.2 g/dL (32.0-36.0); Mean Corpuscular Hemoglobin 30.2 pg (27.0-31.0); Mean Platelet Volume 6.6 fL (7.4-10.4); Platelet Count 235 thou/uL (130-400); RBC Distribution Width 14.4 % (11.5-14.5); White Blood Cell (WBC) Count 3.9 thou/uL (4.8-10.8)
[2020-09-21] MEDS ORDERED: Heparin 10,000 UNITS/ 10 ML VIAL ONE (11:45)
[2020-09-21] MEDS ORDERED: EPOETIN ALFA-EPBX (ESRD) 4,000 UNIT/ML VIAL SC SCH (12:00)
[2020-09-21 13:38] VITALS: BP 190/81; TEMP 98.5
== END 2020-09-21 14:09 | disposition home or self-care (01) ==
LOC: ONC 15:11 → ONC/OP 15:11 → ERS 15:11 → ONC 15:41 → ONC/OP 15:41 → ONC 15:41 → EDSTATUS 18:10 → ONC 09-21 14:09
PROC: 30233N1 Transfusion of Nonautologous Red Blood Cells into Peripheral Vein, Percutaneous Approach (ICD-10-PCS; principal; 2020-09-20)
DX: N18.6 End stage renal disease (principal); D63.1 Anemia in chronic kidney disease; E66.9 Obesity, unspecified; Z88.8 Allergy status to other drugs, medicaments and biological substances; Z99.2 Dependence on renal dialysis
CPT/HCPCS: 36415; 36430; 85025; 86850; 86900; 86901; 90935; G0257; J1644; P9016

== ENCOUNTER 2020-10-13 12:18 | Emergency (ER) | payer MEDICARE, MEDICAID ==
[2020-10-13 13:16] LABS: Hemoglobin 7.2 g/dL (12.0-16.0); Mean Corpuscular HGB CONC 31.7 g/dL (32.0-36.0); Mean Corpuscular Hemoglobin 29.5 pg (27.0-31.0); Mean Corpuscular Volume 93.1 fL (78.0-98.0); Mean Platelet Volume 7.1 fL (7.4-10.4); Platelet Count 221 thou/uL (130-400); RBC Distribution Width 16.3 % (11.5-14.5); Red Blood Cell (RBC) Count 2.43 mill/uL (4.20-5.40); White Blood Cell (WBC) Count 4.4 thou/uL (4.8-10.8)
[2020-10-13 13:31] LABS: ALT (SGPT) 15 U/L (8-55); AST (SGOT) 36 U/L (5-34); Albumin 3.4 g/dL (3.4-4.8); Alkaline Phosphatase 106 U/L (40-110); Anion Gap 16 mmol/L (10-20); BUN (Urea Nitrogen) 25 mg/dL (9.8-20.1); Bilirubin, Total 0.3 mg/dL (0.2-1.2); Calc. Creatinine Clearance 0 mL/min (70-130); Calcium 8.5 mg/dL (7.8-10.44); Carbon Dioxide 28 mmol/L (23-31); Chloride 97 mmol/L (98-107); Globulin 4.3 g/dL (2.4-3.5); Glucose 251 mg/dL (80-115); Potassium 5.2 mmol/L (3.5-5.1); Protein, Total 7.7 g/dL (5.8-8.1); Sodium 136 mmol/L (136-145)
[2020-10-13 13:52] LABS: Anisocytosis SLIGHT = 6-15 cells (100X) (0-5/hpf); Band 10 % (5-11); Eosinophils 1 % (0-10); Hypochromia SLIGHT = 6-15 cells (100X) (0-5/hpf); Lymphocytes 11 % (21-51); MDiff Complete? YES; Monocytes 14 % (0-10); Neutrophil 60 % (42-75); Platelet Morphology Comment Appears Adequate; Polychromasia SLIGHT = 2-3 cells (100X) (0-2/hpf); Reactive Lymphocytes 3 % (0-10)
== END 2020-10-13 19:06 | disposition home or self-care (01) ==
LOC: ERS 12:18
DX: D64.9 Anemia, unspecified (principal); E11.9 Type 2 diabetes mellitus without complications; J44.9 Chronic obstructive pulmonary disease, unspecified; K21.9 Gastro-esophageal reflux disease without esophagitis; E78.5 Hyperlipidemia, unspecified; I11.0 Hypertensive heart disease with heart failure; I50.9 Heart failure, unspecified
CPT/HCPCS: 36430; 80053; 85025; 86850; 86900; 86901; 86920; 93005; P9016

== ENCOUNTER 2020-10-19 15:30 | Inpatient (IN) | payer MEDICARE, MEDICAID ==
[2020-10-19] MEDS ORDERED: Vancomycin 1 GM/200 ML BAG ONE (16:11)
[2020-10-19] MEDS ORDERED: Acetaminophen 500 MG TAB ONE (16:11)
[2020-10-19] MEDS ORDERED: cefTRIAXone\\ROCEPHIN 1 GM VIAL ONE (16:11)
[2020-10-19 16:17] LABS: #Lymphocytes 0.6 thou/uL (1.20-3.40); #Monocytes 0.6 thou/uL (0.11-0.59); #Neutrophils 8.2 thou/uL (1.40-6.50); %Basophils 0.3 % (0.0-1.0); %Eosinophils 0.3 % (0.0-10.0); %Lymphocytes 5.9 % (21.0-51.0); %Monocytes 6.1 % (0.0-10.0); %Neutrophils 87.5 % (42.0-75.0); Mean Corpuscular HGB CONC 30.7 g/dL (32.0-36.0); Mean Corpuscular Hemoglobin 28.5 pg (27.0-31.0); Mean Corpuscular Volume 92.7 fL (78.0-98.0); Mean Platelet Volume 7.1 fL (7.4-10.4); Platelet Count 206 thou/uL (130-400); RBC Distribution Width 15.6 % (11.5-14.5); Red Blood Cell (RBC) Count 3.17 mill/uL (4.20-5.40); White Blood Cell (WBC) Count 9.3 thou/uL (4.8-10.8)
[2020-10-19 16:33] LABS: ALT (SGPT) 10 U/L (8-55); AST (SGOT) 27 U/L (5-34); Albumin 3.8 g/dL (3.4-4.8); Alkaline Phosphatase 110 U/L (40-110); Anion Gap 14 mmol/L (10-20); BUN (Urea Nitrogen) 30 mg/dL (9.8-20.1); Bilirubin, Total 0.4 mg/dL (0.2-1.2); Calc. Creatinine Clearance 0 mL/min (70-130); Calcium 9.1 mg/dL (7.8-10.44); Carbon Dioxide 29 mmol/L (23-31); Chloride 99 mmol/L (98-107); Globulin 4.6 g/dL (2.4-3.5); Glucose 145 mg/dL (80-115); Protein, Total 8.4 g/dL (5.8-8.1); Sodium 138 mmol/L (136-145)
[2020-10-19 16:55] LABS: CKMB 0.9 ng/mL (0-6.6)
[2020-10-19 18:25] LABS: Bilirubin Negative (Negative); Blood, Urine Negative (Negative); Clarity Clear (Clear); Glucose, Urine (Dipstick) Normal (Negative); Ketone, Urine Negative (Negative); Leukocyte Negative Leu/uL (Negative); Nitrite Negative (Negative); Protein, Urine (Dipstick) 10 mg/dL (Neg-Trace); Urobilinogen Normal mg/dL (Less than 2); pH, Urine 5.5 (5.0-9.0)
[2020-10-19 19:34] LABS: Troponin I 0.034 ng/mL (< 0.028)
[2020-10-19] MEDS ORDERED: Ondansetron ODT 4 MG TAB SL PRN (21:00)
[2020-10-19] MEDS ORDERED: Ondansetron PF 4 MG/2 ML Vial IVP PRN ×2 (21:00→21:23)
[2020-10-19] MEDS ORDERED: Acetaminophen 325 MG TAB PO PRN (21:00)
[2020-10-19] MEDS ORDERED: Dextrose 5% in Water 1,000 ML IV PRN (21:23)
[2020-10-19] MEDS ORDERED: Ondansetron ODT 4 MG TAB PO PRN (21:23)
[2020-10-19] MEDS ORDERED: Dextrose 50% Abboject 50 ML SYRINGE SLOW IVP PRN (21:23)
[2020-10-19] MEDS ORDERED: HumaLOG 300 UNITS/3 ML VIAL SC PRN (21:23)
[2020-10-19 21:53] VITALS: BMI 53.3
[2020-10-19] MEDS ORDERED: Vancomycin 1 GM in Premix Bag 1 BAG IVPB SCH (22:00)
[2020-10-19 22:12] LABS: Troponin I 0.037 ng/mL (< 0.028)
[2020-10-19] MEDS: Cefepime 1 GM in Sodium Chloride 0.9% 100 ML IVPB SCH (22:24)
[2020-10-20] MEDS: Acetaminophen 325 MG TAB PO PRN ×2 (04:15→12:04)
[2020-10-20] MEDS ORDERED: HOLD VANCOMYCIN FOR LEVEL >20 FS SCH (09:00)
[2020-10-20] MEDS ORDERED: Vancomycin 1 GM in Premix Bag 1 BAG IVPB SCH ×2 (09:00→22:30)
[2020-10-20] MEDS ORDERED: Vancomycin HCl 1.25 GM in Sodium Chloride 0.9% 250 ML 250 ML IVPB SCH (09:00)
[2020-10-20] MEDS ORDERED: Vancomycin HCl 750 MG in Sodium Chloride 0.9% 250 ML 250 ML IVPB SCH (09:00)
[2020-10-20] MEDS ORDERED: Vancomycin HCl 1.5 GM in Sodium Chloride 0.9% 250 ML 300 ML IVPB SCH ×2 (09:00→18:30)
[2020-10-20 09:23] LABS: #Eosinphils 0.1 thou/uL (0.0-0.7); #Lymphocytes 0.5 thou/uL (1.20-3.40); #Monocytes 0.5 thou/uL (0.11-0.59); #Neutrophils 3.6 thou/uL (1.40-6.50); %Basophils 0.2 % (0.0-1.0); %Eosinophils 1.6 % (0.0-10.0); %Lymphocytes 10.6 % (21.0-51.0); %Monocytes 11.1 % (0.0-10.0); %Neutrophils 76.5 % (42.0-75.0); Hemoglobin 7.9 g/dL (12.0-16.0); Mean Corpuscular HGB CONC 30.1 g/dL (32.0-36.0); Mean Corpuscular Hemoglobin 28.1 pg (27.0-31.0); Mean Corpuscular Volume 93.4 fL (78.0-98.0); Mean Platelet Volume 7.1 fL (7.4-10.4); Platelet Count 167 thou/uL (130-400); RBC Distribution Width 15.6 % (11.5-14.5); Red Blood Cell (RBC) Count 2.82 mill/uL (4.20-5.40); White Blood Cell (WBC) Count 4.7 thou/uL (4.8-10.8)
[2020-10-20 09:41] LABS: Anion Gap 16 mmol/L (10-20); BUN (Urea Nitrogen) 35 mg/dL (9.8-20.1); Calc. Creatinine Clearance 33 mL/min (70-130); Calcium 8.9 mg/dL (7.8-10.44); Carbon Dioxide 25 mmol/L (23-31); Chloride 100 mmol/L (98-107); Glucose 153 mg/dL (80-115); Potassium 3.9 mmol/L (3.5-5.1); Sodium 137 mmol/L (136-145)
[2020-10-20] MEDS ORDERED: Epoetin (ESRD) 20,000 UNITS/ML SC SCH (09:45)
[2020-10-20] MEDS ORDERED: EPOETIN ALFA-EPBX (ESRD) 10,000 UNIT/ML VIAL SC SCH (12:00)
[2020-10-20 12:29] LABS: SARS-CoV-2 PCR by NAA Not Detected (NotDetected)
[2020-10-20] MEDS: HumaLOG 300 UNITS/3 ML VIAL SC PRN (17:48)
[2020-10-20] MEDS ORDERED: Albuterol 200 PUFF (6.7GM INHALER) INH PRN (20:34)
[2020-10-20] MEDS: Amitriptyline HCl 100 MG TAB PO SCH (20:52)
[2020-10-20] MEDS: Famotidine 20 MG TAB PO SCH (20:52)
[2020-10-20] MEDS: Gabapentin 300 MG CAP PO SCH (20:52)
[2020-10-20] MEDS: Atorvastatin Calcium 40 MG TAB PO SCH (20:54)
[2020-10-20] MEDS: Carvedilol 25 MG TAB PO SCH (20:54)
[2020-10-20] MEDS: Oxybutynin ER 5 MG TAB PO SCH (20:58)
[2020-10-20] MEDS: Apixaban 2.5 MG TAB PO SCH (20:58)
[2020-10-20 21:33] LABS: Vancomycin, Random 14.1 ug/mL (See Comment)
[2020-10-20] MEDS: Cefepime 1 GM in Sodium Chloride 0.9% 100 ML IVPB SCH (22:10)
[2020-10-21] MEDS: Acetaminophen 325 MG TAB PO PRN (01:55)
[2020-10-21 06:40] LABS: #Eosinphils 0.1 thou/uL (0.0-0.7); #Lymphocytes 0.5 thou/uL (1.20-3.40); #Monocytes 0.6 thou/uL (0.11-0.59); #Neutrophils 2.7 thou/uL (1.40-6.50); %Eosinophils 3.3 % (0.0-10.0); %Lymphocytes 13.2 % (21.0-51.0); %Monocytes 14.5 % (0.0-10.0); %Neutrophils 69.1 % (42.0-75.0); Hemoglobin 8.7 g/dL (12.0-16.0); Mean Corpuscular Hemoglobin 29.7 pg (27.0-31.0); Mean Platelet Volume 7.3 fL (7.4-10.4); Platelet Count 170 thou/uL (130-400); RBC Distribution Width 15.5 % (11.5-14.5); Red Blood Cell (RBC) Count 2.92 mill/uL (4.20-5.40)
[2020-10-21 07:03] LABS: ALT (SGPT) 19 U/L (8-55); AST (SGOT) 37 U/L (5-34); Albumin 3.3 g/dL (3.4-4.8); Alkaline Phosphatase 88 U/L (40-110); Anion Gap 13 mmol/L (10-20); BUN (Urea Nitrogen) 42 mg/dL (9.8-20.1); Bilirubin, Total 0.4 mg/dL (0.2-1.2); Calc. Creatinine Clearance 32 mL/min (70-130); Calcium 8.8 mg/dL (7.8-10.44); Carbon Dioxide 28 mmol/L (23-31); Chloride 102 mmol/L (98-107); Globulin 4.2 g/dL (2.4-3.5); Glucose 154 mg/dL (80-115); Potassium 4.5 mmol/L (3.5-5.1); Protein, Total 7.5 g/dL (5.8-8.1); Sodium 138 mmol/L (136-145)
[2020-10-21] MEDS: Gabapentin 300 MG CAP PO SCH ×2 (09:00→20:40)
[2020-10-21] MEDS ORDERED: cloNIDine 0.3mg/24 Hour PATCH TD SCH ×2 (09:00→12:00)
[2020-10-21] MEDS: Citalopram 20 MG TAB PO SCH (09:01)
[2020-10-21] MEDS: Apixaban 2.5 MG TAB PO SCH ×2 (09:02→20:33)
[2020-10-21] MEDS: Calcitriol 0.25 MCG CAP PO SCH (09:02)
[2020-10-21] MEDS: Ferrous Sulfate 325 MG TAB PO SCH ×2 (09:02→17:21)
[2020-10-21] MEDS: Carvedilol 25 MG TAB PO SCH ×2 (09:03→20:32)
[2020-10-21] MEDS: Aspirin 81 mg Enteric Coated Tablet PO SCH (09:03)
[2020-10-21] MEDS: Ezetimibe 10 MG TAB PO SCH (09:03)
[2020-10-21] MEDS: NIFEdipine XL 60 MG TAB PO SCH (09:03)
[2020-10-21] MEDS: Acetaminophen/Codeine 30-300mg Tablet PO PRN (09:04)
[2020-10-21] MEDS: Lantus 1000 UNITS/10 ML VIAL SC SCH (09:05)
[2020-10-21] MEDS: HumaLOG 300 UNITS/3 ML VIAL SC PRN ×2 (11:22→17:42)
[2020-10-21] MEDS: Oxybutynin ER 5 MG TAB PO SCH (20:32)
[2020-10-21] MEDS: Atorvastatin Calcium 40 MG TAB PO SCH (20:32)
[2020-10-21] MEDS: Famotidine 20 MG TAB PO SCH (20:32)
[2020-10-21] MEDS: Amitriptyline HCl 100 MG TAB PO SCH (20:33)
[2020-10-21] MEDS: Cefepime 1 GM in Sodium Chloride 0.9% 100 ML IVPB SCH (22:50)
[2020-10-22 04:56] LABS: #Eosinphils 0.2 thou/uL (0.0-0.7); #Lymphocytes 0.7 thou/uL (1.20-3.40); #Monocytes 0.6 thou/uL (0.11-0.59); #Neutrophils 2.7 thou/uL (1.40-6.50); %Basophils 0.1 % (0.0-1.0); %Eosinophils 5.5 % (0.0-10.0); %Lymphocytes 15.9 % (21.0-51.0); %Monocytes 13.9 % (0.0-10.0); %Neutrophils 64.6 % (42.0-75.0); Hemoglobin 8.2 g/dL (12.0-16.0); Mean Corpuscular HGB CONC 31.6 g/dL (32.0-36.0); Mean Corpuscular Hemoglobin 29.3 pg (27.0-31.0); Mean Corpuscular Volume 92.6 fL (78.0-98.0); Mean Platelet Volume 7.4 fL (7.4-10.4); Platelet Count 187 thou/uL (130-400); RBC Distribution Width 15.3 % (11.5-14.5); White Blood Cell (WBC) Count 4.3 thou/uL (4.8-10.8)
[2020-10-22 05:19] LABS: ALT (SGPT) 18 U/L (8-55); AST (SGOT) 32 U/L (5-34); Albumin 3.3 g/dL (3.4-4.8); Alkaline Phosphatase 84 U/L (40-110); Anion Gap 14 mmol/L (10-20); BUN (Urea Nitrogen) 51 mg/dL (9.8-20.1); Bilirubin, Total 0.4 mg/dL (0.2-1.2); Calc. Creatinine Clearance 29 mL/min (70-130); Calcium 9.1 mg/dL (7.8-10.44); Carbon Dioxide 26 mmol/L (23-31); Chloride 101 mmol/L (98-107); Globulin 4.4 g/dL (2.4-3.5); Glucose 159 mg/dL (80-115); Potassium 4.6 mmol/L (3.5-5.1); Protein, Total 7.7 g/dL (5.8-8.1); Sodium 136 mmol/L (136-145)
[2020-10-22 08:54] LABS: Vancomycin, Random 14.6 ug/mL (See Comment)
[2020-10-22] MEDS: Acetaminophen/Codeine 30-300mg Tablet PO PRN (10:16)
[2020-10-22] MEDS: Apixaban 2.5 MG TAB PO SCH ×2 (11:33→21:22)
[2020-10-22] MEDS: Citalopram 20 MG TAB PO SCH (11:33)
[2020-10-22] MEDS: Gabapentin 300 MG CAP PO SCH ×2 (11:34→21:24)
[2020-10-22] MEDS: Ezetimibe 10 MG TAB PO SCH (11:34)
[2020-10-22] MEDS: Aspirin 81 mg Enteric Coated Tablet PO SCH (11:34)
[2020-10-22] MEDS: Ferrous Sulfate 325 MG TAB PO SCH ×2 (11:34→17:48)
[2020-10-22] MEDS: Calcitriol 0.25 MCG CAP PO SCH (11:34)
[2020-10-22] MEDS: NIFEdipine XL 60 MG TAB PO SCH (11:34)
[2020-10-22] MEDS: Carvedilol 25 MG TAB PO SCH ×2 (11:35→21:24)
[2020-10-22] MEDS: Lantus 1000 UNITS/10 ML VIAL SC SCH (11:37)
[2020-10-22] MEDS ORDERED: Heparin 10,000 UNITS/ 10 ML VIAL ONE (12:28)
[2020-10-22] MEDS: HumaLOG 300 UNITS/3 ML VIAL SC PRN (17:48)
[2020-10-22] MEDS: Amitriptyline HCl 100 MG TAB PO SCH (21:22)
[2020-10-22] MEDS: Famotidine 20 MG TAB PO SCH (21:22)
[2020-10-22] MEDS: Atorvastatin Calcium 40 MG TAB PO SCH (21:23)
[2020-10-23 05:52] LABS: Anion Gap 15 mmol/L (10-20); BUN (Urea Nitrogen) 34 mg/dL (9.8-20.1); Calc. Creatinine Clearance 39 mL/min (70-130); Calcium 8.8 mg/dL (7.8-10.44); Carbon Dioxide 26 mmol/L (23-31); Chloride 100 mmol/L (98-107); Glucose 190 mg/dL (80-115); Potassium 4.5 mmol/L (3.5-5.1); Sodium 136 mmol/L (136-145)
[2020-10-23 05:52] LABS: Hemoglobin 8.4 g/dL (12.0-16.0); Mean Corpuscular HGB CONC 31.8 g/dL (32.0-36.0); Mean Corpuscular Hemoglobin 29.4 pg (27.0-31.0); Mean Corpuscular Volume 92.5 fL (78.0-98.0); Mean Platelet Volume 7.4 fL (7.4-10.4); Platelet Count 218 thou/uL (130-400); RBC Distribution Width 15.4 % (11.5-14.5); Red Blood Cell (RBC) Count 2.84 mill/uL (4.20-5.40); White Blood Cell (WBC) Count 2.8 thou/uL (4.8-10.8)
[2020-10-23 05:53] LABS: Band 2 % (5-11); Eosinophils 8 % (0-10); Hypochromia SLIGHT = 6-15 cells (100X) (0-5/hpf); Lymphocytes 8 % (21-51); MDiff Complete? YES; Monocytes 8 % (0-10); Neutrophil 74 % (42-75); Platelet Morphology Comment Appears Adequate
[2020-10-23] MEDS: NIFEdipine XL 60 MG TAB PO SCH (08:28)
[2020-10-23] MEDS: Ezetimibe 10 MG TAB PO SCH (08:28)
[2020-10-23] MEDS: Calcitriol 0.25 MCG CAP PO SCH (08:28)
[2020-10-23] MEDS: Gabapentin 300 MG CAP PO SCH ×2 (08:29→21:46)
[2020-10-23] MEDS: Apixaban 2.5 MG TAB PO SCH ×2 (08:29→21:47)
[2020-10-23] MEDS: Ferrous Sulfate 325 MG TAB PO SCH ×2 (08:29→16:39)
[2020-10-23] MEDS: Aspirin 81 mg Enteric Coated Tablet PO SCH (08:29)
[2020-10-23] MEDS: Citalopram 20 MG TAB PO SCH (08:29)
[2020-10-23] MEDS: Lantus 1000 UNITS/10 ML VIAL SC SCH (08:30)
[2020-10-23] MEDS: Carvedilol 25 MG TAB PO SCH ×2 (08:30→21:47)
[2020-10-23] MEDS: HumaLOG 300 UNITS/3 ML VIAL SC PRN (11:33)
[2020-10-23] MEDS ORDERED: GoLYTELY 4,000 ml Bottle PO SCH (17:30)
[2020-10-23] MEDS: Amitriptyline HCl 100 MG TAB PO SCH (21:46)
[2020-10-23] MEDS: Atorvastatin Calcium 40 MG TAB PO SCH (21:47)
[2020-10-23] MEDS: Oxybutynin ER 5 MG TAB PO SCH (21:47)
[2020-10-23] MEDS: Famotidine 20 MG TAB PO SCH (21:47)
[2020-10-24] MEDS ORDERED: Lidocaine 1% PF 5 ML VIAL ONE (09:29)
[2020-10-24] MEDS ORDERED: PROPOFOL 200 MG/20 ML VIAL ONE (09:29)
[2020-10-24] MEDS ORDERED: Promethazine HCl 25 MG/ML VIAL SLOW IVP PRN (10:30)
[2020-10-24] MEDS ORDERED: Ondansetron HCl/PF 4 MG/2 ML Vial IVP PRN (10:30)
[2020-10-24] MEDS ORDERED: Promethazine HCl 25 MG/ML VIAL IM PRN (10:30)
[2020-10-24 11:58] LABS: #Eosinphils 0.1 thou/uL (0.0-0.7); #Lymphocytes 0.6 thou/uL (1.20-3.40); #Monocytes 0.4 thou/uL (0.11-0.59); #Neutrophils 1.9 thou/uL (1.40-6.50); %Basophils 0.4 % (0.0-1.0); %Eosinophils 3.3 % (0.0-10.0); %Monocytes 12.9 % (0.0-10.0); %Neutrophils 64.5 % (42.0-75.0); Hemoglobin 8.1 g/dL (12.0-16.0); Mean Corpuscular HGB CONC 32.6 g/dL (32.0-36.0); Mean Corpuscular Hemoglobin 29.6 pg (27.0-31.0); Mean Corpuscular Volume 90.9 fL (78.0-98.0); Mean Platelet Volume 7.1 fL (7.4-10.4); Platelet Count 212 thou/uL (130-400); RBC Distribution Width 15.6 % (11.5-14.5); Red Blood Cell (RBC) Count 2.75 mill/uL (4.20-5.40); White Blood Cell (WBC) Count 2.9 thou/uL (4.8-10.8)
[2020-10-24 12:19] LABS: Anion Gap 16 mmol/L (10-20); BUN (Urea Nitrogen) 39 mg/dL (9.8-20.1); Calc. Creatinine Clearance 34 mL/min (70-130); Carbon Dioxide 28 mmol/L (23-31); Chloride 100 mmol/L (98-107); Glucose 112 mg/dL (80-115); Potassium 4.5 mmol/L (3.5-5.1); Sodium 139 mmol/L (136-145)
[2020-10-24] MEDS: Carvedilol 25 MG TAB PO SCH ×2 (13:27→21:00)
[2020-10-24] MEDS: Gabapentin 300 MG CAP PO SCH ×2 (13:27→21:00)
[2020-10-24] MEDS: Ferrous Sulfate 325 MG TAB PO SCH ×2 (13:27→16:52)
[2020-10-24] MEDS: Lantus 1000 UNITS/10 ML VIAL SC SCH (13:28)
[2020-10-24] MEDS: NIFEdipine XL 60 MG TAB PO SCH (15:20)
[2020-10-24] MEDS: Ezetimibe 10 MG TAB PO SCH (15:20)
[2020-10-24] MEDS: Citalopram 20 MG TAB PO SCH (15:20)
[2020-10-24] MEDS: Aspirin 81 mg Enteric Coated Tablet PO SCH (15:20)
[2020-10-24] MEDS: Calcitriol 0.25 MCG CAP PO SCH (15:20)
[2020-10-24] MEDS: Acetaminophen/Codeine 30-300mg Tablet PO PRN (16:54)
[2020-10-24] MEDS: Atorvastatin Calcium 40 MG TAB PO SCH (21:00)
[2020-10-24] MEDS: Amitriptyline HCl 100 MG TAB PO SCH (21:00)
[2020-10-24] MEDS: Oxybutynin ER 5 MG TAB PO SCH (21:00)
[2020-10-24] MEDS: Famotidine 20 MG TAB PO SCH (21:00)
[2020-10-25 07:01] LABS: #Eosinphils 0.1 thou/uL (0.0-0.7); #Lymphocytes 0.7 thou/uL (1.20-3.40); #Monocytes 0.5 thou/uL (0.11-0.59); #Neutrophils 2.4 thou/uL (1.40-6.50); %Basophils 0.2 % (0.0-1.0); %Eosinophils 2.6 % (0.0-10.0); %Lymphocytes 18.6 % (21.0-51.0); %Neutrophils 64.6 % (42.0-75.0); Hemoglobin 8.5 g/dL (12.0-16.0); Mean Corpuscular HGB CONC 32.9 g/dL (32.0-36.0); Mean Corpuscular Hemoglobin 29.5 pg (27.0-31.0); Mean Corpuscular Volume 89.9 fL (78.0-98.0); Mean Platelet Volume 7.1 fL (7.4-10.4); Platelet Count 252 thou/uL (130-400); RBC Distribution Width 15.8 % (11.5-14.5); Red Blood Cell (RBC) Count 2.86 mill/uL (4.20-5.40); White Blood Cell (WBC) Count 3.7 thou/uL (4.8-10.8)
[2020-10-25 07:26] LABS: Anion Gap 14 mmol/L (10-20); BUN (Urea Nitrogen) 23 mg/dL (9.8-20.1); Calc. Creatinine Clearance 46 mL/min (70-130); Calcium 9.2 mg/dL (7.8-10.44); Carbon Dioxide 28 mmol/L (23-31); Chloride 98 mmol/L (98-107); Glucose 134 mg/dL (80-115); Potassium 3.9 mmol/L (3.5-5.1); Sodium 136 mmol/L (136-145)
[2020-10-25] MEDS: Ferrous Sulfate 325 MG TAB PO SCH ×2 (08:58→16:52)
[2020-10-25] MEDS: Calcitriol 0.25 MCG CAP PO SCH (08:58)
[2020-10-25] MEDS: Gabapentin 300 MG CAP PO SCH (08:58)
[2020-10-25] MEDS: Aspirin 81 mg Enteric Coated Tablet PO SCH (08:59)
[2020-10-25] MEDS: Ezetimibe 10 MG TAB PO SCH (08:59)
[2020-10-25] MEDS: Citalopram 20 MG TAB PO SCH (08:59)
[2020-10-25] MEDS: NIFEdipine XL 60 MG TAB PO SCH (08:59)
[2020-10-25] MEDS: Carvedilol 25 MG TAB PO SCH (08:59)
[2020-10-25] MEDS: Lantus 1000 UNITS/10 ML VIAL SC SCH (09:00)
[2020-10-25] MEDS: HumaLOG 300 UNITS/3 ML VIAL SC PRN (11:50)
[2020-10-25] MEDS: Acetaminophen 325 MG TAB PO PRN (14:49)
[2020-10-25 15:57] VITALS: BP 155/69; TEMP 99
== END 2020-10-25 17:15 | disposition home health service (06) | DRG 871 ==
LOC: ERS 15:30 → 2NO 17:14
PROVIDERS: ADMIT Student in an Organized Health Care Education/Training Program; ATTEND Student in an Organized Health Care Education/Training Program
PROC: 0DJ08ZZ Inspection of Upper Intestinal Tract, Via Natural or Artificial Opening Endoscopic (ICD-10-PCS; principal; 2020-10-24)
PROC: 0D5N8ZZ Destruction of Sigmoid Colon, Via Natural or Artificial Opening Endoscopic (ICD-10-PCS; 2020-10-24)
DX: A41.9 Sepsis, unspecified organism (principal); N18.6 End stage renal disease; I13.2 Hypertensive heart and chronic kidney disease with heart failure and with stage 5 chronic kidney disease, or end stage renal disease; J96.11 Chronic respiratory failure with hypoxia; Z20.822 Contact with and (suspected) exposure to COVID-19; N25.81 Secondary hyperparathyroidism of renal origin; E11.22 Type 2 diabetes mellitus with diabetic chronic kidney disease; E11.42 Type 2 diabetes mellitus with diabetic polyneuropathy; E78.5 Hyperlipidemia, unspecified; J44.9 Chronic obstructive pulmonary disease, unspecified; K21.9 Gastro-esophageal reflux disease without esophagitis; D63.1 Anemia in chronic kidney disease; G47.33 Obstructive sleep apnea (adult) (pediatric); E66.9 Obesity, unspecified; I50.9 Heart failure, unspecified; F32.9 Major depressive disorder, single episode, unspecified; G47.00 Insomnia, unspecified; G89.29 Other chronic pain; M79.3 Panniculitis, unspecified; K63.89 Other specified diseases of intestine; K63.5 Polyp of colon; K57.30 Diverticulosis of large intestine without perforation or abscess without bleeding; K55.20 Angiodysplasia of colon without hemorrhage; Z68.43 Body mass index [BMI] 50.0-59.9, adult; Z99.81 Dependence on supplemental oxygen; Z79.01 Long term (current) use of anticoagulants; Z79.82 Long term (current) use of aspirin; Z79.4 Long term (current) use of insulin; Z79.51 Long term (current) use of inhaled steroids; Z79.899 Other long term (current) drug therapy; Z99.2 Dependence on renal dialysis; Z90.710 Acquired absence of both cervix and uterus; Z89.411 Acquired absence of right great toe; Z88.8 Allergy status to other drugs, medicaments and biological substances; Z87.891 Personal history of nicotine dependence; Z86.718 Personal history of other venous thrombosis and embolism
CPT/HCPCS: 36415; 36416; 51701; 71045; 80048; 80053; 80202; 81003; 82553; 83605; 83880; 84145; 84484; 85025; 87040; 87077; 87086; 87149; 87186; 87633; 87635; 90935; 93005; 96365; 96367; G0257; J0692; J0696; J1644; J1815; J2704; J3370; J3490; Q5105; U0003; U0005

== ENCOUNTER 2020-11-17 22:58 | Emergency (ER) | payer MEDICARE, MEDICAID ==
[2020-11-18] MEDS ORDERED: Acetaminophen 500 MG TAB ONE (02:53)
== END 2020-11-18 04:40 | disposition home or self-care (01) ==
LOC: ERS 22:58
DX: S70.01XA Contusion of right hip, initial encounter (principal); S80.01XA Contusion of right knee, initial encounter; E78.5 Hyperlipidemia, unspecified; J44.9 Chronic obstructive pulmonary disease, unspecified; E11.42 Type 2 diabetes mellitus with diabetic polyneuropathy; I11.0 Hypertensive heart disease with heart failure; I50.9 Heart failure, unspecified; W17.89XA Other fall from one level to another, initial encounter

== ENCOUNTER 2020-11-18 20:34 | Inpatient (IN) | payer MEDICARE, MEDICAID ==
[2020-11-18] MEDS: Atorvastatin Calcium 40 MG TAB PO SCH (20:40)
[2020-11-18 21:39] LABS: #Eosinphils 0.1 thou/uL (0.0-0.7); #Lymphocytes 0.6 thou/uL (1.20-3.40); #Monocytes 0.9 thou/uL (0.11-0.59); #Neutrophils 5.3 thou/uL (1.40-6.50); %Basophils 0.2 % (0.0-1.0); %Eosinophils 1.1 % (0.0-10.0); %Lymphocytes 8.3 % (21.0-51.0); %Neutrophils 77.4 % (42.0-75.0); Hemoglobin 7.2 g/dL (12.0-16.0); Mean Corpuscular Hemoglobin 28.6 pg (27.0-31.0); Mean Corpuscular Volume 86.7 fL (78.0-98.0); Mean Platelet Volume 7.8 fL (7.4-10.4); Platelet Count 234 thou/uL (130-400); RBC Distribution Width 16.8 % (11.5-14.5); Red Blood Cell (RBC) Count 2.53 mill/uL (4.20-5.40); White Blood Cell (WBC) Count 6.8 thou/uL (4.8-10.8)
[2020-11-18 21:52] LABS: INR-International Normal Ratio 1.5; Prothrombin Time 18.8 sec (12.0-14.7)
[2020-11-18 21:53] LABS: PTT 51.7 sec (22.9-36.1)
[2020-11-18 22:00] LABS: Actual Bicarbonate (HCO3a) 24.3 mEq/L (22-28); Analyzer IN Cardio ER; Base Excess (BEa) -1.4 mEq/L (-2.0 to +3.0); CO2 Tension 45.7 mmHg (35.0-45.0); Calcium, Ionized (arterial) 0.97 mmol/L (1.12-1.30); Carboxyhemoglobin (COHb) 1.4 gm% (0.0-3.0); Hemoglobin (Hb) 7.2 g/dL (12.0-16.0); O2 Tension (PaO2), arterial 105.4 mmHg (> 80.0); Potassium - ABG Lab 5.14 mmol/L (3.70-5.30); pH, Arterial 7.34 (7.35-7.45)
[2020-11-18 22:06] LABS: Puncture Site LBA
[2020-11-18 22:07] LABS: ALV-art Gradient 87.025 mmHg (0-20)
[2020-11-18 22:27] LABS: ALT (SGPT) 35 U/L (8-55); AST (SGOT) 69 U/L (5-34); Albumin 3.2 g/dL (3.4-4.8); Alkaline Phosphatase 110 U/L (40-110); Anion Gap 24 mmol/L (10-20); BUN (Urea Nitrogen) 75 mg/dL (9.8-20.1); Bilirubin, Total 0.4 mg/dL (0.2-1.2); CK (CPK) 509 U/L (29-168); Calc. Creatinine Clearance 0 mL/min (70-130); Calcium 7.6 mg/dL (7.8-10.44); Carbon Dioxide 21 mmol/L (23-31); Chloride 95 mmol/L (98-107); Globulin 4.5 g/dL (2.4-3.5); Glucose 166 mg/dL (80-115); Potassium 6.4 mmol/L (3.5-5.1); Protein, Total 7.7 g/dL (5.8-8.1); Sodium 134 mmol/L (136-145)
[2020-11-18] MEDS ORDERED: Azithromycin 500 MG VIAL ONE (23:57)
[2020-11-18] MEDS ORDERED: Bisacodyl 5 MG TAB PO PRN (23:58)
[2020-11-18] MEDS ORDERED: Dextrose 50% Abboject 50 ML SYRINGE SLOW IVP PRN (23:58)
[2020-11-18] MEDS ORDERED: Sodium Bicarb 50 MEQ/50 ML Abboject 8.4% SYRINGE ONE (23:58)
[2020-11-18] MEDS ORDERED: Ondansetron ODT 4 MG TAB PO PRN (23:58)
[2020-11-18] MEDS ORDERED: HumaLOG 300 UNITS/3 ML VIAL SC PRN ×2 (23:58)
[2020-11-18] MEDS ORDERED: Senokot S 8.6-50 MG TAB PO PRN (23:58)
[2020-11-18] MEDS ORDERED: Dextrose 50% Abboject 50 ML SYRINGE ONE (23:58)
[2020-11-18] MEDS ORDERED: Ondansetron PF 4 MG/2 ML Vial IVP PRN (23:58)
[2020-11-18] MEDS ORDERED: Dextrose 5% in Water 1,000 ML IV PRN (23:58)
[2020-11-18] MEDS ORDERED: cefTRIAXone\\ROCEPHIN 1 GM VIAL ONE ×2 (23:58→23:59)
[2020-11-18] MEDS ORDERED: Insulin Regular 300 UNITS/3 ML VIAL ONE (23:58)
[2020-11-18] MEDS ORDERED: Calcium Chloride 1 GM/10 ML Abboject SYRINGE ONE (23:58)
[2020-11-19] MEDS ORDERED: Acetaminophen/Codeine 30-300mg Tablet PO PRN (00:02)
[2020-11-19 00:26] LABS: HBSAg Index 0.14 S/CO (0-0.99); Hep B Surf Ag Non-Reactive S/CO (NonReactive)
[2020-11-19 01:43] LABS: Troponin I Less than 0.010 ng/mL (< 0.028)
[2020-11-19 02:29] LABS: SARS-CoV-2 NAA Rapid Test Not Detected (NotDetected)
[2020-11-19 04:42] LABS: ALT (SGPT) 30 U/L (8-55); AST (SGOT) 57 U/L (5-34); Albumin 3.2 g/dL (3.4-4.8); Alkaline Phosphatase 110 U/L (40-110); Anion Gap 17 mmol/L (10-20); BUN (Urea Nitrogen) 65 mg/dL (9.8-20.1); Bilirubin, Total 0.3 mg/dL (0.2-1.2); Calc. Creatinine Clearance 19 mL/min (70-130); Calcium 8.4 mg/dL (7.8-10.44); Carbon Dioxide 28 mmol/L (23-31); Chloride 95 mmol/L (98-107); Globulin 4.6 g/dL (2.4-3.5); Glucose 119 mg/dL (80-115); Magnesium 2.3 mg/dL (1.6-2.6); Potassium 4.7 mmol/L (3.5-5.1); Protein, Total 7.8 g/dL (5.8-8.1); Sodium 135 mmol/L (136-145)
[2020-11-19 04:44] LABS: Troponin I 0.023 ng/mL (< 0.028)
[2020-11-19 04:46] LABS: Phosphorus 9.4 mg/dL (2.3-4.7)
[2020-11-19] MEDS ORDERED: Labetalol HCl 100 MG/20 ML VIAL SLOW IVP PRN (05:40)
[2020-11-19 07:49] LABS: Hemoglobin 7.7 g/dL (12.0-16.0); Mean Corpuscular HGB CONC 31.8 g/dL (32.0-36.0); Mean Corpuscular Hemoglobin 27.9 pg (27.0-31.0); Mean Corpuscular Volume 87.7 fL (78.0-98.0); Mean Platelet Volume 7.4 fL (7.4-10.4); Platelet Count 219 thou/uL (130-400); RBC Distribution Width 16.7 % (11.5-14.5); Red Blood Cell (RBC) Count 2.77 mill/uL (4.20-5.40)
[2020-11-19] MEDS ORDERED: Carvedilol 25 MG TAB PO SCH (09:00)
[2020-11-19] MEDS ORDERED: NIFEdipine XL 60 MG TAB PO SCH (09:00)
[2020-11-19] MEDS ORDERED: cloNIDine 0.3mg/24 Hour PATCH TD SCH (09:00)
[2020-11-19] MEDS ORDERED: Gabapentin 300 MG CAP PO SCH (09:00)
[2020-11-19] MEDS: EPOETIN ALFA-EPBX (ESRD) 10,000 UNIT/ML VIAL SC SCH (09:21)
[2020-11-19] MEDS: Aspirin 81 mg Enteric Coated Tablet PO SCH (09:21)
[2020-11-19] MEDS: cloNIDine 0.3mg/24 Hour PATCH TD SCH (09:21)
[2020-11-19 09:22] LABS: Band 3 % (5-11); Eosinophils 1 % (0-10); Hypochromia SLIGHT = 6-15 cells (100X) (0-5/hpf); Lymphocytes 13 % (21-51); MDiff Complete? YES; Monocytes 27 % (0-10); Neutrophil 55 % (42-75); Platelet Morphology Comment Appears Adequate; Polychromasia SLIGHT = 2-3 cells (100X) (0-2/hpf); Target Cells SLIGHT = 2-5 cells (100X) (0-1/hpf)
[2020-11-19] MEDS: Ezetimibe 10 MG TAB PO SCH (09:22)
[2020-11-19] MEDS: Apixaban 2.5 MG TAB PO SCH ×2 (09:22→20:46)
[2020-11-19] MEDS: Calcitriol 0.25 MCG CAP PO SCH (09:22)
[2020-11-19] MEDS: Ergocalciferol 1.25 MG(50,000 UNITS) CAP PO SCH (09:22)
[2020-11-19] MEDS: Carvedilol 25 MG TAB PO SCH ×2 (09:22→20:25)
[2020-11-19] MEDS: Citalopram 20 MG TAB PO SCH (09:22)
[2020-11-19] MEDS: Lantus 1000 UNITS/10 ML VIAL SC SCH (09:22)
[2020-11-19] MEDS: Ferrous Sulfate 325 MG TAB PO SCH ×2 (09:22→18:31)
[2020-11-19] MEDS: Furosemide 20 MG TAB PO SCH (09:22)
[2020-11-19 10:52] LABS: Phosphorus 7.9 mg/dL (2.3-4.7)
[2020-11-19 11:20] LABS: Actual Bicarbonate (HCO3a) 28.7 mEq/L (22-28); Base Excess (BEa) 3.3 mEq/L (-2.0 to +3.0); CO2 Tension 49.6 mmHg (35.0-45.0); Calcium, Ionized (arterial) 1.01 mmol/L (1.12-1.30); Carboxyhemoglobin (COHb) 1.3 gm% (0.0-3.0); Hemoglobin (Hb) 7.1 g/dL (12.0-16.0); O2 Tension (PaO2), arterial 74.6 mmHg (> 80.0); Potassium - ABG Lab 4.46 mmol/L (3.70-5.30); pH, Arterial 7.38 (7.35-7.45)
[2020-11-19 11:21] LABS: Puncture Site RRA
[2020-11-19] MEDS: Sevelamer Carbonate 800 MG TAB PO SCH ×2 (13:20→16:05)
[2020-11-19] MEDS ORDERED: NIFEdipine XL 30 MG TAB PO SCH (15:45)
[2020-11-19] MEDS: Calcium Acetate 667 MG CAP PO SCH (18:31)
[2020-11-19] MEDS: Famotidine 20 MG TAB PO SCH (20:25)
[2020-11-19] MEDS: Acetaminophen 325 MG TAB PO PRN (20:39)
[2020-11-19] MEDS ORDERED: diphenhydrAMINE 25 MG CAP PO SCH (21:00)
[2020-11-19] MEDS ORDERED: Oxybutynin ER 5 MG TAB PO SCH (21:00)
[2020-11-19] MEDS ORDERED: Amitriptyline HCl 100 MG TAB PO SCH (21:00)
[2020-11-20 01:14] LABS: Bacteria/HPF None Seen HPF (None Seen); Bilirubin Negative (Negative); Blood, Urine Negative (Negative); Clarity Clear (Clear); Glucose, Urine (Dipstick) Normal (Negative); Ketone, Urine Negative (Negative); Leukocyte Negative Leu/uL (Negative); Nitrite Negative (Negative); Protein, Urine (Dipstick) 100 mg/dL (Neg-Trace); RBC/HPF 0-3 HPF (0-3); Specific Gravity, Urine 1.017 (1.002-1.036); Squamous Epithelial None Seen HPF (0-3); Urobilinogen Normal mg/dL (Less than 2); WBC/HPF 0-3 HPF (0-3); pH, Urine 5.5 (5.0-9.0)
[2020-11-20 01:16] LABS: Urine Culture Reflex No No
[2020-11-20] MEDS: Ampicillin 2 GM in Sodium Chloride 0.9% 100 ML IVPB SCH ×2 (02:19→15:00)
[2020-11-20 04:10] LABS: Anion Gap 18 mmol/L (10-20); BUN (Urea Nitrogen) 57 mg/dL (9.8-20.1); Calc. Creatinine Clearance 20 mL/min (70-130); Calcium 8.2 mg/dL (7.8-10.44); Carbon Dioxide 27 mmol/L (23-31); Chloride 97 mmol/L (98-107); Glucose 67 mg/dL (80-115); Potassium 4.6 mmol/L (3.5-5.1); Sodium 137 mmol/L (136-145)
[2020-11-20] MEDS ORDERED: AMPicillin 2 GM in Sodium Chloride 0.9% 100 ML IVPB SCH (06:00)
[2020-11-20 06:24] LABS: Phosphorus 8.9 mg/dL (2.3-4.7)
[2020-11-20] MEDS ORDERED: Heparin 10,000 UNITS/ 10 ML VIAL ONE (10:38)
[2020-11-20] MEDS: Sevelamer Carbonate 800 MG TAB PO SCH ×3 (10:53→17:19)
[2020-11-20] MEDS: Lantus 1000 UNITS/10 ML VIAL SC SCH (10:53)
[2020-11-20] MEDS: Apixaban 2.5 MG TAB PO SCH ×2 (12:54→20:38)
[2020-11-20] MEDS: NIFEdipine XL 90 MG TAB PO SCH (12:54)
[2020-11-20] MEDS: Citalopram 20 MG TAB PO SCH (12:55)
[2020-11-20] MEDS: Aspirin 81 mg Enteric Coated Tablet PO SCH (12:55)
[2020-11-20] MEDS: Ferrous Sulfate 325 MG TAB PO SCH ×2 (12:55→17:19)
[2020-11-20] MEDS: Ezetimibe 10 MG TAB PO SCH (12:55)
[2020-11-20] MEDS: Calcitriol 0.25 MCG CAP PO SCH (12:56)
[2020-11-20] MEDS: Carvedilol 25 MG TAB PO SCH ×2 (12:56→20:38)
[2020-11-20] MEDS: Furosemide 20 MG TAB PO SCH (12:56)
[2020-11-20] MEDS: Calcium Acetate 667 MG CAP PO SCH (14:19)
[2020-11-20] MEDS: Atorvastatin Calcium 40 MG TAB PO SCH (20:37)
[2020-11-20] MEDS: Famotidine 20 MG TAB PO SCH (20:37)
[2020-11-21] MEDS: Acetaminophen 325 MG TAB PO PRN ×2 (03:05→20:52)
[2020-11-21] MEDS: Ampicillin 2 GM in Sodium Chloride 0.9% 100 ML IVPB SCH ×2 (03:05→15:24)
[2020-11-21 04:12] LABS: Anion Gap 16 mmol/L (10-20); BUN (Urea Nitrogen) 29 mg/dL (9.8-20.1); Calc. Creatinine Clearance 33 mL/min (70-130); Calcium 8.2 mg/dL (7.8-10.44); Carbon Dioxide 26 mmol/L (23-31); Chloride 97 mmol/L (98-107); Glucose 82 mg/dL (80-115); Potassium 3.8 mmol/L (3.5-5.1); Sodium 135 mmol/L (136-145)
[2020-11-21 04:16] LABS: Phosphorus 4.8 mg/dL (2.3-4.7)
[2020-11-21 04:28] LABS: Band 2 % (5-11); Eosinophils 1 % (0-10); Hemoglobin 6.9 g/dL (12.0-16.0); Hypochromia SLIGHT = 6-15 cells (100X) (0-5/hpf); Lymphocytes 3 % (21-51); MDiff Complete? YES; Mean Corpuscular HGB CONC 31.7 g/dL (32.0-36.0); Mean Corpuscular Hemoglobin 27.3 pg (27.0-31.0); Mean Corpuscular Volume 86.1 fL (78.0-98.0); Mean Platelet Volume 7.4 fL (7.4-10.4); Monocytes 6 % (0-10); Neutrophil 88 % (42-75); Platelet Count 246 thou/uL (130-400); Platelet Morphology Comment Appears Adequate; RBC Distribution Width 16.5 % (11.5-14.5); Red Blood Cell (RBC) Count 2.53 mill/uL (4.20-5.40); White Blood Cell (WBC) Count 4.8 thou/uL (4.8-10.8)
[2020-11-21] MEDS: Apixaban 2.5 MG TAB PO SCH ×2 (09:45→20:53)
[2020-11-21] MEDS: Aspirin 81 mg Enteric Coated Tablet PO SCH (09:45)
[2020-11-21] MEDS: NIFEdipine XL 90 MG TAB PO SCH (09:45)
[2020-11-21] MEDS: Ezetimibe 10 MG TAB PO SCH (09:45)
[2020-11-21] MEDS: Sevelamer Carbonate 800 MG TAB PO SCH ×3 (09:45→17:45)
[2020-11-21] MEDS: Citalopram 20 MG TAB PO SCH (09:45)
[2020-11-21] MEDS: Carvedilol 25 MG TAB PO SCH ×2 (09:45→20:54)
[2020-11-21] MEDS: Ferrous Sulfate 325 MG TAB PO SCH ×2 (09:45→17:44)
[2020-11-21] MEDS: Calcitriol 0.25 MCG CAP PO SCH (09:46)
[2020-11-21] MEDS: Furosemide 20 MG TAB PO SCH (09:46)
[2020-11-21] MEDS ORDERED: Heparin 10,000 UNITS/ 10 ML VIAL ONE (09:49)
[2020-11-21] MEDS: Lantus 1000 UNITS/10 ML VIAL SC SCH (09:50)
[2020-11-21] MEDS ORDERED: VANCOMYCIN 2 GRAM/400 ML BAG 2 GM in Premix Bag 1 BAG IVPB SCH (11:45)
[2020-11-21] MEDS ORDERED: Vancomycin HCl 750 MG in Sodium Chloride 0.9% 250 ML 250 ML IVPB SCH (12:00)
[2020-11-21] MEDS ORDERED: HOLD VANCOMYCIN FOR LEVEL >20 FS SCH (12:00)
[2020-11-21] MEDS ORDERED: Vancomycin 1 GM in Premix Bag 1 BAG IVPB SCH (12:00)
[2020-11-21] MEDS ORDERED: Vancomycin HCl 1.25 GM in Sodium Chloride 0.9% 250 ML 250 ML IVPB SCH (12:00)
[2020-11-21] MEDS ORDERED: Vancomycin HCl 1.5 GM in Sodium Chloride 0.9% 250 ML 300 ML IVPB SCH (12:00)
[2020-11-21] MEDS: Gabapentin 100 MG CAP PO SCH ×2 (15:23→20:53)
[2020-11-21 20:08] LABS: Hemoglobin 8.2 g/dL (12.0-16.0)
[2020-11-21] MEDS: Atorvastatin Calcium 40 MG TAB PO SCH (20:53)
[2020-11-21] MEDS: Famotidine 20 MG TAB PO SCH (20:53)
[2020-11-22] MEDS: Ampicillin 2 GM in Sodium Chloride 0.9% 100 ML IVPB SCH ×2 (03:02→14:49)
[2020-11-22 05:02] LABS: Phosphorus 3.1 mg/dL (2.3-4.7)
[2020-11-22 06:27] LABS: Anion Gap 14 mmol/L (10-20); BUN (Urea Nitrogen) 16 mg/dL (9.8-20.1); Calc. Creatinine Clearance 43 mL/min (70-130); Calcium 8.6 mg/dL (7.8-10.44); Carbon Dioxide 26 mmol/L (23-31); Chloride 101 mmol/L (98-107); Glucose 100 mg/dL (80-115); Potassium 3.7 mmol/L (3.5-5.1); Sodium 139 mmol/L (136-145)
[2020-11-22] MEDS: Sevelamer Carbonate 800 MG TAB PO SCH ×3 (08:50→17:57)
[2020-11-22] MEDS: Furosemide 20 MG TAB PO SCH (08:50)
[2020-11-22] MEDS: Aspirin 81 mg Enteric Coated Tablet PO SCH (08:50)
[2020-11-22] MEDS: Ezetimibe 10 MG TAB PO SCH (08:51)
[2020-11-22] MEDS: NIFEdipine XL 90 MG TAB PO SCH (08:51)
[2020-11-22] MEDS: Carvedilol 25 MG TAB PO SCH ×2 (08:51→20:13)
[2020-11-22] MEDS: Calcitriol 0.25 MCG CAP PO SCH (08:51)
[2020-11-22] MEDS: Citalopram 20 MG TAB PO SCH (08:51)
[2020-11-22] MEDS: Gabapentin 100 MG CAP PO SCH ×3 (08:52→20:13)
[2020-11-22] MEDS: Ferrous Sulfate 325 MG TAB PO SCH ×2 (08:52→17:57)
[2020-11-22] MEDS: Apixaban 2.5 MG TAB PO SCH ×2 (08:52→20:13)
[2020-11-22] MEDS: Lantus 1000 UNITS/10 ML VIAL SC SCH (08:53)
[2020-11-22] MEDS ORDERED: Amitriptyline HCl 25 MG TAB PO SCH (09:00)
[2020-11-22] MEDS ORDERED: Lisinopril 2.5 MG TAB PO SCH (12:00)
[2020-11-22] MEDS: Famotidine 20 MG TAB PO SCH (20:12)
[2020-11-22] MEDS: Atorvastatin Calcium 40 MG TAB PO SCH (20:13)
[2020-11-23 04:40] LABS: Anion Gap 13 mmol/L (10-20); BUN (Urea Nitrogen) 23 mg/dL (9.8-20.1); Calc. Creatinine Clearance 29 mL/min (70-130); Calcium 9.4 mg/dL (7.8-10.44); Carbon Dioxide 29 mmol/L (23-31); Chloride 99 mmol/L (98-107); Glucose 112 mg/dL (80-115); Potassium 4.4 mmol/L (3.5-5.1); Sodium 137 mmol/L (136-145)
[2020-11-23 04:41] LABS: Phosphorus 4.4 mg/dL (2.3-4.7)
[2020-11-23 04:58] LABS: #Eosinphils 0.2 thou/uL (0.0-0.7); #Lymphocytes 0.5 thou/uL (1.20-3.40); #Monocytes 0.6 thou/uL (0.11-0.59); #Neutrophils 3.1 thou/uL (1.40-6.50); %Eosinophils 3.7 % (0.0-10.0); %Lymphocytes 10.6 % (21.0-51.0); %Monocytes 13.3 % (0.0-10.0); %Neutrophils 72.3 % (42.0-75.0); Hemoglobin 8.3 g/dL (12.0-16.0); Mean Corpuscular HGB CONC 31.2 g/dL (32.0-36.0); Mean Corpuscular Hemoglobin 27.7 pg (27.0-31.0); Mean Corpuscular Volume 88.8 fL (78.0-98.0); Platelet Count 287 thou/uL (130-400); RBC Distribution Width 16.6 % (11.5-14.5); Red Blood Cell (RBC) Count 2.98 mill/uL (4.20-5.40); White Blood Cell (WBC) Count 4.2 thou/uL (4.8-10.8)
[2020-11-23 09:17] LABS: Vancomycin, Random 8.9 ug/mL (See Comment)
[2020-11-23] MEDS ORDERED: Heparin 10,000 UNITS/ 10 ML VIAL ONE (12:20)
[2020-11-23] MEDS: Aspirin 81 mg Enteric Coated Tablet PO SCH (13:16)
[2020-11-23] MEDS: Lisinopril 2.5 MG TAB PO SCH (13:16)
[2020-11-23] MEDS: NIFEdipine XL 90 MG TAB PO SCH (13:16)
[2020-11-23] MEDS: Ezetimibe 10 MG TAB PO SCH (13:16)
[2020-11-23] MEDS: Carvedilol 25 MG TAB PO SCH ×2 (13:17→20:37)
[2020-11-23] MEDS: Ferrous Sulfate 325 MG TAB PO SCH ×2 (13:17→17:57)
[2020-11-23] MEDS: Gabapentin 100 MG CAP PO SCH ×3 (13:17→20:36)
[2020-11-23] MEDS: Citalopram 20 MG TAB PO SCH (13:17)
[2020-11-23] MEDS: Sevelamer Carbonate 800 MG TAB PO SCH ×3 (13:17→17:57)
[2020-11-23] MEDS: Apixaban 2.5 MG TAB PO SCH ×2 (13:17→20:38)
[2020-11-23] MEDS: Furosemide 20 MG TAB PO SCH (13:18)
[2020-11-23] MEDS: Calcitriol 0.25 MCG CAP PO SCH (13:19)
[2020-11-23] MEDS: Lantus 1000 UNITS/10 ML VIAL SC SCH (13:44)
[2020-11-23] MEDS: Famotidine 20 MG TAB PO SCH (20:36)
[2020-11-23] MEDS: Atorvastatin Calcium 40 MG TAB PO SCH (20:37)
[2020-11-24 05:03] LABS: #Eosinphils 0.2 thou/uL (0.0-0.7); #Lymphocytes 0.5 thou/uL (1.20-3.40); #Monocytes 0.5 thou/uL (0.11-0.59); #Neutrophils 2.9 thou/uL (1.40-6.50); %Eosinophils 3.9 % (0.0-10.0); %Lymphocytes 11.5 % (21.0-51.0); %Monocytes 12.8 % (0.0-10.0); %Neutrophils 71.7 % (42.0-75.0); Hemoglobin 8.3 g/dL (12.0-16.0); Mean Corpuscular HGB CONC 31.5 g/dL (32.0-36.0); Mean Corpuscular Volume 88.6 fL (78.0-98.0); Mean Platelet Volume 6.9 fL (7.4-10.4); Platelet Count 301 thou/uL (130-400); RBC Distribution Width 16.5 % (11.5-14.5); Red Blood Cell (RBC) Count 2.96 mill/uL (4.20-5.40); White Blood Cell (WBC) Count 4.1 thou/uL (4.8-10.8)
[2020-11-24 05:09] LABS: Anion Gap 13 mmol/L (10-20); BUN (Urea Nitrogen) 15 mg/dL (9.8-20.1); Calc. Creatinine Clearance 37 mL/min (70-130); Calcium 8.7 mg/dL (7.8-10.44); Carbon Dioxide 29 mmol/L (23-31); Chloride 96 mmol/L (98-107); Glucose 118 mg/dL (80-115); Phosphorus 3.7 mg/dL (2.3-4.7); Potassium 3.6 mmol/L (3.5-5.1); Sodium 134 mmol/L (136-145)
[2020-11-24] MEDS: Ferrous Sulfate 325 MG TAB PO SCH ×2 (07:50→15:54)
[2020-11-24] MEDS: Gabapentin 100 MG CAP PO SCH ×3 (07:51→21:35)
[2020-11-24] MEDS: Aspirin 81 mg Enteric Coated Tablet PO SCH (07:51)
[2020-11-24] MEDS: Apixaban 2.5 MG TAB PO SCH ×2 (07:51→21:33)
[2020-11-24] MEDS: Sevelamer Carbonate 800 MG TAB PO SCH ×3 (07:51→15:54)
[2020-11-24] MEDS: Calcitriol 0.25 MCG CAP PO SCH (07:51)
[2020-11-24] MEDS: Ezetimibe 10 MG TAB PO SCH (07:51)
[2020-11-24] MEDS: Lisinopril 2.5 MG TAB PO SCH (07:51)
[2020-11-24] MEDS: Citalopram 20 MG TAB PO SCH (07:52)
[2020-11-24] MEDS: Furosemide 20 MG TAB PO SCH (07:52)
[2020-11-24] MEDS: NIFEdipine XL 90 MG TAB PO SCH (07:52)
[2020-11-24] MEDS: Carvedilol 25 MG TAB PO SCH ×2 (07:52→21:38)
[2020-11-24] MEDS: Lantus 1000 UNITS/10 ML VIAL SC SCH (07:53)
[2020-11-24] MEDS: Acetaminophen 325 MG TAB PO PRN (17:24)
[2020-11-24] MEDS: Atorvastatin Calcium 40 MG TAB PO SCH (21:33)
[2020-11-24] MEDS: Famotidine 20 MG TAB PO SCH (21:33)
[2020-11-25] MEDS ORDERED: hydrALAZINE 20 MG/ML VIAL SLOW IVP PRN (03:53)
[2020-11-25 04:18] LABS: #Eosinphils 0.1 thou/uL (0.0-0.7); #Lymphocytes 0.6 thou/uL (1.20-3.40); #Monocytes 0.6 thou/uL (0.11-0.59); #Neutrophils 3.3 thou/uL (1.40-6.50); %Basophils 0.2 % (0.0-1.0); %Eosinophils 3.2 % (0.0-10.0); %Lymphocytes 13.3 % (21.0-51.0); %Monocytes 13.2 % (0.0-10.0); %Neutrophils 70.2 % (42.0-75.0); Hemoglobin 8.3 g/dL (12.0-16.0); Mean Corpuscular HGB CONC 32.7 g/dL (32.0-36.0); Mean Corpuscular Hemoglobin 28.8 pg (27.0-31.0); Mean Platelet Volume 6.7 fL (7.4-10.4); Platelet Count 287 thou/uL (130-400); RBC Distribution Width 16.4 % (11.5-14.5); Red Blood Cell (RBC) Count 2.88 mill/uL (4.20-5.40); White Blood Cell (WBC) Count 4.6 thou/uL (4.8-10.8)
[2020-11-25] MEDS: cloNIDine 0.1 MG TAB PO PRN (04:29)
[2020-11-25 05:23] LABS: Anion Gap 13 mmol/L (10-20); BUN (Urea Nitrogen) 22 mg/dL (9.8-20.1); Calc. Creatinine Clearance 31 mL/min (70-130); Carbon Dioxide 28 mmol/L (23-31); Chloride 94 mmol/L (98-107); Glucose 93 mg/dL (80-115); Phosphorus 4.5 mg/dL (2.3-4.7); Sodium 131 mmol/L (136-145)
[2020-11-25] MEDS: Acetaminophen 325 MG TAB PO PRN ×2 (05:34→17:39)
[2020-11-25] MEDS: Citalopram 20 MG TAB PO SCH (08:40)
[2020-11-25] MEDS: Apixaban 2.5 MG TAB PO SCH ×2 (08:41→20:56)
[2020-11-25] MEDS: Minoxidil 2.5 MG TAB PO SCH (08:41)
[2020-11-25] MEDS: Sevelamer Carbonate 800 MG TAB PO SCH ×3 (08:41→16:47)
[2020-11-25] MEDS: Ezetimibe 10 MG TAB PO SCH (08:41)
[2020-11-25] MEDS: Calcitriol 0.25 MCG CAP PO SCH (08:41)
[2020-11-25] MEDS: Furosemide 20 MG TAB PO SCH (08:41)
[2020-11-25] MEDS: Gabapentin 100 MG CAP PO SCH ×3 (08:41→20:56)
[2020-11-25] MEDS: Ferrous Sulfate 325 MG TAB PO SCH ×2 (08:41→16:47)
[2020-11-25] MEDS: Aspirin 81 mg Enteric Coated Tablet PO SCH (08:41)
[2020-11-25] MEDS: Carvedilol 25 MG TAB PO SCH ×2 (08:41→20:56)
[2020-11-25] MEDS: Lisinopril 2.5 MG TAB PO SCH (08:42)
[2020-11-25] MEDS: NIFEdipine XL 90 MG TAB PO SCH (08:43)
[2020-11-25] MEDS: Lantus 1000 UNITS/10 ML VIAL SC SCH (08:49)
[2020-11-25] MEDS: Atorvastatin Calcium 40 MG TAB PO SCH (20:56)
[2020-11-25] MEDS: Famotidine 20 MG TAB PO SCH (20:56)
[2020-11-25] MEDS: Sodium Chloride 0.65% Nasal 44 ML BOT EA NARE PRN (21:00)
[2020-11-26 05:33] LABS: Anion Gap 11 mmol/L (10-20); BUN (Urea Nitrogen) 27 mg/dL (9.8-20.1); Calc. Creatinine Clearance 27 mL/min (70-130); Calcium 9.1 mg/dL (7.8-10.44); Carbon Dioxide 30 mmol/L (23-31); Chloride 92 mmol/L (98-107); Glucose 107 mg/dL (80-115); Potassium 4.3 mmol/L (3.5-5.1); Sodium 129 mmol/L (136-145)
[2020-11-26] MEDS: Sevelamer Carbonate 800 MG TAB PO SCH ×3 (07:51→19:15)
[2020-11-26] MEDS: Lisinopril 2.5 MG TAB PO SCH (07:51)
[2020-11-26] MEDS: Ezetimibe 10 MG TAB PO SCH (07:51)
[2020-11-26] MEDS: NIFEdipine XL 90 MG TAB PO SCH (07:52)
[2020-11-26] MEDS: Furosemide 20 MG TAB PO SCH (07:52)
[2020-11-26] MEDS: Apixaban 2.5 MG TAB PO SCH ×2 (07:52→20:35)
[2020-11-26] MEDS: Minoxidil 2.5 MG TAB PO SCH (07:52)
[2020-11-26] MEDS: Calcitriol 0.25 MCG CAP PO SCH (07:52)
[2020-11-26] MEDS: Aspirin 81 mg Enteric Coated Tablet PO SCH (07:53)
[2020-11-26] MEDS: Carvedilol 25 MG TAB PO SCH ×2 (07:53→20:35)
[2020-11-26] MEDS: Citalopram 20 MG TAB PO SCH (07:53)
[2020-11-26] MEDS: Ferrous Sulfate 325 MG TAB PO SCH ×2 (07:53→15:44)
[2020-11-26] MEDS: Gabapentin 100 MG CAP PO SCH ×3 (07:54→20:35)
[2020-11-26] MEDS: EPOETIN ALFA-EPBX (ESRD) 10,000 UNIT/ML VIAL SC SCH (08:23)
[2020-11-26] MEDS: Ergocalciferol 1.25 MG(50,000 UNITS) CAP PO SCH (08:23)
[2020-11-26] MEDS: cloNIDine 0.1 MG TAB PO PRN (08:23)
[2020-11-26] MEDS: Lantus 1000 UNITS/10 ML VIAL SC SCH (08:24)
[2020-11-26] MEDS: cloNIDine 0.3mg/24 Hour PATCH TD SCH (09:09)
[2020-11-26] MEDS ORDERED: Heparin 10,000 UNITS/ 10 ML VIAL ONE (10:51)
[2020-11-26 12:56] LABS: Vancomycin, Random 4.4 ug/mL (See Comment)
[2020-11-26] MEDS: Atorvastatin Calcium 40 MG TAB PO SCH (20:34)
[2020-11-26] MEDS: Famotidine 20 MG TAB PO SCH (20:35)
[2020-11-26] MEDS: Acetaminophen 325 MG TAB PO PRN (23:27)
[2020-11-26] MEDS: Sodium Chloride 0.65% Nasal 44 ML BOT EA NARE PRN (23:27)
[2020-11-27 05:11] LABS: Anion Gap 10 mmol/L (10-20); BUN (Urea Nitrogen) 14 mg/dL (9.8-20.1); Calc. Creatinine Clearance 39 mL/min (70-130); Calcium 8.4 mg/dL (7.8-10.44); Carbon Dioxide 29 mmol/L (23-31); Chloride 97 mmol/L (98-107); Glucose 116 mg/dL (80-115); Potassium 4.1 mmol/L (3.5-5.1); Sodium 132 mmol/L (136-145)
[2020-11-27] MEDS: NIFEdipine XL 90 MG TAB PO SCH (09:08)
[2020-11-27] MEDS: Ezetimibe 10 MG TAB PO SCH (09:08)
[2020-11-27] MEDS: Lisinopril 2.5 MG TAB PO SCH (09:08)
[2020-11-27] MEDS: Aspirin 81 mg Enteric Coated Tablet PO SCH (09:08)
[2020-11-27] MEDS: Ferrous Sulfate 325 MG TAB PO SCH ×2 (09:08→17:13)
[2020-11-27] MEDS: Minoxidil 2.5 MG TAB PO SCH (09:08)
[2020-11-27] MEDS: Sevelamer Carbonate 800 MG TAB PO SCH ×3 (09:08→17:13)
[2020-11-27] MEDS: Furosemide 20 MG TAB PO SCH (09:08)
[2020-11-27] MEDS: Citalopram 20 MG TAB PO SCH (09:08)
[2020-11-27] MEDS: Calcitriol 0.25 MCG CAP PO SCH (09:09)
[2020-11-27] MEDS: Carvedilol 25 MG TAB PO SCH ×2 (09:09→21:38)
[2020-11-27] MEDS: Gabapentin 100 MG CAP PO SCH ×3 (09:09→21:38)
[2020-11-27] MEDS: Apixaban 2.5 MG TAB PO SCH ×2 (09:09→21:00)
[2020-11-27] MEDS: Lantus 1000 UNITS/10 ML VIAL SC SCH (09:09)
[2020-11-27] MEDS: Acetaminophen 325 MG TAB PO PRN (09:10)
[2020-11-27] MEDS: Atorvastatin Calcium 40 MG TAB PO SCH (21:38)
[2020-11-27] MEDS: Famotidine 20 MG TAB PO SCH (21:38)
[2020-11-28 06:08] LABS: #Eosinphils 0.1 thou/uL (0.0-0.7); #Lymphocytes 0.7 thou/uL (1.20-3.40); #Monocytes 0.5 thou/uL (0.11-0.59); #Neutrophils 3.1 thou/uL (1.40-6.50); %Basophils 0.4 % (0.0-1.0); %Eosinophils 2.7 % (0.0-10.0); %Lymphocytes 16.1 % (21.0-51.0); %Monocytes 11.9 % (0.0-10.0); Hemoglobin 8.3 g/dL (12.0-16.0); Mean Corpuscular HGB CONC 32.5 g/dL (32.0-36.0); Mean Corpuscular Hemoglobin 28.4 pg (27.0-31.0); Mean Corpuscular Volume 87.6 fL (78.0-98.0); Mean Platelet Volume 6.9 fL (7.4-10.4); Platelet Count 264 thou/uL (130-400); RBC Distribution Width 16.6 % (11.5-14.5); Red Blood Cell (RBC) Count 2.91 mill/uL (4.20-5.40); White Blood Cell (WBC) Count 4.4 thou/uL (4.8-10.8)
[2020-11-28 06:32] LABS: Anion Gap 9 mmol/L (10-20); BUN (Urea Nitrogen) 22 mg/dL (9.8-20.1); Calc. Creatinine Clearance 30 mL/min (70-130); Calcium 8.6 mg/dL (7.8-10.44); Carbon Dioxide 28 mmol/L (23-31); Chloride 96 mmol/L (98-107); Glucose 125 mg/dL (80-115); Potassium 4.1 mmol/L (3.5-5.1); Sodium 129 mmol/L (136-145)
[2020-11-28] MEDS: Acetaminophen 325 MG TAB PO PRN ×2 (06:43→20:21)
[2020-11-28] MEDS: NIFEdipine XL 90 MG TAB PO SCH (07:59)
[2020-11-28] MEDS: Ferrous Sulfate 325 MG TAB PO SCH ×2 (07:59→17:52)
[2020-11-28] MEDS: Sevelamer Carbonate 800 MG TAB PO SCH ×3 (07:59→17:52)
[2020-11-28] MEDS: Apixaban 2.5 MG TAB PO SCH ×2 (07:59→20:22)
[2020-11-28] MEDS: Lisinopril 2.5 MG TAB PO SCH (07:59)
[2020-11-28] MEDS: Ezetimibe 10 MG TAB PO SCH (07:59)
[2020-11-28] MEDS: Furosemide 20 MG TAB PO SCH (08:00)
[2020-11-28] MEDS: Calcitriol 0.25 MCG CAP PO SCH (08:00)
[2020-11-28] MEDS: Citalopram 20 MG TAB PO SCH (08:00)
[2020-11-28] MEDS: Gabapentin 100 MG CAP PO SCH ×3 (08:00→20:22)
[2020-11-28] MEDS: Aspirin 81 mg Enteric Coated Tablet PO SCH (08:00)
[2020-11-28] MEDS: Carvedilol 25 MG TAB PO SCH ×2 (08:01→20:22)
[2020-11-28] MEDS: Lantus 1000 UNITS/10 ML VIAL SC SCH (08:01)
[2020-11-28] MEDS ORDERED: Heparin 10,000 UNITS/ 10 ML VIAL ONE (08:41)
[2020-11-28] MEDS: Minoxidil 2.5 MG TAB PO SCH (09:03)
[2020-11-28 09:15] LABS: Vancomycin, Random 9.3 ug/mL (See Comment)
[2020-11-28] MEDS ORDERED: VANCOMYCIN 1.25 GM/250 ML BAG 1.25 GM in Premix Bag 1 BAG IVPB SCH (09:45)
[2020-11-28] MEDS: Famotidine 20 MG TAB PO SCH (20:21)
[2020-11-28] MEDS: Atorvastatin Calcium 40 MG TAB PO SCH (20:21)
[2020-11-29 06:47] LABS: Anion Gap 10 mmol/L (10-20); BUN (Urea Nitrogen) 13 mg/dL (9.8-20.1); Calc. Creatinine Clearance 41 mL/min (70-130); Calcium 8.6 mg/dL (7.8-10.44); Carbon Dioxide 28 mmol/L (23-31); Chloride 99 mmol/L (98-107); Glucose 81 mg/dL (80-115); Sodium 133 mmol/L (136-145)
[2020-11-29] MEDS: Citalopram 20 MG TAB PO SCH (08:33)
[2020-11-29] MEDS: Ferrous Sulfate 325 MG TAB PO SCH (08:33)
[2020-11-29] MEDS: Aspirin 81 mg Enteric Coated Tablet PO SCH (08:33)
[2020-11-29] MEDS: Sevelamer Carbonate 800 MG TAB PO SCH ×2 (08:33→12:22)
[2020-11-29] MEDS: NIFEdipine XL 90 MG TAB PO SCH (08:34)
[2020-11-29] MEDS: Carvedilol 25 MG TAB PO SCH (08:34)
[2020-11-29] MEDS: Calcitriol 0.25 MCG CAP PO SCH (08:34)
[2020-11-29] MEDS: Ezetimibe 10 MG TAB PO SCH (08:34)
[2020-11-29] MEDS: Gabapentin 100 MG CAP PO SCH (08:34)
[2020-11-29] MEDS: Lisinopril 2.5 MG TAB PO SCH (08:34)
[2020-11-29] MEDS: Minoxidil 2.5 MG TAB PO SCH (08:35)
[2020-11-29] MEDS: Apixaban 2.5 MG TAB PO SCH (08:39)
[2020-11-29] MEDS: Lantus 1000 UNITS/10 ML VIAL SC SCH (08:43)
[2020-11-29] MEDS: Furosemide 20 MG TAB PO SCH (08:45)
[2020-11-29 09:15] VITALS: BMI 49.9
[2020-11-29 10:50] LABS: #Eosinphils 0.1 thou/uL (0.0-0.7); #Lymphocytes 0.6 thou/uL (1.20-3.40); #Monocytes 0.4 thou/uL (0.11-0.59); #Neutrophils 2.5 thou/uL (1.40-6.50); %Eosinophils 2.6 % (0.0-10.0); %Lymphocytes 17.9 % (21.0-51.0); %Monocytes 10.4 % (0.0-10.0); %Neutrophils 69.2 % (42.0-75.0); Hemoglobin 8.7 g/dL (12.0-16.0); Mean Corpuscular HGB CONC 31.4 g/dL (32.0-36.0); Mean Corpuscular Hemoglobin 27.9 pg (27.0-31.0); Mean Corpuscular Volume 88.8 fL (78.0-98.0); Mean Platelet Volume 6.9 fL (7.4-10.4); Platelet Count 304 thou/uL (130-400); RBC Distribution Width 16.4 % (11.5-14.5); Red Blood Cell (RBC) Count 3.13 mill/uL (4.20-5.40); White Blood Cell (WBC) Count 3.6 thou/uL (4.8-10.8)
[2020-11-29] MEDS: Acetaminophen 325 MG TAB PO PRN (12:23)
[2020-11-29 15:42] VITALS: BP 102/60; TEMP 98.4
== END 2020-11-29 16:11 | DRG 70 ==
LOC: ERS 20:34 → IMCU/EMU 23:39 → 2NO 11-21 17:21 → T4-B 11-27 16:02
PROVIDERS: ADMIT Family Medicine; ATTEND Family Medicine
PROC: 5A09457 Assistance with Respiratory Ventilation, 24-96 Consecutive Hours, Continuous Positive Airway Pressure (ICD-10-PCS; principal; 2020-11-18)
PROC: 5A1D70Z Performance of Urinary Filtration, Intermittent, Less than 6 Hours Per Day (ICD-10-PCS; 2020-11-19)
PROC: 30233N1 Transfusion of Nonautologous Red Blood Cells into Peripheral Vein, Percutaneous Approach (ICD-10-PCS; 2020-11-21)
DX: G93.49 Other encephalopathy (principal); J96.22 Acute and chronic respiratory failure with hypercapnia; N18.6 End stage renal disease; J96.21 Acute and chronic respiratory failure with hypoxia; R78.81 Bacteremia; I13.2 Hypertensive heart and chronic kidney disease with heart failure and with stage 5 chronic kidney disease, or end stage renal disease; E87.2 Acidosis; E87.1 Hypo-osmolality and hyponatremia; E87.70 Fluid overload, unspecified; E87.5 Hyperkalemia; Z20.822 Contact with and (suspected) exposure to COVID-19; E11.22 Type 2 diabetes mellitus with diabetic chronic kidney disease; E78.5 Hyperlipidemia, unspecified; J44.9 Chronic obstructive pulmonary disease, unspecified; E11.42 Type 2 diabetes mellitus with diabetic polyneuropathy; D63.1 Anemia in chronic kidney disease; K21.9 Gastro-esophageal reflux disease without esophagitis; I45.10 Unspecified right bundle-branch block; F17.210 Nicotine dependence, cigarettes, uncomplicated; G89.29 Other chronic pain; G47.33 Obstructive sleep apnea (adult) (pediatric); E83.39 Other disorders of phosphorus metabolism; B95.2 Enterococcus as the cause of diseases classified elsewhere; F32.9 Major depressive disorder, single episode, unspecified; Z99.81 Dependence on supplemental oxygen; Z88.8 Allergy status to other drugs, medicaments and biological substances; Z79.51 Long term (current) use of inhaled steroids; Z79.82 Long term (current) use of aspirin; Z79.01 Long term (current) use of anticoagulants; Z79.899 Other long term (current) drug therapy; Z90.710 Acquired absence of both cervix and uterus; Z89.411 Acquired absence of right great toe; Z99.2 Dependence on renal dialysis
CPT/HCPCS: 0240U; 36415; 36416; 36430; 36600; 70450; 71045; 72170; 80048; 80053; 80202; 81001; 82274; 82550; 82805; 83605; 83735; 83880; 84100; 84145; 84443; 84484; 85025; 85610; 85730; 86850; 86900; 86901; 87040; 87077; 87149; 87186; 87340; 90935; 93005; 94640; 94660; 96365; 96375; G0257; J0290; J0456; J0696; J1644; J1815; J3370; J3490; J7050; J7620; P9016; Q5105

== ENCOUNTER 2020-12-20 22:24 | Inpatient (IN) | payer MEDICARE, MEDICAID ==
[2020-12-20] MEDS ORDERED: Morphine 4 MG/ML VIAL ONE (22:50)
[2020-12-20] MEDS ORDERED: Ondansetron PF 4 MG/2 ML Vial ONE (22:50)
[2020-12-20 23:24] LABS: #Eosinphils 0.2 thou/uL (0.0-0.7); #Lymphocytes 1.2 thou/uL (1.20-3.40); #Monocytes 1.3 thou/uL (0.11-0.59); #Neutrophils 9.9 thou/uL (1.40-6.50); %Basophils 0.2 % (0.0-1.0); %Eosinophils 1.6 % (0.0-10.0); %Lymphocytes 9.5 % (21.0-51.0); %Monocytes 10.2 % (0.0-10.0); %Neutrophils 78.5 % (42.0-75.0); Hemoglobin 6.3 g/dL (12.0-16.0); Mean Corpuscular HGB CONC 32.3 g/dL (32.0-36.0); Mean Corpuscular Hemoglobin 28.3 pg (27.0-31.0); Mean Corpuscular Volume 87.7 fL (78.0-98.0); Mean Platelet Volume 8.5 fL (7.4-10.4); Platelet Count 139 thou/uL (130-400); RBC Distribution Width 18.2 % (11.5-14.5); Red Blood Cell (RBC) Count 2.21 mill/uL (4.20-5.40); White Blood Cell (WBC) Count 12.6 thou/uL (4.8-10.8)
[2020-12-20 23:34] LABS: Bilirubin Negative (Negative); Blood, Urine Trace (Negative); Clarity Turbid (Clear); Glucose, Urine (Dipstick) Normal (Negative); Ketone, Urine Negative (Negative); Leukocyte 75 Leu/uL (Negative); Nitrite Negative (Negative); Protein, Urine (Dipstick) 300 mg/dL (Neg-Trace); Squamous Epithelial 0-3 HPF (0-3); Urobilinogen Normal mg/dL (Less than 2); pH, Urine 5.5 (5.0-9.0)
[2020-12-20 23:37] LABS: Bacteria/HPF Rare-Few HPF (None Seen)
[2020-12-20 23:47] LABS: Albumin 3.1 g/dL (3.4-4.8)
[2020-12-20 23:48] LABS: Calcium 8.1 mg/dL (7.8-10.44); Chloride 98 mmol/L (98-107); Potassium 3.9 mmol/L (3.5-5.1); Sodium 132 mmol/L (136-145)
[2020-12-20 23:49] LABS: Glucose 188 mg/dL (80-115)
[2020-12-20 23:50] LABS: Globulin 3.5 g/dL (2.4-3.5); Protein, Total 6.6 g/dL (5.8-8.1)
[2020-12-20 23:51] LABS: Bilirubin, Total 0.3 mg/dL (0.2-1.2); Carbon Dioxide 23 mmol/L (23-31)
[2020-12-20 23:52] LABS: Alkaline Phosphatase 104 U/L (40-110)
[2020-12-20 23:53] LABS: BUN (Urea Nitrogen) 35 mg/dL (9.8-20.1); Calc. Creatinine Clearance 0 mL/min (70-130)
[2020-12-20 23:54] LABS: AST (SGOT) 22 U/L (5-34)
[2020-12-20 23:55] LABS: ALT (SGPT) 9 U/L (8-55); Lipase 180 U/L (8-78)
[2020-12-20 23:58] LABS: Anion Gap 15 mmol/L (10-20)
[2020-12-21 00:33] LABS: INR-International Normal Ratio 1.5; Prothrombin Time 17.6 sec (12.0-14.7)
[2020-12-21 00:34] LABS: PTT 37.1 sec (22.9-36.1)
[2020-12-21] MEDS ORDERED: Fentanyl 100 MCG/2 ML VIAL ONE (01:02)
[2020-12-21] MEDS ORDERED: Ondansetron PF 4 MG/2 ML Vial ONE (01:02)
[2020-12-21] MEDS ORDERED: Electrolyte Replacement Protocol 1 EACH IVPB PRN (02:25)
[2020-12-21 03:35] LABS: SARS-CoV-2 NAA Rapid Test Not Detected (NotDetected)
[2020-12-21 03:41] LABS: #Eosinphils 0.1 thou/uL (0.0-0.7); #Lymphocytes 0.7 thou/uL (1.20-3.40); #Monocytes 0.7 thou/uL (0.11-0.59); #Neutrophils 7.5 thou/uL (1.40-6.50); %Basophils 0.2 % (0.0-1.0); %Eosinophils 0.7 % (0.0-10.0); %Lymphocytes 8.1 % (21.0-51.0); %Monocytes 7.7 % (0.0-10.0); %Neutrophils 83.3 % (42.0-75.0); Hemoglobin 5.6 g/dL (12.0-16.0); Mean Corpuscular HGB CONC 32.3 g/dL (32.0-36.0); Mean Corpuscular Hemoglobin 28.7 pg (27.0-31.0); Mean Platelet Volume 8.5 fL (7.4-10.4); Platelet Count 133 thou/uL (130-400); RBC Distribution Width 18.2 % (11.5-14.5); Red Blood Cell (RBC) Count 1.94 mill/uL (4.20-5.40)
[2020-12-21 03:44] LABS: Troponin I Less than 0.010 ng/mL (< 0.028)
[2020-12-21] MEDS ORDERED: Albumin 25% 25 GM/100 ML BOT IVPB SCH (08:45)
[2020-12-21] MEDS ORDERED: Heparin 10,000 UNITS/ 10 ML VIAL ONE (09:11)
[2020-12-21 09:37] LABS: Hemoglobin 6.6 g/dL (12.0-16.0)
[2020-12-21] MEDS ORDERED: Iopamidol 370 76% 50 ML VIAL FS ONE (09:55)
[2020-12-21] MEDS: Fentanyl 100 MCG/2 ML VIAL SLOW IVP PRN ×3 (14:44→21:29)
[2020-12-21 15:14] LABS: Hemoglobin 9.2 g/dL (12.0-16.0)
[2020-12-21 15:27] LABS: Fibrinogen 310 mg/dL (253-463); INR-International Normal Ratio 1.7; Prothrombin Time 19.9 sec (12.0-14.7)
[2020-12-21 15:28] LABS: PTT 39.9 sec (22.9-36.1)
[2020-12-21 15:37] LABS: D-Dimer Test 11.71 *mcg/mL (0.27-0.43)
[2020-12-21 16:01] LABS: FSP-Qualitative ABNORMAL (Normal); FSP-Semiquantitative >=80 & <160 mcg/mL (Less than 5)
[2020-12-21 16:05] LABS: Platelet Count 97 thou/uL (130-400)
[2020-12-21 21:15] LABS: Hemoglobin 7.7 g/dL (12.0-16.0)
[2020-12-22] MEDS: Fentanyl 100 MCG/2 ML VIAL SLOW IVP PRN ×3 (00:28→08:40)
[2020-12-22 03:56] LABS: Hemoglobin 7.4 g/dL (12.0-16.0); Mean Corpuscular HGB CONC 33.4 g/dL (32.0-36.0); Mean Corpuscular Volume 86.8 fL (78.0-98.0); Mean Platelet Volume 9.3 fL (7.4-10.4); Platelet Count 136 thou/uL (130-400); RBC Distribution Width 16.1 % (11.5-14.5); Red Blood Cell (RBC) Count 2.53 mill/uL (4.20-5.40); White Blood Cell (WBC) Count 14.4 thou/uL (4.8-10.8)
[2020-12-22 04:17] LABS: ALT (SGPT) 283 U/L (8-55); AST (SGOT) 462 U/L (5-34); Albumin 3.5 g/dL (3.4-4.8); Alkaline Phosphatase 93 U/L (40-110); Anion Gap 13 mmol/L (10-20); BUN (Urea Nitrogen) 36 mg/dL (9.8-20.1); Bilirubin, Total 0.6 mg/dL (0.2-1.2); Calc. Creatinine Clearance 31 mL/min (70-130); Calcium 8.6 mg/dL (7.8-10.44); Carbon Dioxide 29 mmol/L (23-31); Chloride 98 mmol/L (98-107); Globulin 3.6 g/dL (2.4-3.5); Glucose 106 mg/dL (80-115); Potassium 4.1 mmol/L (3.5-5.1); Protein, Total 7.1 g/dL (5.8-8.1); Sodium 136 mmol/L (136-145)
[2020-12-22 05:43] LABS: Band 29 % (5-11); Lymphocytes 9 % (21-51); MDiff Complete? YES; Monocytes 6 % (0-10); Neutrophil 56 % (42-75); Nucleated RBC 1 % (0)
[2020-12-22] MEDS ORDERED: Heparin 10,000 UNITS/ 10 ML VIAL ONE (09:10)
[2020-12-22 09:34] LABS: Fibrinogen 434 mg/dL (253-463); INR-International Normal Ratio 1.7; PTT 32.2 sec (22.9-36.1); Prothrombin Time 19.7 sec (12.0-14.7)
[2020-12-22 09:35] LABS: Hemoglobin 7.3 g/dL (12.0-16.0); Mean Corpuscular HGB CONC 33.6 g/dL (32.0-36.0); Mean Corpuscular Hemoglobin 29.3 pg (27.0-31.0); Mean Corpuscular Volume 87.2 fL (78.0-98.0); Mean Platelet Volume 9.5 fL (7.4-10.4); Platelet Count 128 thou/uL (130-400); RBC Distribution Width 16.3 % (11.5-14.5); Red Blood Cell (RBC) Count 2.49 mill/uL (4.20-5.40); White Blood Cell (WBC) Count 12.7 thou/uL (4.8-10.8)
[2020-12-22 09:44] LABS: D-Dimer Test 8.42 *mcg/mL (0.27-0.43)
[2020-12-22 10:04] LABS: FSP-Qualitative ABNORMAL (Normal); FSP-Semiquantitative >=80 & <160 mcg/mL (Less than 5)
[2020-12-22 10:11] LABS: Anisocytosis SLIGHT = 6-15 cells (100X) (0-5/hpf); Band 57 % (5-11); Lymphocytes 6 % (21-51); MDiff Complete? YES; Metamyelocyte 2 % (0-0); Monocytes 2 % (0-10); Myelocyte 2 % (0-0); Neutrophil 31 % (42-75); Poikilocytosis SLIGHT = 6-15 cells (100X) (0-5/hpf)
[2020-12-22] MEDS: SODIUM CHLORIDE 0.9% IV SCH ×3 (11:25→23:46)
[2020-12-22] MEDS: AMINOCAPROIC ACID IV SCH ×3 (11:25→23:46)
[2020-12-22] MEDS ORDERED: cefTRIAXone\\ROCEPHIN 2 GM in Sodium Chloride 0.9% 100 ML IVPB SCH (13:00)
[2020-12-23 04:03] LABS: ALT (SGPT) 238 U/L (8-55); AST (SGOT) 312 U/L (5-34); Albumin 3.4 g/dL (3.4-4.8); Alkaline Phosphatase 109 U/L (40-110); Anion Gap 18 mmol/L (10-20); BUN (Urea Nitrogen) 59 mg/dL (9.8-20.1); Bilirubin, Total 0.6 mg/dL (0.2-1.2); Calc. Creatinine Clearance 24 mL/min (70-130); Calcium 8.7 mg/dL (7.8-10.44); Carbon Dioxide 22 mmol/L (23-31); Chloride 99 mmol/L (98-107); Globulin 4.2 g/dL (2.4-3.5); Glucose 131 mg/dL (80-115); Potassium 4.4 mmol/L (3.5-5.1); Protein, Total 7.6 g/dL (5.8-8.1); Sodium 135 mmol/L (136-145)
[2020-12-23 04:18] LABS: Band 44 % (5-11); Eosinophils 1 % (0-10); Hemoglobin 8.5 g/dL (12.0-16.0); Lymphocytes 6 % (21-51); MDiff Complete? YES; Mean Corpuscular HGB CONC 34.1 g/dL (32.0-36.0); Mean Corpuscular Volume 90.7 fL (78.0-98.0); Mean Platelet Volume 8.9 fL (7.4-10.4); Metamyelocyte 2 % (0-0); Monocytes 16 % (0-10); Neutrophil 31 % (42-75); Platelet Count 131 thou/uL (130-400); RBC Distribution Width 16.1 % (11.5-14.5); Red Blood Cell (RBC) Count 2.74 mill/uL (4.20-5.40); White Blood Cell (WBC) Count 8.8 thou/uL (4.8-10.8)
[2020-12-23] MEDS: AMINOCAPROIC ACID IV SCH (05:25)
[2020-12-23] MEDS: SODIUM CHLORIDE 0.9% IV SCH (05:25)
[2020-12-23] MEDS ORDERED: Heparin 10,000 UNITS/ 10 ML VIAL ONE (09:08)
[2020-12-23 10:48] LABS: Hemoglobin 8.5 g/dL (12.0-16.0)
[2020-12-23 11:05] LABS: FSP-Qualitative ABNORMAL (Normal); FSP-Semiquantitative >=80 & <160 mcg/mL (Less than 5)
[2020-12-23 11:34] LABS: Fibrinogen 556 mg/dL (253-463); INR-International Normal Ratio 1.5; PTT 44.7 sec (22.9-36.1); Prothrombin Time 18.1 sec (12.0-14.7)
[2020-12-23] MEDS: Acetaminophen 325 MG TAB PO PRN ×2 (14:59→21:13)
[2020-12-23 20:55] LABS: #Eosinphils 0.1 thou/uL (0.0-0.7); #Lymphocytes 0.5 thou/uL (1.20-3.40); #Neutrophils 5.6 thou/uL (1.40-6.50); %Eosinophils 1.4 % (0.0-10.0); %Lymphocytes 7.4 % (21.0-51.0); %Monocytes 14.4 % (0.0-10.0); %Neutrophils 76.8 % (42.0-75.0); Hemoglobin 8.6 g/dL (12.0-16.0); Mean Corpuscular HGB CONC 33.3 g/dL (32.0-36.0); Mean Corpuscular Hemoglobin 30.4 pg (27.0-31.0); Mean Corpuscular Volume 91.3 fL (78.0-98.0); Mean Platelet Volume 8.3 fL (7.4-10.4); Platelet Count 126 thou/uL (130-400); RBC Distribution Width 16.5 % (11.5-14.5); Red Blood Cell (RBC) Count 2.83 mill/uL (4.20-5.40); White Blood Cell (WBC) Count 7.2 thou/uL (4.8-10.8)
[2020-12-24] MEDS: Docusate 100 MG CAP PO PRN (00:40)
[2020-12-24] MEDS: Acetaminophen 325 MG TAB PO PRN (03:09)
[2020-12-24 03:55] LABS: ALT (SGPT) 220 U/L (8-55); AST (SGOT) 255 U/L (5-34); Albumin 3.6 g/dL (3.4-4.8); Alkaline Phosphatase 108 U/L (40-110); Anion Gap 17 mmol/L (10-20); BUN (Urea Nitrogen) 72 mg/dL (9.8-20.1); Bilirubin, Total 0.6 mg/dL (0.2-1.2); Calc. Creatinine Clearance 20 mL/min (70-130); Calcium 8.9 mg/dL (7.8-10.44); Carbon Dioxide 24 mmol/L (23-31); Chloride 98 mmol/L (98-107); Globulin 4.3 g/dL (2.4-3.5); Glucose 125 mg/dL (80-115); Potassium 4.2 mmol/L (3.5-5.1); Protein, Total 7.9 g/dL (5.8-8.1); Sodium 135 mmol/L (136-145)
[2020-12-24 03:56] LABS: INR-International Normal Ratio 1.4; Prothrombin Time 17.2 sec (12.0-14.7)
[2020-12-24 03:57] LABS: PTT 43.9 sec (22.9-36.1)
[2020-12-24 03:58] LABS: Band 27 % (5-11); Eosinophils 3 % (0-10); Hemoglobin 8.9 g/dL (12.0-16.0); Lymphocytes 3 % (21-51); MDiff Complete? YES; Mean Corpuscular HGB CONC 33.8 g/dL (32.0-36.0); Mean Corpuscular Volume 91.8 fL (78.0-98.0); Mean Platelet Volume 8.5 fL (7.4-10.4); Monocytes 7 % (0-10); Neutrophil 60 % (42-75); Platelet Count 138 thou/uL (130-400); RBC Distribution Width 16.7 % (11.5-14.5); Red Blood Cell (RBC) Count 2.85 mill/uL (4.20-5.40); White Blood Cell (WBC) Count 8.6 thou/uL (4.8-10.8)
[2020-12-24] MEDS: Labetalol HCl 100 MG/20 ML VIAL SLOW IVP PRN (04:06)
[2020-12-24] MEDS: HYDROcodone/Acetaminophen 5/325 mg Tablet PO PRN (04:14)
[2020-12-24] MEDS: Fentanyl 100 MCG/2 ML VIAL SLOW IVP PRN ×3 (07:59→19:49)
[2020-12-24] MEDS ORDERED: Acetaminophen 500 MG TAB PO PRN (08:41)
[2020-12-24] MEDS ORDERED: Heparin 10,000 UNITS/ 10 ML VIAL ONE (09:04)
[2020-12-24] MEDS: Carvedilol 25 MG TAB PO SCH ×2 (09:55→22:05)
[2020-12-24] MEDS: NIFEdipine XL 90 MG TAB PO SCH (12:06)
[2020-12-24] MEDS: Famotidine 20 MG TAB PO SCH (22:05)
[2020-12-25 03:10] LABS: Hemoglobin 9.6 g/dL (12.0-16.0); Mean Corpuscular HGB CONC 33.3 g/dL (32.0-36.0); Mean Corpuscular Hemoglobin 30.8 pg (27.0-31.0); Mean Corpuscular Volume 92.4 fL (78.0-98.0); Mean Platelet Volume 8.1 fL (7.4-10.4); Platelet Count 158 thou/uL (130-400); RBC Distribution Width 16.5 % (11.5-14.5); Red Blood Cell (RBC) Count 3.11 mill/uL (4.20-5.40); White Blood Cell (WBC) Count 8.1 thou/uL (4.8-10.8)
[2020-12-25 03:20] LABS: Band 14 % (5-11); Lymphocytes 5 % (21-51); MDiff Complete? YES; Monocytes 7 % (0-10); Neutrophil 74 % (42-75)
[2020-12-25 03:29] LABS: ALT (SGPT) 165 U/L (8-55); AST (SGOT) 168 U/L (5-34); Albumin 3.5 g/dL (3.4-4.8); Alkaline Phosphatase 109 U/L (40-110); Anion Gap 19 mmol/L (10-20); BUN (Urea Nitrogen) 47 mg/dL (9.8-20.1); Bilirubin, Total 0.6 mg/dL (0.2-1.2); Calc. Creatinine Clearance 29 mL/min (70-130); Calcium 9.1 mg/dL (7.8-10.44); Carbon Dioxide 23 mmol/L (23-31); Chloride 97 mmol/L (98-107); Globulin 4.4 g/dL (2.4-3.5); Glucose 152 mg/dL (80-115); Potassium 3.7 mmol/L (3.5-5.1); Protein, Total 7.9 g/dL (5.8-8.1); Sodium 135 mmol/L (136-145)
[2020-12-25] MEDS: Labetalol HCl 100 MG/20 ML VIAL SLOW IVP PRN (05:26)
[2020-12-25] MEDS: HYDROcodone/Acetaminophen 5/325 mg Tablet PO PRN ×2 (08:03→14:02)
[2020-12-25] MEDS: Carvedilol 25 MG TAB PO SCH ×2 (08:04→21:14)
[2020-12-25] MEDS: NIFEdipine XL 90 MG TAB PO SCH (08:04)
[2020-12-25] MEDS: Fentanyl 100 MCG/2 ML VIAL SLOW IVP PRN ×2 (13:04→23:42)
[2020-12-25] MEDS: Famotidine 20 MG TAB PO SCH (21:15)
[2020-12-26 03:55] LABS: ALT (SGPT) 113 U/L (8-55); AST (SGOT) 102 U/L (5-34); Albumin 3.3 g/dL (3.4-4.8); Alkaline Phosphatase 103 U/L (40-110); Anion Gap 15 mmol/L (10-20); BUN (Urea Nitrogen) 60 mg/dL (9.8-20.1); Bilirubin, Total 0.6 mg/dL (0.2-1.2); Calc. Creatinine Clearance 22 mL/min (70-130); Calcium 9.3 mg/dL (7.8-10.44); Carbon Dioxide 26 mmol/L (23-31); Chloride 95 mmol/L (98-107); Globulin 4.4 g/dL (2.4-3.5); Glucose 127 mg/dL (80-115); Protein, Total 7.7 g/dL (5.8-8.1); Sodium 132 mmol/L (136-145)
[2020-12-26 04:44] LABS: Band 12 % (5-11); Eosinophils 3 % (0-10); Hemoglobin 9.4 g/dL (12.0-16.0); Lymphocytes 12 % (21-51); MDiff Complete? YES; Mean Corpuscular HGB CONC 32.7 g/dL (32.0-36.0); Mean Corpuscular Hemoglobin 30.2 pg (27.0-31.0); Mean Corpuscular Volume 92.4 fL (78.0-98.0); Mean Platelet Volume 7.8 fL (7.4-10.4); Monocytes 20 % (0-10); Neutrophil 53 % (42-75); Platelet Count 179 thou/uL (130-400); RBC Distribution Width 16.7 % (11.5-14.5); Red Blood Cell (RBC) Count 3.11 mill/uL (4.20-5.40); White Blood Cell (WBC) Count 6.9 thou/uL (4.8-10.8)
[2020-12-26] MEDS: Fentanyl 100 MCG/2 ML VIAL SLOW IVP PRN (05:40)
[2020-12-26 06:50] VITALS: BMI 50.1
[2020-12-26] MEDS: HYDROcodone/Acetaminophen 5/325 mg Tablet PO PRN ×2 (07:36→16:29)
[2020-12-26] MEDS: Carvedilol 25 MG TAB PO SCH ×2 (08:37→21:23)
[2020-12-26] MEDS: NIFEdipine XL 90 MG TAB PO SCH (08:37)
[2020-12-26] MEDS: Docusate 100 MG CAP PO PRN (08:39)
[2020-12-26] MEDS ORDERED: Heparin 10,000 UNITS/ 10 ML VIAL ONE (08:53)
[2020-12-26] MEDS ORDERED: EPOETIN ALFA-EPBX (ESRD) 4,000 UNIT/ML VIAL SC SCH (09:00)
[2020-12-26] MEDS: cloNIDine 0.1 MG TAB PO SCH ×2 (09:32→21:22)
[2020-12-26] MEDS ORDERED: HYDROcodone/Acetaminophen 5/325 mg Tablet PO SCH (19:15)
[2020-12-26] MEDS: Famotidine 20 MG TAB PO SCH (21:23)
[2020-12-27 02:50] VITALS: BP 145/67; TEMP 98.4
[2020-12-27] MEDS: HYDROcodone/Acetaminophen 5/325 mg Tablet PO PRN (02:50)
[2020-12-27 04:57] LABS: Hemoglobin 11.6 g/dL (12.0-16.0); Mean Corpuscular HGB CONC 32.1 g/dL (32.0-36.0); Mean Corpuscular Hemoglobin 29.5 pg (27.0-31.0); Mean Corpuscular Volume 92.1 fL (78.0-98.0); Mean Platelet Volume 7.9 fL (7.4-10.4); Platelet Count 223 thou/uL (130-400); Red Blood Cell (RBC) Count 3.92 mill/uL (4.20-5.40); White Blood Cell (WBC) Count 8.5 thou/uL (4.8-10.8)
[2020-12-27 05:16] LABS: ALT (SGPT) 94 U/L (8-55); AST (SGOT) 77 U/L (5-34); Albumin 3.8 g/dL (3.4-4.8); Alkaline Phosphatase 125 U/L (40-110); Anion Gap 22 mmol/L (10-20); BUN (Urea Nitrogen) 45 mg/dL (9.8-20.1); Bilirubin, Total 0.8 mg/dL (0.2-1.2); Calc. Creatinine Clearance 27 mL/min (70-130); Carbon Dioxide 24 mmol/L (23-31); Chloride 94 mmol/L (98-107); Globulin 5.3 g/dL (2.4-3.5); Glucose 142 mg/dL (80-115); Potassium 3.9 mmol/L (3.5-5.1); Protein, Total 9.1 g/dL (5.8-8.1); Sodium 136 mmol/L (136-145)
[2020-12-27 05:30] LABS: Anisocytosis SLIGHT = 6-15 cells (100X) (0-5/hpf); Band 19 % (5-11); Lymphocytes 5 % (21-51); MDiff Complete? YES; Monocytes 14 % (0-10); Myelocyte 1 % (0-0); Neutrophil 61 % (42-75); Polychromasia SLIGHT = 2-3 cells (100X) (0-2/hpf)
[2020-12-27] MEDS: cloNIDine 0.1 MG TAB PO SCH (11:49)
[2020-12-27] MEDS: Carvedilol 25 MG TAB PO SCH (11:49)
[2020-12-27] MEDS: NIFEdipine XL 90 MG TAB PO SCH (11:49)
== END 2020-12-27 11:24 | disposition expired | DRG 393 ==
LOC: ERS 22:24 → CCU 12-21 00:47 → 2NO 12-26 21:04
PROVIDERS: ADMIT Family Medicine; ATTEND Family Medicine
PROC: 30233N1 Transfusion of Nonautologous Red Blood Cells into Peripheral Vein, Percutaneous Approach (ICD-10-PCS; principal; 2020-12-21)
PROC: 30233L1 Transfusion of Nonautologous Fresh Plasma into Peripheral Vein, Percutaneous Approach (ICD-10-PCS; 2020-12-21)
PROC: 30233K1 Transfusion of Nonautologous Frozen Plasma into Peripheral Vein, Percutaneous Approach (ICD-10-PCS; 2020-12-21)
PROC: 30233R1 Transfusion of Nonautologous Platelets into Peripheral Vein, Percutaneous Approach (ICD-10-PCS; 2020-12-21)
PROC: B4101ZZ Fluoroscopy of Abdominal Aorta using Low Osmolar Contrast (ICD-10-PCS; 2020-12-21)
PROC: 5A1D70Z Performance of Urinary Filtration, Intermittent, Less than 6 Hours Per Day (ICD-10-PCS; 2020-12-21)
PROC: 5A09457 Assistance with Respiratory Ventilation, 24-96 Consecutive Hours, Continuous Positive Airway Pressure (ICD-10-PCS; 2020-12-21)
DX: K66.1 Hemoperitoneum (principal); J96.01 Acute respiratory failure with hypoxia; N18.6 End stage renal disease; D65 Disseminated intravascular coagulation [defibrination syndrome]; Z66 Do not resuscitate; I50.32 Chronic diastolic (congestive) heart failure; I13.2 Hypertensive heart and chronic kidney disease with heart failure and with stage 5 chronic kidney disease, or end stage renal disease; D62 Acute posthemorrhagic anemia; Z68.43 Body mass index [BMI] 50.0-59.9, adult; N28.89 Other specified disorders of kidney and ureter; J44.9 Chronic obstructive pulmonary disease, unspecified; K21.9 Gastro-esophageal reflux disease without esophagitis; D50.9 Iron deficiency anemia, unspecified; I45.10 Unspecified right bundle-branch block; E11.22 Type 2 diabetes mellitus with diabetic chronic kidney disease; G47.33 Obstructive sleep apnea (adult) (pediatric); E78.5 Hyperlipidemia, unspecified; E66.01 Morbid (severe) obesity due to excess calories; F03.90 Unspecified dementia, unspecified severity, without behavioral disturbance, psychotic disturbance, mood disturbance, and anxiety; E11.51 Type 2 diabetes mellitus with diabetic peripheral angiopathy without gangrene; F32.9 Major depressive disorder, single episode, unspecified; R53.81 Other malaise; G47.00 Insomnia, unspecified; E11.42 Type 2 diabetes mellitus with diabetic polyneuropathy; I46.2 Cardiac arrest due to underlying cardiac condition; R00.1 Bradycardia, unspecified; Z88.8 Allergy status to other drugs, medicaments and biological substances; Z79.51 Long term (current) use of inhaled steroids; Z79.82 Long term (current) use of aspirin; Z79.4 Long term (current) use of insulin; Z79.899 Other long term (current) drug therapy; Z90.710 Acquired absence of both cervix and uterus; Z89.411 Acquired absence of right great toe; Z87.891 Personal history of nicotine dependence; Z79.01 Long term (current) use of anticoagulants; Z86.718 Personal history of other venous thrombosis and embolism; Z74.01 Bed confinement status; Z99.2 Dependence on renal dialysis; Z78.9 Other specified health status
CPT/HCPCS: 36200; 36415; 36430; 71045; 74177; 76942; 80053; 81003; 81015; 83605; 83690; 84484; 85007; 85025; 85027; 85049; 85300; 85362; 85379; 85384; 85610; 85730; 86850; 86900; 86901; 87086; 90935; 93005; 93010; 94660; 94760; C1769; G0257; J1644; J2270; J2405; J2597; J3010; J7050; J7620; P9016; P9035; P9047; P9059; Q5105; Q9967; S0017; U0002; U0005